=== PATIENT | female | born 1990 | race Caucasian/White ===

== ENCOUNTER → 2018-01-12 10:03 | Outpatient (CLI) | payer MEDICAID, SELFPAY ==
--- NOTE | 2018-01-12 10:13 | XR_ITS ---
XR cervical spine 5V Ordering Physician: Erma Donovan Patient Age: 27 years: Female HISTORY: ITS.REASON: STRAIN OF NECK MUSCLE,MUSCLE PAIN TECHNIQUE: Five-view cervical spine series COMPARISON :10/01/2013 CT C-spine FINDINGS Nonspecific straightening cervical spine. No fracture nor subluxation. This spaces are fairly well-maintained throughout. Facets intact with normal relationships & no remarkable facet hypertrophy/arthropathy . C1 1 C2 relationships appear normal. Prevertebral soft tissues appear normal. The neural foramen are patent bilaterally. Unremarkable. Apices the lungs clear. IMPRESSION: No fracture nor subluxation Cervical spine intact. Nonspecific straightening cervical spine. May merely reflect positioning but can be seen with muscle spasm, neck pain
== END ==
PROVIDERS: PCP Nurse Practitioner; Visit Provider Nurse Practitioner
DX: S16.1XXA Strain of muscle, fascia and tendon at neck level, initial encounter (principal); M79.1 Myalgia
CPT/HCPCS: 72050

== ENCOUNTER → 2018-05-20 08:46 | Outpatient (CLI) | payer MEDICAID, SELFPAY ==
--- NOTE | 2018-05-20 08:58 | US_ITS ---
US gallbladder HISTORY: ITS.REASON: RUQ PAIN ORDERING PHYSICIAN: Yan Hawk MD PATIENT AGE: 27 years Comparison: None FINDINGS: PANCREAS: Unremarkable. No obvious mass or abnormal fluid collection. No ductal dilatation LIVER: No focal liver lesions demonstrated. Homogeneous echogenicity. No intrahepatic biliary ductal dilatation evident RIGHT KIDNEY: There is some mild cortical thinning of the right kidney. No hydronephrosis. GALLBLADDER: No gallstones, gallbladder wall thickening, pericholecystic fluid, or biliary dilatation. IMPRESSION: Negative gallbladder/right upper quadrant ultrasound Mild cortical thinning of the right kidney
--- NOTE | 2018-05-20 12:25 | CT_ITS ---
CT abdomen pelvis w con CLINICAL INDICATION: ITS.REASON: RUQ ABD PAIN NAUSEA ORDERING PHYSICIAN: Zachary Lopez MD PATIENT AGE: 27 years COMPARISON: None TECHNIQUE: Axial images obtained with sagittal and coronal reformats. All CT scans at the facility use one or more dose reduction, viz: automated exposure control, ma/kV adjustment per patient size (including targeted exams where dose is matched to indication, i.e. head), or iterative reconstruction technique. PROCEDURE: Oral Contrast: None IV Contrast: 75 mg of Isovue-370. FINDINGS: The lung bases are clear. The liver, gallbladder, spleen, adrenal glands, pancreas, and kidneys have an unremarkable appearance. No renal or ureteral calculi. No hydronephrosis. No evidence of appendicitis or diverticulitis. There is a small area of fat density in the right adnexa measuring 15 mm suggesting a small dermoid cyst. This is in the region of the right ovary. No pelvic fluid collections. No acute bony anomalies. There is a tiny umbilical hernia which contains fat. No intestinal obstruction or free air. IMPRESSION: 1. No acute findings. 2. Small dermoid in the right adnexal area
== END ==
PROVIDERS: PCP Family Medicine; Visit Provider Family Medicine
DX: R10.11 Right upper quadrant pain (principal); R10.84 Generalized abdominal pain; R11.0 Nausea
CPT/HCPCS: 74177; 76705; Q9967

== ENCOUNTER → 2019-05-12 16:30 | Outpatient (CLI) | payer OTHER, SELFPAY ==
--- NOTE | 2019-05-12 | XR_ITS ---
PROCEDURE: XR ANKLE LT MIN 3V CLINICAL INDICATION: COMPARISON: No exams were available for comparison FINDINGS: There is no acute fracture dislocation or destructive bony lesion. Focal soft tissue swelling is seen over the lateral malleolus. IMPRESSION: No acute fracture or dislocation. Dictated by: Keshav Mathews 05/12/2019 17:16 Electronically signed by Keshav Mathews in [facility] 05/12/2019 17:16
== END ==
PROVIDERS: PCP Family Medicine; Visit Provider Family Medicine
DX: S99.912A Unspecified injury of left ankle, initial encounter (principal)
CPT/HCPCS: 73610

== ENCOUNTER 2021-01-07 12:55 | Emergency (ER) | payer BC, SELFPAY ==
[2021-01-07] VITALS (14 sets, daily range): BP systolic 119–148; BP diastolic 75–98; PULSE 71–110; RESP 21–28; TEMP 36.8; O2SAT 91–98; BMI 42.9
--- NOTE | 2021-01-07 13:13 | XR_ITS ---
PROCEDURE INFORMATION: Exam: XR Chest Exam date and time: 01/07/2021 1:13 PM Age: 30 years old Clinical indication: Shortness of breath; Additional info: Respiratory distress TECHNIQUE: Imaging protocol: XR of the chest. Views: 1 view. COMPARISON: ABDPELW CT abdomen pelvis w con 05/20/2018 12:24 PM FINDINGS: Lungs: Unremarkable. No consolidation. Pleural spaces: Unremarkable. No pleural effusion. No pneumothorax. Heart/Mediastinum: Unremarkable. No cardiomegaly. Bones/joints: Unremarkable. IMPRESSION: No acute findings.
--- NOTE | 2021-01-07 13:26 | HMH.EDGENADL ---
ED Disposition Clinical Impression: Asthma with exacerbation Qualifiers: Asthma severity: severe Asthma persistence: persistent Qualified Code(s): J45.51 - Severe persistent asthma with (acute) exacerbation Disposition: Home, Self-Care Condition on Discharge: Fair Instructions: DI for Shortness of Breath, DI for Asthma -- Adult Prescriptions: Mometasone/Formoterol [Dulera 100 Mcg-5 Mcg Inhaler] 13 gm IH BID 30 Days #1 applic Transmission Status: Pending to [id number] Referrals: Ninfa Ramos APRN [Primary Care Provider] - - Critical Care Critical Care Time: Yes Attestation: On 01/07/21, the high probability of a clinically significant, sudden or life threatening deterioration of the following system(s) required my full and direct attention, intervention and personal management. The time I documented below is in addition to time spent performing reported procedures but includes the following listed in this critical care notation. Vital system(s) involved:: Respiratory Failure My critical care processes included: Assessment & monitoring of V/S, Initial and Re-exams (patient required multiple re-exams and medication redosing due to severe respiratory distress.), Data Review/Interpretation Medical Decision Making - Medical Records Medical records reviewed: Yes: I reviewed the patient's medical records. - Steven Inquiry Pt receiving controlled substance: No Vital Signs: 01/07/21 12:56 01/07/21 13:43 01/07/21 14:00 Pulse Rate 82 74 Pulse Rate [Right Radial] 94 H Respiratory Rate 28 H Blood Pressure 133/88 119/76 Blood Pressure [Right Arm] 138/86 Blood Pressure Mean [Right Arm] 103 Blood Pressure Source [Right Arm] Automatic Cuff Blood Pressure Position [Right Arm] Sitting 02 Sat by Pulse Oximetry 98 97 91 L Oxygen Delivery Method Room Air 01/07/21 14:30 01/07/21 15:01 01/07/21 15:30 Pulse Rate 79 78 71 Pulse Rate [Right Radial] Respiratory Rate Blood Pressure 129/79 122/76 134/98 H Blood Pressure [Right Arm] Blood Pressure Mean [Right Arm] Blood Pressure Source [Right Arm] Blood Pressure Position [Right Arm] 02 Sat by Pulse Oximetry 91 L 94 L 92 L Oxygen Delivery Method 01/07/21 15:50 01/07/21 16:00 01/07/21 16:45 Pulse Rate 85 90 90 Pulse Rate [Right Radial] Respiratory Rate Blood Pressure 132/75 148/88 H Blood Pressure [Right Arm] Blood Pressure Mean [Right Arm] Blood Pressure Source [Right Arm] Blood Pressure Position [Right Arm] 02 Sat by Pulse Oximetry 91 L 92 L Oxygen Delivery Method 01/07/21 17:49 01/07/21 17:50 01/07/21 19:00 Pulse Rate 88 87 110 H Pulse Rate [Right Radial] Respiratory Rate Blood Pressure 132/76 Blood Pressure [Right Arm] Blood Pressure Mean [Right Arm] Blood Pressure Source [Right Arm] Blood Pressure Position [Right Arm] 02 Sat by Pulse Oximetry 91 L Oxygen Delivery Method 01/07/21 19:30 Pulse Rate 105 H Pulse Rate [Right Radial] Respiratory Rate Blood Pressure 133/79 Blood Pressure [Right Arm] Blood Pressure Mean [Right Arm] Blood Pressure Source [Right Arm] Blood Pressure Position [Right Arm] 02 Sat by Pulse Oximetry 95 Oxygen Delivery Method - Lab Data Lab Results 01/07/21 13:50: WBC 9.0, RBC 4.65, Hgb 14.3, Hct 43.0, MCV 92.6, MCH 30.8, MCHC 33.2, RDW 13.2, Plt Count 280, MPV 8.1, Neut % (Auto) 76.4, Lymph % (Auto) 17.9, [place] % (Auto) 4.4, Eos % (Auto) 0.7, Baso % (Auto) 0.6, Neut # (Auto) 6.9, Lymph # (Auto) 1.6, [place] # (Auto) 0.4, Eos # (Auto) 0.1, Baso # (Auto) 0.1 01/07/21 13:50: Sodium 140, Potassium 3.4 L, Chloride 106, Carbon Dioxide 21 L, Anion Gap 16.4 H, BUN 14, Creatinine 0.60, Estimated Creat Clear 116, Estimated GFR 116, Est GFR ( Amer) 140, Glucose 101 H, Calcium 9.4, Magnesium 1.7 Result diagrams: 01/07/21 13:50 01/07/21 13:50 Orders (Tests/Meds): ED MEDICATIONS Generic Name Dose Route Start Last Admin Trade Name
[2021-01-07 13:59] LABS: Basophils # 0.1 K/mm3 (0-0.2); Basophils % 0.6 % (0.1-2.0); Eosinophils # 0.1 K/mm3 (0.0-0.4); Eosinophils % 0.7 % (0.1-12.0); Hemoglobin 14.3 g/dL (12.2-16.2); Lymphocytes # 1.6 K/mm3 (0.7-4.5); Lymphocytes % 17.9 % (10-50); Mean Corpuscular HGB Conc 33.2 g/dL (31.8-35.4); Mean Corpuscular Hemoglobin 30.8 pg (27.0-31.2); Mean Corpuscular Volume 92.6 fl (81-99); Mean Platelet Volume 8.1 fl (7.4-10.4); Monocytes # 0.4 K/mm3 (0.1-1.0); Monocytes % 4.4 % (1.7-9.3); Neutrophils # 6.9 K/mm3 (1.8-7.8); Neutrophils % 76.4 % (37.0-80.0); Platelet Count 280 K/mm3 (142-424); Red Blood Count 4.65 M/mm3 (4.20-5.40); Red Cell Distribution Width 13.2 % (11.5-17.5)
[2021-01-07 14:05] LABS: Chloride 106 mmol/L (98-107); Potassium 3.4 mmoL/L (3.5-5.1); Sodium 140 mmol/L (136-145)
[2021-01-07 14:08] LABS: Anion Gap 16.4 mEq/L (5-15); Blood Urea Nitrogen 14 mg/dl (7-17); Calcium 9.4 mg/dl (8.4-10.2); Carbon Dioxide 21 mmol/L (22.0-30.0); Creatinine Clearance Estimated 116 mL/min (50-200); Estimated Glomerular Filt Rate 116 ml/min (>60); GFR (African American) 140 ML/MIN (>60); Glucose 101 mg/dl (74-100); Magnesium 1.7 mg/dl (1.6-2.3)
--- NOTE | 2021-01-07 16:08 | PC.NURSE ---
RESP CALLED FOR 2ND DUO NEB
--- NOTE | 2021-01-07 16:52 | PC.NURSE ---
pt given warm blanket, pt states feeling better will continue to monitor
[2021-01-07 18:45] LABS: Adenovirus,PCR Not Detected (NotDetected); Bordetella Pertussis Not Detected (NotDetected); Chlamydophila Pneumoniae, PCR Not Detected (NotDetected); Coronavirus 19, PCR Not Detected (NotDetected); Coronavirus 229E Not Detected (NotDetected); Coronavirus NL63 Not Detected (NotDetected); Coronavirus OC43 Not Detected (NotDetected); Coronovirus HKU1,PCR Not Detected (NotDetected); Human Metapneumovirus Not Detected (NotDetected); Influenza A, PCR Not Detected (NotDetected); Influenza AH1, 2009 Not Detected (NotDetected); Influenza AH1, PCR Not Detected (NotDetected); Influenza AH3,PCR Not Detected (NotDetected); Influenza B, PCR Not Detected (NotDetected); Mycoplasma Pneumoniae, PCR Not Detected (NotDetected); Parainfluenza 1, PCR Not Detected (NotDetected); Parainfluenza 2, PCR Not Detected (NotDetected); Parainfluenza 3, PCR Not Detected (NotDetected); Parainfluenza 4, PCR Not Detected (NotDetected); Respiratory Syncytial Virus Not Detected (NotDetected); Rhinovirus/Enterovirus Not Detected (NotDetected)
--- NOTE | 2021-01-07 18:50 | CT_ITS ---
PROCEDURE INFORMATION: Exam: CT Neck With Contrast Exam date and time: 01/07/2021 6:50 PM Age: 30 years old Clinical indication: Dyspnea / difficulty breathing; Patient HX: Asthma difficulty breathing upper airway; Additional info: Upper airway distress; Eval for rpa, epiglottitis, TECHNIQUE: Imaging protocol: Computed tomography images of the neck with contrast. Radiation optimization: All CT scans at this facility use at least one of these dose optimization techniques: automated exposure control; mA and/or kV adjustment per patient size (includes targeted exams where dose is matched to clinical indication); or iterative reconstruction. Contrast material: ISOVUE; Contrast volume: 75 ml; Contrast route: IV; COMPARISON: CR [id number] XR cervical spine 5V 01/12/2018 10:17 AM FINDINGS: Nasopharynx: Unremarkable. Oropharynx: Unremarkable. No significant tonsillar enlargement. Hypopharynx: Unremarkable. Larynx: The epiglottis and aryepiglottic folds are within normal limits. No evidence of epiglottitis. Retropharyngeal space: No evidence of retropharyngeal abscess. Submandibular/Parotid glands: Normal. Glands are normal in size. Thyroid: Normal. No enlarged or calcified nodules. Lymph nodes: No cervical lymphadenopathy. Trachea: Visualized trachea is unremarkable. Lungs: Unremarkable as visualized. Bones/joints: Unremarkable. No acute fracture. Soft tissues: Unremarkable. No significant soft tissue swelling. IMPRESSION: 1. The epiglottis and aryepiglottic folds are within normal limits. 2. No evidence of epiglottitis. 3. No evidence of retropharyngeal abscess. 4. No cervical lymphadenopathy.
== END 2021-01-07 21:05 | disposition home or self-care (01) ==
PROVIDERS: Emergency Provider Emergency Medicine; PCP Nurse Practitioner Family
DX: J45.41 Moderate persistent asthma with (acute) exacerbation (principal)
CPT/HCPCS: 70491; 71045; 80048; 83735; 85025; 87581; 87632; 87798; 96365; 96375; 99282; C9803; Q9967; U0003; U0005

== ENCOUNTER 2021-01-08 11:54 | Emergency (ER) | payer BC, SELFPAY ==
[2021-01-08 11:55] VITALS: BP 137/85; PULSE 67; RESP 20; TEMP 36.9; O2SAT 99; BMI 45.3
--- NOTE | 2021-01-08 11:56 | CT_ITS ---
PROCEDURE: CT ANGIO CHEST PE PROTOCOL CLINCIAL INDICATION: per Dr. Owens - jane Shortness of breath, Covid19 updated COMPARISON: No exams were available for comparison TECHNIQUE: IV Contrast: 70ML Isovue 370 Axial images obtained with sagittal and coronal reformats. All CT scans at the facility use one or more dose reduction, viz: automated exposure control, ma/kV adjustment per patient size (including targeted exams where dose is matched to indication, i.e. head), or iterative reconstruction technique. FINDINGS: HEART AND MEDIASTINAL STRUCTURES: No evidence of pulmonary embolus, aortic aneurysm, or aortic dissection. There is a small amount of intravenous gas in the left brachiocephalic vein, right external jugular, and superior vena cava and may be due to recent IV cannulation LUNGS AND PLEURAL SPACES: Unremarkable. BONY STRUCTURES: No acute bony abnormalities apparent. UPPER ABDOMEN: Unremarkable. ADDITIONAL FINDINGS: No other significant abnormalities. IMPRESSION: No acute finding. No evidence of pulmonary embolus Dictated by: Uriel Meeks MD 01/08/2021 15:00 Uriel Meeks MD in [facility] 01/08/2021 15:00
--- NOTE | 2021-01-08 12:21 | HMH.EDGENADL ---
ED Disposition Clinical Impression: Asthma Qualifiers: Asthma severity: mild Asthma persistence: unspecified Asthma complication type: unspecified Qualified Code(s): J45.909 - Unspecified asthma, uncomplicated Disposition: Home, Self-Care Condition on Discharge: Good Additional Instructions: Follow-up with PCP in 1 to 2 days. Turn to emergency department chest pain, shortness of breath, nausea/vomiting. Referrals: Zion Owens MD [Primary Care Provider] - Time of Disposition: 15:08 - Critical Care Critical Care Time: No Attestation: On 01/08/21, the high probability of a clinically significant, sudden or life threatening deterioration of the following system(s) required my full and direct attention, intervention and personal management. The time I documented below is in addition to time spent performing reported procedures but includes the following listed in this critical care notation. Medical Decision Making - Medical Records Medical records reviewed: Yes: I reviewed the patient's medical records. - Steven Inquiry Pt receiving controlled substance: No Vital Signs: 01/08/21 11:55 01/08/21 12:58 Temperature 98.5 F Temperature Source Oral Pulse Rate 71 Pulse Rate [Left Radial] 67 Respiratory Rate 20 20 Blood Pressure 143/89 H Blood Pressure [Right Arm] 137/85 Blood Pressure Mean [Right Arm] 102 02 Sat by Pulse Oximetry 99 96 Oxygen Delivery Method Room Air - Lab Data Lab results reviewed: Yes: I reviewed the patient's lab results. Lab Results 01/08/21 12:05: WBC 12.7 H D, RBC 4.40, Hgb 13.6, Hct 41.2, MCV 93.6, MCH 30.8, MCHC 33.0, RDW 13.3, Plt Count 261, MPV 8.2, Neut % (Auto) 80.7 H, Lymph % (Auto) 13.5, [place] % (Auto) 4.6, Eos % (Auto) 0.8, Baso % (Auto) 0.4, Neut # (Auto) 10.2 H, Lymph # (Auto) 1.7, [place] # (Auto) 0.6, Eos # (Auto) 0.1, Baso # (Auto) 0.1 01/08/21 12:05: Sodium 139, Potassium 3.7, Chloride 105, Carbon Dioxide 24, Anion Gap 13.7, BUN 13, Creatinine 0.50 L, Estimated Creat Clear 139, Estimated GFR 143, Est GFR ( Amer) 173 D, Glucose 101 H, Calcium 9.0, Total Bilirubin 0.1 L, AST 28, ALT 24, Alkaline Phosphatase 87, Total Protein 7.5, Albumin 4.3, Globulin 3.2, Albumin/Globulin Ratio 1.3 01/08/21 13:18: Serum HCG, Qual Negative Result diagrams: 01/08/21 12:05 01/08/21 12:05 Orders (Tests/Meds): ED MEDICATIONS Generic Name Dose Route Start Last Admin Trade Name Freq PRN Reason Stop Dose Admin Sodium Chloride 10 ml 01/08/21 14:17 01/08/21 14:18 Sodium Chloride 0.9% 10ml Syr (Rad Only) IV 02/07/21 14:16 10 ml NEEDED PRN Administration Maintain IV Site Discontinued Medications Generic Name Dose Route Start Last Admin Trade Name Freq PRN Reason Stop Dose Admin Iopamidol 70 ml 01/08/21 14:17 01/08/21 14:18 Iopamidol-370 (76%);100ml Bottle IV 01/08/21 14:18 70 ml ONCE ONE Administration Medical Decision Narrative: 30yo F sent to the emergency department by her PCP office to rule out pulmonary embolism. Patient is PERC score is 0. Her O2 saturation is anywhere from 96 to 100% on room air. Her heart rate is in the 70s. Clinically, there is no indication of a pulmonary embolism. CT angio of the chest was ordered to help her PCP facilitate further work-up. Patient was also sent for an ABG. I discussed the indications for an ABG and if they are not a painless study with the patient. Patient would prefer to not undergo that study as it is useless in her current clinical setting. Patient's blood work is unremarkable except for a white count of 12.7. This may be secondary to recent steroid use. Patient sent for CT angio of the chest that fails to demonstrate any findings of pulmonary embolism. She is discharged home in stable condition. General Adult HPI - General Chief complaint: Recheck/Abnormal Lab/Rx Stated complaint: possible pulmo embolism Time Seen by Provider: 01/08/21 12:22 Mode of Arrival: Ambulatory [facility]
[2021-01-08 12:23] LABS: Basophils # 0.1 K/mm3 (0-0.2); Basophils % 0.4 % (0.1-2.0); Chloride 105 mmol/L (98-107); Eosinophils # 0.1 K/mm3 (0.0-0.4); Eosinophils % 0.8 % (0.1-12.0); Hematocrit 41.2 % (37.0-47.0); Hemoglobin 13.6 g/dL (12.2-16.2); Lymphocytes # 1.7 K/mm3 (0.7-4.5); Lymphocytes % 13.5 % (10-50); Mean Corpuscular Hemoglobin 30.8 pg (27.0-31.2); Mean Corpuscular Volume 93.6 fl (81-99); Mean Platelet Volume 8.2 fl (7.4-10.4); Monocytes # 0.6 K/mm3 (0.1-1.0); Monocytes % 4.6 % (1.7-9.3); Neutrophils # 10.2 K/mm3 (1.8-7.8); Neutrophils % 80.7 % (37.0-80.0); Platelet Count 261 K/mm3 (142-424); Red Cell Distribution Width 13.3 % (11.5-17.5); White Blood Count 12.7 K/mm3 (4.8-10.8)
[2021-01-08 12:24] LABS: Potassium 3.7 mmoL/L (3.5-5.1); Sodium 139 mmol/L (136-145)
[2021-01-08 12:26] LABS: Alanine Aminotransferase 24 U/L (12-78); Aspartate Amino Transferase 28 U/L (14-36); Blood Urea Nitrogen 13 mg/dl (7-17); Creatinine Clearance Estimated 139 mL/min (50-200); Estimated Glomerular Filt Rate 143 ml/min (>60); GFR (African American) 173 ML/MIN (>60)
[2021-01-08 12:27] LABS: Albumin Level 4.3 g/dl (3.5-5.0); Albumin/Globulin Ratio 1.3 (1.1-1.8); Alkaline Phosphatase 87 U/L (38-126); Anion Gap 13.7 mEq/L (5-15); Carbon Dioxide 24 mmol/L (22.0-30.0); Globulin 3.2 g/dL (1.3-3.2); Glucose 101 mg/dl (74-100); Total Protein,Serum 7.5 g/dl (6.3-8.2)
[2021-01-08 12:29] LABS: Bilirubin,Total 0.1 mg/dl (0.2-1.3)
[2021-01-08 12:58] VITALS: BP 143/89; PULSE 71; RESP 20; O2SAT 96
--- NOTE | 2021-01-08 13:14 | HMH.ITSTN ---
1:14pm dony rivas called and spoke with lina caballero to check on the preg test. Lina states preg test was not back yet.
--- NOTE | 2021-01-08 13:59 | HMH.ITSTN ---
spoke to alysia mills she said 7 minutes left on HCG
[2021-01-08 14:03] LABS: HCG Qualitative, Serum Negative (Negative)
[2021-01-08 15:13] VITALS: BP 139/89; PULSE 89; RESP 18; TEMP 37; O2SAT 100
== END 2021-01-08 15:14 | disposition home or self-care (01) ==
PROVIDERS: Emergency Provider Family Medicine; PCP Emergency Medicine
DX: J45.901 Unspecified asthma with (acute) exacerbation (principal); Z87.891 Personal history of nicotine dependence; Z79.899 Other long term (current) drug therapy
CPT/HCPCS: 36415; 71275; 80053; 84703; 85025; 99282; Q9967

== ENCOUNTER → 2021-05-03 08:42 | Outpatient (CLI) | payer BC, SELFPAY | PROVIDERS: Visit Provider Nurse Practitioner | DX: Z20.822 Contact with and (suspected) exposure to COVID-19 (principal) | CPT/HCPCS: C9803; U0003; U0005 ==

== ENCOUNTER 2022-03-30 09:41 | Emergency (ER) | payer BC, SELFPAY ==
[2022-03-30 09:45] VITALS: BP 137/76; PULSE 101; RESP 18; TEMP 36.8; O2SAT 97; BMI 50.4
--- NOTE | 2022-03-30 10:08 | EXP.UTC ---
Discharge Plan Disposition Patient Disposition: Home, Self-Care Condition: Good Prescriptions Prescriptions: New prednisone [prednisone] 20 mg tablet 20 mg PO BID Qty: 10 0RF No Action albuterol sulfate 90 mcg/actuation HFA aerosol inhaler INHALATION montelukast 10 mg tablet 10 mg PO Label Comments: TAKE 1 TABLET BY MOUTH ONCE DAILY IN THE EVENING FOR 30 DAYS fluticasone propionate 50 mcg/actuation spray,suspension INTRANASAL Label Comments: USE 1 SPRAY(S) IN EACH NOSTRIL TWICE DAILY FOR 30 DAYS diclofenac potassium 50 mg tablet 50 mg PO PRN Label Comments: TAKE 2 TABLETS BY MOUTH WITH ONSET OF PAIN THEN 1 EVERY 8 HOURS NEEDED FOR PAIN. DO NOT EXCEED 3 TABLETS DAILY AFTER FIRST DAY Complete Multivitamin Tablet 1 tab PO DAILY nystatin 100,000 unit/gram cream 1 applic TOPICAL BID Qty: 30 0RF hydroxyzine HCl 10 mg tablet 10 mg PO DAILY PRN (Reason: anxiety) Qty: 30 1RF escitalopram oxalate [Lexapro] 10 mg tablet 10 mg PO DAILY Qty: 30 2RF hydroxyzine pamoate 25 mg capsule 25 mg PO TID Qty: 90 2RF albuterol sulfate 1.25 mg/3 mL solution for nebulization 1.25 mg INHALATION Q4H PRN (Reason: shortness of breath or wheezing) Qty: 90 0RF budesonide-formoterol [Symbicort] 160-4.5 mcg/actuation HFA aerosol inhaler 2 puff INHALATION BID Qty: 10.2 2RF Rx Instructions: Can use up to 8 inhalations a day during acute asthma flare mometasone-formoterol 13 GM HFA aerosol inhaler 13 g inhalation BID 30 Days Qty: 1 0RF Referrals Follow up/Referrals: Mitali Uribe APRN [Primary Care Provider] - See instructions Activity Restrictions/Add. Instructions Additional Instructions/Restrictions: covid swab was sent to lab, call later today for results. self isolate until test results are known to be negative No sign of a bacterial infection. Likely viral. Viruses can take 7-14 days to run their course. Nasal saline and bulb syringe or nose Kelly to remove nasal drainage to help with nasal congestion. Hard to eat, drink, sleep with nasal congestion so important to keep this cleaned out. Monitor temp. Tylenol or Motrin as needed for pain or fever Encourage fluids, water, Gatorade, Powerade, Pedialyte if /toddler/child Warm salt water gargles Warm fluids Sore throat lozenges Sleep elevated Humidifier/vaporizer Follow-up immediately for new or worsening symptoms or no noticeable improvement over the next 48-72 hours. Clinical Impressions Clinical Impression: Upper respiratory infection, Exposure to the flu Instructions Patient Instructions: DI for Viral Upper Respiratory Infection -- Adult Discharge ED Provider: Cheng [place] [facility] [place] General Stated complaint: cough, drainage, BENEDICT, sore throat Time Seen by Provider: 03/30/22 10:08 HEENT Symptoms (Recalled from RN notes): Yes Resp Symptoms (Recalled from RN notes): Yes History of Present Illness Provider Complaint: 31 yr old female presents for sore throat, cough, soa and drainage for a few days. pt states she had a exposure to strep and flu this week. pt states she is having to use her inhaler more this week. Related Data Home Medications Medication Instructions Recorded Confirmed albuterol sulfate 90 mcg/actuation inhalation 05/10/20 03/28/22 aerosol inhaler diclofenac potassium 50 mg tablet 50 mg PO PRN 05/10/20 03/28/22 fluticasone propionate 50 g intranasal 05/10/20 03/28/22 mcg/actuation nasal spray,suspension montelukast 10 mg tablet 10 mg PO 05/10/20 03/28/22 multivitamin,by-bovw-xoigltbo 1 tab PO DAILY 05/10/20 03/28/22 (Complete Multivitamin tablet) Previous Rx's Medication Instructions Recorded mometasone-formoterol HFA 100 13 g inhalation BID 30 days #1 01/07/21 mcg-5 mcg/actuation aerosol inhaler applic albuterol sulfate 1.25 mg/3 mL 1.25 mg (3 mL) inhalation Q4H PRN 01/09/21 solution for nebulization shortness of breath
[2022-03-30 10:21] VITALS: BP 137/76; PULSE 101; RESP 18; TEMP 36.8; O2SAT 97
[2022-03-30 10:23] LABS: UTC Strep Screen (Rapid) Negative (Negative)
[2022-03-30 10:37] LABS: Influenza A, PCR Not Detected (NotDetected); Influenza B, PCR Not Detected (NotDetected)
[2022-03-30 11:01] LABS: Coronavirus 19, PCR Detected (NotDetected)
== END 2022-03-30 10:28 | disposition home or self-care (01) ==
PROVIDERS: Emergency Provider Nurse Practitioner Family; PCP Nurse Practitioner Family
DX: U07.1 COVID-19 (principal)
CPT/HCPCS: 87880; 99212; C9803; G0463; U0003; U0005

== ENCOUNTER 2022-06-09 12:10 | Emergency (ER) | payer BC, SELFPAY ==
[2022-06-09 12:11] VITALS: BP 158/101; PULSE 94; RESP 19; TEMP 37.3; O2SAT 98; BMI 51.5
[2022-06-09 12:15] VITALS: BP 158/101; PULSE 88; O2SAT 98
--- NOTE | 2022-06-09 12:39 | US_ITS ---
PROCEDURE INFORMATION: Exam: US , Transvaginal Exam date and time: 06/09/2022 1:29 PM Age: 31 years old Clinical indication: Lmp or gestational age (in weeks): 5w; Antepartum complications; Bleeding; ; Patient HX: Bhcgs decreasing last week-- bhcg 12 today; Additional info: Abd pain, vag bleed, miscarriage TECHNIQUE: Imaging protocol: Real-time transvaginal obstetrical ultrasound of the maternal pelvis with image documentation. Transvaginal imaging was used for better evaluation of the fetus, adnexa, and/or cervix. COMPARISON: ABDPELW CT abdomen pelvis w con 05/20/2018 12:24 PM FINDINGS: Gestation: No intrauterine gestational sac detected. MATERNAL: Uterus: Uterus measures approximately 8.5 x 4.2 x 5.0 cm diameter. No myometrial mass is seen. Anterior lower uterine myometrial scar noted. The endometrial stripe measured approximately 7 mm thickness, and appears slightly heterogeneous, Image 12. Cervix: Tiny cervical nabothian cysts up to 4 mm. Right ovary/adnexa: The right ovary was not clearly seen, obscured by bowel gas; technologist noted that the study was limited due to large patient body habitus. 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 Left ovary/adnexa: Left ovary measured 2.7 x 1.7 x 1.8 cm diameter, with tiny follicles. No enlarged cyst or mass. Vascular flow noted in the left ovary. Intraperitoneal space: No free fluid is seen in the cul-de-sac. IMPRESSION: 1. No intrauterine gestational sac detected. 2. No ectopic is detected; however, right adnexa is obscured by bowel gas. 3. No free fluid. 4. Considering the clinical history of falling beta HCG levels and bleeding, findings are most likely due to complete AB.
--- NOTE | 2022-06-09 12:40 | PC.NURSE ---
contacted radiology about transvaginal us, calling in tech
--- NOTE | 2022-06-09 12:40 | PC.NURSE ---
lab called for type and screen
--- NOTE | 2022-06-09 12:41 | HMH.EDGENADL ---
Discharge Plan Disposition Patient Disposition: Home, Self-Care Condition: Fair Chief Complaint: Vaginal Bleeding Prescriptions Prescriptions: No Action citalopram 20 mg tablet 20 mg PO DAILY Label Comments: TAKE 1 TABLET BY MOUTH ONCE DAILY montelukast 10 mg tablet 10 mg PO DAILY Label Comments: TAKE 1 TABLET BY MOUTH ONCE DAILY IN THE EVENING FOR 30 DAYS hydroxyzine pamoate 25 mg capsule 25 mg PO TID PRN (Reason: Anxiety) Label Comments: TAKE 1 CAPSULE BY MOUTH THREE TIMES DAILY escitalopram oxalate 10 mg tablet 10 mg PO DAILY Label Comments: TAKE 1 TABLET BY MOUTH ONCE DAILY DIRECTED Referrals Follow up/Referrals: Mitali Uribe APRN [Primary Care Provider] - See instructions Clinical Impressions Clinical Impression: Ovarian cyst, Complete Instructions Patient Instructions: DI for Vaginal Bleeding Print Language Print Language: Moroccan Discharge ED Provider: Sudhir Vazquez General Adult HPI General Chief complaint: Vaginal Bleeding Stated complaint: vaginal bleeding Time Seen by Provider: 06/09/22 16:06 Mode of Arrival: Ambulatory Source of Information: Patient Limitations: No Limitations Description of Symptoms (Recalled from ER Triage Doc. by RN): 31 F, , gestation age of approximately 4-5 weeks. Was seen by her DIMENSIONAL INSPECTOR, Dr. Vance who is with [facility], on Friday and diagnosed with active micarriage. Patient began having untilateral RLQ abdominal pain that radiates into her right inguinal area. Patient reports dark brown bleeding with clots. NAD on arrival, but appears uncomfortable. History of Present Illness HPI narrative: Patient presents to the emergency department abdominal pain and vaginal bleeding. She states that she is just a few weeks along and has a history of being a G6, P2. She denies any fever, chills, cough, congestion, nausea or vomiting. She also describes right lower quadrant abdominal tenderness. She saw her Dr. Vance who is an OB at the [facility] just a few days ago who encouraged her to come to the emergency department with any worsening symptoms. At that time she was found to have a miscarriage. She states that today her vaginal bleeding worsened with maroon-colored clots. Related Data Home Medications Medication Instructions Recorded Confirmed citalopram 20 mg tablet 20 mg PO DAILY Anxiety with 06/09/22 06/09/22 depression escitalopram oxalate 10 mg tablet 10 mg PO DAILY Anxiety with 06/09/22 06/09/22 depression hydroxyzine pamoate 25 mg capsule 25 mg PO TID PRN Anxiety 06/09/22 06/09/22 montelukast 10 mg tablet 10 mg PO DAILY Seasonal Allergies 06/09/22 06/09/22 Allergies Allergy/AdvReac Type Severity Reaction Status Date / Time cefdinir Allergy Severe Hives Verified 06/05/22 14:13 sulfamethoxazole Allergy Severe Hives Verified 06/05/22 14:13 [From Bactrim] trimethoprim [From Bactrim] Allergy Severe Hives Verified 06/05/22 14:13 PFSH [facility] Disclaimer: The information contained in this section may have been updated after the patient was seen, as this information can be updated by other users. Medical History (Updated 06/09/22 @ 16:06 by Sudhir Vazquez MD) Generalized anxiety disorder Grief Miscarriage Family History , SUCCESS COACH) FHx: mental illness Mother Social History , SUCCESS COACH) Smoking Status: Never smoker second hand exposure: No alcohol intake: never counseling given: No substance use type: denies use current occupational status: employed Travel in the last 8 weeks: None adopted: No caregiver/support person: Yes (to her 2 children) foster care: No household members: spouse housing: house lives independently: Yes marital status: number of children: 2 number of grandchildren: 0 education level:
--- NOTE | 2022-06-09 12:55 | PC.NURSE ---
PT IS SLEEPING AT BEDSIDE
[2022-06-09 13:02] LABS: Microscopic, Urine URINE MICROSCOPIC (MICROSCOPIC)
[2022-06-09 13:13] LABS: Basophils # 0.1 K/mm3 (0-0.2); Basophils % 1.3 % (0.1-2.0); Eosinophils # 0.2 K/mm3 (0.0-0.4); Eosinophils % 2.5 % (0.1-12.0); Hematocrit 39.4 % (37.0-47.0); Hemoglobin 13.2 g/dL (12.2-16.2); Lymphocytes # 2.1 K/mm3 (0.7-4.5); Lymphocytes % 27.5 % (10-50); Mean Corpuscular HGB Conc 33.5 g/dL (31.8-35.4); Mean Corpuscular Hemoglobin 28.8 pg (27.0-31.2); Mean Corpuscular Volume 85.9 fl (81-99); Mean Platelet Volume 8.8 fl (7.4-10.4); Monocytes # 0.4 K/mm3 (0.1-1.0); Monocytes % 5.1 % (1.7-9.3); Neutrophils # 4.9 K/mm3 (1.8-7.8); Neutrophils % 63.6 % (37.0-80.0); Platelet Count 323 K/mm3 (142-424); Red Blood Count 4.58 M/mm3 (4.20-5.40); Red Cell Distribution Width 14.5 % (11.5-17.5); White Blood Count 7.8 K/mm3 (4.8-10.8)
[2022-06-09 13:14] LABS: Alanine Aminotransferase 22 U/L (12-78); Albumin Level 4.4 g/dl (3.5-5.0); Albumin/Globulin Ratio 1.3 (1.1-1.8); Alkaline Phosphatase 92 U/L (38-126); Anion Gap 7.8 mEq/L (5-15); Aspartate Amino Transferase 31 U/L (14-36); Bilirubin,Total 0.5 mg/dl (0.2-1.3); Blood Urea Nitrogen 12 mg/dl (7-17); Calcium 8.7 mg/dl (8.4-10.2); Carbon Dioxide 28 mmol/L (22.0-30.0); Chloride 107 mmol/L (98-107); Creatinine Clearance Estimated 115 mL/min (50-200); Estimated Glomerular Filt Rate 115 ml/min (>60); GFR (African American) 139 ML/MIN (>60); Globulin 3.5 g/dL (1.3-3.2); Glucose 85 mg/dl (74-100); Potassium 3.8 mmoL/L (3.5-5.1); Sodium 139 mmol/L (136-145); Total Protein,Serum 7.9 g/dl (6.3-8.2)
--- NOTE | 2022-06-09 13:15 | PC.NURSE ---
ROUNDED ON PT STATES SHE IS HURTING HER SIDE A LITTLE NO OTHER COMPLAINTS AT THIS TIME,NOTIFIED ER NURSE TAKING CARE OF PT
--- NOTE | 2022-06-09 13:20 | PC.NURSE ---
us tech at bedside for transvaginal
[2022-06-09 13:31] LABS: HCG,Quantitative 12 mIU/ml (0-5.42)
[2022-06-09 13:42] LABS: Appearance,Urine CLEAR (Clear); Bilirubin,Urine Negative (Negative); Blood, Urine 2+ (Negative); Color,Urine YELLOW (Yellow); Glucose,Urine (UA) Negative (Negative); Ketones,Urine Negative (Negative); Leukocyte Esterase,Urine Negative (Negative); Nitrate,Urine Negative (Negative); Protein,Urine Negative (Negative); Specific Gravity, Urine 1.015 (1.005-1.030); Urobilinogen,Urine 0.2 EU/dl (0.2)
[2022-06-09 14:03] LABS: Bacteria,Urine Trace /lpf
--- NOTE | 2022-06-09 14:15 | CT_ITS ---
PROCEDURE INFORMATION: Exam: CT Abdomen And Pelvis With Contrast Exam date and time: 06/09/2022 2:43 PM Age: 31 years old Clinical indication: Other: Bleeding; Additional info: Abd pain TECHNIQUE: Imaging protocol: Computed tomography of the abdomen and pelvis with contrast. Radiation optimization: All CT scans at this facility use at least one of these dose optimization techniques: automated exposure control; mA and/or kV adjustment per patient size (includes targeted exams where dose is matched to clinical indication); or iterative reconstruction. Contrast material: ISOVUE; Contrast volume: 75 ml; Contrast route: IV; Other protocol: This patient has received 0 known CTs and 0 known cardiac nuclear medicine studies in the 12 months prior to the current study. COMPARISON: ABDPELW CT abdomen pelvis w con 05/20/2018 12:24 PM FINDINGS: Lungs: No acute findings in the visualized lower lungs. No pulmonary consolidation. Heart: The heart is not enlarged. Liver: Slight hepatomegaly. No discrete mass. Gallbladder and bile ducts: The gallbladder is unremarkable. No calcified stones or biliary dilatation. Pancreas: The pancreas is normal. Spleen: The spleen is normal. Adrenal glands: The adrenal glands are normal. Kidneys and ureters: 6 mm hypoattenuating superomedial left renal cortical nodule coronal image 56, likely tiny cyst, too small to accurately characterize. No suspicious mass. No hydronephrosis, hydroureter, or calcified obstructing ureteral stones. Stomach and bowel: The stomach is normal. A few scattered small intestinal air-fluid levels, no dilated loops or mucosal thickening. No acute findings in the large intestine. Appendix: No findings of appendicitis. Intraperitoneal space: There is no significant free intraperitoneal fluid. There is no free intraperitoneal air. Vasculature: Unremarkable. No abdominal aortic aneurysm. Lymph nodes: No significantly enlarged lymph nodes by short axis criteria. Urinary bladder: The urinary bladder is nearly empty and not well evaluated. No calcified stones. Reproductive: Uterus is unremarkable on the prior CT from 05/20/2018 there is a small dermoid tumor of approximately 1.7 cm diameter containing joshua fat. On today's exam, hypoattenuating right adnexal lesion measures up to 3.6 cm diameter, and on today's exam this has heterogeneous greater density than on the previous CT, with internal density measurements of -30 to +8 HU (previously HU density of-76). This could be enlarging complex dermoid or given the history of recent with no IUP, an ectopic would be another consideration. See coronal series 1001, images 39 -43, sagittal series 1002, images 56 -59, axial series 3, images 81 -85. No adnexal mass or cyst on the left. Bones/joints: There are spinal degenerative changes, with multilevel disc narrrowing and spondylosis.There is no evidence of acute fracture. Mild anterior wedge compression deformities of L1 and L2 vertebrae are chronic compared with 2019. Soft tissues: There is a tiny fatty umbilical hernia; no herniated bowel loops. Mild nonspecific soft tissue edema in the posterior lower back, a common finding. No loculated fluid collection. No mass. IMPRESSION: 1. Right adnexal lesion has enlarged and increased in density compared with 05/20/2018, previously 1.7 cm and now 3.3 cm. This is likely enlarging dermoid/teratoma containing increased fluid since the previous exam, at which time it appeared fatty. Considering the history of , a right adnexal ectopic is not excluded though this would be less likely. No significant free fluid to suggest
[2022-06-09 16:19] VITALS: BP 120/84; PULSE 83; RESP 18; TEMP 36.8; O2SAT 97
--- NOTE | 2022-06-09 16:24 | PC.NURSE ---
PT IS HAVING VAGINAL ULTRASOUND DONE
== END 2022-06-09 16:20 | disposition home or self-care (01) ==
PROVIDERS: Emergency Provider Emergency Medicine; PCP Nurse Practitioner Family
DX: O03.9 Complete or unspecified spontaneous abortion without complication (principal); F41.0 Panic disorder [episodic paroxysmal anxiety]; Z81.3 Family history of other psychoactive substance abuse and dependence
CPT/HCPCS: 74177; 76830; 80053; 81001; 84702; 85025; 86900; 86901; 96361; 96374; 96375; 96376; 99285; J2405; Q9967

== ENCOUNTER → 2022-07-08 10:27 | Outpatient (CLI) | payer BC, SELFPAY ==
[2022-07-08 11:31] LABS: Basophils # 0.1 K/mm3 (0-0.2); Eosinophils # 0.2 K/mm3 (0.0-0.4); Eosinophils % 2.2 % (0.1-12.0); Hematocrit 42.1 % (37.0-47.0); Hemoglobin 13.3 g/dL (12.2-16.2); Lymphocytes # 1.9 K/mm3 (0.7-4.5); Lymphocytes % 25.4 % (10-50); Mean Corpuscular HGB Conc 31.6 g/dL (31.8-35.4); Mean Corpuscular Hemoglobin 28.6 pg (27.0-31.2); Mean Corpuscular Volume 90.6 fl (81-99); Mean Platelet Volume 8.1 fl (7.4-10.4); Monocytes # 0.4 K/mm3 (0.1-1.0); Monocytes % 4.9 % (1.7-9.3); Neutrophils % 66.6 % (37.0-80.0); Platelet Count 344 K/mm3 (142-424); Red Blood Count 4.64 M/mm3 (4.20-5.40); Red Cell Distribution Width 14.7 % (11.5-17.5); White Blood Count 7.5 K/mm3 (4.8-10.8)
[2022-07-08 11:38] LABS: Chloride 101 mmol/L (98-107); Potassium 4.2 mmoL/L (3.5-5.1); Sodium 137 mmol/L (136-145)
[2022-07-08 11:41] LABS: Alanine Aminotransferase 30 U/L (12-78); Albumin Level 4.1 g/dl (3.5-5.0); Albumin/Globulin Ratio 1.5 (1.1-1.8); Alkaline Phosphatase 82 U/L (38-126); Anion Gap 10.2 mEq/L (5-15); Aspartate Amino Transferase 37 U/L (14-36); Bilirubin,Total 0.3 mg/dl (0.2-1.3); Blood Urea Nitrogen 10 mg/dl (7-17); Carbon Dioxide 30 mmol/L (22.0-30.0); Estimated Glomerular Filt Rate 142 ml/min (>60); GFR (African American) 172 ML/MIN (>60); Globulin 2.8 g/dL (1.3-3.2); Total Protein,Serum 6.9 g/dl (6.3-8.2)
[2022-07-08 11:42] LABS: Calcium 8.8 mg/dl (8.4-10.2); Glucose 90 mg/dl (74-100)
[2022-07-08 11:58] LABS: HCG,Quantitative 9 mIU/ml (0-5.42)
== END ==
PROVIDERS: PCP Nurse Practitioner Family; Visit Provider Nurse Practitioner Obstetrics & Gynecology
DX: D27.9 Benign neoplasm of unspecified ovary (principal)
CPT/HCPCS: 36415; 80053; 84702; 85025

== ENCOUNTER 2022-07-10 10:39 | Observation (INO) | payer BC, SELFPAY ==
[2022-07-10] VITALS (13 sets, daily range): BP systolic 117–164; BP diastolic 62–109; PULSE 63–107; RESP 16–20; TEMP 36.4–37; O2SAT 94–100; BMI 50.6
--- NOTE | 2022-07-10 10:55 | CT_ITS ---
FINAL REPORT TECHNIQUE: After the administration of intravenous contrast, axial images were obtained through the abdomen and pelvis by computed tomography. The study was performed with techniques to keep radiation dose as low as reasonably achievable, (ALARA). Individual dose reduction techniques using automated exposure control or adjustment of mA and/or kV according to the patient's size were employed. CLINICAL HISTORY: RLQ pain, hx ovarian cyst COMPARISON: 06/09/2022 FINDINGS: Abdomen: There are mild chronic changes at the lung base ease. The liver parenchyma is homogeneous. The gallbladder is mildly distended. The spleen, pancreas, adrenals and kidneys appear unremarkable. The aorta is normal in caliber. There is no free fluid or adenopathy. Pelvis: The appendix is unremarkable. The urinary bladder is unremarkable. There are small bilateral ovarian cysts. The focus on the right measures 3.4 cm and the focus on the left measures 1.8 cm. Given patient's age these are probably physiologic. IMPRESSION: Bilateral ovarian cysts. Reviewed, Interpreted and Dictated by Holden Miller MD Transcribed by Estee Cruz Authenticated and . [facility]
[2022-07-10 10:59] LABS: Microscopic, Urine URINE MICROSCOPIC (MICROSCOPIC)
[2022-07-10 11:05] LABS: Appearance,Urine CLOUDY (Clear); Bilirubin,Urine Negative (Negative); Blood, Urine 3+ (Negative); Color,Urine STRAW (Yellow); Glucose,Urine (UA) Negative (Negative); Ketones,Urine Negative (Negative); Leukocyte Esterase,Urine Negative (Negative); Nitrate,Urine Negative (Negative); Protein,Urine TRACE (Negative); Urobilinogen,Urine 0.2 EU/dl (0.2)
[2022-07-10 11:24] LABS: Bacteria,Urine Trace /lpf; RBC,Urine 50-100 #/hpf (0-3); Squamous Epithelial Cell,Urine Occasional #/hpf (0-5); WBC,Urine Occasional #/hpf (0-3)
[2022-07-10 11:26] LABS: Chloride 103 mmol/L (98-107)
[2022-07-10 11:27] LABS: Potassium 4.8 mmoL/L (3.5-5.1); Sodium 137 mmol/L (136-145)
[2022-07-10 11:29] LABS: Basophils # 0.1 K/mm3 (0-0.2); Basophils % 1.4 % (0.1-2.0); Eosinophils # 0.2 K/mm3 (0.0-0.4); Eosinophils % 2.6 % (0.1-12.0); Hematocrit 40.8 % (37.0-47.0); Hemoglobin 13.3 g/dL (12.2-16.2); Lactic Acid 0.7 mmol/L (0.7-2.1); Lymphocytes # 1.9 K/mm3 (0.7-4.5); Lymphocytes % 22.7 % (10-50); Mean Corpuscular HGB Conc 32.7 g/dL (31.8-35.4); Mean Corpuscular Hemoglobin 28.7 pg (27.0-31.2); Mean Corpuscular Volume 87.5 fl (81-99); Monocytes # 0.4 K/mm3 (0.1-1.0); Monocytes % 5.2 % (1.7-9.3); Neutrophils # 5.8 K/mm3 (1.8-7.8); Neutrophils % 68.1 % (37.0-80.0); Platelet Count 350 K/mm3 (142-424); Red Blood Count 4.66 M/mm3 (4.20-5.40); Red Cell Distribution Width 14.6 % (11.5-17.5); White Blood Count 8.5 K/mm3 (4.8-10.8)
[2022-07-10 11:30] LABS: Alanine Aminotransferase 53 U/L (12-78); Albumin Level 4.4 g/dl (3.5-5.0); Albumin/Globulin Ratio 1.3 (1.1-1.8); Alkaline Phosphatase 101 U/L (38-126); Anion Gap 12.8 mEq/L (5-15); Aspartate Amino Transferase 75 U/L (14-36); Bilirubin,Total 0.5 mg/dl (0.2-1.3); Blood Urea Nitrogen 22 mg/dl (7-17); Carbon Dioxide 26 mmol/L (22.0-30.0); Creatinine Clearance Estimated 138 mL/min (50-200); Estimated Glomerular Filt Rate 142 ml/min (>60); GFR (African American) 172 ML/MIN (>60); Globulin 3.5 g/dL (1.3-3.2); Glucose 88 mg/dl (74-100); Lipase 193 U/L (23-300); Total Protein,Serum 7.9 g/dl (6.3-8.2)
--- NOTE | 2022-07-10 11:30 | HMH.EDGENADL ---
Discharge Plan Disposition Patient Disposition: Admitted As Inpatient Chief Complaint: Abdominal Pain Prescriptions Prescriptions: No Action escitalopram oxalate [Lexapro] 20 mg tablet 20 mg PO DAILY montelukast [Singulair] 10 mg tablet 10 mg PO DAILY citalopram 20 mg tablet 20 mg PO DAILY Label Comments: TAKE 1 TABLET BY MOUTH ONCE DAILY montelukast 10 mg tablet 10 mg PO DAILY Label Comments: TAKE 1 TABLET BY MOUTH ONCE DAILY IN THE EVENING FOR 30 DAYS hydroxyzine pamoate 25 mg capsule 25 mg PO TID PRN (Reason: Anxiety) Label Comments: TAKE 1 CAPSULE BY MOUTH THREE TIMES DAILY Referrals Follow up/Referrals: Mitali Uribe APRN [Primary Care Provider] - See instructions Clinical Impressions Clinical Impression: Ovarian cyst Instructions Patient Instructions: DI for Acute Abdominal Pain Discharge ED Provider: Enmanuel Waldrop General Adult HPI General Chief complaint: Abdominal Pain Stated complaint: RT lower abd pain, nausea, fever Time Seen by Provider: 07/10/22 11:00 Mode of Arrival: Wheelchair Source of Information: Patient Limitations: No Limitations Description of Symptoms (Recalled from ER Triage Doc. by RN): pt comes in with c/o right sided menstrual pain. pt was seen in ER last month for similar issue. pt has known ovarian cyst and is followed by dr harrison. pt states pain feels stabbing in nature in right ovary into back. History of Present Illness HPI narrative: 31-year-old female with history of ovarian cyst presents with worsening right lower quadrant pain. She was scheduled for surgical removal of the cyst tomorrow had it postponed. She is coming in for persistent constant pain in the right lower quadrant that has been slowly progressive over the last month. No radiation of the pain she denies fevers vomiting diarrhea chest pain. No dysuria no hematuria. She has bleeding as well going through a pad every hour Related Data Home Medications Medication Instructions Recorded Confirmed citalopram 20 mg tablet 20 mg PO DAILY Anxiety with 06/09/22 07/08/22 depression hydroxyzine pamoate 25 mg capsule 25 mg PO TID PRN Anxiety 06/09/22 07/08/22 montelukast 10 mg tablet 10 mg PO DAILY Seasonal Allergies 06/09/22 07/08/22 escitalopram oxalate 20 mg tablet 20 mg PO DAILY 07/08/22 07/08/22 (Lexapro) montelukast 10 mg tablet 10 mg PO DAILY 07/08/22 07/08/22 (Singulair) Allergies Allergy/AdvReac Type Severity Reaction Status Date / Time cefdinir Allergy Severe Hives Verified 07/10/22 10:59 sulfamethoxazole Allergy Severe Hives Verified 07/10/22 10:59 [From Bactrim] trimethoprim [From Bactrim] Allergy Severe Hives Verified 07/10/22 10:59 PFS PFS Disclaimer: The information contained in this section may have been updated after the patient was seen, as this information can be updated by other users. Medical History delivery delivered Generalized anxiety disorder Grief Miscarriage Surgical History H/O laparoscopy [place] teeth removed Family History Mother FHx: mental illness schizoid personality disorder anxiety anger issues Social History Smoking Status: Never smoker second hand exposure: No alcohol intake: never counseling given: No substance use type: denies use current occupational status: employed Travel in the last 8 weeks: None adopted: No caregiver/support person: Yes (to her 2 children) foster care: No household members: spouse housing: house lives independently: Yes marital status: number of children: 2 number of grandchildren: 0 education level: college service: No senior care: No current occupation: works at [employer]
[2022-07-10 11:41] LABS: HCG Qualitative, Serum Positive (Negative)
[2022-07-10 12:19] LABS: HCG,Quantitative 10 mIU/ml (0-5.42)
[2022-07-10 12:52] LABS: Prothrombin Time 9.8 seconds (10.1-12.5)
--- NOTE | 2022-07-10 13:02 | PC.NURSE ---
PATIENT BACK IN ROOM FROM RADIOLOGY
--- NOTE | 2022-07-10 13:26 | PC.NURSE ---
Dr Waldrop speaking with Dr Cook
--- NOTE | 2022-07-10 13:29 | US_ITS ---
FINAL REPORT CLINICAL HISTORY: ovarian torsion-- hx of dermoid -- ct today COMPARISON: 06/09/[address] dated 07/10/2022 FINDINGS: Transvaginal sonographic images of the pelvis were obtained. The uterus measures 8.9 x 4.4 x 3.8 cm. The endometrium measures 6 mm, which is within normal limits. No uterine mass is identified. The right ovary measures 4.3 cm in length and left ovary measures 2.6 cm in length. Normal blood flow seen to the ovaries. There are small cysts or follicles in the left ovary with the largest measuring up to 2.0 x 1.5 cm. There is a large hyperechoic focus measuring 3.4 x 2.9 cm in the right ovary with increase through transmission. This may represent a hemorrhagic cyst or endometrioma. On the CT images, there is no evidence of fat at this location. There is no evidence of free fluid. IMPRESSION: No acute abnormality identified. Reviewed, Interpreted and Dictated by Holden Miller MD Transcribed by Ana María Talbot Authenticated and [facility]
--- NOTE | 2022-07-10 13:50 | PC.NURSE ---
pt to US via wheelchair
--- NOTE | 2022-07-10 14:33 | PC.NURSE ---
pt back to bed from
--- NOTE | 2022-07-10 14:36 | PC.NURSE ---
Dr Waldrop speaking with Dr Cook
--- NOTE | 2022-07-10 14:53 | PC.NURSE ---
CARE MANAGEMENT NOTIFIED OF ADMISSION
--- NOTE | 2022-07-10 15:10 | PC.NURSE ---
report called to OB, awaiting result of covid/flu swab
[2022-07-10 15:13] LABS: Coronavirus 19, PCR Not Detected (NotDetected); Influenza A, PCR Not Detected (NotDetected); Influenza B, PCR Not Detected (NotDetected)
--- NOTE | 2022-07-10 15:34 | HMH.PHAINT1 ---
Pharmacy Intervention Comments: MEDICATION RECONCILIATION COMPLETED ON PATIENT USING EXTERNAL FILL HISTORY FROM PHARMACY. -ANA PAULA SUAREZ, ALAINAD
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
--- NOTE | 2022-07-10 16:58 | PC.NURSE ---
pt arrived to the floor via wheelchair from ED. pt alert and oriented. up as karla. LS clear to auscultate t/o. abdomen soft. bs active t/o. pt reports pain in pelvic area that radiates to her back. pt reports pain is intermittent. pt states she does have vaginal bleeding. Dr. Cook rounded to see patient and stated pt could have regular supper tray. pt informed on pain medication that was ordered.
--- NOTE | 2022-07-10 18:46 | PC.NURSE ---
Hourly rounding, updated on POC. pt states Tylenol did help decrease pain.
--- NOTE | 2022-07-10 20:15 | PC.NURSE ---
PT REPORTS SHE HAS BEEN HAVING SOME VAG.BLEEDING,BUT IT COULD BE HER PERIOD.SHE REPORTS HER PERIODS ARE USUALLY HEAVY,BUT NOT HEAVY THEY WAS LAST NIGHT,AND SHE REPORTS SHE HAS CLOTS WITH HER PERIODS,BLEEDING HAS SLOWED SOME.
--- NOTE | 2022-07-10 23:00 | PC.NURSE ---
PT LAYING IN BED,REPORTS HAVING SOME HOT FLASHES,OFFERED A FAN AND SHE SAID YES .NAREN.TORADOL 30MG GIVEN,PT REPORTS PAIN A 6 WHEN SHE HAS IT,IT IS INTERMITTANT
--- NOTE | 2022-07-10 23:56 | PC.NURSE ---
PT RANG OUT AND SAID HER PAIN WAS WORSE,RATED IT A 7 ON SCALE OF 0-10,MEDICATED WITH NORCO 5/325MG
--- NOTE | 2022-07-11 01:46 | PC.NURSE ---
PT RANG OUT AND WANTED TO KNOW IF THE MEDICINE SHE TOOK COULD BE MAKING HER ITCH,SHE SAID SHE HAS TAKEN TORADOL BEFORE BUT NOT THE NORCO.NOTIFIED AND RECIEVED ORDERS FOR BENADRYL 25MG PO EVERY 4 HOURS PRN FOR ITCHING AND OXYCODONE 5MG PO EVERY 4 HOUR PRN PAIN,THE BENADRYL WAS GIVEN,PT DENIED ANY SHORTNESS OF BREATH OF TROUBLE BREATHING,SHE HAD MADE SCRATCH RADER ON HER ABD.AND LEGS AND ARMS.WILL CONTINUE TO MONITOR
--- NOTE | 2022-07-11 03:03 | PC.NURSE ---
ZOFRAN 4MG IV GIVEN FOR NAUSEA,PT REPORTS THE ITCHING IS BETTER,REPORTS CRAMPING SOME BUT TOLERABLE,NO NEEDS VOICED
[2022-07-11 03:51] VITALS: BP 104/74; PULSE 78; RESP 16; TEMP 36.7; O2SAT 96
--- NOTE | 2022-07-11 05:40 | PC.NURSE ---
PT HAS HAD INTERMITTANT PELVIC PAIN OFF AND ON THOUGHTOUT THE NIGHT MEDICATED PER MAR FOR PAIN,NAUSEA AND ITCHING.THIS MORNING SHE IS RESTING WELL CLEAR LUNGS THROUGHOUT.POSITIVE BOWEL SOUNDS,VAG.BLEEDING SMALL AMT.VOIDING WITHOUT DIFF.
[2022-07-11 06:48] LABS: Basophils # 0.1 K/mm3 (0-0.2); Basophils % 1.5 % (0.1-2.0); Eosinophils # 0.3 K/mm3 (0.0-0.4); Eosinophils % 4.2 % (0.1-12.0); Hematocrit 37.5 % (37.0-47.0); Hemoglobin 12.2 g/dL (12.2-16.2); Lymphocytes % 33.2 % (10-50); Mean Corpuscular HGB Conc 32.4 g/dL (31.8-35.4); Mean Corpuscular Hemoglobin 28.8 pg (27.0-31.2); Mean Corpuscular Volume 88.9 fl (81-99); Mean Platelet Volume 8.2 fl (7.4-10.4); Monocytes # 0.3 K/mm3 (0.1-1.0); Monocytes % 5.7 % (1.7-9.3); Neutrophils # 3.3 K/mm3 (1.8-7.8); Neutrophils % 55.5 % (37.0-80.0); Platelet Count 301 K/mm3 (142-424); Red Blood Count 4.22 M/mm3 (4.20-5.40); Red Cell Distribution Width 14.7 % (11.5-17.5)
[2022-07-11 06:57] LABS: Alanine Aminotransferase 39 U/L (12-78); Albumin Level 3.6 g/dl (3.5-5.0); Albumin/Globulin Ratio 1.3 (1.1-1.8); Alkaline Phosphatase 75 U/L (38-126); Aspartate Amino Transferase 40 U/L (14-36); Bilirubin,Total 0.3 mg/dl (0.2-1.3); Blood Urea Nitrogen 18 mg/dl (7-17); Carbon Dioxide 30 mmol/L (22.0-30.0); Chloride 101 mmol/L (98-107); Chol/HDL Ratio 3.4 (1-3.5); Cholesterol 165 mg/dl (140-200); Creatinine Clearance Estimated 115 mL/min (50-200); Estimated Glomerular Filt Rate 115 ml/min (>60); GFR (African American) 139 ML/MIN (>60); Globulin 2.8 g/dL (1.3-3.2); Glucose 93 mg/dl (74-100); HDL Cholesterol 49 mg/dl (40-60); Magnesium 2.1 mg/dl (1.6-2.3); Phosphorous 3.9 mg/dl (2.5-4.5); Sodium 135 mmol/L (136-145); Total Protein,Serum 6.4 g/dl (6.3-8.2); Triglycerides 68 mg/dl (30-150); VLDL Cholesterol 14 mg/dL (0-40)
[2022-07-11 07:07] LABS: Direct LDL Cholesterol 89.34 mg/dL (100-129)
[2022-07-11 08:00] VITALS: BP 117/78; PULSE 82; RESP 18; TEMP 36.6; O2SAT 92
[2022-07-11 08:30] VITALS: O2SAT 92
--- NOTE | 2022-07-11 08:45 | EXP.DC.SUM ---
General Admission date:: 07/10/22 Discharge date: 07/11/22 HPI HPI HPI: pt comes in with c/o right sided menstrual pain. pt was seen in ER last month for similar issue. pt has known ovarian cyst and is followed by dr harrison. pt states pain feels stabbing in nature in right ovary into back. She was scheduled for surgery tomorrow for a right ovarian cystectomy. She has a dermoid cyst approximately 3-1/2 cm in size on the right ovary. She has also had a positive beta hCG. It was 12 then 9 a couple of days ago and today is 10. She is also bleeding heavily as well. Hospital Course Hospital Course Hospital Course: She was admitted overnight for pain relief and has been taking oral pain medicine as well as Toradol. She did have a reaction to hydrocodone and had severe pruritus. She required Benadryl for this. We have switched her to oxycodone and this seems to work well for her. She has no further episodes of pruritus. She did have a CT scan as well as ultrasound and there was no evidence of appendicitis she continues to have a 3 cm dermoid cyst on the right side. She has surgery scheduled for a laparoscopic ovarian cystectomy next week. We also plan to repeat her beta hCG in a few days. She is discharged home with a prescription for Percocet 5/325 number 20 tablets. She will also take oral Toradol. She will call me if she has any further episodes of excruciating pain. She is doing better this morning. Exam Data for Last 24 hours Vital signs and Labs for Last 24 Hours: Temp Pulse Resp BP Pulse Ox 97.9 F 82 18 117/78 92 L 07/11/22 08:00 07/11/22 08:00 07/11/22 08:00 07/11/22 08:00 07/11/22 08:30 Laboratory Results - last 24 hr 07/10/22 10:45: Urine Color Straw, Urine Appearance Cloudy, Urine pH 7.0, Ur Specific [place] 1.020, Urine Protein Trace, Urine Glucose (UA) Negative, Urine Ketones Negative, Urine Blood 3+, Urine Nitrate Negative, Urine Bilirubin Negative, Urine Urobilinogen 0.2, Ur Leukocyte Esterase Negative, Urine RBC 50-100, Urine WBC Occasional, Ur Squamous Epith Cells Occasional, Urine Bacteria Trace 07/10/22 11:07: WBC 8.5, RBC 4.66, Hgb 13.3, Hct 40.8, MCV 87.5, MCH 28.7, MCHC 32.7, RDW 14.6, Plt Count 350, MPV 8.0, Neut % (Auto) 68.1, Lymph % (Auto) 22.7, [place] % (Auto) 5.2, Eos % (Auto) 2.6, Baso % (Auto) 1.4, Neut # (Auto) 5.8, Lymph # (Auto) 1.9, [place] # (Auto) 0.4, Eos # (Auto) 0.2, Baso # (Auto) 0.1 07/10/22 11:07: Sodium 137, Potassium 4.8, Chloride 103, Carbon Dioxide 26, Anion Gap 12.8, BUN 22 H D, Creatinine 0.50 L, Estimated Creat Clear 138, Estimated GFR 142, Est GFR ( Amer) 172, Glucose 88, Calcium 9.0, Total Bilirubin 0.5, AST 75 H D, ALT 53 D, Alkaline Phosphatase 101, Total Protein 7.9, Albumin 4.4, Globulin 3.5 H, Albumin/Globulin Ratio 1.3, Lipase 193 07/10/22 11:07: Lactate 0.7 07/10/22 11:07: Serum HCG, Qual Positive 07/10/22 11:07: PT 9.8 L, INR 0.90 07/10/22 11:07: HCG, Quant 10 H 07/10/22 15:10: SARS-CoV-2 (PCR) Not detected, Influenza A Untype (PCR) Not detected, Influenza Type B (PCR) Not detected 07/11/22 06:30: WBC 6.0 D, RBC 4.22, Hgb 12.2, Hct 37.5, MCV 88.9, MCH 28.8, MCHC 32.4, RDW 14.7, Plt Count 301, MPV 8.2, Neut % (Auto) 55.5, Lymph % (Auto) 33.2, [place] % (Auto) 5.7, Eos % (Auto) 4.2, Baso % (Auto) 1.5, Neut # (Auto) 3.3, Lymph # (Auto) 2.0, [place] # (Auto) 0.3, Eos # (Auto) 0.3, Baso # (Auto) 0.1 07/11/22 06:30: Sodium 135 L, Potassium 4.0, Chloride 101, Carbon Dioxide 30, Anion Gap 8.0, BUN 18 H, Creatinine 0.60, Estimated Creat Clear 115, Estimated GFR 115, Est GFR ( Amer) 139, Glucose 93, Calcium 8.0 L, Phosphorus 3.9, Magnesium 2.1, Total Bilirubin 0.3, AST 40 H D, ALT 39 D, Alkaline Phosphatase 75, Total Protein 6.4, Albumin 3.6 D, Globulin 2.8, Albumin/Globulin Ratio 1.3, Triglycerides 68, Cholesterol 165, LDL Cholesterol Direct 89.34 L, VLDL Cholesterol 14, HDL Cholesterol 49, Cholesterol/HDL Ratio 3.4 I & O for Last 24 hours: Intake & Output 07/08/22
--- NOTE | 2022-07-11 09:36 | PC.NURSE ---
pharmacy came in and spoke with patient regarding discharge medications. pt informed that Toradol and Percocet were both sent to the pharmacy for pharmacy picking tech. pt given outpatient lab form to have beta hcg obtained on Friday prior to her procedure on . pt aware of procedure and time she needs to arrive at hospital. pt informed of follow up appointment with Dr. Cook on 07/24/22 @ [id number]. discharge teaching provided. Offered wheelchair at discharge, pt declined.
== END 2022-07-11 09:38 | disposition home or self-care (01) ==
LOC: ER 14:44 → OB 15:08
PROVIDERS: Admitting Provider Nurse Practitioner Obstetrics & Gynecology; Emergency Provider Emergency Medicine; PCP Nurse Practitioner Family; Visit Provider Nurse Practitioner Obstetrics & Gynecology
DX: N83.209 Unspecified ovarian cyst, unspecified side (principal); F41.9 Anxiety disorder, unspecified; D27.9 Benign neoplasm of unspecified ovary; N94.6 Dysmenorrhea, unspecified; N92.0 Excessive and frequent menstruation with regular cycle
CPT/HCPCS: 36415; 74177; 76830; 80053; 80061; 81001; 83605; 83690; 83735; 84100; 84702; 84703; 85025; 85610; C9803; G0378; J2405; U0003; U0005

== ENCOUNTER → 2022-07-15 07:52 | Outpatient (CLI) | payer BC, SELFPAY ==
[2022-07-15 09:37] LABS: HCG,Quantitative < 2 mIU/ml (0-5.42)
== END ==
PROVIDERS: PCP Nurse Practitioner Family; Visit Provider Nurse Practitioner Obstetrics & Gynecology
DX: Z32.01 Encounter for pregnancy test, result positive (principal)
CPT/HCPCS: 36415; 84702

== ENCOUNTER 2022-07-15 08:05 | Emergency (ER) | payer BC, SELFPAY ==
[2022-07-15 08:15] VITALS: BP 140/85; PULSE 95; RESP 20; TEMP 37.1; O2SAT 99; BMI 50.6
--- NOTE | 2022-07-15 08:23 | EXP.UTC ---
Discharge Plan Disposition Patient Disposition: Home, Self-Care Condition: Good Prescriptions Prescriptions: New amoxicillin-pot clavulanate 875-125 mg Tablet 1 tab PO Q12H Qty: 20 0RF fluticasone propionate [Flonase Allergy Relief] 50 mcg/actuation spray,suspension 1 spray intranasal DAILY Qty: 16 0RF Rx Instructions: administer into each nostril No Action escitalopram oxalate [Lexapro] 20 mg tablet 20 mg PO DAILY hydroxyzine pamoate 25 mg capsule 25 mg PO TID Label Comments: TAKE 1 CAPSULE BY MOUTH THREE TIMES DAILY ketorolac 10 mg tablet 10 mg PO Q6H oxycodone-acetaminophen [Percocet] 5-325 mg Tablet 1 tab PO Q4-6H PRN (Reason: severe pain.) Qty: 20 0RF Referrals Follow up/Referrals: Mitali Uribe APRN [Primary Care Provider] - See instructions Activity Restrictions/Add. Instructions Additional Instructions/Restrictions: *Monitor Temp, Over the counter Motrin or Tylenol as directed/as needed Tylenol every 4 hours and Motrin every 6 hours (as long as your family doctor has told you that you can take it) for fever or pain. and straight to ER if unable to lower temp less than 101.0 after medication given *Warm salt water gargles may help to soothe the throat *Throat Lozenges? *Warm fluids like tea with honey may help to soothe the throat? *Sleep elevated *Humidifier/Vaporizer Your throat swab was sent for culture. Those results are typically sent to your primary care. Be sure to follow up in 2-3 days with your family doctor/primary care physician if no improvement so they can review those result and treat if necessary. If you don?t have a primary care doctor, I recommend you get one but in the mean time, you will have to return to a walk in clinic Follow up IMMEDIATELY for new or worsening symptoms or no Noticeable improvement over the next 48-72 hours. 911 for difficulty breathing or swallowing You were tested for today for COVID19 your test result should be back in the next 24-48 hours, you may check your results on the [facility] Clinical Impressions Clinical Impression: Sinusitis Instructions Patient Instructions: Sore Throat, Sinusitis, DI for Sinusitis Discharge ED [place] [facility] [place] General Stated complaint: Congestion, sore throat Time Seen by Provider: 07/15/22 08:23 History of Present Illness Provider Complaint: Patient states that she feels like she has a sinus infection States that she is having sinus pain and pressure, pain in left ear, sore throat, pressure behind her eyes and headache States that she is suppose to have a procedure done on and wanted to get it taken care of before then Related Data Home Medications Medication Instructions Recorded Confirmed hydroxyzine pamoate 25 mg capsule 25 mg PO TID Anxiety 06/09/22 07/15/22 escitalopram oxalate 20 mg tablet 20 mg PO DAILY MOOD 07/08/22 07/15/22 (Lexapro) ketorolac 10 mg tablet 10 mg PO Q6H . 07/15/22 07/15/22 Previous Rx's Medication Instructions Recorded oxycodone-acetaminophen 5 mg-325 1 tab PO Q4-6H PRN severe pain. 07/11/22 mg tablet (Percocet) #20 tabs amoxicillin 875 mg-potassium 1 tab PO Q12H #20 tabs 07/15/22 clavulanate 125 mg tablet fluticasone propionate 50 1 spray intranasal DAILY #16 grams 07/15/22 mcg/actuation nasal spray,suspension (Flonase Allergy Relief) Allergies Allergy/AdvReac Type Severity Reaction Status Date / Time cefdinir Allergy Severe Hives Verified 07/15/22 08:26 sulfamethoxazole Allergy Severe Hives Verified 07/15/22 08:26 [From Bactrim] trimethoprim [From Bactrim] Allergy Severe Hives Verified 07/15/22 08:26 [facility] Disclaimer: The information contained in this section may have been updated after the patient was seen, as this information can be updated by other users. Medical History delivery d
[2022-07-15 08:38] LABS: UTC Strep Screen (Rapid) Negative (Negative)
[2022-07-15 08:46] VITALS: BP 140/85; PULSE 95; RESP 20; TEMP 37.1; O2SAT 99
== END 2022-07-15 08:46 | disposition home or self-care (01) ==
PROVIDERS: Emergency Provider Nurse Practitioner; PCP Nurse Practitioner Family
DX: J01.90 Acute sinusitis, unspecified (principal); R07.0 Pain in throat
CPT/HCPCS: 87880; 99212; 99214; G0463

== ENCOUNTER 2022-07-18 06:10 | Day surgery (SDC) | payer BC, SELFPAY ==
[2022-07-17 13:24] VITALS: BMI 50.6
[2022-07-18] VITALS (9 sets, daily range): BP systolic 117–160; BP diastolic 74–107; PULSE 74–94; RESP 12–20; TEMP 36.2–43; O2SAT 89–99
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
--- NOTE | 2022-07-18 09:05 | EXP.ANES.I ---
[facility] Anesthesia Record Part I Anesthesia Record I Intake, IV Amount: 1,600 Estimated blood loss (mL): 50 Urine output (mL): 200 Blood Pressure: 140/85 SaO2: 96 Pulse Rate: 94 Respiratory Rate: 12 Temperature: 97.2 F Patient is:: Awake and Stable Stable to PACU at:: 09:05
--- NOTE | 2022-07-18 09:09 | EXP.OP.NOTE ---
Date of procedure: 07/18/22 Pre-op Diagnosis:: Right lower quadrant pain, right ovarian dermoid cyst Post-op Diagnosis:: Right lower quadrant pain, right ovarian dermoid cyst, possible endometriosis, infarcted sigmoid epiploica, omental adhesion Procedure performed:: Laparoscopic right ovarian cystectomy, removal of small infarcted epiploica, removal of omental adhesion Surgeon:: Royce Cook MD REGULATORY AUDITOR:: Yong Valenzuela Anesthesia: GETA Estimated blood loss (mL): 0 Clinical Note:: She is a 31-year-old lady who has severe right-sided pain. An ultrasound showed that she had a dermoid cyst on the right ovary that had grown from 1.7 to 3.4 cm in size. As result of this she was offered right ovarian cystectomy. Operative findings:: She had an enlarged right ovary and within the right ovary was a dermoid cyst that was filled with thick sebaceous material. In the deep pelvis there was an epiploica that looked infarcted. Along the anterior aspect of the uterus there were multiple small vesicles possibly consistent with endometriosis. There was an adhesion of the omentum from the umbilicus. Operative note:: She was taken the operating room where general anesthesia was found to be adequate. She is prepped draped normal sterile fashion in the semilithotomy position. A weighted speculum placed in vagina and the antilipid the cervix was grasped with a tenaculum. I then dilated the cervix to approximately 4 mm and inserted a Iva uterine manipulator into the uterine cavity. The balloon was insufflated. I then changed gloves. I injected 10 cc of 0.25% ropivacaine around the umbilicus and made a small incision within the umbilicus. I inserted a Veress needle into the abdominal cavity and after assuring its placement insufflated the abdominal cavity with carbon oxide gas to a pressure of 20 mmHg. I then inserted an 11 mm trocar under direct vision. I injected through and through the pubic hairline, injected through and through and then placed a 5 mm trocar here under direct vision. I went lateral to the inferior gastric arteries, injected through and through with a spinal needle and injected ropivacaine here. I then inserted a 5 mm trocar under direct vision. The pelvis was visualized and appeared completely normal. There were some vesicles on the anterior uterus that appeared to be endometriosis. There was a couple of small areas on the ovary that looked like old endometriosis. They were not powder bauman but more brown stained. There was no evidence of endometriosis in the deep pelvis. The upper abdomen appeared normal. The appendix appeared normal. The appendix itself was somewhat hypervascular but otherwise there was no evidence of appendicitis. The findings were as previously dictated. I then grasped the right ovary and using harmonic scalpel opened up the outside part of the ovary. I then peeled out of the dermoid cyst in its entirety and it was intact. There was a small hole at the top of the cyst and a small amount of sebaceous material was seen extruding from this. I then turned my attention to the small epiploica which I reviewed was able to easily remove with harmonic scalpel. I then changed camera to a 5 mm camera and I inserted it through the suprapubic port. Using harmonic scalpel I was able to take down the thick adhesion just below the umbilicus. I then removed the ovarian cyst by placing an Endo Catch bag through the umbilical port and putting the cyst as well as the epiploica in the bag. This was removed through the umbilical port. I then changed back to the 11 mm camera at the umbilical port. There was a small amount of bleeding around the edge of the ovarian tissue and using harmonic scalpel I was able to obtain excellent hemostasis here. The pelvis was then rinsed well. I then injected powdered Surgicel into the ovarian defect. Hemostasis was once again assured. The gas was letter the abdomen and the secondary trocars removed under d
--- NOTE | 2022-07-19 07:00 | EXP.ANES.II ---
[facility] Anesthesia Record Part II Anesthesia Record Part II Discharge Time: 09:35 Destination: Surgical Day Care (OP Surgery) PACU nurse assessment reviewed?: Yes Patient Condition:: Good Anesthesia Complications:: None Swallowing reflex intact?: Yes Cyanosis?: No Blood Pressure: 138/83 Pulse Rate: 83 Temperature: 97.4 F Mental Status: Alert & Oriented Pain level:: 8 Nausea and/or vomitting:: None Intake, IV Amount: 0
[2022-07-19 07:01] VITALS: BP 138/83; PULSE 83; TEMP 36.3
== END 2022-07-18 10:10 | disposition home or self-care (01) ==
PROVIDERS: PCP Nurse Practitioner Family; Visit Provider Nurse Practitioner Obstetrics & Gynecology
PROC: 0TTB4ZZ Resection of Bladder, Percutaneous Endoscopic Approach (ICD-10-PCS; CPT 51999; principal; 2022-07-18 07:30)
DX: D27.0 Benign neoplasm of right ovary (principal); K66.0 Peritoneal adhesions (postprocedural) (postinfection); Z79.899 Other long term (current) drug therapy; R10.31 Right lower quadrant pain
CPT/HCPCS: 58662; 49329; 96374; J2405

== ENCOUNTER → 2022-08-02 08:43 | Outpatient (CLI) | payer BC, SELFPAY ==
--- NOTE | 2022-08-02 08:48 | US_ITS ---
FINAL REPORT CLINICAL HISTORY: UNSPECIFIED ABDOMINAL PAIN FINDINGS: Sonographic images of the abdomen were obtained. The liver has an unremarkable appearance with normal echogenicity. The gallbladder has an unremarkable appearance without evidence of gallstones. There is no evidence of biliary ductal dilatation. The common hepatic duct measures 4 mm, which is within normal limits. Limited images of the pancreas are unremarkable. The spleen size is normal. The right kidney measures 12.5 cm in length. The left kidney measures 12.4 cm in length. There is normal renal echogenicity. There is no evidence of hydronephrosis. The aorta has an unremarkable appearance. Limited images of the inferior vena cava are unremarkable. IMPRESSION: Unremarkable abdominal ultrasound with no acute abnormality identified. Reviewed, Interpreted and Dictated by Thomas Gay III, MD Transcribed by Verna Romero Authenticated and [facility]
--- NOTE | 2022-08-02 08:49 | US_ITS ---
FINAL REPORT CLINICAL HISTORY: UNSPECIFIED ABDOMINAL PAIN FINDINGS: Sonographic images of the pelvis were obtained. The uterus measures 8.5 x 4.4 x 4.9 cm. No mass or nodule is identified. The endometrium measures 12 mm which is within normal limits. The right ovary measures up to 3.2 cm. The left ovary measures up to 3.0 cm. Small follicles are seen in both ovaries. Normal blood flow is identified. There is a small amount of free fluid, may be physiologic or reactive. IMPRESSION: Small amount of pelvic free fluid, may be physiologic or reactive. Reviewed, Interpreted and Dictated by Thomas Gay III, MD Transcribed by Verna Romero Authenticated and [facility]
== END ==
PROVIDERS: PCP Nurse Practitioner Family; Visit Provider Nurse Practitioner Family
DX: R10.9 Unspecified abdominal pain (principal); R10.2 Pelvic and perineal pain
CPT/HCPCS: 76700; 76830

== ENCOUNTER 2022-09-01 09:09 | Emergency (ER) | payer BC, SELFPAY ==
[2022-09-01 09:20] VITALS: BP 116/77; PULSE 69; RESP 20; TEMP 36.5; O2SAT 98; BMI 49.7
[2022-09-01 09:44] LABS: UTC Strep Screen (Rapid) Negative (Negative)
[2022-09-01 09:46] VITALS: BP 116/77; PULSE 69; RESP 20; TEMP 36.5; O2SAT 98
--- NOTE | 2022-09-01 09:55 | EXP.UTC ---
Discharge Plan Disposition Patient Disposition: Home, Self-Care Condition: Good Prescriptions Prescriptions: New prednisone [prednisone] 20 mg tablet 20 mg PO BID 5 Days Qty: 10 0RF benzonatate 100 mg capsule 100 mg PO TID PRN (Reason: cough) Qty: 30 0RF amoxicillin-pot clavulanate 875-125 mg Tablet 1 tab PO Q12H Qty: 20 0RF guaifenesin [Mucinex] 600 mg tablet extended release 12hr 1,200 mg PO BID PRN (Reason: cough) Qty: 20 0RF albuterol sulfate [Proventil HFA] 90 mcg/actuation HFA aerosol inhaler 1 - 2 inh inhalation Q6H PRN (Reason: shortness of breath or wheezing) Qty: 8.5 0RF No Action escitalopram oxalate [Lexapro] 20 mg tablet 20 mg PO DAILY hydroxyzine pamoate 25 mg capsule 25 mg PO BID Label Comments: TAKE 1 CAPSULE BY MOUTH THREE TIMES DAILY ketorolac 10 mg tablet 10 mg PO Q6H diphenhydramine HCl 50 mg Capsule 50 mg PO DAILY fluticasone propionate [Flonase Allergy Relief] 50 mcg/actuation spray,suspension 1 spray intranasal DAILY Rx Instructions: administer into each nostril oxycodone-acetaminophen [Percocet] 5-325 mg Tablet 1 tab PO Q4-6H PRN (Reason: severe pain.) Qty: 20 0RF Referrals Follow up/Referrals: Mitali Uribe APRN [Primary Care Provider] - See instructions Activity Restrictions/Add. Instructions Additional Instructions/Restrictions: Start antibiotic today. Be sure to complete entire prescription even if feeling better Monitor temp. Tylenol every 4 hours as needed and / or ibuprofen every 6 hours as needed ( As long as your primary care physician has told you that it ok to take both. For fever/aches/pains ER if no less than 101 despite Tylenol or Motrin Humidifier/vaporizer or hot steamy shower Inhaler every 4-6 hours as needed like we discussed. If unsure how to use it, ask pharmacist to demonstrate how. Should help open airways and improve cough, wheezing, and shortness of breath Mucinex during the day for your cough and cough suppressant only at night. Be sure to drink lots of water. *Tessalon Perles will not cause drowsiness but use at bedtime to help stop cough so that you may get some rest. *Start steroid today. Helps with inflammation therefore, cough and wheezing. Follow directions on the package. Reviewed side effects. Patient reports taking them before. Follow up IMMEDIATELY for new or worsening of symptoms OR no noticeable improvement over the next 48-72 hours. 911 immediately for any life threatening symptoms such as chest pain or difficulty breathing Discharge ED Provider: Mae Lopez [facility] [place] [place] HPI General Stated complaint: Congestion, drainage, cough, sore throat, headache Mode of Arrival: Ambulatory Source of Information: Patient Limitations: No Limitations Time Seen by Provider: 09/01/22 09:55 Description of Symptoms (Recalled from Triage Doc. by RN): PATIENT C/O SOA, PRODUCTIVE COUGH, NASAL CONGESTION, FATIGUE, LETHARGY, SINUS PRESSURE AND SORE THROAT THAT STARTED FridayENT Symptoms (Recalled from RN notes): Yes Resp Symptoms (Recalled from RN notes): Yes Skin Symptoms (Recalled from RN notes): No MS Symptoms (Recalled from RN notes): No Functional Status (Recalled from RN notes): WNL History of Present Illness Provider Complaint: Patient states that she started feeling bad about a week ago and thought it was just allergies but has continued to get worse States that she has been having sinus pain and pressure, drainage, sore throat and feeling achy and tired States that she has asthma but hasnt had any issues with it but she woke up this morning and felt a little SOA like she couldnt get a deep breath States that at times she will cough up mucous Related Data Home Medications Medication Instructions Recorded Confirmed hydroxyzine pamoate 25 mg capsule 25 mg PO BID Anxiety 06/09/22 08/23/22 escitalopram oxalate 20 mg tablet 20 mg PO DAILY
[2022-09-01 10:16] LABS: UTC Pregnancy Test, Urine Negative (Negative)
== END 2022-09-01 10:22 | disposition home or self-care (01) ==
PROVIDERS: Emergency Provider Nurse Practitioner; PCP Nurse Practitioner Family
DX: J20.9 Acute bronchitis, unspecified (principal); J01.90 Acute sinusitis, unspecified; R06.02 Shortness of breath; F33.9 Major depressive disorder, recurrent, unspecified; F41.9 Anxiety disorder, unspecified; E66.01 Morbid (severe) obesity due to excess calories; Z87.891 Personal history of nicotine dependence
CPT/HCPCS: 81025; 87880; 99212; 99214; G0463

== ENCOUNTER → 2022-09-06 15:41 | Outpatient (CLI) | payer BC, SELFPAY ==
[2022-09-06 17:09] LABS: HCG,Quantitative 74 mIU/ml (0-5.42)
[2022-09-08 08:12] LABS: Progesterone 11.3 ng/mL (.)
== END ==
PROVIDERS: PCP Nurse Practitioner Family; Visit Provider Nurse Practitioner Obstetrics & Gynecology
DX: N92.6 Irregular menstruation, unspecified (principal); Z32.00 Encounter for pregnancy test, result unknown
CPT/HCPCS: 36415; 84144; 84702

== ENCOUNTER → 2022-09-09 11:45 | Outpatient (CLI) | payer BC, SELFPAY ==
[2022-09-09 12:27] LABS: HCG,Quantitative 292 mIU/ml (0-5.42)
== END ==
PROVIDERS: PCP Nurse Practitioner Family; Visit Provider Nurse Practitioner Obstetrics & Gynecology
DX: N92.6 Irregular menstruation, unspecified (principal); Z32.00 Encounter for pregnancy test, result unknown
CPT/HCPCS: 36415; 84702

== ENCOUNTER 2022-10-06 09:05 | Emergency (ER) | payer BC, SELFPAY ==
[2022-10-06 09:06] VITALS: BP 120/78; PULSE 82; RESP 18; TEMP 36.9; O2SAT 98; BMI 51.5
--- NOTE | 2022-10-06 09:12 | EXP.UTC ---
Discharge Plan Disposition Patient Disposition: Home, Self-Care Condition: Good Prescriptions Prescriptions: New amoxicillin [amoxicillin] 500 mg tablet 500 mg PO TID 10 Days Qty: 30 0RF promethazine 25 mg tablet 25 mg PO TID PRN (Reason: nausea and vomiting) Qty: 20 0RF albuterol sulfate [Ventolin HFA] 90 mcg/actuation HFA aerosol inhaler 2 puff inhalation Q6H PRN (Reason: shortness of breath or wheezing) Qty: 6.7 0RF No Action escitalopram oxalate [Lexapro] 20 mg tablet 20 mg PO DAILY Qty: 90 0RF hydroxyzine pamoate 25 mg capsule 25 mg PO BID Qty: 60 1RF ketorolac 10 mg tablet 10 mg PO Q6H prednisone [prednisone] 20 mg tablet 20 mg PO BID 5 Days Qty: 10 0RF benzonatate 100 mg capsule 100 mg PO TID PRN (Reason: cough) Qty: 30 0RF amoxicillin-pot clavulanate 875-125 mg Tablet 1 tab PO Q12H Qty: 20 0RF guaifenesin [Mucinex] 600 mg tablet extended release 12hr 1,200 mg PO BID PRN (Reason: cough) Qty: 20 0RF albuterol sulfate [Proventil HFA] 90 mcg/actuation HFA aerosol inhaler 1 - 2 inh inhalation Q6H PRN (Reason: shortness of breath or wheezing) Qty: 8.5 0RF diphenhydramine HCl 50 mg Capsule 50 mg PO DAILY fluticasone propionate [Flonase Allergy Relief] 50 mcg/actuation spray,suspension 1 spray intranasal DAILY Rx Instructions: administer into each nostril oxycodone-acetaminophen [Percocet] 5-325 mg Tablet 1 tab PO Q4-6H PRN (Reason: severe pain.) Qty: 20 0RF Referrals Follow up/Referrals: Mitali Uribe APRN [Primary Care Provider] - See instructions Activity Restrictions/Add. Instructions Additional Instructions/Restrictions: Drink plenty of fluids. Take tylenol or ibuprofen for pain or fever. Take the medications as directed. Follow up with your regular doctor. Follow up with your home energy inspector doctor. GO TO THE ER FOR ANY WORSENING SYMPTOMS Clinical Impressions Clinical Impression: Sinusitis, Bronchitis, , History of asthma Instructions Patient Instructions: Sinusitis, DI for Sinusitis Discharge ED Provider: Fredy Buckner [facility] General Stated complaint: SOA,nausea, 9 weeks Time Seen by Provider: 10/06/22 09:12 History of Present Illness Provider Complaint: She states that for the past 1 week she has had sinus congestion and chest congestion. She is 9 weeks . She is having frequent episodes of nausea related to her . She states that when she coughs she gets nauseated and vomits. Related Data Home Medications Medication Instructions Recorded Confirmed ketorolac 10 mg tablet 10 mg PO Q6H . 07/15/22 08/23/22 diphenhydramine HCl 50 mg capsule 50 mg PO DAILY allergies 07/18/22 08/23/22 fluticasone propionate 50 1 spray intranasal DAILY allergies\ 07/18/22 08/23/22 mcg/actuation nasal spray,suspension (Flonase Allergy Relief) Previous Rx's Medication Instructions Recorded oxycodone-acetaminophen 5 mg-325 1 tab PO Q4-6H PRN severe pain. 07/18/22 mg tablet (Percocet) #20 tabs albuterol sulfate 90 mcg/actuation 1 - 2 inh inhalation Q6H PRN 09/01/22 aerosol inhaler (Proventil HFA) shortness of breath or wheezing #8.5 grams amoxicillin 875 mg-potassium 1 tab PO Q12H #20 tabs 09/01/22 clavulanate 125 mg tablet benzonatate 100 mg capsule 100 mg PO TID PRN cough #30 caps 09/01/22 guaifenesin 600 mg tablet, 1,200 mg PO BID PRN cough #20 tabs 09/01/22 extended release 12 hr (Mucinex) prednisone 20 mg tablet 20 mg PO BID 5 days #10 tabs 09/01/22 escitalopram oxalate 20 mg tablet 20 mg PO DAILY MOOD #90 tabs 10/02/22 (Lexapro) hydroxyzine pamoate 25 mg capsule 25 mg PO BID Anxiety #60 caps 10/02/22 albuterol sulfate 90 mcg/actuation 2 puff inhalation Q6H PRN 10/06/22 aerosol inhaler (Ventolin HFA) shortness of breath or wheezing #6.7 grams amoxicillin 500 mg tablet 500 mg PO TID 10 days #30 tabs 10/06/22 promethazine 25 mg tablet 25 mg PO TID PRN nause
[2022-10-06 09:59] VITALS: BP 120/78; PULSE 82; RESP 18; TEMP 36.9; O2SAT 98
== END 2022-10-06 10:01 | disposition home or self-care (01) ==
PROVIDERS: Emergency Provider Nurse Practitioner Family; PCP Nurse Practitioner Family
DX: O99.511 Diseases of the respiratory system complicating pregnancy, first trimester (principal); J20.9 Acute bronchitis, unspecified; J01.90 Acute sinusitis, unspecified; Z3A.09 9 weeks gestation of pregnancy; J45.909 Unspecified asthma, uncomplicated; F41.1 Generalized anxiety disorder; Z87.891 Personal history of nicotine dependence
CPT/HCPCS: 99212; 99214; G0463

== ENCOUNTER → 2022-10-15 11:27 | Outpatient (CLI) | payer BC, SELFPAY ==
[2022-10-15 12:10] LABS: Basophils # 0.1 K/mm3 (0-0.2); Basophils % 0.4 % (0.1-2.0); Eosinophils # 0.2 K/mm3 (0.0-0.4); Eosinophils % 1.9 % (0.1-12.0); Hematocrit 37.9 % (37.0-47.0); Hemoglobin 11.9 g/dL (12.2-16.2); Lymphocytes # 1.8 K/mm3 (0.7-4.5); Lymphocytes % 16.7 % (10-50); Mean Corpuscular HGB Conc 31.5 g/dL (31.8-35.4); Mean Corpuscular Hemoglobin 27.9 pg (27.0-31.2); Mean Corpuscular Volume 88.6 fl (81-99); Mean Platelet Volume 7.8 fl (7.4-10.4); Monocytes # 0.6 K/mm3 (0.1-1.0); Monocytes % 5.1 % (1.7-9.3); Neutrophils # 8.2 K/mm3 (1.8-7.8); Neutrophils % 75.9 % (37.0-80.0); Platelet Count 306 K/mm3 (142-424); Red Blood Count 4.27 M/mm3 (4.20-5.40); Red Cell Distribution Width 14.6 % (11.5-17.5); White Blood Count 10.8 K/mm3 (4.8-10.8)
[2022-10-16 08:23] LABS: HSV 1 IgG, Type Spec <0.91 index (0.00-0.90); HSV 2 IgG, Type Spec <0.91 index (0.00-0.90)
[2022-10-16 09:19] LABS: HIV Screen 4th Generation wRfx Non Reactive (Non Reactive)
[2022-10-16 11:13] LABS: Rapid Plasma Reagin Ab Titer Non Reactive (NonRea<1:1)
[2022-11-07 00:10] LABS: Hepatitis B Surface Antigen Negative; Hepatitis C Antibody Non Reactive
== END ==
PROVIDERS: PCP Nurse Practitioner Family; Visit Provider Nurse Practitioner Obstetrics & Gynecology
DX: Z34.91 Encounter for supervision of normal pregnancy, unspecified, first trimester (principal); Z3A.10 10 weeks gestation of pregnancy
CPT/HCPCS: 85025; 86593; 86695; 86703; 86762; 86790; 86850; 87086; 87340; 87380; G0432

== ENCOUNTER → 2022-10-25 13:43 | Outpatient (CLI) | payer BC, SELFPAY ==
--- NOTE | 2022-10-25 13:43 | US_ITS ---
PROCEDURE: US OB <= 14 WEEKS FETUS CLINICAL INDICATION: for dates COMPARISON: No exams were available for comparison FINDINGS: From her last menstrual period she is 11weeks 6days. An intrauterine gestational sac is present with a pole with a crown-rump length of 4.76cm correlating to gestational age of 11weeks 4days. heart tones are present with an FHR of 161bpm. . The right ovary is seen and appears normal. Difficult to visualize. The left ovary is seen and appears normal. There are 2 small follicles in the left ovary There is no fluid in the cul-de-sac. IMPRESSION: 1. Single, viable fetus within the uterine cavity. 2. There is heart rate activity and the fetus measures 11 weeks and 4 days. 3. Size and dates are congruent. 4. Ovaries are seen and appear normal. Dictated by: Royce Cook MD 10/27/2022 17:48 Royce Cook MD in OV 10/27/2022 17:48
== END ==
LOC: RAD 13:43
PROVIDERS: PCP Nurse Practitioner Family; Visit Provider Nurse Practitioner Obstetrics & Gynecology
DX: Z34.91 Encounter for supervision of normal pregnancy, unspecified, first trimester (principal); Z3A.10 10 weeks gestation of pregnancy
CPT/HCPCS: 76801

== ENCOUNTER 2022-12-04 10:50 | Emergency (ER) | payer SELFPAY ==
[2022-12-04 11:00] VITALS: BP 131/95; PULSE 111; RESP 18; TEMP 36.7; O2SAT 95; BMI 53.1
--- NOTE | 2022-12-04 11:18 | US_ITS ---
PROCEDURE: US OB >= 14 WEEKS FETUS CLINICAL INDICATION: 17 wks preg, pain and sensation of fluid leaking COMPARISON: US US OB <= 14 WEEKS FETUS from 10/25/2022 FINDINGS: Transabdominal and transvaginal sonographic images of the uterus and pelvis were obtained. The following parameters are obtained: From her established due date she is 17weeks 4days Viable fetus in the breech presentation with a posterior placenta grade 1. The placenta is previa and covers the os. heart rate: 147bpm bpm. Cervix measures 3.4 cm. BPD: 17weeks 3 days OFD: 17weeks 5 days HC: 17weeks 1 day AC: 17weeks 0 days FL: 17weeks 3 days HC/AC: 1.22 Cephalic index: 0.76 FL/BPD: 0.65 FL/AC: 0.22 Amniotic fluid appears normal. Maximum vertical pocket is 5.8 cm. Both ovaries are seen and appear normal. There is a small follicle on the left ovary. No obvious anomalies evident. nose and lips seen, cord insertion, lateral ventricles, arms and legs, bladder, appear normal. IMPRESSION: 1. Viable fetus in the breech presentation. 2. There is a posterior placenta that is complete previa that is confirmed transvaginally. 3. The fluid is normal with a maximum vertical pocket of 5.8 cm. 4. Limited anatomy appears normal. 5. There has been good interval growth. Dictated by: Royce Cook MD 12/04/2022 13:34 Royce Cook MD in OV 12/04/2022 13:34
--- NOTE | 2022-12-04 11:31 | HMH.EDGENADL ---
Discharge Plan Disposition Patient Disposition: Home, Self-Care Condition: Good Prescriptions Prescriptions: New nitrofurantoin monohyd/m-cryst [Macrobid] 100 mg capsule 100 mg PO BID 5 Days Qty: 10 0RF Rx Instructions: must administer with a meal/food ondansetron 4 mg tablet,disintegrating 4 mg PO Q8H PRN (Reason: nausea and vomiting) 4 Days Qty: 12 0RF No Action escitalopram oxalate [Lexapro] 20 mg tablet 20 mg PO DAILY Qty: 90 0RF hydroxyzine pamoate 25 mg capsule 25 mg PO BID Qty: 60 1RF albuterol sulfate [Proventil HFA] 90 mcg/actuation HFA aerosol inhaler 1 - 2 inh inhalation Q6H PRN (Reason: shortness of breath or wheezing) Qty: 8.5 0RF fluticasone propionate [Flonase Allergy Relief] 50 mcg/actuation spray,suspension 1 spray intranasal DAILY Rx Instructions: administer into each nostril promethazine 25 mg tablet 25 mg PO TID PRN (Reason: nausea and vomiting) Qty: 20 0RF Referrals Follow up/Referrals: Mitali Uribe APRN [Primary Care Provider] - See instructions Activity Restrictions/Add. Instructions Additional Instructions/Restrictions: You were evaluated in the emergency department today. Please picker tender your prescriptions at the pharmacy and take them as prescribed. Make sure that you orally hydrate at home. Follow-up with your OB over the next 3 days for reassessment. Return to the emergency department for any new or worsening symptoms. Clinical Impressions Clinical Impression: Placenta previa, Abdominal pain affecting , Bacteria in urine Stand Alone Forms Stand Alone Forms: Work/School Release Instructions Patient Instructions: DI for Placenta Previa, DI for Abdominal Pain -- Early Discharge ED Provider: Jessica Tate General Adult HPI General Chief complaint: Dizziness Stated complaint: cramping, nausea, lightheaded Time Seen by Provider: 12/04/22 11:07 History of Present Illness HPI narrative: This patient is a 32-year-old G7, P2 female at estimated 17 weeks gestation with a history of obesity and multiple miscarriages presented to the emergency department for evaluation with concern for nausea, lightheadedness, and lower abdominal cramping that started approximately an hour and a half prior to arrival. She states that she felt like she was leaking fluid and felt like something was running, however when she went to the bathroom to check there was nothing there. She continues to have lower abdominal cramping at this time. She was fine prior to this. She states that she is already had confirmatory ultrasound and the thus far has been unremarkable. She is unsure what her blood type is. She denies any recent fevers, chills, chest pain, shortness of breath, vomiting, changes in bowel movements, abnormal vaginal bleeding, abnormal vaginal discharge, dysuria, polyuria, or other concerns. She follows with Dr. Cruz, and she states that their office instructed her to come in to the ER for evaluation today. Related Data Home Medications Medication Instructions Recorded Confirmed fluticasone propionate 50 1 spray intranasal DAILY allergies\ 07/18/22 10/15/22 mcg/actuation nasal spray,suspension (Flonase Allergy Relief) Previous Rx's Medication Instructions Recorded albuterol sulfate 90 mcg/actuation 1 - 2 inh inhalation Q6H PRN 09/01/22 aerosol inhaler (Proventil HFA) shortness of breath or wheezing #8.5 grams escitalopram oxalate 20 mg tablet 20 mg PO DAILY MOOD #90 tabs 10/02/22 (Lexapro) hydroxyzine pamoate 25 mg capsule 25 mg PO BID Anxiety #60 caps 10/02/22 promethazine 25 mg tablet 25 mg PO TID PRN nausea and 10/06/22 vomiting #20 tabs nitrofurantoin 100 mg PO BID 5 days #10 caps 12/04/22 monohydrate/macrocrystals 100 mg capsule (Macrobid) ondansetron 4 mg disintegrating 4 mg PO Q8H PRN nausea and 12/04/22 tablet vomiting 4 days #12 tabs Allergies Allergy/AdvReac Type Sever
--- NOTE | 2022-12-04 11:34 | PC.NURSE ---
OB staff at at this time doing amnisure test
--- NOTE | 2022-12-04 11:36 | PC.NURSE ---
rad staff aware of u/s order
--- NOTE | 2022-12-04 11:39 | PC.NURSE ---
alcira cedillo from OB send amnisure swab to lab at this time
[2022-12-04 11:45] LABS: Microscopic, Urine URINE MICROSCOPIC (MICROSCOPIC)
[2022-12-04 11:49] LABS: Basophils % 0.3 % (0.1-2.0); Eosinophils # 0.2 K/mm3 (0.0-0.4); Eosinophils % 1.4 % (0.1-12.0); Hematocrit 37.3 % (37.0-47.0); Hemoglobin 12.2 g/dL (12.2-16.2); Lymphocytes # 1.6 K/mm3 (0.7-4.5); Lymphocytes % 14.8 % (10-50); Mean Corpuscular HGB Conc 32.7 g/dL (31.8-35.4); Mean Corpuscular Hemoglobin 28.9 pg (27.0-31.2); Mean Corpuscular Volume 88.2 fl (81-99); Mean Platelet Volume 8.3 fl (7.4-10.4); Monocytes # 0.5 K/mm3 (0.1-1.0); Monocytes % 4.6 % (1.7-9.3); Neutrophils # 8.3 K/mm3 (1.8-7.8); Platelet Count 279 K/mm3 (142-424); Red Blood Count 4.22 M/mm3 (4.20-5.40); Red Cell Distribution Width 14.8 % (11.5-17.5); White Blood Count 10.5 K/mm3 (4.8-10.8)
[2022-12-04 11:50] LABS: Appearance,Urine CLEAR (Clear); Bilirubin,Urine Negative (Negative); Blood, Urine Negative (Negative); Color,Urine YELLOW (Yellow); Glucose,Urine (UA) Negative (Negative); Ketones,Urine TRACE (Negative); Leukocyte Esterase,Urine Negative (Negative); Nitrate,Urine Negative (Negative); Protein,Urine Negative (Negative); Specific Gravity, Urine >= 1.030 (1.005-1.030); Urobilinogen,Urine 0.2 EU/dl (0.2)
[2022-12-04 11:53] LABS: Fetal Membrane Rupture (Rapid) Negative (Negative)
[2022-12-04 11:54] LABS: Alanine Aminotransferase 21 U/L (12-78); Albumin Level 3.7 g/dl (3.5-5.0); Albumin/Globulin Ratio 1.1 (1.1-1.8); Alkaline Phosphatase 107 U/L (38-126); Anion Gap 9.7 mEq/L (5-15); Aspartate Amino Transferase 29 U/L (14-36); Bilirubin,Total 0.2 mg/dl (0.2-1.3); Blood Urea Nitrogen 10 mg/dl (7-17); Calcium 8.8 mg/dl (8.4-10.2); Carbon Dioxide 25 mmol/L (22.0-30.0); Chloride 104 mmol/L (98-107); Creatinine Clearance Estimated 137 mL/min (50-200); Estimated Glomerular Filt Rate 141 ml/min (>60); GFR (African American) 171 ML/MIN (>60); Globulin 3.4 g/dL (1.3-3.2); Glucose 83 mg/dl (74-100); Potassium 3.7 mmoL/L (3.5-5.1); Sodium 135 mmol/L (136-145); Total Protein,Serum 7.1 g/dl (6.3-8.2)
[2022-12-04 12:05] LABS: Bacteria,Urine Trace /lpf; Calcium Oxalate Crystals,Urine 2+ /lpf; Squamous Epithelial Cell,Urine Occasional #/hpf (0-5)
--- NOTE | 2022-12-04 12:53 | PC.NURSE ---
pt return from u/s rad staff gave ER MD Tate verbal reports. rad staff states Dr. Cook notified her that he will read u/s and give ER a call
[2022-12-04 13:05] LABS: HCG,Quantitative 19549 mIU/ml (0-5.42)
[2022-12-04 13:15] VITALS: BP 124/76; PULSE 104; O2SAT 99
[2022-12-04 13:31] VITALS: BP 130/67; PULSE 103; O2SAT 97
--- NOTE | 2022-12-04 13:33 | PC.NURSE ---
Dr. Tate s/w Dr. Cook regarding pt's u/s
[2022-12-04 13:52] VITALS: BP 130/67; PULSE 85; RESP 18; TEMP 36.7; O2SAT 98
== END 2022-12-04 13:59 | disposition home or self-care (01) ==
PROVIDERS: Emergency Provider Emergency Medicine; PCP Nurse Practitioner Family
DX: O44.12 Complete placenta previa with hemorrhage, second trimester (principal); O23.42 Unspecified infection of urinary tract in pregnancy, second trimester; O99.351 Diseases of the nervous system complicating pregnancy, first trimester; R42 Dizziness and giddiness; Z3A.17 17 weeks gestation of pregnancy; F41.1 Generalized anxiety disorder; O99.342 Other mental disorders complicating pregnancy, second trimester
CPT/HCPCS: 36415; 76805; 80053; 81001; 84112; 84702; 85025; 86850; 96361; 96374; 99285; J2405

== ENCOUNTER → 2022-12-30 15:58 | Outpatient (CLI) | payer OTHER, SELFPAY ==
--- NOTE | 2022-12-30 16:00 | US_ITS ---
PROCEDURE: US OB /MATERNAL DETAIL CLINICAL INDICATION: US OB Complete 20wk+Anatomy Scan COMPARISON: US US OB <= 14 WEEKS FETUS from 10/25/2022 FINDINGS: Transabdominal and transvaginal sonographic images of the uterus were obtained. From her established due date she is 21 weeks 2 days. Single viable intrauterine gestation. Cephalic position. Placenta: Posteriorplacenta grade 1. Placenta previa is still present. There is average amount fluid. The cervix appears satisfactory. Closed and measuring 5.3 cm in length. survey performed and was unremarkable on the submitted images as in PACS. No discrete anomalies identified on survey imaging by technologist. Active fetus. Three-vessel cord with satisfactory umbilical cord insertion. 4- chamber heart noted. Survey of brain & ventricles Unremarkable. Cerebellum, cisterna magna, thalamus and choroid plexus appear normal. Face and neck survey unremarkable. Profile, nasion, lips and nose appear normal. Diaphragm and chest views unremarkable. Abdomen: Stomach and bladder noted and satisfactory. Spine: Survey of the spine satisfactory with no anomalies identified nor imaged. Upper, thoracic and lower spine appear normal. Both arms and legs noted. Amniotic Fluid: Adequate. Measurements: Average ultrasound age 20weeks 6days. Estimated due date by ultrasound age 0105/13/2023. Estimated weight 390g BPD = 20weeks 1day OFD = 21weeks 6days HC = 20weeks 4days AC = 20weeks 3days FL = 22weeks 0 days Growth Percentile= 29 Heart Rate = 133bpm Cerebellum = 21weeks 6days HC/AC is 1.19 CI is 0.71 FL/BPD is 0.8 FL/AC is 0.25 IMPRESSION: 1. Difficult exam due to the patient's body habitus. The scan was incomplete. 2. Anatomical scan of those images in PACS appears normal. 3. Continues to have placenta previa but the lower placenta seems to be migrating away from the cervix. Exam was performed transvaginally. 4. Would suggest a repeat scan in 4 weeks to address those areas that were incompletely seen. Dictated by: Royce Cook MD 01/01/2023 08:31 Royce Cook MD in [place] 01/01/2023 08:31
== END ==
LOC: RAD 15:58
PROVIDERS: PCP Nurse Practitioner Family; Visit Provider Nurse Practitioner Obstetrics & Gynecology
DX: Z34.92 Encounter for supervision of normal pregnancy, unspecified, second trimester (principal); Z36.3 Encounter for antenatal screening for malformations; Z3A.20 20 weeks gestation of pregnancy
CPT/HCPCS: 76811

== ENCOUNTER 2023-01-03 14:22 | Emergency (ER) | payer OTHER, SELFPAY ==
[2023-01-03 14:23] VITALS: BP 134/76; PULSE 123; RESP 22; TEMP 36.9; O2SAT 96; BMI 56.9
--- NOTE | 2023-01-03 14:47 | EXP.UTC ---
Discharge Plan Disposition Patient Disposition: Home, Self-Care Condition: Good Prescriptions Prescriptions: New amoxicillin-pot clavulanate 875-125 mg Tablet 1 tab PO Q12H 7 Days Qty: 14 0RF fluticasone propionate [Flonase Allergy Relief] 50 mcg/actuation spray,suspension 1 - 2 spray intranasal DAILY Qty: 16 0RF Rx Instructions: administer into each nostril daily albuterol sulfate [Proventil HFA] 90 mcg/actuation HFA aerosol inhaler 1 - 2 inh inhalation Q6H PRN (Reason: shortness of breath or wheezing) Qty: 8.5 0RF No Action escitalopram oxalate [Lexapro] 20 mg tablet 20 mg PO DAILY Qty: 90 0RF hydroxyzine pamoate 25 mg capsule 25 mg PO BID Qty: 60 1RF albuterol sulfate [Proventil HFA] 90 mcg/actuation HFA aerosol inhaler 1 - 2 inh inhalation Q6H PRN (Reason: shortness of breath or wheezing) Qty: 8.5 0RF ondansetron 4 mg tablet,disintegrating 4 mg PO Q8H PRN (Reason: nausea and vomiting) 4 Days Qty: 12 0RF fluticasone propionate [Flonase Allergy Relief] 50 mcg/actuation spray,suspension 1 spray intranasal DAILY Rx Instructions: administer into each nostril Referrals Follow up/Referrals: Mitali Uribe APRN [Primary Care Provider] - See instructions Activity Restrictions/Add. Instructions Additional Instructions/Restrictions: *Monitor Temp, Over the counter Motrin or Tylenol as directed/as needed Tylenol every 4 hours and Motrin every 6 hours (as long as your family doctor has told you that you can take it) for fever or pain. and straight to ER if unable to lower temp less than 101.0 after medication given *Warm salt water gargles may help to soothe the throat *Throat Lozenges? *Warm fluids like tea with honey may help to soothe the throat? *Sleep elevated *Humidifier/Vaporizer Your throat swab was sent for culture. Those results are typically sent to your primary care. Be sure to follow up in 2-3 days with your family doctor/primary care physician if no improvement so they can review those result and treat if necessary. If you don?t have a primary care doctor, I recommend you get one but in the mean time, you will have to return to a walk in clinic Follow up IMMEDIATELY for new or worsening symptoms or no Noticeable improvement over the next 48-72 hours. 911 for difficulty breathing or swallowing Clinical Impressions Clinical Impression: Sinusitis Qualifiers: Sinusitis location: unspecified location Chronicity: unspecified Qualified Code(s): J32.9 - Chronic sinusitis, unspecified Instructions Patient Instructions: Sore Throat, DI for Sinusitis Discharge ED Provider: Mae Lopez [facility] General Stated complaint: sore throat, ear pain, congestion Mode of Arrival: Ambulatory Source of Information: Patient Limitations: No Limitations Time Seen by Provider: 01/03/23 14:48 Description of Symptoms (Recalled from Triage Doc. by RN): Patient states she thinks that she has a sinus infection. Complaint of congestion, SOB and cough since yesterday. HEENT Symptoms (Recalled from RN notes): Yes Resp Symptoms (Recalled from RN notes): No Skin Symptoms (Recalled from RN notes): No MS Symptoms (Recalled from RN notes): No Functional Status (Recalled from RN notes): wnl History of Present Illness Provider Complaint: Patient states that she feels like she has a bad sinus infection States that she has been having sinus congestion and pressure, sore scratchy throat and cough States that she is 21wks OB and not sure what she could take so she came in to get checked Related Data Home Medications Medication Instructions Recorded Confirmed fluticasone propionate 50 1 spray intranasal DAILY allergies\ 07/18/22 12/25/22 mcg/actuation nasal spray,suspension (Flonase Allergy Relief) Previous Rx's Medication Instructions Recorded albuterol sulfate 90 mcg/actuation 1 - 2 inh inhalation Q6H PRN 09/01/22 aerosol inhal
[2023-01-03 15:15] LABS: UTC Strep Screen (Rapid) Negative (Negative)
[2023-01-03 15:16] LABS: UTC Influenza A Antigen Negative (Negative); UTC Influenza B Antigen Negative (Negative)
[2023-01-03 15:17] VITALS: BP 134/76; PULSE 123; RESP 22; TEMP 36.9; O2SAT 96
== END 2023-01-03 15:18 | disposition home or self-care (01) ==
PROVIDERS: Emergency Provider Nurse Practitioner; PCP Nurse Practitioner Family
DX: O26.892 Other specified pregnancy related conditions, second trimester (principal); O99.512 Diseases of the respiratory system complicating pregnancy, second trimester; J01.90 Acute sinusitis, unspecified; Z3A.21 21 weeks gestation of pregnancy; F41.9 Anxiety disorder, unspecified; J45.909 Unspecified asthma, uncomplicated
CPT/HCPCS: 87804; 87880; 99212; 99214; G0463

== ENCOUNTER 2023-01-06 15:20 | Emergency (ER) | payer OTHER, SELFPAY ==
[2023-01-06 15:22] VITALS: BP 143/92; PULSE 114; RESP 20; TEMP 36.8; O2SAT 97; BMI 56.9
--- NOTE | 2023-01-06 15:36 | EXP.UTC ---
Discharge Plan Disposition Patient Disposition: Home, Self-Care Condition: Good Prescriptions Prescriptions: New azithromycin [Zithromax] 250 mg tablet 250 mg PO UD DOSE PK Qty: 6 0RF Rx Instructions: Take two (2) tablets today, then one (1) tablet days #2 thru #5 Discontinued amoxicillin-pot clavulanate 875-125 mg tablet 1 tab PO Q12H No Action escitalopram oxalate [Lexapro] 20 mg tablet 20 mg PO DAILY Qty: 90 0RF hydroxyzine pamoate 25 mg capsule 25 mg PO BID Qty: 60 1RF fluticasone propionate [Flonase Allergy Relief] 50 mcg/actuation spray,suspension 1 spray intranasal DAILY Rx Instructions: administer into each nostril albuterol sulfate [Proventil HFA] 90 mcg/actuation HFA aerosol inhaler 1 - 2 inh inhalation Q6H PRN (Reason: shortness of breath or wheezing) Qty: 8.5 0RF Referrals Follow up/Referrals: Mitali Uribe APRN [Primary Care Provider] - See instructions Activity Restrictions/Add. Instructions Additional Instructions/Restrictions: Drink plenty of fluids. Take tylenol or ibuprofen for pain or fever. Take the medications as directed. STOP THE AUGMENTIN THAT YOU ARE ON, START THE AZYTHROMYCIN. Follow up with your regular doctor. GO TO THE ER FOR ANY WORSENING SYMPTOMS Clinical Impressions Clinical Impression: Acute viral syndrome, Sinusitis Instructions Patient Instructions: DI for Sinusitis Discharge ED Provider: Fredy Buckner [facility] [place] General Stated complaint: cough,congestion Time Seen by Provider: 01/06/23 15:36 History of Present Illness Provider Complaint: She states that for the past 2 days she has had cough, sinus congestion, sore throat, chills, body aches and low grade fever. Related Data Home Medications Medication Instructions Recorded Confirmed fluticasone propionate 50 1 spray intranasal DAILY allergies 07/18/22 01/06/23 mcg/actuation nasal spray,suspension (Flonase Allergy Relief) Previous Rx's Medication Instructions Recorded escitalopram oxalate 20 mg tablet 20 mg PO DAILY MOOD #90 tabs 10/02/22 (Lexapro) hydroxyzine pamoate 25 mg capsule 25 mg PO BID Anxiety #60 caps 12/12/22 albuterol sulfate 90 mcg/actuation 1 - 2 inh inhalation Q6H PRN 01/03/23 aerosol inhaler (Proventil HFA) shortness of breath or wheezing #8.5 grams azithromycin 250 mg tablet 250 mg PO UD DOSE PK #6 tabs 01/06/23 (Zithromax) Allergies Allergy/AdvReac Type Severity Reaction Status Date / Time cefdinir Allergy Severe Hives Verified 01/06/23 15:37 sulfamethoxazole Allergy Severe Hives Verified 01/06/23 15:37 [From Bactrim] trimethoprim [From Bactrim] Allergy Severe Hives Verified 01/06/23 15:37 acetaminophen [From [place]] Allergy Hives Verified 01/06/23 15:37 hydrocodone [From [place]] Allergy Hives Verified 01/06/23 15:37 Sulfa (Sulfonamide Allergy Verified 01/06/23 15:37 Antibiotics) [facility] Disclaimer: The information contained in this section may have been updated after the patient was seen, as this information can be updated by other users. Medical History Asthma with exacerbation Generalized anxiety disorder History of obstructive sleep apnea Surgical History H/O laparoscopy H/O ovarian cystectomy Right History of 2 sections [place] teeth removed Family History Mother FHx: mental illness schizoid personality disorder anxiety anger issues Other Family history of CABG Family history of coronary artery disease Social History Smoking Status: Never smoker second hand exposure: No alcohol intake: never counseling given: No substance use type: denies use current occupational status: employed Travel in the last 8 weeks: Non
[2023-01-06 16:29] VITALS: BP 143/92; PULSE 114; RESP 18; TEMP 36.8; O2SAT 97
== END 2023-01-06 16:29 | disposition home or self-care (01) ==
PROVIDERS: Emergency Provider Nurse Practitioner Family; PCP Nurse Practitioner Family
DX: J01.90 Acute sinusitis, unspecified (principal); B34.9 Viral infection, unspecified; F41.1 Generalized anxiety disorder; J45.909 Unspecified asthma, uncomplicated
CPT/HCPCS: 87635; 99212; 99214; G0463

== ENCOUNTER → 2023-01-10 14:38 | Outpatient (CLI) | payer OTHER, SELFPAY ==
--- NOTE | 2023-01-10 14:41 | US_ITS ---
PROCEDURE: US OB FOLLOW UP CLINICAL INDICATION: re-evaluate placenta previa location/anatomy scan COMPARISON: US US OB <= 14 WEEKS FETUS from 10/25/2022 US US OB /MATERNAL DETAIL from 12/30/2022 FINDINGS: Transabdominal sonographic images of the pelvis were obtained. Single viable intrauterine gestation. Cephalic position. Placenta: Posteriorplacenta grade 1. There is average amount fluid. The cervix appears satisfactory. Closed and measuring 0 cm in length. Complete survey performed and was unremarkable on the submitted images as in PACS. No discrete anomalies identified on survey imaging by technologist. Active fetus. Three-vessel cord with satisfactory umbilical cord insertion. 4- chamber heart noted. Aortic arch, LVOT, RVOT, three-vessel view appears normal. Survey of brain & ventricles Unremarkable. Cerebellum, cisterna magna, choroid plexus, thalamus appear normal. Face and neck survey unremarkable. Profile, nasion, lips and nose appeared normal. Diaphragm and chest views unremarkable. Abdomen: Both kidneys noted. Mild renal pyelectasis noted on the right kidney measuring 3.6 mm. Stomach and bladder noted and satisfactory. Spine: Survey of the spine satisfactory with no anomalies identified nor imaged. Upper, Thoracic, lower spine appear normal. Both arms and legs noted. Amniotic Fluid: Adequate. Measurements: Average ultrasound age 22weeks 0 days. Estimated due date by ultrasound age 0105/16/2023. Estimated weight 452g BPD = 22weeks 1day HC = 21weeks 4days AC = 21weeks 1day FL = 22weeks 5days Growth Percentile= 8 percent Heart Rate = 142bpm Cerebellum = 22weeks 3days Humerus = 22weeks 2days HC/AC is 1.2 FL/BPD is 0.75 FL/AC is 0.25 IMPRESSION: 1. Anatomical scan appears normal. 2. Previously described placenta previa seems to have resolved. 3. Suggest repeat transvaginal ultrasound to see the resolution of the placenta previa at 28 weeks. 4. There is mild renal pyelectasis seen on the right kidney measuring 3.6 mm. Repeat kidney scan at 28 weeks. Dictated by: Royce Cook MD 01/12/2023 20:20 Royce Cook MD in [place] 01/12/2023 20:20
== END ==
LOC: RAD 14:39
PROVIDERS: PCP Nurse Practitioner Family; Visit Provider Obstetrics & Gynecology
DX: O44.00 Complete placenta previa NOS or without hemorrhage, unspecified trimester (principal); Z36.89 Encounter for other specified antenatal screening; Z3A.22 22 weeks gestation of pregnancy
CPT/HCPCS: 76816

== ENCOUNTER 2023-01-16 09:40 | Outpatient (CLI) | payer OTHER, SELFPAY ==
[2023-01-16 09:47] VITALS: BP 128/76; PULSE 109; RESP 22; TEMP 37; O2SAT 97; BMI 57.6
--- NOTE | 2023-01-16 10:09 | US_ITS ---
PROCEDURE: US OB LIMITED POSITION CLINICAL INDICATION: difficulty obtaining heart tones COMPARISON: No exams were available for comparison FINDINGS: Transabdominal sonographic images of the uterus were obtained. The following parameters are obtained: From her established due date she is 23weeks 3days Viable fetus in the breech presentation. heart rate: 140bpm bpm. IMPRESSION: 1. heart tones are present. 2. Fetus is in the breech presentation. Dictated by: Royce Cook MD 01/17/2023 07:52 Royce Cook MD in OV 01/17/2023 07:52
[2023-01-16 11:02] LABS: Microscopic, Urine URINE MICROSCOPIC (MICROSCOPIC)
[2023-01-16 11:09] LABS: Appearance,Urine CLEAR (Clear); Bilirubin,Urine Negative (Negative); Blood, Urine Negative (Negative); Color,Urine YELLOW (Yellow); Glucose,Urine (UA) Negative (Negative); Ketones,Urine 1+ (Negative); Leukocyte Esterase,Urine Negative (Negative); Nitrate,Urine Negative (Negative); PH,Urine 6.5 (5.0-8.5); Protein,Urine Negative (Negative); Specific Gravity, Urine 1.025 (1.005-1.030); Urobilinogen,Urine 0.2 EU/dl (0.2)
[2023-01-16 11:14] LABS: Bacteria,Urine Trace /lpf; Mucus,Urine Trace /lpf
[2023-01-16 11:22] LABS: Barbiturates Screen,Urine Negative ng/ml (<200); Benzodiazepines Screen,Urine Negative ng/ml (<200)
[2023-01-16 11:23] LABS: Amphetamine/Metha Screen,Urine Negative ng/ml (<1000)
[2023-01-16 11:24] LABS: Methadone Screen,Urine Negative ng/ml (<300)
[2023-01-16 11:25] LABS: Cannabinoid Screen,Urine Negative ng/ml (<50); Cocaine Screen,Urine Negative ng/ml (<300)
[2023-01-16 11:26] LABS: Opiate Screen,Urine Negative ng/ml (<300); Phencyclidine Screen,Urine Negative ng/ml (<25)
--- NOTE | 2023-01-16 13:14 | US_ITS ---
FINAL REPORT TECHNIQUE: Sonographic images of the right upper quadrant were obtained. CLINICAL HISTORY: -- ruq pain nausda-- 23 wks preg FINDINGS: PANCREAS: Unremarkable. LIVER: Homogeneous. No focal hepatic lesion. No intrahepatic biliary ductal dilatation. GALLBLADDER: No gallstones. No gallbladder wall thickening or pericholecystic fluid. COMMON DUCT: 3 mm. Normal for age. RIGHT KIDNEY: The right kidney measures 13.2 cm. There is no hydronephrosis, mass, or stone. FREE FLUID: None. IMPRESSION: Unremarkable ultrasound of the right upper quadrant. Reviewed, Interpreted and Dictated by Tiffanie Garcia MD Transcribed by Verna Romero Authenticated and [facility]
[2023-01-16 13:34] LABS: Basophils % 0.3 % (0.1-2.0); Eosinophils # 0.2 K/mm3 (0.0-0.4); Eosinophils % 1.6 % (0.1-12.0); Hematocrit 33.5 % (37.0-47.0); Hemoglobin 10.6 g/dL (12.2-16.2); Lymphocytes # 1.5 K/mm3 (0.7-4.5); Mean Corpuscular HGB Conc 31.8 g/dL (31.8-35.4); Mean Corpuscular Hemoglobin 28.2 pg (27.0-31.2); Mean Corpuscular Volume 88.8 fl (81-99); Mean Platelet Volume 8.7 fl (7.4-10.4); Monocytes # 0.6 K/mm3 (0.1-1.0); Monocytes % 5.3 % (1.7-9.3); Neutrophils # 9.2 K/mm3 (1.8-7.8); Neutrophils % 79.8 % (37.0-80.0); Platelet Count 295 K/mm3 (142-424); Red Blood Count 3.77 M/mm3 (4.20-5.40); Red Cell Distribution Width 15.4 % (11.5-17.5); White Blood Count 11.5 K/mm3 (4.8-10.8)
[2023-01-16 13:51] LABS: Alanine Aminotransferase 17 U/L (12-78); Albumin Level 3.1 g/dl (3.5-5.0); Albumin/Globulin Ratio 0.9 (1.1-1.8); Alkaline Phosphatase 86 U/L (38-126); Anion Gap 9.4 mEq/L (5-15); Aspartate Amino Transferase 22 U/L (14-36); Blood Urea Nitrogen 7 mg/dl (7-17); Carbon Dioxide 28 mmol/L (22.0-30.0); Chloride 103 mmol/L (98-107); Creatinine Clearance Estimated 171 mL/min (50-200); Estimated Glomerular Filt Rate 183 ml/min (>60); GFR (African American) 221 ML/MIN (>60); Globulin 3.4 g/dL (1.3-3.2); Glucose 94 mg/dl (74-100); Potassium 4.4 mmoL/L (3.5-5.1); Sodium 136 mmol/L (136-145); Total Protein,Serum 6.5 g/dl (6.3-8.2)
[2023-01-16 13:53] LABS: Bilirubin,Total < 0.1 mg/dl (0.2-1.3)
== END 2023-01-16 15:56 | disposition home or self-care (01) ==
LOC: OBOUT 09:45 → OB 09:45
PROVIDERS: Nurse Practitioner Obstetrics & Gynecology; Visit Provider Obstetrics & Gynecology
DX: O47.02 False labor before 37 completed weeks of gestation, second trimester (principal); Z3A.23 23 weeks gestation of pregnancy
CPT/HCPCS: 36415; 76705; 76815; 80053; 80305; 81001; 85025; 96365; 96366; G0463

== ENCOUNTER 2023-01-21 13:02 | Outpatient (CLI) | payer OTHER, SELFPAY ==
[2023-01-21 13:14] VITALS: BMI 56.9
[2023-01-21 13:34] VITALS: BP 125/70; PULSE 108; RESP 18; TEMP 36.4; O2SAT 96; BMI 56.9
[2023-01-21 13:36] LABS: Microscopic, Urine URINE MICROSCOPIC (MICROSCOPIC)
[2023-01-21 13:38] LABS: Appearance,Urine CLEAR (Clear); Bilirubin,Urine Negative (Negative); Blood, Urine Negative (Negative); Color,Urine YELLOW (Yellow); Glucose,Urine (UA) Negative (Negative); Ketones,Urine 2+ (Negative); Leukocyte Esterase,Urine Negative (Negative); Nitrate,Urine Negative (Negative); Protein,Urine Negative (Negative); Specific Gravity, Urine >= 1.030 (1.005-1.030); Urobilinogen,Urine 0.2 EU/dl (0.2)
[2023-01-21 13:55] LABS: RBC,Urine Occasional #/hpf (0-3); Squamous Epithelial Cell,Urine Occasional #/hpf (0-5)
== END 2023-01-21 16:05 | disposition home or self-care (01) ==
LOC: OBOUT 13:03 → OB 13:04
PROVIDERS: PCP Nurse Practitioner Family; Visit Provider Obstetrics & Gynecology
DX: Z34.92 Encounter for supervision of normal pregnancy, unspecified, second trimester (principal); Z3A.24 24 weeks gestation of pregnancy
CPT/HCPCS: 81001; 96365; 96366; G0463

== ENCOUNTER 2023-01-29 08:06 | Outpatient (CLI) | payer OTHER, SELFPAY ==
[2023-01-29 09:04] VITALS: BMI 57.3
[2023-01-29 09:28] LABS: Fetal Membrane Rupture (Rapid) Negative (Negative)
[2023-01-29 09:58] LABS: Fetal Fibronectin (Rapid) Negative (Negative)
[2023-01-29 10:28] VITALS: BP 143/84; PULSE 105; RESP 18; TEMP 36.8; O2SAT 96; BMI 57.3
[2023-01-29 10:30] LABS: Microscopic, Urine URINE MICROSCOPIC (MICROSCOPIC)
[2023-01-29 10:31] LABS: Appearance,Urine CLEAR (Clear); Bilirubin,Urine Negative (Negative); Blood, Urine Negative (Negative); Color,Urine YELLOW (Yellow); Glucose,Urine (UA) Negative (Negative); Ketones,Urine Negative (Negative); Leukocyte Esterase,Urine Negative (Negative); Nitrate,Urine Negative (Negative); Protein,Urine Negative (Negative); Specific Gravity, Urine 1.015 (1.005-1.030); Urobilinogen,Urine 0.2 EU/dl (0.2)
[2023-01-29 10:43] LABS: Amphetamine/Metha Screen,Urine Negative ng/ml (<1000); Bacteria,Urine Trace /lpf; Barbiturates Screen,Urine Negative ng/ml (<200); Squamous Epithelial Cell,Urine Occasional #/hpf (0-5)
[2023-01-29 10:44] LABS: Benzodiazepines Screen,Urine Negative ng/ml (<200); Cannabinoid Screen,Urine Negative ng/ml (<50)
[2023-01-29 10:45] LABS: Cocaine Screen,Urine Negative ng/ml (<300)
[2023-01-29 10:46] LABS: Methadone Screen,Urine Negative ng/ml (<300); Opiate Screen,Urine Negative ng/ml (<300)
[2023-01-29 10:47] LABS: Phencyclidine Screen,Urine Negative ng/ml (<25)
== END 2023-01-29 11:38 | disposition home or self-care (01) ==
LOC: OBOUT 08:07 → OB 08:08
PROVIDERS: PCP Nurse Practitioner Family; Visit Provider Obstetrics & Gynecology
DX: O47.02 False labor before 37 completed weeks of gestation, second trimester (principal); Z3A.25 25 weeks gestation of pregnancy
CPT/HCPCS: 80305; 81001; 82731; 84112; G0463

== ENCOUNTER 2023-02-02 13:27 | Outpatient (CLI) | payer OTHER, SELFPAY ==
[2023-02-02 14:06] VITALS: BMI 57.3
[2023-02-02 14:11] VITALS: BP 133/76; PULSE 108; RESP 20; TEMP 36.8; O2SAT 100
[2023-02-02 15:07] VITALS: BMI 57.3
[2023-02-02 15:14] LABS: Microscopic, Urine URINE MICROSCOPIC (MICROSCOPIC)
[2023-02-02 15:20] LABS: Appearance,Urine CLEAR (Clear); Bilirubin,Urine Negative (Negative); Blood, Urine Negative (Negative); Color,Urine YELLOW (Yellow); Glucose,Urine (UA) Negative (Negative); Ketones,Urine 1+ (Negative); Leukocyte Esterase,Urine Negative (Negative); Nitrate,Urine Negative (Negative); Protein,Urine Negative (Negative); Urobilinogen,Urine 0.2 EU/dl (0.2)
[2023-02-02 15:32] LABS: Barbiturates Screen,Urine Negative ng/ml (<200)
[2023-02-02 15:33] LABS: Amphetamine/Metha Screen,Urine Negative ng/ml (<1000); Cannabinoid Screen,Urine Negative ng/ml (<50)
[2023-02-02 15:34] LABS: Benzodiazepines Screen,Urine Negative ng/ml (<200)
[2023-02-02 15:35] LABS: Cocaine Screen,Urine Negative ng/ml (<300); Methadone Screen,Urine Negative ng/ml (<300)
[2023-02-02 15:36] LABS: Phencyclidine Screen,Urine Negative ng/ml (<25)
[2023-02-02 15:37] LABS: Opiate Screen,Urine Negative ng/ml (<300); Squamous Epithelial Cell,Urine Occasional #/hpf (0-5)
== END 2023-02-02 17:50 | disposition home or self-care (01) ==
LOC: OBOUT 13:29 → OB 13:29
PROVIDERS: PCP Nurse Practitioner Family; Visit Provider Nurse Practitioner Obstetrics & Gynecology
DX: O47.02 False labor before 37 completed weeks of gestation, second trimester (principal); Z3A.26 26 weeks gestation of pregnancy; Z3A.36 36 weeks gestation of pregnancy
CPT/HCPCS: 80305; 81001; 96365; G0463

== ENCOUNTER → 2023-02-15 09:45 | Outpatient (CLI) | payer BC, SELFPAY ==
[2023-02-15 10:05] LABS: Basophils % 0.2 % (0.1-2.0); Eosinophils # 0.1 K/mm3 (0.0-0.4); Eosinophils % 1.2 % (0.1-12.0); Hematocrit 32.3 % (37.0-47.0); Lymphocytes # 1.3 K/mm3 (0.7-4.5); Lymphocytes % 12.2 % (10-50); Mean Corpuscular HGB Conc 34.1 g/dL (31.8-35.4); Mean Corpuscular Hemoglobin 29.5 pg (27.0-31.2); Mean Corpuscular Volume 86.3 fl (81-99); Mean Platelet Volume 7.5 fl (7.4-10.4); Monocytes # 0.6 K/mm3 (0.1-1.0); Monocytes % 5.3 % (1.7-9.3); Neutrophils # 8.4 K/mm3 (1.8-7.8); Platelet Count 264 K/mm3 (142-424); Red Blood Count 3.74 M/mm3 (4.20-5.40); Red Cell Distribution Width 15.6 % (11.5-17.5); White Blood Count 10.4 K/mm3 (4.8-10.8)
[2023-02-15 10:13] LABS: Glucose,Fasting 93 mg/dl (74-100)
[2023-02-15 12:39] LABS: Glucose 1 Hour 109 mg/dL (74-100)
== END ==
PROVIDERS: PCP Nurse Practitioner Family; Visit Provider Nurse Practitioner Obstetrics & Gynecology
DX: Z34.92 Encounter for supervision of normal pregnancy, unspecified, second trimester (principal); Z3A.27 27 weeks gestation of pregnancy
CPT/HCPCS: 36415; 82951; 85025

== ENCOUNTER 2023-02-17 06:28 | Outpatient (CLI) | payer BC, SELFPAY ==
[2023-02-17 06:36] VITALS: BMI 56.6
[2023-02-17 06:44] LABS: Microscopic, Urine URINE MICROSCOPIC (MICROSCOPIC)
[2023-02-17 06:50] VITALS: BP 105/57; PULSE 106; RESP 19; TEMP 36.6; O2SAT 98
[2023-02-17 06:51] VITALS: BP 105/57; PULSE 106; RESP 19; TEMP 36.6; O2SAT 98; BMI 56.6
[2023-02-17 06:55] LABS: Appearance,Urine CLEAR (Clear); Bilirubin,Urine Negative (Negative); Blood, Urine Negative (Negative); Color,Urine YELLOW (Yellow); Glucose,Urine (UA) Negative (Negative); Ketones,Urine Negative (Negative); Leukocyte Esterase,Urine Negative (Negative); Nitrate,Urine Negative (Negative); Protein,Urine Negative (Negative); Specific Gravity, Urine 1.015 (1.005-1.030); Urobilinogen,Urine 0.2 EU/dl (0.2)
[2023-02-17 07:01] LABS: Barbiturates Screen,Urine Negative ng/ml (<200); Benzodiazepines Screen,Urine Negative ng/ml (<200)
[2023-02-17 07:02] LABS: Amphetamine/Metha Screen,Urine Negative ng/ml (<1000)
[2023-02-17 07:04] LABS: Methadone Screen,Urine Negative ng/ml (<300)
[2023-02-17 07:05] LABS: Cannabinoid Screen,Urine Negative ng/ml (<50)
[2023-02-17 07:06] LABS: Cocaine Screen,Urine Negative ng/ml (<300); Opiate Screen,Urine Negative ng/ml (<300)
[2023-02-17 07:07] LABS: Phencyclidine Screen,Urine Negative ng/ml (<25)
== END 2023-02-17 08:26 | disposition home or self-care (01) ==
LOC: OBOUT 06:29 → OB 06:32
PROVIDERS: Obstetrics & Gynecology; PCP Nurse Practitioner Obstetrics & Gynecology; Visit Provider Obstetrics & Gynecology
DX: O47.03 False labor before 37 completed weeks of gestation, third trimester (principal); Z3A.28 28 weeks gestation of pregnancy
CPT/HCPCS: 59025; 80305; 81001; G0463

== ENCOUNTER 2023-02-28 13:13 | Outpatient (CLI) | payer BC, SELFPAY ==
[2023-02-28 13:20] VITALS: BMI 56.6
[2023-02-28 13:30] VITALS: BP 111/75; PULSE 92; RESP 18; TEMP 37.2; O2SAT 100; BMI 56.6
[2023-02-28 13:56] LABS: Microscopic, Urine URINE MICROSCOPIC (MICROSCOPIC)
[2023-02-28 13:58] LABS: Appearance,Urine CLEAR (Clear); Blood, Urine Negative (Negative); Color,Urine YELLOW (Yellow); Glucose,Urine (UA) Negative (Negative); Ketones,Urine Negative (Negative); Leukocyte Esterase,Urine Negative (Negative); Nitrate,Urine Negative (Negative); Protein,Urine TRACE (Negative); Urobilinogen,Urine 0.2 EU/dl (0.2)
[2023-02-28 14:06] LABS: Fetal Membrane Rupture (Rapid) Negative (Negative)
[2023-02-28 14:33] LABS: Fetal Fibronectin (Rapid) Negative (Negative)
[2023-02-28 14:44] LABS: Bilirubin,Urine Negative (Negative)
[2023-02-28 14:58] LABS: Bacteria,Urine Trace /lpf
== END 2023-02-28 15:50 | disposition home or self-care (01) ==
LOC: OBOUT 13:14 → OB 13:15
PROVIDERS: PCP Nurse Practitioner Family; Visit Provider Obstetrics & Gynecology
DX: O26.893 Other specified pregnancy related conditions, third trimester (principal); Z3A.29 29 weeks gestation of pregnancy; R10.2 Pelvic and perineal pain
CPT/HCPCS: 59025; 81001; 82731; 84112; G0463

== ENCOUNTER 2023-03-11 10:56 | Outpatient (CLI) | payer BC, SELFPAY ==
[2023-03-11 11:35] VITALS: BMI 56.9
[2023-03-11 11:38] LABS: Microscopic, Urine URINE MICROSCOPIC (MICROSCOPIC)
[2023-03-11 11:41] LABS: Appearance,Urine CLEAR (Clear); Bilirubin,Urine Negative (Negative); Blood, Urine Negative (Negative); Color,Urine YELLOW (Yellow); Glucose,Urine (UA) Negative (Negative); Ketones,Urine 1+ (Negative); Leukocyte Esterase,Urine Negative (Negative); Nitrate,Urine Negative (Negative); PH,Urine 7.5 (5.0-8.5); Protein,Urine Negative (Negative); Urobilinogen,Urine 0.2 EU/dl (0.2)
[2023-03-11 12:04] LABS: Barbiturates Screen,Urine Negative ng/ml (<200)
[2023-03-11 12:05] LABS: Benzodiazepines Screen,Urine Negative ng/ml (<200); Cannabinoid Screen,Urine Negative ng/ml (<50)
[2023-03-11 12:06] LABS: Cocaine Screen,Urine Negative ng/ml (<300); Methadone Screen,Urine Negative ng/ml (<300)
[2023-03-11 12:07] LABS: Opiate Screen,Urine Negative ng/ml (<300)
[2023-03-11 12:08] LABS: Phencyclidine Screen,Urine Negative ng/ml (<25)
[2023-03-11 12:10] LABS: Amphetamine/Metha Screen,Urine Negative ng/ml (<1000); Bacteria,Urine Trace /lpf; Squamous Epithelial Cell,Urine Occasional #/hpf (0-5)
[2023-03-11 13:05] VITALS: BP 134/84; PULSE 106; RESP 18; TEMP 36.7; O2SAT 96; BMI 56.9
== END 2023-03-11 12:55 | disposition home or self-care (01) ==
LOC: OBOUT 11:01 → OB 11:01
PROVIDERS: PCP Nurse Practitioner Family; Visit Provider Nurse Practitioner Obstetrics & Gynecology
DX: O47.03 False labor before 37 completed weeks of gestation, third trimester (principal); Z3A.31 31 weeks gestation of pregnancy; R10.2 Pelvic and perineal pain
CPT/HCPCS: 59025; 80305; 81001; G0463

== ENCOUNTER 2023-03-13 09:15 | Outpatient (CLI) | payer BC, SELFPAY ==
[2023-03-13 09:27] VITALS: BMI 56.9
[2023-03-13 09:53] LABS: Microscopic, Urine URINE MICROSCOPIC (MICROSCOPIC)
[2023-03-13 09:56] VITALS: BMI 56.9
[2023-03-13 10:00] LABS: Appearance,Urine CLEAR (Clear); Bilirubin,Urine Negative (Negative); Blood, Urine Negative (Negative); Color,Urine YELLOW (Yellow); Glucose,Urine (UA) Negative (Negative); Ketones,Urine 1+ (Negative); Leukocyte Esterase,Urine Negative (Negative); Nitrate,Urine Negative (Negative); Protein,Urine Negative (Negative); Specific Gravity, Urine 1.015 (1.005-1.030); Urobilinogen,Urine 0.2 EU/dl (0.2)
[2023-03-13 10:06] LABS: Fetal Membrane Rupture (Rapid) Negative (Negative)
[2023-03-13 10:23] LABS: Bacteria,Urine Trace /lpf; Squamous Epithelial Cell,Urine Occasional #/hpf (0-5); WBC,Urine Occasional #/hpf (0-3)
[2023-03-13 11:01] LABS: Barbiturates Screen,Urine Negative ng/ml (<200)
[2023-03-13 11:02] LABS: Amphetamine/Metha Screen,Urine Negative ng/ml (<1000); Benzodiazepines Screen,Urine Negative ng/ml (<200)
[2023-03-13 11:03] LABS: Methadone Screen,Urine Negative ng/ml (<300)
[2023-03-13 11:04] LABS: Cannabinoid Screen,Urine Negative ng/ml (<50); Cocaine Screen,Urine Negative ng/ml (<300)
[2023-03-13 11:05] LABS: Opiate Screen,Urine Negative ng/ml (<300)
[2023-03-13 11:06] LABS: Phencyclidine Screen,Urine Negative ng/ml (<25)
== END 2023-03-13 11:30 | disposition home or self-care (01) ==
LOC: OBOUT 09:17 → OB 09:18
PROVIDERS: PCP Nurse Practitioner Family; Visit Provider Obstetrics & Gynecology
DX: O26.893 Other specified pregnancy related conditions, third trimester (principal); Z3A.31 31 weeks gestation of pregnancy
CPT/HCPCS: 59025; 80305; 81001; 84112

== ENCOUNTER 2023-03-17 14:59 | Outpatient (CLI) | payer BC, SELFPAY ==
--- NOTE | 2023-03-17 | US_ITS ---
PROCEDURE: US OB BIOPHYSICAL PROFILE CLINICAL INDICATION: COMPARISON: FINDINGS: Transabdominal sonographic images of the uterus were obtained. From her established due date she is 32weeks 0 days. The following parameters are obtained: Viable fetus in the cephalic presentation with a posterior placenta grade 2/3 Average ultrasound age is 32weeks 5days. Estimated due date by ultrasound is 05/07/2023. Estimated weight is 4lb 6oz. heart rate: 143bpm bpm. BPD: 31weeks 6days OFD: 31weeks 6days HC: 32 weeks 2 days AC: 32 weeks 6 days FL: 32 weeks 2 days HC/AC: 1.02 Cephalic index: 0.8 FL/BPD: 0.76 FL/AC: 0.22 58 percentile Amniotic fluid index: 10.76cm, MVP 4.48 cm. Qualitative AFV: 2 breathing movements: 0 Gross body movements: 2 Biophysical profile score: 6 No obvious anomalies evident.Kidneys, diaphragm appear normal. IMPRESSION: 1. Viable fetus in the cephalic presentation with a posterior placenta grade 2-3. 2. The fluid is within normal limits with an amniotic fluid index of 10.76 cm, MVP 4.48 cm. 3. Biophysical profile is 6/8 with no breathing movement seen. Baby is active. 4. There has been good interval growth and the fetus weighs 4 pound 6 ounces and is currently 58th percentile. Dictated by: Royce Cook MD 03/17/2023 17:48 Royce Cook MD in OV 03/17/2023 17:48
[2023-03-17 16:20] VITALS: BMI 57.3
[2023-03-17 16:26] VITALS: RESP 22; TEMP 37.2; O2SAT 95; BMI 57.3
[2023-03-17 16:31] LABS: Microscopic, Urine URINE MICROSCOPIC (MICROSCOPIC)
[2023-03-17 16:35] LABS: Appearance,Urine CLEAR (Clear); Bilirubin,Urine Negative (Negative); Blood, Urine Negative (Negative); Color,Urine YELLOW (Yellow); Glucose,Urine (UA) Negative (Negative); Ketones,Urine Negative (Negative); Leukocyte Esterase,Urine Negative (Negative); Nitrate,Urine Negative (Negative); Protein,Urine Negative (Negative); Urobilinogen,Urine 0.2 EU/dl (0.2)
[2023-03-17 16:47] LABS: Benzodiazepines Screen,Urine Negative ng/ml (<200)
[2023-03-17 16:48] LABS: Amphetamine/Metha Screen,Urine Negative ng/ml (<1000); Barbiturates Screen,Urine Negative ng/ml (<200)
[2023-03-17 16:49] LABS: Cannabinoid Screen,Urine Negative ng/ml (<50); Cocaine Screen,Urine Negative ng/ml (<300)
[2023-03-17 16:50] LABS: Methadone Screen,Urine Negative ng/ml (<300)
[2023-03-17 16:51] LABS: Opiate Screen,Urine Negative ng/ml (<300); Phencyclidine Screen,Urine Negative ng/ml (<25)
[2023-03-17 16:58] LABS: Bacteria,Urine Trace /lpf; Squamous Epithelial Cell,Urine Occasional #/hpf (0-5); WBC,Urine Occasional #/hpf (0-3)
== END 2023-03-17 19:10 | disposition home or self-care (01) ==
LOC: OBOUT 15:00 → OB 15:01
PROVIDERS: PCP Nurse Practitioner Family; Visit Provider Nurse Practitioner Obstetrics & Gynecology
DX: O26.893 Other specified pregnancy related conditions, third trimester (principal); Z3A.32 32 weeks gestation of pregnancy
CPT/HCPCS: 59025; 76816; 76819; 80305; 81001; 96360; 96372

== ENCOUNTER 2023-03-18 16:44 | Outpatient (CLI) | payer BC, SELFPAY ==
[2023-03-18 17:09] VITALS: BP 137/96; PULSE 110; RESP 18; O2SAT 96
== END 2023-03-18 17:10 | disposition home or self-care (01) ==
LOC: OBOUT 16:45 → OB 16:46
PROVIDERS: PCP Nurse Practitioner Family; Visit Provider Obstetrics & Gynecology
DX: O47.03 False labor before 37 completed weeks of gestation, third trimester (principal); Z3A.32 32 weeks gestation of pregnancy
CPT/HCPCS: 96372

== ENCOUNTER 2023-04-09 11:27 | Outpatient (CLI) | payer MEDICAID, SELFPAY ==
[2023-04-09 11:45] VITALS: BMI 59.2
[2023-04-09 11:51] LABS: Microscopic, Urine URINE MICROSCOPIC (MICROSCOPIC)
[2023-04-09 11:53] LABS: Appearance,Urine CLEAR (Clear); Bilirubin,Urine Negative (Negative); Blood, Urine Negative (Negative); Color,Urine YELLOW (Yellow); Glucose,Urine (UA) Negative (Negative); Ketones,Urine Negative (Negative); Leukocyte Esterase,Urine Negative (Negative); Nitrate,Urine Negative (Negative); Protein,Urine Negative (Negative); Urobilinogen,Urine 0.2 EU/dl (0.2)
[2023-04-09 12:04] VITALS: BP 124/69; PULSE 109; RESP 18; TEMP 37; O2SAT 97; BMI 59.2
[2023-04-09 12:13] LABS: Bacteria,Urine Trace /lpf; RBC,Urine Occasional #/hpf (0-3); WBC,Urine Occasional #/hpf (0-3)
[2023-04-09 12:27] LABS: Barbiturates Screen,Urine Negative ng/ml (<200)
[2023-04-09 12:28] LABS: Benzodiazepines Screen,Urine Negative ng/ml (<200)
[2023-04-09 12:29] LABS: Amphetamine/Metha Screen,Urine Negative ng/ml (<1000); Methadone Screen,Urine Negative ng/ml (<300)
[2023-04-09 12:30] LABS: Cannabinoid Screen,Urine Negative ng/ml (<50); Cocaine Screen,Urine Negative ng/ml (<300)
[2023-04-09 12:31] LABS: Opiate Screen,Urine Negative ng/ml (<300)
[2023-04-09 12:32] LABS: Phencyclidine Screen,Urine Negative ng/ml (<25)
== END 2023-04-09 13:00 | disposition home or self-care (01) ==
LOC: OBOUT 11:28 → OB 11:29
PROVIDERS: Obstetrics & Gynecology; Visit Provider Nurse Practitioner Obstetrics & Gynecology
DX: O47.03 False labor before 37 completed weeks of gestation, third trimester (principal); O36.8190 Decreased fetal movements, unspecified trimester, not applicable or unspecified; Z3A.35 35 weeks gestation of pregnancy
CPT/HCPCS: 59025; 80307; 81001; G0463

== ENCOUNTER → 2023-04-11 11:43 | Outpatient (CLI) | payer MEDICAID, SELFPAY | LOC: LAB.DROPOF 11:43 | PROVIDERS: PCP Obstetrics & Gynecology; Visit Provider Obstetrics & Gynecology | DX: Z34.93 Encounter for supervision of normal pregnancy, unspecified, third trimester (principal); Z3A.35 35 weeks gestation of pregnancy | CPT/HCPCS: 86403 ==

== ENCOUNTER 2023-04-16 22:39 | Observation (INO) | payer MEDICAID, SELFPAY ==
[2023-04-16 21:49] VITALS: BMI 59.5
[2023-04-16 22:03] LABS: Microscopic, Urine URINE MICROSCOPIC (MICROSCOPIC)
[2023-04-16 22:09] VITALS: BP 143/65; PULSE 112; RESP 21; TEMP 37.2; O2SAT 96; BMI 59.5
[2023-04-16 22:19] LABS: Appearance,Urine CLEAR (Clear); Bilirubin,Urine Negative (Negative); Blood, Urine Negative (Negative); Color,Urine YELLOW (Yellow); Glucose,Urine (UA) Negative (Negative); Ketones,Urine Negative (Negative); Leukocyte Esterase,Urine Negative (Negative); Nitrate,Urine Negative (Negative); Protein,Urine Negative (Negative); Urobilinogen,Urine 0.2 EU/dl (0.2)
[2023-04-16 22:44] LABS: WBC,Urine Occasional #/hpf (0-3)
[2023-04-16 22:45] LABS: Bacteria,Urine 1+ /lpf; Squamous Epithelial Cell,Urine Occasional #/hpf (0-5)
[2023-04-16 23:15] LABS: Amphetamine/Metha Screen,Urine Negative ng/ml (<1000)
[2023-04-16 23:16] LABS: Barbiturates Screen,Urine Negative ng/ml (<200)
[2023-04-16 23:17] LABS: Benzodiazepines Screen,Urine Negative ng/ml (<200); Cannabinoid Screen,Urine Negative ng/ml (<50)
[2023-04-16] MEDS: OXYCODONE 5MG W/APAP 325MG TABLET 1 EACH PO (23:17)
[2023-04-16 23:18] LABS: Cocaine Screen,Urine Negative ng/ml (<300); Methadone Screen,Urine Negative ng/ml (<300)
[2023-04-16] MEDS: LACTATED RINGERS 1000ML 1,000 ML 25 ML IV (23:18)
[2023-04-16 23:19] LABS: Opiate Screen,Urine Negative ng/ml (<300)
[2023-04-16 23:20] LABS: Phencyclidine Screen,Urine Negative ng/ml (<25)
[2023-04-16 23:28] LABS: Basophils % 0.2 % (0.1-2.0); Eosinophils # 0.1 K/mm3 (0.0-0.4); Eosinophils % 0.9 % (0.1-12.0); Hematocrit 33.2 % (37.0-47.0); Hemoglobin 11.2 g/dL (12.2-16.2); Lymphocytes % 15.4 % (10-50); Mean Corpuscular HGB Conc 33.7 g/dL (31.8-35.4); Mean Corpuscular Hemoglobin 27.6 pg (27.0-31.2); Mean Corpuscular Volume 82.1 fl (81-99); Mean Platelet Volume 8.3 fl (7.4-10.4); Monocytes # 0.7 K/mm3 (0.1-1.0); Monocytes % 5.1 % (1.7-9.3); Neutrophils # 10.3 K/mm3 (1.8-7.8); Neutrophils % 78.3 % (37.0-80.0); Platelet Count 305 K/mm3 (142-424); Red Blood Count 4.04 M/mm3 (4.20-5.40); White Blood Count 13.1 K/mm3 (4.8-10.8)
[2023-04-16 23:37] LABS: Alanine Aminotransferase 24 U/L (12-78); Albumin Level 3.5 g/dl (3.5-5.0); Albumin/Globulin Ratio 1.1 (1.1-1.8); Alkaline Phosphatase 111 U/L (38-126); Anion Gap 8.8 mEq/L (5-15); Aspartate Amino Transferase 29 U/L (14-36); Bilirubin,Total 0.2 mg/dl (0.2-1.3); Blood Urea Nitrogen 7 mg/dl (7-17); Calcium 9.3 mg/dl (8.4-10.2); Carbon Dioxide 25 mmol/L (22.0-30.0); Chloride 102 mmol/L (98-107); Creatinine Clearance Estimated 114 mL/min (50-200); Estimated Glomerular Filt Rate 114 ml/min (>60); GFR (African American) 138 ML/MIN (>60); Globulin 3.3 g/dL (1.3-3.2); Glucose 98 mg/dl (74-100); Potassium 3.8 mmoL/L (3.5-5.1); Sodium 132 mmol/L (136-145); Total Protein,Serum 6.8 g/dl (6.3-8.2); Uric Acid 3.8 mg/dl (2.5-6.2)
[2023-04-16 23:40] LABS: Creatinine,Urine Random 52 mg/dL (Not Estab.)
[2023-04-17] MEDS: ONDANSETRON 4MG/2ML VIAL 4 MG IV (01:12)
--- NOTE | 2023-04-17 07:54 | HMH.PHAINT1 ---
Pharmacy Intervention Comments: MEDICATION RECONCILIATION COMPLETED ON PATIENT USING EXTERNAL FILL HISTORY FROM PHARMACY. -ANA PAULA SUAREZ, ALAINAD
[2023-04-17] MEDS: UBROGEPANT 50MG TABLET 100 MG PO (09:00)
[2023-04-17] MEDS: NIFEdipine 10MG CAPSULE 10 MG PO ×2 (09:00→13:11)
[2023-04-17] MEDS: hydrOXYzine pamoate 25MG CAPSULE 25 MG PO (09:00)
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
[2023-04-17 11:40] LABS: Basophils % 0.3 % (0.1-2.0); Eosinophils # 0.1 K/mm3 (0.0-0.4); Eosinophils % 1.4 % (0.1-12.0); Hematocrit 32.2 % (37.0-47.0); Hemoglobin 10.8 g/dL (12.2-16.2); Lymphocytes # 1.5 K/mm3 (0.7-4.5); Mean Corpuscular HGB Conc 33.7 g/dL (31.8-35.4); Mean Corpuscular Hemoglobin 27.5 pg (27.0-31.2); Mean Corpuscular Volume 81.7 fl (81-99); Mean Platelet Volume 8.5 fl (7.4-10.4); Monocytes # 0.6 K/mm3 (0.1-1.0); Monocytes % 5.7 % (1.7-9.3); Neutrophils # 7.6 K/mm3 (1.8-7.8); Neutrophils % 77.6 % (37.0-80.0); Platelet Count 275 K/mm3 (142-424); Red Blood Count 3.94 M/mm3 (4.20-5.40); Red Cell Distribution Width 17.1 % (11.5-17.5); White Blood Count 9.8 K/mm3 (4.8-10.8)
[2023-04-17 11:47] LABS: Alanine Aminotransferase 20 U/L (12-78); Anion Gap 6.8 mEq/L (5-15); Aspartate Amino Transferase 28 U/L (14-36); Blood Urea Nitrogen 6 mg/dl (7-17); Calcium 8.7 mg/dl (8.4-10.2); Carbon Dioxide 26 mmol/L (22.0-30.0); Chloride 102 mmol/L (98-107); Creatinine Clearance Estimated 137 mL/min (50-200); Estimated Glomerular Filt Rate 141 ml/min (>60); GFR (African American) 171 ML/MIN (>60); Glucose 86 mg/dl (74-100); Potassium 3.8 mmoL/L (3.5-5.1); Sodium 131 mmol/L (136-145); Uric Acid 4.2 mg/dl (2.5-6.2)
[2023-04-17 12:04] LABS: Activated Partial Thrombo Time 27.7 seconds (22.8-30.6); Fibrinogen 423 mg/dL (229.9-363.5); Prothrombin Time 10.8 seconds (10.1-12.5)
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
[2023-04-17] MEDS: PROMETHAZINE 25MG TABLET 25 MG PO (15:07)
== END 2023-04-17 15:40 | disposition home or self-care (01) ==
LOC: OBOUT 22:39 → OB 22:39
PROVIDERS: Admitting Provider Nurse Practitioner Obstetrics & Gynecology; PCP Family Medicine; Visit Provider Nurse Practitioner Obstetrics & Gynecology
DX: O99.213 Obesity complicating pregnancy, third trimester (principal); Z98.891 History of uterine scar from previous surgery; O26.893 Other specified pregnancy related conditions, third trimester; G43.909 Migraine, unspecified, not intractable, without status migrainosus
CPT/HCPCS: 36415; 59025; 80048; 80053; 80307; 81001; 82570; 84155; 84450; 84460; 84550; 85025; 85384; 85610; 85730; G0378; J2405

== ENCOUNTER → 2023-04-18 14:34 | Outpatient (CLI) | payer MEDICAID, SELFPAY ==
--- NOTE | 2023-04-18 10:56 | EXP.DC.SUM ---
General Admission date:: April 16, 2023 Discharge date: 04/17/23 HPI HPI HPI: She is a 32-year-old 7 para 2 aborta 4 who has had 2 previous sections. She is currently 36 weeks gestational age and came in with a migraine headache and right upper quadrant pain. She has been treated with chronic hypertension over the last 8 weeks of her and has been taking nifedipine 30 mg XL. She is morbidly obese. Hospital Course Hospital Course Hospital Course: She was observed overnight and seen in consultation by Dr. Lombardi. He prescribed Ubrelvy for her migraine and this helped with her headache tremendously. PI blood work was done and this was completely normal. She also had complained of some itching when I saw her in the office and we are still awaiting the bile salts. She is collecting a 24-hour urine and will continue this at home. She will be discharged home to follow-up with me in approximately 5 days time. She will finish her 24-hour urine. She will continue on bedrest at home. She was given a prescription for Ubrelvy to take 1 as needed for migraine. She is not to take more than 2 in a day. Her condition on discharge is stable and improved. Exam Constitutional Constitutional: no acute distress and morbidly obese *Routine Respiratory Exam Respiratory: Present normal respiratory effort; Absent accessory muscle use DS: Diagnosis Discharge Diagnosis (1) Migraine: Status: Acute Code(s): G43.909 - Migraine, unspecified, not intractable, without status migrainosus Qualifiers: Migraine type: unspecified Status migrainosus presence: with status migrainosus Intractability: intractable Qualified Code(s): G43.911 - Migraine, unspecified, intractable, with status migrainosus (2) Elevated blood pressure affecting in third trimester, antepartum: Status: Acute Code(s): O16.3 - Unspecified maternal hypertension, third trimester (3) Maternal obesity affecting , antepartum: Status: Acute Code(s): O99.210 - Obesity complicating , unspecified trimester Qualifiers: Obesity type affecting : severe obesity due to excess calories Qualified Code(s): O99.210 - Obesity complicating , unspecified trimester; E66.01 - Morbid (severe) obesity due to excess calories (4) History of 2 sections: Status: Acute Code(s): Z98.891 - History of uterine scar from previous surgery (5) : Status: Acute Code(s): Z34.90 - Encounter for supervision of normal , unspecified, unspecified trimester Qualifiers: Weeks of gestation: 36 weeks Qualified Code(s): Z3A.36 - 36 weeks gestation of (6) Generalized anxiety disorder: Status: Acute Code(s): F41.1 - Generalized anxiety disorder Meds Home Medications and Allergies Home Medications Medication Instructions Recorded Confirmed Type fluticasone propionate 50 1 spray intranasal DAILY allergies 07/18/22 04/17/23 History mcg/actuation nasal spray,suspension (Flonase Allergy Relief) levocetirizine 5 mg tablet (Xyzal) 5 mg PO DAILY Allergy Symptoms 01/22/23 04/17/23 History vits no.126-ferrous fum 1 tab PO DAILY Supplement 01/22/23 04/17/23 History 28 mg iron-folic acid 800 mcg tablet (Classic ) hydroxyzine pamoate 25 mg capsule 25 mg PO BID Anxiety #60 caps 02/10/23 04/17/23 Rx albuterol sulfate 90 mcg/actuation 2 inh inhalation Q6HP PRN 04/17/23 04/17/23 History aerosol inhaler (Proventil HFA) shortness of breath or wheezing escitalopram oxalate 20 mg tablet 20 mg PO DAILY Mood 04/17/23 04/17/23 History (Lexapro) nifedipine 30 mg tablet,extended 30 mg PO DAILY High Blood Pressure 04/17/23 04/17/23 History release ondansetron 4 mg disintegrating 4 mg PO Q4H PRN Nausea And 04/17/23 Rx tablet Vomiting #30 tabs ubrogepant 100 mg tablet (Ubrelvy) 100 mg PO ONCE #14 tabs 04/17/23 Rx New Prescriptions to Start Prescriptions: Allergies Allergy/AdvReac Type Severity Reaction Status Date / Time cefdinir Allergy Severe Hives Verified 04/16/23 13:25 sulfamethoxazole Allergy Severe Hives Verified 04/16/23 13:25 [From Bactrim] trimethoprim [From Bactrim] Allergy Severe Hives Verified 04/16/23 13:25 acetaminophen [From [place]] Allergy Hives Verified 04/16/23 13:25 hydrocodone [From [place]] Allergy Hives Verified 04/16/23 13:25 Sulfa (Sulfonamide Allergy Verified 04/16/23 13:25 Antibiotics) Discharge Plan Disposition Patient Disposition: Home, Self-Care Providers Attending Provider: Royce Cook
[2023-04-18 15:14] LABS: Basophils % 0.2 % (0.1-2.0); Eosinophils # 0.1 K/mm3 (0.0-0.4); Eosinophils % 1.1 % (0.1-12.0); Hematocrit 32.3 % (37.0-47.0); Lymphocytes # 1.8 K/mm3 (0.7-4.5); Lymphocytes % 14.1 % (10-50); Mean Corpuscular Hemoglobin 27.6 pg (27.0-31.2); Mean Corpuscular Volume 81.1 fl (81-99); Mean Platelet Volume 8.2 fl (7.4-10.4); Monocytes # 0.8 K/mm3 (0.1-1.0); Neutrophils # 10.2 K/mm3 (1.8-7.8); Neutrophils % 78.7 % (37.0-80.0); Platelet Count 284 K/mm3 (142-424); Red Blood Count 3.99 M/mm3 (4.20-5.40); Red Cell Distribution Width 16.8 % (11.5-17.5)
[2023-04-18 15:25] LABS: Activated Partial Thrombo Time 27.3 seconds (22.8-30.6); Fibrinogen 404 mg/dL (229.9-363.5); INR 0.96 (0.9-1.1); Prothrombin Time 10.4 seconds (10.1-12.5)
[2023-04-18 15:51] LABS: Collection Time,Urine 24 hours; Patient Weight,Urine 347 lbs; Total Volume,Urine 2000 mL (600-1600)
[2023-04-18 15:52] LABS: Patient Height,Urine 64 inches
[2023-04-18 16:14] LABS: Alanine Aminotransferase 17 U/L (12-78); Anion Gap 10.2 mEq/L (5-15); Aspartate Amino Transferase 29 U/L (14-36); Blood Urea Nitrogen 6 mg/dl (7-17); Calcium 8.4 mg/dl (8.4-10.2); Carbon Dioxide 23 mmol/L (22.0-30.0); Chloride 102 mmol/L (98-107); Estimated Glomerular Filt Rate 183 ml/min (>60); GFR (African American) 221 ML/MIN (>60); Glucose 66 mg/dl (74-100); Potassium 4.2 mmoL/L (3.5-5.1); Sodium 131 mmol/L (136-145); Uric Acid 3.8 mg/dl (2.5-6.2)
[2023-04-18 16:47] LABS: Total Protein 24 Hour,Urine 220 mg/24 hr (40-90)
[2023-04-18 16:48] LABS: Creatinine 24 Hour,Urine 1400 mg/24hr (630-2500)
[2023-04-18 16:51] LABS: Creatinine Clearance Urine 170.7 mL/min (25-115); Creatinine,Urine Random 70 mg/dL (Not Estab.)
[2023-04-23 22:44] LABS: Bile Acids <1.0
== END | disposition home or self-care (01) ==
LOC: LAB.DROPOF 14:35
PROVIDERS: PCP Family Medicine; Visit Provider Nurse Practitioner Obstetrics & Gynecology
DX: G43.911 Migraine, unspecified, intractable, with status migrainosus (principal); O99.210 Obesity complicating pregnancy, unspecified trimester; O16.3 Unspecified maternal hypertension, third trimester; E66.01 Morbid (severe) obesity due to excess calories; Z98.891 History of uterine scar from previous surgery; Z3A.36 36 weeks gestation of pregnancy; F41.1 Generalized anxiety disorder
CPT/HCPCS: 36415; 80048; 82239; 82575; 84155; 84450; 84460; 84550; 85025; 85384; 85610; 85730

== ENCOUNTER 2023-04-27 11:14 | Emergency (ER) | payer MEDICAID, SELFPAY ==
[2023-04-27 12:25] VITALS: BP 153/99; PULSE 110; RESP 21; TEMP 36.9; O2SAT 97; BMI 57.2
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
[2023-04-27 12:54] LABS: Coronavirus 19, PCR Not Detected (NotDetected); Influenza A, PCR Not Detected (NotDetected); Influenza B, PCR Not Detected (NotDetected)
[2023-04-27 13:08] LABS: Apearance,Urine Clear (Clear); Color,Urine Dark Yellow (Yellow); Protein,Urine Negative (Negative)
[2023-04-27 13:09] LABS: Bilirubin,Urine Negative (Negative); Blood, Urine Negative (Negative); Glucose,Urine (UA) Negative (Negative); Ketones,Urine Negative (Negative); UTC Leukocyte Esterase,Urine Negative (Negative); UTC Nitrate,Urine Negative (Negative); Urobilinogen,Urine 0.2 EU/dl (0.2)
[2023-04-27 13:32] LABS: UTC Strep Screen (Rapid) Negative (Negative)
[2023-04-27 14:00] VITALS: BP 153/99; PULSE 110; RESP 21; TEMP 36.9; O2SAT 97
== END 2023-04-27 14:08 | disposition home or self-care (01) ==
PROVIDERS: Emergency Provider Nurse Practitioner; PCP Nurse Practitioner Family
DX: O26.893 Other specified pregnancy related conditions, third trimester (principal); J01.90 Acute sinusitis, unspecified; Z3A.37 37 weeks gestation of pregnancy; R06.02 Shortness of breath; R09.81 Nasal congestion; H92.03 Otalgia, bilateral; R10.2 Pelvic and perineal pain; M54.50 Low back pain, unspecified
CPT/HCPCS: 81003; 87636; 87880; 99212; 99214; G0463

== ENCOUNTER 2023-04-28 10:46 | Outpatient (CLI) | payer MEDICAID, SELFPAY ==
--- NOTE | 2023-04-28 11:04 | US_ITS ---
PROCEDURE: US OB BIOPHYSICAL PROFILE CLINICAL INDICATION: lga COMPARISON: FINDINGS: Transabdominal sonographic images of the uterus were obtained. From her established due date she is 38weeks 0 days. The following parameters are obtained: Viable fetus in the cephalic presentation with a fundal placenta grade 3 Average ultrasound age is 40weeks 2days. Estimated due date by ultrasound is 04/26/2023. Estimated weight is 9lb 4oz, 4219 grams. heart rate: 127bpm BPD: 40 weeks 3 days 0FD: 40 weeks 0 days HC: 38 weeks 4 days AC: 41 weeks 5 days FL: 40 weeks 3 days HC/AC: 0.89 Cephalic index: 0.85 FL/BPD: 0.8 FL/AC: 0.21 Greater than 98 percentile Amniotic fluid index: 10.67cm, MVP 3.86 cm. Qualitative AFV: 2 breathing movements: 2 Gross body movements: 2 Tone: 2 Biophysical profile score: 8 No obvious anomalies evident.Kidneys, bladder, stomach, three-vessel cord appear normal. IMPRESSION: 1. Viable fetus in the cephalic presentation with a fundal placenta grade 3. 2. The fluid is within normal limits with an amniotic fluid index of 10.67 cm, MVP 3.86 cm. 3. Biophysical profile 8/8 with good breathing movement and good movement seen. 4. Fetus is large for gestational age currently greater than the 98th percentile. The abdominal circumference is 3 weeks ahead. Dictated by: Royce Cook MD 04/28/2023 14:56 Royce Cook MD in OV 04/28/2023 14:56
== END 2023-04-28 23:59 ==
LOC: RAD 10:47
PROVIDERS: PCP Family Medicine; Visit Provider Nurse Practitioner Obstetrics & Gynecology
DX: O36.63X0 Maternal care for excessive fetal growth, third trimester, not applicable or unspecified (principal); Z3A.38 38 weeks gestation of pregnancy
CPT/HCPCS: 76816; 76819

== ENCOUNTER 2023-05-05 05:08 | Inpatient (IN) | payer MEDICAID, SELFPAY ==
[2023-05-05 05:16] VITALS: BMI 62.3
[2023-05-05 05:20] VITALS: BP 139/70; PULSE 105; RESP 20; TEMP 36.8; O2SAT 96; BMI 62.3
[2023-05-05 05:53] LABS: Microscopic, Urine URINE MICROSCOPIC (MICROSCOPIC)
[2023-05-05] MEDS: LACTATED RINGERS 1000ML 1,000 ML 999 ML IV (05:54)
[2023-05-05 06:00] LABS: Basophils % 0.3 % (0.1-2.0); Eosinophils # 0.2 K/mm3 (0.0-0.4); Eosinophils % 1.5 % (0.1-12.0); Hemoglobin 10.7 g/dL (12.2-16.2); Lymphocytes # 1.8 K/mm3 (0.7-4.5); Lymphocytes % 17.1 % (10-50); Mean Corpuscular HGB Conc 33.4 g/dL (31.8-35.4); Mean Corpuscular Hemoglobin 28.2 pg (27.0-31.2); Mean Corpuscular Volume 84.2 fl (81-99); Monocytes # 0.6 K/mm3 (0.1-1.0); Monocytes % 5.6 % (1.7-9.3); Neutrophils # 8.1 K/mm3 (1.8-7.8); Neutrophils % 75.6 % (37.0-80.0); Platelet Count 289 K/mm3 (142-424); Red Cell Distribution Width 17.7 % (11.5-17.5); White Blood Count 10.8 K/mm3 (4.8-10.8)
[2023-05-05 06:03] LABS: Appearance,Urine CLEAR (Clear); Bilirubin,Urine Negative (Negative); Blood, Urine Negative (Negative); Color,Urine YELLOW (Yellow); Glucose,Urine (UA) Negative (Negative); Ketones,Urine Negative (Negative); Leukocyte Esterase,Urine Negative (Negative); Nitrate,Urine Negative (Negative); Protein,Urine Negative (Negative); Urobilinogen,Urine 0.2 EU/dl (0.2)
[2023-05-05 06:11] LABS: Alanine Aminotransferase 22 U/L (12-78); Albumin Level 3.1 g/dl (3.5-5.0); Alkaline Phosphatase 127 U/L (38-126); Anion Gap 9.8 mEq/L (5-15); Aspartate Amino Transferase 29 U/L (14-36); Bilirubin,Total 0.2 mg/dl (0.2-1.3); Blood Urea Nitrogen 5 mg/dl (7-17); Calcium 9.1 mg/dl (8.4-10.2); Carbon Dioxide 24 mmol/L (22.0-30.0); Chloride 104 mmol/L (98-107); Creatinine Clearance Estimated 171 mL/min (50-200); Estimated Glomerular Filt Rate 183 ml/min (>60); GFR (African American) 221 ML/MIN (>60); Globulin 3.1 g/dL (1.3-3.2); Glucose 95 mg/dl (74-100); Potassium 3.8 mmoL/L (3.5-5.1); Sodium 134 mmol/L (136-145); Total Protein,Serum 6.2 g/dl (6.3-8.2)
[2023-05-05 06:13] LABS: Amorphous Sediment,Urine 1+ /lpf; Bacteria,Urine Trace /lpf; Barbiturates Screen,Urine Negative ng/ml (<200); Benzodiazepines Screen,Urine Negative ng/ml (<200)
[2023-05-05 06:14] LABS: Amphetamine/Metha Screen,Urine Negative ng/ml (<1000)
[2023-05-05 06:15] LABS: Cocaine Screen,Urine Negative ng/ml (<300); Methadone Screen,Urine Negative ng/ml (<300)
[2023-05-05 06:16] LABS: Cannabinoid Screen,Urine Negative ng/ml (<50)
[2023-05-05 06:17] LABS: Opiate Screen,Urine Negative ng/ml (<300); Phencyclidine Screen,Urine Negative ng/ml (<25)
[2023-05-05] MEDS: GENTAMICIN SULFATE 500 MG in 0.9 % SODIUM CHLORIDE 100 ML 100 MG IV (07:25)
[2023-05-05] MEDS: CLINDAMYCIN PHOSPHATE 900 MG in 0.9 % SODIUM CHLORIDE 50 ML 100 MG IV (07:25)
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
--- NOTE | 2023-05-05 07:28 | HMH.PHAINT1 ---
Pharmacy Intervention Comments: MEDICATION RECONCILIATION COMPLETED ON PATIENT USING EXTERNAL FILL HISTORY FROM PHARMACY. -ANA PAULA SUAREZ, ALAINAD
[2023-05-05 08:12] LABS: Cord Blood PH 7.42 (7.35-7.45)
[2023-05-05 08:50] VITALS: BP 119/65; PULSE 96; RESP 17; TEMP 36.6; O2SAT 99
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
--- NOTE | 2023-05-05 08:59 | EXP.ANES.I ---
[facility] Anesthesia Record Part I Anesthesia Record I Intake, IV Amount: 1,100 Hydration: Adequate Estimated blood loss (mL): 1,000 Urine output (mL): 800 Blood Products used (#): none Blood Pressure: 119/65 SaO2: 95 Pulse Rate: 95 Airway Patency: Patent Respiratory Rate: 16 Temperature: 97.8 F Patient is:: Awake and Stable Stable to PACU at:: 08:50
[2023-05-05 09:00] VITALS: BP 119/65; BP 137/80; PULSE 93; PULSE 95; RESP 16; RESP 18; TEMP 36.6; O2SAT 95; O2SAT 97
[2023-05-05 09:10] VITALS: BP 128/72; PULSE 89; RESP 19; O2SAT 97
--- NOTE | 2023-05-05 09:17 | EXP.OP.NOTE ---
Date of procedure: 05/05/23 Pre-op Diagnosis:: Term , previous sections Post-op Diagnosis:: Term , previous sections, uterine atony Procedure performed:: Repeat lower segment transverse section and B-swanson suture. Surgeon:: Royce Cook MD Apparel Designer(s):: Dr. Vanessa PLUG SAW OPERATOR:: Mekhi Mckeon Anesthesia: spinal Estimated blood loss (mL): 960 Clinical Note:: She is a 32-year-old 7 para 2 who is 39 weeks gestational age. She had 2 previous sections and as a result of that was offered repeat lower segment transverse section at term. The risk and benefits of surgery were discussed with the patient to surgery. Operative findings:: She had a normal-appearing uterus with normal-appearing tubes and ovaries. She delivered a liveborn female child at 7:55 AM. The baby had of 1 at 1 minute, 2 at 5 minutes and 6 at 10 minutes. pH was 7.42. Uterus was somewhat boggy after the surgery and I elected to place a B swanson suture. Operative note:: She was taken to the operating room where spinal anesthesia was found be adequate. She was prepped and draped in normal sterile fashion in the supine position. A Siu catheter was in the bladder. A Pfannenstiel skin incision was made with knife then carried through to the underlying layer of fascia with cautery. The fascia was opened in the midline with cautery and extended laterally using Hernandez scissors. [place] clamps were applied to the superior aspect of the fascial incision which was tented up and the underlying rectus muscles dissected off using cautery. The Donald clamps were then applied to the inferior aspect of the fascial incision which in a similar fashion was tented up and the underlying rectus muscles dissected off using cautery. The rectus muscles were then in the midline, the peritoneum identified, and entered bluntly. An Neo retractor was then inserted into the abdominal cavity. The bladder flap was tented up and entered sharply. This incision was then extended laterally using Metzenbaum scissors. A transverse incision was made through the uterine muscle above the bladder flap to the amnion. This incision was then extended superiorly and inferiorly using the fingers as traction. The amnion was entered sharply with knife. There was clear amniotic fluid. The infant's head was then delivered atraumatically. A loose nuchal cord was then reduced. This was followed by the anterior shoulder and the rest of the 's body atraumatically. The oropharynx and nasopharynx were bulb suctioned. The cord was then doubly clamped and cut. The infant was then handed off to Dr. Weeks who assigned Apgars of 1 at 1 minute and 2 at 5 minutes and 6 at 10 minutes.. We then obtained cord blood as well as cord pH. The pH was 7.42.. Using gentle traction on the cord and fundal massage I was able to easily deliver the placenta intact. It had a normal three-vessel cord. The uterus was then cleared of clots and debris . The uterine incision was then closed using running 0 Vicryl suture in a locked fashion. A second layer of the same suture was used to imbricate the first layer. There were a couple of areas of oozing along the uterine incision and interrupted [id number] 2-0 Vicryl sutures were used here to obtain excellent hemostasis. The uterus was boggy and she did have a large baby so we elected to place a B-swanson suture. Using a #1 Vicryl suture with a protective point tip I took a large bite anteriorly and then went over the top of the uterus and took 2 bites posteriorly. I then came back anteriorly and took another bite anteriorly. Suture was then cinched down and tied. The gutters and cul-de-sac were then cleared of clots and debris . Once again hemostasis was assured. I elected to place a piece of [place] on the posterior uterus as well as along the bladder flap. The peritoneum was then grasped with Monica clamps and closed using running 2-0 Vicryl suture. The rectus muscles were then reapproximated with 0 Vicryl suture. The fascia was closed using running #1 Vicryl suture into halves.. The subcutaneous tissues were then irrigated with warm water followed by closure Geeta's fascia using running 2-0 Monocryl suture. I used 2 layers of Monocryl suture. The skin was closed with absorbable sutures. I then cleaned the skin with Hibiclens. Steri-Strips and Mastisol were then applied to the incision. Sterile dressings were applied. Anesthesia then performed a tap block under ultrasound guidance. She tolerated the procedure well and was taken to the recovery room in excellent condition. All sponges, instrument and needle counts were correct. Estimated blood loss was approximately 960 mL.. Condition: stable Disposition: PACU Specimens:: Products of conception Complications:: None
[2023-05-05 09:20] VITALS: BP 129/74; PULSE 86; RESP 17; O2SAT 96
[2023-05-05] MEDS: OXYTOCIN/RINGERS LACTATE 30 UNITS/500 ML BAG 999 UNITS IV (09:25)
[2023-05-05] MEDS: diphenhydrAMINE 25MG CAPSULE 25 MG PO (09:35)
[2023-05-05] MEDS: OXYTOCIN/RINGERS LACTATE 30 UNITS/500 ML BAG 40 UNITS IV (09:50)
[2023-05-05] MEDS: IBUPROFEN 400 MG TABLET 800 MG PO ×2 (10:35→17:44)
[2023-05-05] MEDS: ACETAMINOPHEN 500MG TAB 1000 MG PO ×3 (10:35→23:47)
--- NOTE | 2023-05-05 11:05 | SUR.OPER ---
0755- TOB viable female infant cord blood ph 7.42
[2023-05-05 12:10] LABS: Microscopic,Cath URINE MICROSCOPIC (MICROSCOPIC)
[2023-05-05 12:13] LABS: Appearance,Urine/Cath CLEAR (Clear); Bilirubin,Cath Negative (Negative); Blood, Urine/Cath Negative (Negative); Color,Urine/Cath YELLOW (Yellow); Glucose,Urine/Cath (UA) Negative (Negative); Ketones,Urine/Cath Negative (Negative); Leukocyte Esterase,Cath Negative (Negative); Nitrate,Cath Negative (Negative); Protein,Urine/Cath Negative (Negative); Urobilinogen,Cath 0.2 EU/dl (0.2)
[2023-05-05 12:32] LABS: Bacteria,Urine/Cath TRACE /lpf; Squamous Epithelial Ur./Cath Occasional #/hpf (0-5); WBC,Urine/Cath Occasional #/hpf (0-3)
[2023-05-05] MEDS: OXYCODONE 5MG IMMEDIATE RELEASE TABLET 10 MG PO ×2 (13:35→21:56)
[2023-05-05] MEDS: CLINDAMYCIN PHOSPHATE 900 MG in 0.9 % SODIUM CHLORIDE 50 ML 112 MG IV ×2 (13:36→21:56)
[2023-05-05] MEDS: PRENATAL MULTIVITAMIN W/IRON 1 EACH PO (17:44)
[2023-05-05 20:25] VITALS: BP 137/82; PULSE 108; RESP 18; TEMP 36.8; O2SAT 97
[2023-05-05] MEDS: SENNA 8.6MG TABLET 8.6 MG PO (21:56)
[2023-05-05] MEDS: SIMETHICONE 80MG CHEWABLE TABLET 160 MG PO (23:49)
[2023-05-06] MEDS: HYDROMORPHONE 2MG/ML SYRINGE 2 MG IV (00:35)
[2023-05-06] MEDS: IBUPROFEN 400 MG TABLET 800 MG PO ×3 (02:49→17:22)
[2023-05-06] MEDS: OXYCODONE 5MG IMMEDIATE RELEASE TABLET 10 MG PO (05:35)
[2023-05-06 05:40] VITALS: BP 132/73; PULSE 107; RESP 20; TEMP 36.7; O2SAT 98
[2023-05-06] MEDS: ACETAMINOPHEN 500MG TAB 1000 MG PO ×3 (06:21→17:23)
[2023-05-06 06:30] LABS: Eosinophils # 0.2 K/mm3 (0.0-0.4); Lymphocytes # 1.5 K/mm3 (0.7-4.5); Mean Platelet Volume 8.3 fl (7.4-10.4)
[2023-05-06 06:52] LABS: Basophils % 0.4 % (0.1-2.0); Eosinophils % 1.7 % (0.1-12.0); Hematocrit 29.4 % (37.0-47.0); Lymphocytes % 13.3 % (10-50); Mean Corpuscular HGB Conc 32.4 g/dL (31.8-35.4); Mean Corpuscular Volume 83.5 fl (81-99); Monocytes # 0.6 K/mm3 (0.1-1.0); Monocytes % 5.5 % (1.7-9.3); Neutrophils # 9.1 K/mm3 (1.8-7.8); Neutrophils % 79.2 % (37.0-80.0); Platelet Count 241 K/mm3 (142-424); Red Blood Count 3.52 M/mm3 (4.20-5.40); Red Cell Distribution Width 17.5 % (11.5-17.5); White Blood Count 11.5 K/mm3 (4.8-10.8)
[2023-05-06 07:02] LABS: Hemoglobin 9.5 g/dL (12.2-16.2)
--- NOTE | 2023-05-06 08:04 | EXP.ANES.II ---
[facility] Anesthesia Record Part II Anesthesia Record Part II Discharge Time: 09:20 Destination: Obstetric PACU nurse assessment reviewed?: Yes Patient Condition:: Good Anesthesia Complications:: None Swallowing reflex intact?: Yes Airway Patency: Patent Cyanosis?: No Blood Pressure: 129/74 SaO2: 96 Respiratory Rate: 17 Pulse Rate: 86 Temperature: 97.8 F Mental Status: Alert & Oriented Pain level:: 0 Nausea and/or vomitting:: None Intake, IV Amount: 0 Hydration: Adequate
[2023-05-06 08:05] VITALS: BP 129/74; PULSE 86; RESP 17; TEMP 36.6; O2SAT 96
--- NOTE | 2023-05-06 08:45 | EXP.ACUTE.PN ---
Subjective *Date: 05/06/23 *Time: 08:45 Interval history: She is doing well this morning. Her pain is reasonably well-controlled. She is breast-feeding. Her lochia is normal. Her hemoglobin is 9.5. Medical Exam Vital signs and Labs for Last 24 Hours: Vital Signs Temp Pulse Pulse Resp BP BP Pulse Ox 05/06/23 05:40 98.0 F 107 H 20 132/73 98 05/05/23 20:25 98.3 F 108 H 18 137/82 97 05/05/23 09:00 93 H 18 137/80 97 05/05/23 09:20 86 17 129/74 96 05/05/23 09:10 89 19 128/72 97 05/05/23 08:50 97.8 F 96 H 17 119/65 99 05/06/23 08:05 17 05/05/23 09:00 97.8 F 95 H 16 119/65 O2 Del Method 05/06/23 05:40 Room Air 05/05/23 20:25 Room Air 05/05/23 09:00 Room Air 05/05/23 09:20 Room Air 05/05/23 09:10 Room Air 05/05/23 08:50 Room Air 05/06/23 08:05 05/05/23 09:00 Intake and Output 05/05/23 05/06/23 05/06/23 19:59 03:59 11:59 Intake Total 0 / 0 Output Total 1000 / 1000 Balance -1000 / -1000 0 / -1000 Intake: Intake, Total IV Amount 0 / 0 Output: Output, Urine Amount 1000 / 1000 Laboratory Results - last 24 hr 05/05/23 05:21: Urine Color Yellow, Urine Appearance Clear, Urine pH 7.0, Ur Specific [place] 1.020, Urine Protein Negative, Urine Glucose (UA) Negative, Urine Ketones Negative, Urine Blood Negative, Urine Nitrate Negative, Urine Bilirubin Negative, Urine Urobilinogen 0.2, Ur Leukocyte Esterase Negative, Urine RBC None, Urine WBC Occasional, Ur Squamous Epith Cells Occasional, Urine Bacteria Trace 05/05/23 07:59: Cord ABG pH 7.42 05/06/23 05:19: WBC 11.5 H, RBC 3.52 L, Hgb 9.5 L D, Hct 29.4 L, MCV 83.5, MCH 27.0, MCHC 32.4, RDW 17.5, Plt Count 241, MPV 8.3, Neut % (Auto) 79.2, Lymph % (Auto) 13.3, [place] % (Auto) 5.5, Eos % (Auto) 1.7, Baso % (Auto) 0.4, Neut # (Auto) 9.1 H, Lymph # (Auto) 1.5, [place] # (Auto) 0.6, Eos # (Auto) 0.2, Baso # (Auto) 0.0 I & O for Labs for Last 24 Hours: Intake & Output 05/03/23 05/04/23 05/05/23 05/06/23 11:59 11:59 11:59 11:59 Intake Total 1100 / 1100 0 / 0 Output Total 1000 / 1000 Balance 1100 / 1100 -1000 / -1000 Weight 363 lb Head: Present atraumatic ENT: Present normal exam Neck: Present normal inspection Respiratory: Present normal respiratory effort; Absent accessory muscle use Assessment and Plan *Assessment and plan (1) Delivery by section of full-term : Status: Acute Category: Medical Code(s): O82 - Encounter for delivery without indication (2) Elevated blood pressure affecting in third trimester, antepartum: Status: Acute Category: Medical Code(s): O16.3 - Unspecified maternal hypertension, third trimester (3) Maternal obesity affecting , antepartum: Status: Acute Qualifiers: Obesity type affecting : severe obesity due to excess calories Qualified Code(s): O99.210 - Obesity complicating , unspecified trimester; E66.01 - Morbid (severe) obesity due to excess calories Category: Medical Code(s): O99.210 - Obesity complicating , unspecified trimester (4) History of 2 sections: Status: Acute Category: Surgical Code(s): Z98.891 - History of uterine scar from previous surgery Plan She continues to do well this morning. Her pain is reasonably well-controlled. Her lochia is normal. Her hemoglobin is 9.5. She is asymptomatic with respect to her anemia. Baby is having some issues with keeping his blood sugar elevated. We will consider sending her home tomorrow if the baby is doing well. Otherwise we will send her home in 48 hours.
[2023-05-06] MEDS: SENNA 8.6MG TABLET 8.6 MG PO (12:57)
[2023-05-06] MEDS: SIMETHICONE 80MG CHEWABLE TABLET 160 MG PO (12:57)
[2023-05-06] MEDS: HYDROMORPHONE HCL 2 MG TABLET PO ×2 (13:20→23:06)
[2023-05-06] MEDS: PRENATAL MULTIVITAMIN W/IRON 1 EACH PO (17:23)
[2023-05-06 19:44] VITALS: BP 143/69; PULSE 113; RESP 20; TEMP 36.8; O2SAT 97
[2023-05-07] MEDS: ACETAMINOPHEN 500MG TAB 1000 MG PO ×2 (02:05→10:44)
[2023-05-07] MEDS: IBUPROFEN 400 MG TABLET 800 MG PO ×2 (02:05→10:44)
[2023-05-07 04:21] VITALS: BP 135/77; PULSE 111; RESP 20; TEMP 36.5; O2SAT 97
[2023-05-07 08:47] VITALS: BP 132/90; PULSE 99; RESP 18; TEMP 36.8; O2SAT 98
--- NOTE | 2023-05-07 09:37 | EXP.DC.SUM ---
General Admission date:: 05/05/23 Discharge date: 05/07/23 HPI HPI HPI: She is a 32-year-old 7 para 2 aborta 4 who is currently 39 weeks gestational age. She has had 2 previous sections and as result of that was offered repeat lower segment transverse section at term. O+ blood, Rubella immune GBS negative Onyx [employer]ra[employer] Worker: Dr. Jovel Hospital Course Hospital Course Hospital Course: On May 05, 2023 she was admitted for a repeat lower segment transverse section. She delivered a liveborn female child at 7:55 AM on the morning of May 05, 2023. The baby weighed 8 pounds 12 ounces. She was 17-1/2 inches long. She had of 1 at 1 minute, 2 at 5 minutes and 6 at 10 minutes. pH was 7.42. She has done well and has remained afebrile throughout her hospitalization. She is eating and drinking and ambulating. She is breast-feeding. Her lochia is normal. hemoglobin is stable. She is discharged home to follow-up with me in approximately 2 weeks time. She will continue with her vitamins and iron. She will continue with ibuprofen [id number]. She was given a prescription for oxycodone 5 mg to take 1 tablet every 4-6 hours as needed, number 20 tablets. She was given the usual instructions with respect to limiting her activity, driving and sexual activity. She was given instructions with respect to wound care. Her condition on discharge is stable and improved. Exam Data for Last 24 hours Vital signs and Labs for Last 24 Hours: Temp Pulse Resp BP Pulse Ox O2 Del Method 97.7 F 111 H 20 135/77 97 Room Air 05/07/23 04:21 05/07/23 04:21 05/07/23 04:21 05/07/23 04:21 05/07/23 04:21 05/07/23 04:21 I & O for Last 24 hours: Intake & Output 05/04/23 05/05/23 05/06/23 05/07/23 11:59 11:59 11:59 11:59 Intake Total 1100 / 1100 0 / 0 Output Total 1000 / 1000 Balance 1100 / 1100 -1000 / -1000 Weight 363 lb Constitutional Constitutional: no acute distress *Routine HEENT Exam Head: Present normocephalic *Routine Respiratory Exam Respiratory: Present normal respiratory effort; Absent accessory muscle use DS: Diagnosis Discharge Diagnosis (1) Delivery by section of full-term : Status: Acute Code(s): O82 - Encounter for delivery without indication (2) Elevated blood pressure affecting in third trimester, antepartum: Status: Acute Code(s): O16.3 - Unspecified maternal hypertension, third trimester (3) Maternal obesity affecting , antepartum: Status: Acute Code(s): O99.210 - Obesity complicating , unspecified trimester Qualifiers: Obesity type affecting : severe obesity due to excess calories Qualified Code(s): O99.210 - Obesity complicating , unspecified trimester; E66.01 - Morbid (severe) obesity due to excess calories (4) History of 2 sections: Status: Acute Code(s): Z98.891 - History of uterine scar from previous surgery Meds Home Medications and Allergies Home Medications Medication Instructions Recorded Confirmed Type fluticasone propionate 50 1 spray intranasal DAILY allergies 07/18/22 05/05/23 History mcg/actuation nasal spray,suspension (Flonase Allergy Relief) vits no.126-ferrous fum 1 tab PO DAILY Supplement 01/22/23 05/05/23 History 28 mg iron-folic acid 800 mcg tablet (Classic ) albuterol sulfate 90 mcg/actuation 2 inh inhalation Q6HP PRN 04/17/23 05/05/23 History aerosol inhaler (Proventil HFA) shortness of breath or wheezing escitalopram oxalate 20 mg tablet 20 mg PO DAILY Mood 04/17/23 05/05/23 History (Lexapro) nifedipine 30 mg tablet,extended 30 mg PO DAILY High Blood Pressure 04/17/23 05/05/23 History release oxycodone 5 mg tablet 5 mg PO Q6H PRN pain #20 tabs 05/07/23 Rx New Prescriptions to Start Prescriptions: gingercodonRoyce Catalan Allergies Allergy/AdvReac Type Severity Reaction Status Date / Time cefdinir Allergy Severe Hives Verified 04/29/23 14:40 sulfamethoxazole Allergy Severe Hives Verified 04/29/23 14:40 [From Bactrim] trimethoprim [From Bactrim] Allergy Severe Hives Verified 04/29/23 14:40 acetaminophen [From [place]] Allergy Hives Verified 04/29/23 14:40 hydrocodone [From [place]] Allergy Hives Verified 04/29/23 14:40 Sulfa (Sulfonamide Allergy Verified 04/29/23 14:40 Antibiotics) Discharge Plan Disposition Patient Disposition: Home, Self-Care Discharge Order Discharge Orders: Discharge Order (Routine); Ordered 05/07/23 Ordered By: Royce Cook Follow up Plan Prescriptions/Medication Reconciliation: New oxycodone 5 mg tablet 5 mg PO Q6H PRN (Reason: pain) Qty: 20 0RF Continued Classic 28 mg iron- 800 mcg tablet 1 tab PO DAILY fluticasone propionate [Flonase Allergy Relief] 50 mcg/actuation spray,suspension 1 spray intranasal DAILY Rx Instructions: administer into each nostril nifedipine 30 mg tablet extended release 30 mg PO DAILY Patient Comments: TAKE 1 TABLET BY MOUTH ONCE DAILY albuterol sulfate [Proventil HFA] 90 mcg/actuation HFA aerosol inhaler 2 inh inhalation Q6HP PRN (Reason: shortness of breath or wheezing) escitalopram oxalate [Lexapro] 20 mg tablet 20 mg PO DAILY Problem Reconciliation Problems Reviewed?: Yes Patient Discharge Instructions ACTIVITY: No heavy lifting DIET: continue same diet Providers Primary Care Provider: Mitali Uribe Admit Provider: Royce Cook Attending Provider: Royce Cook
== END 2023-05-07 12:15 | disposition home or self-care (01) | DRG 788 ==
PROVIDERS: Obstetrics & Gynecology; Admitting Provider Nurse Practitioner Obstetrics & Gynecology; PCP Nurse Practitioner Family; Visit Provider Nurse Practitioner Obstetrics & Gynecology
DX: O34.211 Maternal care for low transverse scar from previous cesarean delivery (principal); O62.2 Other uterine inertia; N85.8 Other specified noninflammatory disorders of uterus; Z37.0 Single live birth; O99.214 Obesity complicating childbirth; Z3A.39 39 weeks gestation of pregnancy
CPT/HCPCS: 59514; 36415; 59025; 80053; 80305; 81001; 82800; 85025; 86850; 94761; C9290; G0283; J0736; J2405

== ENCOUNTER 2023-05-19 09:14 | Emergency (ER) | payer MEDICAID, SELFPAY ==
[2023-05-19 09:14] VITALS: BP 140/95; PULSE 95; RESP 18; TEMP 36.9; O2SAT 96; BMI 54.9
--- NOTE | 2023-05-19 09:19 | CT_ITS ---
FINAL REPORT TECHNIQUE: After the administration of intravenous contrast, axial images were obtained through the abdomen and pelvis by computed tomography. This study was performed with technique to keep radiation doses as low as reasonably achievable, (ALARA). Individualized dose reduction techniques using automated exposure control or adjustment of the MA and/or KV according to the patient's size were employed. CLINICAL HISTORY: c/section 2w ago, fall with increased pain/bleedin COMPARISON: 07/10/2022 FINDINGS: Abdomen: The lung bases are clear. The liver is normal in size and attenuation. The spleen and gallbladder are unremarkable. The adrenals are normal. The pancreas is unremarkable. There is a left renal cyst. Kidneys otherwise unremarkable. The aorta is normal in caliber. There is no free fluid or adenopathy. There is no evidence of bowel obstruction. Pelvis: The appendix is normal. There is mild uterine enlargement consistent with post uterus. Fluid is seen within the central uterus which is nonspecific and may represent blood. No air bubbles are seen within the uterine cavity. Ovaries are not visualized. Diastases recti slightly worse than on prior exam. There are fluid collections within subcutaneous lower abdominal wall tissues bilaterally measuring 56 x 63 x 33 mm on the right and 44 x 37 x 26 mm on the left. The urinary bladder is unremarkable. There is no free fluid or adenopathy. IMPRESSION: Postoperative changes of the lower abdominal wall with fluid collections likely representing hematomas. Slight worsening diastases recti. Enlarged uterus. Reviewed, Interpreted and Dictated by Rylie Henry MD Transcribed by Sofie Clark Authenticated and . [facility]
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
[2023-05-19] MEDS: ACETAMINOPHEN 500MG TAB 1000 MG PO (09:31)
[2023-05-19 09:55] LABS: Basophils # 0.1 K/mm3 (0-0.2); Basophils % 0.8 % (0.1-2.0); Eosinophils # 0.4 K/mm3 (0.0-0.4); Eosinophils % 3.4 % (0.1-12.0); Hemoglobin 11.1 g/dL (12.2-16.2); Lymphocytes # 1.6 K/mm3 (0.7-4.5); Lymphocytes % 15.4 % (10-50); Mean Corpuscular HGB Conc 34.6 g/dL (31.8-35.4); Mean Corpuscular Hemoglobin 28.1 pg (27.0-31.2); Mean Corpuscular Volume 81.3 fl (81-99); Mean Platelet Volume 8.4 fl (7.4-10.4); Monocytes # 0.4 K/mm3 (0.1-1.0); Monocytes % 4.2 % (1.7-9.3); Neutrophils # 7.9 K/mm3 (1.8-7.8); Neutrophils % 76.2 % (37.0-80.0); Platelet Count 359 K/mm3 (142-424); Red Blood Count 3.93 M/mm3 (4.20-5.40); Red Cell Distribution Width 16.8 % (11.5-17.5); White Blood Count 10.3 K/mm3 (4.8-10.8)
[2023-05-19 09:58] LABS: Alanine Aminotransferase 37 U/L (12-78); Albumin Level 3.7 g/dl (3.5-5.0); Albumin/Globulin Ratio 1.2 (1.1-1.8); Alkaline Phosphatase 108 U/L (38-126); Anion Gap 12.5 mEq/L (5-15); Aspartate Amino Transferase 43 U/L (14-36); Bilirubin,Total 0.3 mg/dl (0.2-1.3); Blood Urea Nitrogen 13 mg/dl (7-17); Calcium 9.2 mg/dl (8.4-10.2); Carbon Dioxide 28 mmol/L (22.0-30.0); Chloride 103 mmol/L (98-107); Creatinine Clearance Estimated 114 mL/min (50-200); Estimated Glomerular Filt Rate 114 ml/min (>60); GFR (African American) 138 ML/MIN (>60); Globulin 3.2 g/dL (1.3-3.2); Glucose 121 mg/dl (74-100); Potassium 3.5 mmoL/L (3.5-5.1); Sodium 140 mmol/L (136-145); Total Protein,Serum 6.9 g/dl (6.3-8.2)
[2023-05-19] MEDS: SODIUM CHLORIDE 0.9% 10ML SYR (RAD ONLY) 10 ML IV (10:00)
[2023-05-19] MEDS: IOPAMIDOL-370 (76%);100ML BOTTLE 75 ML IV (10:00)
[2023-05-19 11:44] VITALS: BP 140/95; PULSE 95; RESP 16; TEMP 36.9
== END 2023-05-19 11:45 | disposition home or self-care (01) ==
PROVIDERS: Emergency Provider Emergency Medicine; PCP Nurse Practitioner Family
DX: O9A.23 Injury, poisoning and certain other consequences of external causes complicating the puerperium (principal); O90.89 Other complications of the puerperium, not elsewhere classified; R10.84 Generalized abdominal pain; N93.9 Abnormal uterine and vaginal bleeding, unspecified; G89.18 Other acute postprocedural pain; O99.53 Diseases of the respiratory system complicating the puerperium; J45.909 Unspecified asthma, uncomplicated; F41.1 Generalized anxiety disorder; W22.09XA Striking against other stationary object, initial encounter; O99.345 Other mental disorders complicating the puerperium; Z87.891 Personal history of nicotine dependence
CPT/HCPCS: 74177; 80053; 85025; 99284; Q9967

== ENCOUNTER 2023-09-22 06:39 | Emergency (ER) | payer OTHER, MEDICAID, SELFPAY ==
[2023-09-22 06:44] VITALS: BP 141/84; PULSE 76; O2SAT 97
[2023-09-22 06:48] VITALS: BP 141/84; PULSE 75; RESP 20; TEMP 36.7; O2SAT 95; BMI 52.3
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
--- NOTE | 2023-09-22 07:17 | PC.NURSE ---
pt requested heated blanket no other needs voiced at this time. family at BS
[2023-09-22] MEDS: diphenhydrAMINE 50MG/ML VIAL 25 MG IV (07:24)
[2023-09-22] MEDS: PROCHLORPERAZINE 10MG/2ML VIAL 10 MG IV (07:24)
[2023-09-22] MEDS: LACTATED RINGERS 1000ML 1,000 ML 999 ML IV (07:25)
[2023-09-22] MEDS: ACETAMINOPHEN 1,000MG/100ML VIAL 1000 MG IV (07:25)
--- NOTE | 2023-09-22 08:10 | PC.NURSE ---
pt to the bathroom independently. pt back in room with family at BS
[2023-09-22 08:37] VITALS: BP 141/84; PULSE 75; RESP 20; TEMP 36.7; O2SAT 95
== END 2023-09-22 08:39 | disposition home or self-care (01) ==
PROVIDERS: Emergency Provider Emergency Medicine; PCP Nurse Practitioner
DX: G43.909 Migraine, unspecified, not intractable, without status migrainosus (principal)
CPT/HCPCS: 96361; 96374; 96375; 99284; J0131; J7120

== ENCOUNTER 2023-12-17 19:03 | Emergency (ER) | payer OTHER, MEDICAID, SELFPAY ==
[2023-12-17 19:05] VITALS: BP 131/94; PULSE 80; RESP 18; TEMP 36.6; O2SAT 97; BMI 51.5
--- NOTE | 2023-12-17 19:08 | [facility].EDGENADL ---
Discharge Plan Disposition Patient Disposition: Home, Self-Care Condition: Good Prescriptions Prescriptions: New methocarbamol 750 mg tablet 750 mg PO Q6H PRN (Reason: muscle spasm) Qty: 20 0RF No Action escitalopram oxalate [Lexapro] 20 mg tablet 20 mg PO DAILY Qty: 30 1RF Vraylar 1.5 mg capsule 1.5 mg PO DAILY Qty: 30 1RF nifedipine 30 mg tablet extended release See Rx Instructions .ROUTE .COMPLEX Qty: 30 11RF Dose Instruction: Take 1 tablet by mouth once daily Rx Instructions: Take 1 tablet by mouth once daily hydroxyzine pamoate [Vistaril] 25 mg capsule 25 mg PO TID PRN (Reason: for increased anxiety) Qty: 90 0RF fluticasone propionate [Flonase Allergy Relief] 50 mcg/actuation spray,suspension 1 spray intranasal DAILY Rx Instructions: administer into each nostril albuterol sulfate [Proventil HFA] 90 mcg/actuation HFA aerosol inhaler 2 inh inhalation Q6HP PRN (Reason: shortness of breath or wheezing) Referrals Follow up/Referrals: Holli Donovan APRN [Primary Care Provider] - See instructions Activity Restrictions/Add. Instructions Additional Instructions/Restrictions: Follow-up with your PCP for any worsening signs or symptoms. Return to the ER as needed for any worsening signs or symptoms. Clinical Impressions Clinical Impression: Headache Qualifiers: Headache type: unspecified Headache chronicity pattern: acute headache Intractability: not intractable Qualified Code(s): R51.9 - Headache, unspecified Instructions Patient Instructions: DI for Headache Print Language Print Language: Bengali Discharge ED Provider: Adam Pizarro General Adult HPI <DWIGHT Gonzalez - Last Filed: 12/17/23 21:42> General Chief complaint: Headache Stated complaint: poss migraine nausea/vomiting Time Seen by Provider: 12/17/23 19:08 History of Present Illness HPI narrative: 33-year-old female presents for evaluation of migraine headache. Patient reports a headache of acute onset around 2:00 this afternoon. She has a history of migraines but has no migraine position. She stated that they worsened during her last year but was felt to be because of eclampsia but ultimately was admitted for her headaches started on a headache medication and did very well. However she states her insurance no longer covers that medication and till now she has only been able to take Excedrin although that does work most of the time in addition to Gatorade. She reports nothing out of the ordinary in the presentation of this one of the and the severity of her symptoms and the fact that it did not rylie with her normal regimen. She has no neck stiffness visual changes numbness weakness tingling arms leg changes and coordination. Related Data Home Medications ?Medication ?Instructions ?Recorded ?Confirmed fluticasone propionate 50 1 spray intranasal DAILY allergies 07/18/22 11/03/23 mcg/actuation nasal spray,suspension (Flonase Allergy Relief) albuterol sulfate 90 mcg/actuation 2 inh inhalation Q6HP PRN 04/17/23 11/03/23 aerosol inhaler (Proventil HFA) shortness of breath or wheezing Previous Rx's ?Medication ?Instructions ?Recorded nifedipine 30 mg tablet,extended See Rx Instructions .Route 06/02/23 release .COMPLEX #30 tabs escitalopram oxalate 20 mg tablet 20 mg PO DAILY #30 tabs 10/16/23 (Lexapro) cariprazine 1.5 mg capsule 1.5 mg PO DAILY #30 caps 10/28/23 (Vraylar) hydroxyzine pamoate 25 mg capsule 25 mg PO TID PRN for increased 12/15/23 (Vistaril) anxiety #90 caps methocarbamol 750 mg tablet 750 mg PO Q6H PRN muscle spasm #20 12/17/23 tabs Allergies Allergy/AdvReac Type Severity Reaction Status Date / Time cefdinir Allergy Severe Hives Verified 10/20/23 11:51 sulfamethoxazole Allergy Severe Hives Verified 10/20/23 11:51 [From Bactrim] trimethoprim [From Bactrim] Allergy Severe Hives Verified 10/20/23 11:51 acetaminophen [From [place]]
[2023-12-17 19:39] LABS: Basophils # 0.1 K/mm3 (0-0.2); Basophils % 0.9 % (0.1-2.0); Eosinophils # 0.1 K/mm3 (0.0-0.4); Hematocrit 42.6 % (37.0-47.0); Hemoglobin 13.4 g/dL (12.2-16.2); Lymphocytes # 1.4 K/mm3 (0.7-4.5); Mean Corpuscular HGB Conc 31.5 g/dL (31.8-35.4); Mean Corpuscular Hemoglobin 27.9 pg (27.0-31.2); Mean Corpuscular Volume 88.5 fl (81-99); Mean Platelet Volume 8.2 fl (7.4-10.4); Monocytes # 0.3 K/mm3 (0.1-1.0); Monocytes % 2.5 % (1.7-9.3); Neutrophils # 9.9 K/mm3 (1.8-7.8); Neutrophils % 83.8 % (37.0-80.0); Platelet Count 306 K/mm3 (142-424); Red Blood Count 4.81 M/mm3 (4.20-5.40); Red Cell Distribution Width 15.7 % (11.5-17.5); White Blood Count 11.8 K/mm3 (4.8-10.8)
[2023-12-17 19:51] LABS: Alanine Aminotransferase 34 U/L (12-78); Albumin Level 4.2 g/dl (3.5-5.0); Albumin/Globulin Ratio 1.1 (1.1-1.8); Alkaline Phosphatase 101 U/L (38-126); Anion Gap 10.7 mEq/L (5-15); Aspartate Amino Transferase 34 U/L (14-36); Bilirubin,Total 0.5 mg/dl (0.2-1.3); Blood Urea Nitrogen 10 mg/dl (7-17); Calcium 9.3 mg/dl (8.4-10.2); Carbon Dioxide 26 mmol/L (22.0-30.0); Chloride 106 mmol/L (98-107); Creatinine Clearance Estimated 136 mL/min (50-200); Estimated Glomerular Filt Rate 140 ml/min (>60); GFR (African American) 170 ML/MIN (>60); Globulin 3.9 g/dL (1.3-3.2); Glucose 106 mg/dl (74-100); Magnesium 1.9 mg/dl (1.6-2.3); Potassium 3.7 mmoL/L (3.5-5.1); Sodium 139 mmol/L (136-145); Total Protein,Serum 8.1 g/dl (6.3-8.2)
[2023-12-17 20:48] LABS: Microscopic, Urine URINE MICROSCOPIC (MICROSCOPIC)
[2023-12-17 20:49] VITALS: BP 125/75; PULSE 85; RESP 18; TEMP 37.1; O2SAT 97
[2023-12-17 20:52] LABS: Bilirubin,Urine Negative (Negative); Blood, Urine 2+ (Negative); Color,Urine YELLOW (Yellow); Glucose,Urine (UA) Negative (Negative); Ketones,Urine TRACE (Negative); Leukocyte Esterase,Urine Negative (Negative); Nitrate,Urine Negative (Negative); PH,Urine 8.5 (5.0-8.5); Protein,Urine Negative (Negative); Urobilinogen,Urine 0.2 EU/dl (0.2)
[2023-12-17 20:58] LABS: Appearance,Urine Slightly Cloudy (Clear)
[2023-12-17 21:06] LABS: Bacteria,Urine 1+ /lpf; Mucus,Urine 1+ /lpf; RBC,Urine 20-50 #/hpf (0-3); Squamous Epithelial Cell,Urine Occasional #/hpf (0-5); Urine Pregnancy, HCG Qual. Negative (Negative)
== END 2023-12-17 20:52 | disposition home or self-care (01) ==
PROVIDERS: Physician Assistant; Emergency Provider Emergency Medicine; PCP Nurse Practitioner
DX: G44.89 Other headache syndrome (principal); R11.2 Nausea with vomiting, unspecified
CPT/HCPCS: 80053; 81001; 81025; 83735; 85025; 96361; 96374; 96375; 99284; J0780; J1100; J1885; J7120

== ENCOUNTER 2024-03-17 15:00 | Emergency (ER) | payer OTHER, MEDICAID, SELFPAY ==
[2024-03-17 15:45] VITALS: BP 149/96; PULSE 88; RESP 19; TEMP 36.6; O2SAT 100; BMI 53.1
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
[2024-03-17 16:24] VITALS: BP 149/96; PULSE 88; RESP 19; TEMP 36.6; O2SAT 100
== END 2024-03-17 16:26 | disposition home or self-care (01) ==
PROVIDERS: Emergency Provider Nurse Practitioner
DX: J01.90 Acute sinusitis, unspecified (principal)
CPT/HCPCS: 99213; G0381

== ENCOUNTER 2024-05-21 14:18 | Outpatient (CLI) | payer OTHER, MEDICAID, SELFPAY ==
--- NOTE | 2024-05-21 14:26 | US_ITS ---
PROCEDURE: US TRANSVAGINAL CLINICAL INDICATION: Menorrhagia COMPARISON: CT CT ABDOMEN PELVIS W CON from 05/19/2023 FINDINGS: Transvaginal sonographic images of the pelvis were obtained. UTERUS: 7.1cm x 5.5 cmx 3.7 cm anteverted with a combined endometrial thickness of 4.9mm. A scar is seen. The myometrium appears heterogenous. LEFT OVARY: 2.1cmx1.7 cmx2.0cm with a volume of 3.6ml. There is a small follicle measuring 0.6 cm. There are several other small follicles. RIGHT OVARY: 2.7 cmx 1.9 cmx1.6 cm with a volume of 4.3ml. The right ovary is difficult to visualize but appears normal. Both ovaries are seen and appear normal. Doppler flow to both ovaries are seen. There is no fluid in the cul-de-sac. IMPRESSION: 1. Anteverted uterus normal in shape and size. The endometrium is thin measuring 4.9 mm. 2. Both ovaries are seen and appear normal. The left ovary has a number of small follicles. The right ovary is more difficult to see. 3. No fluid in the cul-de-sac. Dictated by: Royce Cook MD 05/21/2024 17:31 Royce Cook MD in OV 05/21/2024 17:31
== END 2024-05-21 23:59 | disposition home or self-care (01) ==
LOC: RAD 14:20
PROVIDERS: Visit Provider Nurse Practitioner Obstetrics & Gynecology
DX: N92.4 Excessive bleeding in the premenopausal period (principal); N92.6 Irregular menstruation, unspecified
CPT/HCPCS: 76830

== ENCOUNTER 2024-12-16 15:26 | Outpatient (CLI) | payer BC, SELFPAY ==
--- OUTSIDE RECORDS SUMMARY | 2024-11-30 00:02 | XMS_ITS | Encounter Summary ---
Author Organization [facility] Address [address] [place] [address] Care Team Providers Care Back Strip Machine Operator Name Role Phone System, Provider Not In Primary Care Provider Un available Reason for Visit * Reason Comments Chest Pain Encounter Details Date Type Department Care Team (Late st Contact Info) Description 11/30/2024 12:02 AM EDT - 11/30/2024 5:17 AM EDT Emergency [facility] EMERGENCY DEPARTMENT [address] [id number] Veda Felix MD [address] [place] [id number] Atypical chest pain (Primary Dx); Post-COVID [...] 12:12 AM EDT Aimee Degroot RN * [place] Suicide Severity Rating Scale (Screener/Recent Self-Report) Question [...] MOUTH EVERY EVENING WITH MEAL 11/12/2024 rizatriptan NUT AND BOLT ASSEMBLER (MAXALT-NUT AND BOLT ASSEMBLER) 5 MG disintegrating tablet DISSOLVE ONE TABLET [...] Vitamins-Minerals (MULTIVITAMIN ADULT PO) Take by mouth. 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 and had [...] These medications were sent to [id number] [place] - [address] [address] [address] [facility]-6 -[phone] PH - [phone] FX [address] [facility] [address] [facility], [place] [id number] ketorolac 10 MG tablet documented in this [...] MD 11/30/2024 1:57 AM EDT Workstation ID: [id number] Narrative 11/30/2024 1:[address] ANGIOGRAM [...] MD 11/30/2024 1:57 AM EDT Workstation ID: [id number] Veda Felix MD IMG CT ORDERABLES Final Resul t * High Sensitivity Troponin T 1Hr (11/30/2024 1:21 AM EDT) Pathologist [facility] HS Troponin T <6 <14 ng/L 11/30/2024 1:42 AM EDT [facility] Troponin T [place] 11/30/2024 1:42 AM EDT [facility] Comment:Unable to calculate. Blood Venipuncture / Unknown 11/30/2024 1:21 AM EDT 11/30/2024 1:23 AM EDT Narrative [facility] - 11/30/2024 1:42 AM EDT High [...] MD LAB BLOOD ORDERABLES Final Re sult [facility]
[address] [address], * POC Urine (11/30/2024 1:13 AM EDT) Pathologist [facility] HCG, Urine, QL Negative [facility] Internal Positive Control [facility] Internal Negative Control [facility] Urine 11/30/2024 1:1 3 AM EDT us Veda Felix MD POINT OF CARE TEST ORDERABLES Final Result [facility]
[address] [place] [id number], * ECG 12 Lead Chest Pain (11/30/2024 [...] MD 11/30/2024 12:47 AM EDT Workstation ID: [id number] Narrative 11/30/2024 12:47 AM EDT XR CHEST [...] MD 11/30/2024 12:47 AM EDT Workstation ID: [id number] Veda Felix MD IM DIAGNOSTIC IMAGING ORDERA BLES Final Result * Telemetry Scan (11/30/2024 12:19 AM EDT) [facility] ECG ORDERABLES Final Result * (ABNORMAL) CBC Auto Differential (11/30/2024 12:18 AM EDT) WBC 14.64(H) 3.40 - 10.80 10*3/mm3 11/30/2024 12:29 AM EDT [facility] RBC 5.13 3.77 - 5.28 10*6/mm3 11/30/2024 12:29 AM EDT [facility] Hemoglobin 14.3 12.0 - 15.9 g/dL 11/30/2024 12:29 AM [facility] Hematocrit 42.9 34.0 - 46.6 % 11/30/2024 12:29 AM [facility] MCV 83.6 79.0 - 97.0 fL 11/30/2024 12:29 AM [facility] MCH 27.9 26.6 - 33.0 pg 11/30/2024 12:29 AM [facility] MCHC 33.3 31.5 - 35.7 g/dL 11/30/2024 12:29 AM [facility] RDW 14.4 12.3 - 15.4 % 11/30/2024 12:29 AM [facility] RDW-SD 44.6 37.0 - 54.0 fl 11/30/2024 12:29 AM [facility] MPV 10.0 6.0 - 12.0 fL 11/30/2024 12:29 AM [facility] Platelets 334 140 - 450 10*3/mm3 11/30/2024 12:29 AM [facility] Neutrophil % 74.8 42.7 - 76.0 % 11/30/2024 12:29 AM [facility] Lymphocyte % 20.1 19.6 - 45.3 % 11/30/2024 12:29 AM [facility] Monocyte % 4.2(L) 5.0 - 12.0 % 11/30/2024 12:29 AM [facility] Eosinophil % 0.1(L) 0.3 - 6.2 % 11/30/2024 12:29 AM [facility] Basophil % 0.3 0.0 - 1.5 % 11/30/2024 12:29 AM [facility] Immature Grans % 0.5 0.0 - 0.5 % 11/30/2024 12:29 AM [facility] Neutrophils, Absolute 10.94(H) 1.70 - 7.00 10*3/mm3 11/30/2024 12:29 AM [facility] Lymphocytes, Absolute 2.94 0.70 - 3.10 10*3/mm3 11/30/2024 12:29 AM EDT [facility] Monocytes, Absolute 0.62 0.10 - 0.90 10*3/mm3 11/30/2024 12:29 AM EDT [facility] Eosinophils, Absolute 0.02 0.00 - 0.40 10*3/mm3 11/30/2024 12:29 AM EDT [facility] Basophils, Absolute 0.04 0.00 - 0.20 10*3/mm3 11/30/2024 12:29 AM EDT [facility] Immature Grans, Absolute 0.08(H) 0.00 - 0.05 10*3/mm3 11/30/2024 12:29 AM EDT [facility] Blood Line / Unknown 11/30/2024 12 :18 AM EDT 11/30/2024 12:25 AM EDT Veda Felix MD LAB BLOOD ORDERABLES Final Re sult [facility]
[address] [facility] [address] [place] [address], [place] * Light Blue Top (11/30/2024 12:18 AM EDT) Extra Tube Hold for add-ons. 11/30/2024 12:30 AM EDT [facility] Comment:Auto resulted Blood Line / Unknown 11/30/2024 12 :18 AM EDT 11/30/2024 12:25 AM EDT Veda Felix MD LAB BLOOD ORDER ONLY Final Re sult [facility]
[address] [facility] [address] [place] [address], [place] * Petersen Top (11/30/2024 12:18 AM EDT) Extra Tube Hold for add-ons. 11/30/2024 12:30 AM EDT [facility] Comment:Auto resulted. Blood Line / Unknown 11/30/2024 12 :18 AM EDT 11/30/2024 12:25 AM EDT Veda Felix MD LAB BLOOD ORDER ONLY Final Re sult [facility]
[address] [facility] [address] [place] [address], [place] * Gold Top - SST (11/30/2024 12:18 AM EDT) Extra Tube Hold for add-ons. 11/30/2024 12:30 AM EDT [facility] Comment:Auto resulted. Blood Line / Unknown 11/30/2024 12 :18 AM EDT 11/30/2024 12:25 AM EDT Veda Felix MD LAB BLOOD ORDER ONLY Final Re sult Performing Organization Address City/[facility]/ZIP Co de Phone Number [facility]
[address] [facility] [address] [place] [address], [place] * Lavender Top (11/30/2024 12:18 AM EDT) Extra Tube hold for add-on 11/30/2024 12:30 AM EDT [facility] Comment:Auto resulted Blood Line / Unknown 11/30/2024 12 :18 AM EDT 11/30/2024 12:25 AM EDT Veda Felix MD LAB BLOOD ORDER ONLY Final Re sult [facility]
[address] [facility] [address] [place] [address], [place] * Green Top (Gel) (11/30/2024 12:18 AM EDT) Extra Tube Hold for add-ons. 11/30/2024 12:30 AM EDT [facility] Comment:Auto resulted. Blood Line / Unknown 11/30/2024 12 :18 AM EDT 11/30/2024 12:25 AM EDT Veda Felix MD LAB BLOOD ORDER ONLY Final Re sult [facility]
[address] [facility] [address] [place] [address], [place] * BNP (11/30/2024 12:18 AM EDT) proBNP 91.1 0.0 - 450.0 pg/mL 11/30/2024 12:45 AM EDT [facility] Blood Line / Unknown 11/30/2024 12 :18 AM EDT 11/30/2024 12:25 AM EDT Narrative [facility] - 11/30/2024 12:45 AM EDT This [...] MD LAB BLOOD ORDERABLES Final Re sult [facility]
[address] [facility] [address] [place] [address], [place] * Lipase (11/30/2024 12:18 AM EDT) Lipase 19 13 - 60 U/L 11/30/2024 12:47 AM EDT [facility] Blood Line / Unknown 11/30/2024 12 :18 AM EDT 11/30/2024 12:25 AM EDT us Veda Felix MD LAB BLOOD ORDERABLES Final Re sult [facility]
[address] [facility] [address] [place] [address], [place] * (ABNORMAL) Comprehensive Metabolic Panel (11/30/2024 12:18 AM EDT) Glucose 98 65 - 99 mg/dL 11/30/2024 1:02 AM EDT [facility] BUN 10.0 6.0 - 20.0 mg/dL [facility]2024 [facility] Creatinine 0.67 0.57 - 1.00 mg/dL 11/30/2024 1:02 AM [facility] Sodium 139 136 - 145 mmol/L 11/30/2024 1:02 AM [facility] Potassium 4.1 3.5 - 5.2 mmol/L 11/30/2024 1:02 AM T [facility] Comment:Specimen hemolyzed. Result may be falsely elevated. Chloride 100 98 - 107 mmol/L 11/30/2024 1:02 AM [facility] CO2 21.9(L) 22.0 - 29.0 mmol/L 11/30/2024 1:02 AM [facility] Calcium 9.9 8.6 - 10.5 mg/dL 11/30/2024 1:02 AM [facility] Total Protein 7.7 6.0 - 8.5 g/dL 11/30/2024 1:02 [facility] Albumin 4.0 3.5 - 5.2 g/dL 11/30/2024 1:02 AM [facility] ALT (SGPT) 22 1 - 33 U/L 11/30/2024 1:02 AM T [facility] AST (SGOT) 26 1 - 32 U/L 11/30/2024 1:02 AM [facility] Comment:Specimen hemolyzed. Result may be falsely elevated. Alkaline Phosphatase 85 39 - 117 U/L 11/30/2024 1:02 AM EDT [facility] Total Bilirubin 0.4 0.0 - 1.2 mg/dL 11/30/2024 1:02 AM EDT [facility] Globulin 3.7 gm/dL 11/30/2024 1:02 AM EDT [facility] A/G Ratio 1.1 g/dL 11/30/2024 1:02 AM EDT [facility] BUN/Creatinine Ratio 14.9 7.0 - 25.0 11/30/2024 1:02 AM EDT [facility] Anion Gap 17.1(H) 5.0 - 15.0 mmol/L 11/30/2024 1:02 AM EDT [facility] eGFR 116.3 >60.0 mL/min/1.7 3 11/30/2024 1:02 AM [facility] Blood Line / Unknown 11/30/2024 12 :18 AM EDT 11/30/2024 12:25 AM EDT [facility] - 11/30/2024 1:02 AM EDT GFR [...] MD LAB BLOOD ORDERABLES Final Re sult [facility]
[address] [address], * High Sensitivity Troponin T (11/30/2024 12:18 AM EDT) HS Troponin T <6 <14 ng/L 11/30/2024 12:44 AM EDT [facility] Blood Line / Unknown 11/30/2024 12 :18 AM EDT 11/30/2024 12:25 AM EDT Veda Felix MD LAB BLOOD ORDERABLES Final Re sult [facility]
[address] [facility] [address] [place] [address], [place] * Telemetry Scan (11/30/2024 12:09 AM EDT) [facility] Onbase ECG ORDERABLES Final Result * [...] [id number] documented in this encounter Care Teams Back Strip Machine Operator Relationship Specialty Start Date End Date System, [place] [address] PCP - General 01/18/22 documented as of this encounter
--- OUTSIDE RECORDS SUMMARY | 2024-12-16 15:29 | XMS_ITS | Encounter Summary ---
Author Organization [facility] Address [address] [place] [address] Care Team Providers Care Ux Designer Name Role Phone System, Provider Not In Primary Care Provider Un available Encounter Details Date Type Department Care Team (Late st Contact Info) Description 05/21/2013 Conversion Encounter [facility] HISTORICAL CONV [address] [place] [address] Interface, See Report Social History Tobacco Use Types Packs/Day Years Used Date Smoking Tobacco: Never Assessed Comments Unknown Sex and Gender Information Value Date Recorded Sex Assigned at Not on file Legal Sex Female 1:16 PM EDT Gender Identity Not on file Sexual Orientation Not on file documented as of this encounter Discharge Summaries * Interface, See Report - 05/21/2013 9:00 AM EST [place] [address] DISCHARGE SUMMARY PATIENT NAME: SIDRA WHITT ROOM NUMBER: [id number] VISIT NUMBER: [id number] DATE OF : 1990 DATE OF ADMISSION: 05/21/2013 DATE OF DISCHARGE: 05/24/2013 DISCHARGE DIAGNOSES: 1. Intrauterine at term. 2. Previous section, desires repeat. PROCEDURE PERFORMED: Repeat low transverse section performed on 05/21/2013. HISTORY: Please see report on the chart. HOSPITAL COURSE: The patient was admitted on 05/21/2013 for scheduled repeat section. Her procedure was performed without complication. She remained in the hospital for 3 days during which time she was afebrile and hemodynamically stable. She was discharged home on postoperative day postop day #3 with the following prescriptions; DISCHARGE MEDICATIONS: 1. Percocet 5/325 mg, 1-2 tabs p.o. q. 4-6 h. p.r.n. 2. Ibuprofen 600 mg, 1 p.o. q. 6 h. p.r.n. 3. Colace 100 mg, 1 p.o. b.i.d. Postoperative precautions were reviewed. The patient is scheduled for a follow-up appointment in 6 weeks. Discharge plans and medications managed under the direction of Lashanda Anguiano MD. Kyleigh Trevino PA-C Dictated for: MD EMERY Farris/MIGUEL/shmuel Voice Rec. ID #[id number] Voice Original ID #[id number] Doc ID #[id number] Rev. #1 [No PCP on file] cc: Lashanda Anguiano MD* DO NOT TEXT EDIT THIS LINE :CDS:353: Authenticated by ROCKY BRAY On 07/09/2013 08:20:31 PM Authenticated by LASHANDA ANGUIANO M.D. On 2013 07:31:09 AM documented in this encounter OR Notes * Op Note - Interface, See Report - 05/21/2013 9:00 AM EST [place] [address] OPERATIVE REPORT PATIENT NAME: SIDRA WHITT 1 HOSPITAL NO: [id number] DATE OF : 1990 DATE OF OPERATION: 05/21/2013 ADMITTING PHYSICIAN/SURGEON: Lashanda Anguiano MD LUMBER STACKER DRIVER: Stefany Llamas MD/Resident PREOPERATIVE DIAGNOSES: 1. Term gestation . 2. Previous section. POSTOPERATIVE DIAGNOSES: 1. Term gestation . 2. Previous section. PROCEDURE PERFORMED: Repeat low transverse section. ESTIMATED BLOOD LOSS: 1000 mL. ANTIBIOTICS: Ancef 2 grams. FINDINGS: Vigorous male infant with scores of 9 at one minute and 9 at five minutes, weighing 8 pounds, 8 ounces. DISPOSITION: To the recovery room in good condition. OPERATIVE DESCRIPTION: Consent for blood and the procedure was obtained and placed on the chart. The patient underwent dosing of her epidural. Once it was determined to be adequate, she was prepped and draped in the usual sterile fashion including placement of a Siu catheter for bladder drainage. We began by making a Pfannenstiel incision. It was carried down sharply to the fascia. The fascia was nicked in the midline and extended laterally using Hernandez scissors. We sharply and bluntly the rectus muscles away from the fascia. The peritoneum was identified, elevated and entered. This window was extended inferiorly with care being taken to avoid trauma to the bladder. A bladder blade was placed exposing the lower uterine segment. We created a bladder flap by incising the serosa and replacing the bladder blade. A low transverse uterine incision was made. It was extended by finger fractionation. The was noted to be in cephalic position with clear amniotic fluid. Fundal pressure was applied. The head was elevated and the was delivered without difficulty. The nose and oropharynx were suctioned. The cord was clamped and cut and the was passed to the pediatric staff in attendance. Cord gases and cord blood were sent. The placenta was extracted and grossly noted to be normal. The uterus was delivered onto the abdominal surface, wrapped in a wet laparotomy sponge and curetted with a dry sponge for removal of all products. The incision was inspected and noted to be without extensions. It was closed with a running locking #1 chromic suture. Good hemostasis was achieved. The bladder flap was reapproximated with a 2-0 chromic. We replaced the uterus into the abdominal cavity. The gutters were evacuated and irrigated of clots. The incision was inspected and again noted to be hemostatic. The rectus muscles and peritoneum were reapproximated in the midline with an interrupted suture of 2-0 chromic. The rectus muscles were noted to be hemostatic. We closed the fascia with a 0-Vicryl in a running fashion. Subcutaneous tissue was irrigated. Hemostasis was achieved with Bovie cautery and the skin was closed with a 4-0 Vicryl subcuticular stitch. Steri-Strips and a sterile dressing were applied. The vagina was evacuated of clots prior to taking her to the Recovery Room. Lashanda Anguiano MD* EWC/rxsmj Voice Rec. ID #[id number] Original Voice Rec. ID #[id number] Doc ID #[id number] Revision Count: 0 cc: Lashanda Anguiano MD* <start header> [place] [address] OPERATIVE REPORT PATIENT NAME: SIDRA WHITT 1 HOSPITAL NO: [id number] DATE OF : 1990 <end header> DO NOT TEXT EDIT THIS LINE :WELL TENDER:[id number]: Authenticated by LASHANDA ANGUIANO M.D. On 05/28/2013 02:27:26 PM documented in this encounter Plan of Treatment Not on file documented as of this encounter Procedures Procedure Name Priority Date/Time Associated Diagnosis Comments PRE-ECLAMPSIA PANEL Routine 05/23/2013 1 0:31 AM EST CBC (NO DIFF) Routine 05/22/2013 8:20 AM EST URINE DRUG SCREEN Routine 05/20/2013 12: 01 PM EST CBC (NO DIFF) Routine 05/20/2013 11:20 AM EST TYPE AND SCREEN Routine 05/20/2013 11:20 AM EST documented in this encounter Results * (ABNORMAL) Pre-Eclampsia Panel (05/23/2013 10:31 AM EST) Creatinine 0.6 0.6 - 1.3 mg/dL [facility] Uric Acid 4.3 2.6 - 7.2 mg/dL [facility] Alkaline Phosphatase 91 25 - 100 Units/L [facility] AST (SGOT) 29 8 - 33 Units/L [facility] LDH 204(H) 100 - 190 Units/L [facility] ALT (SGPT) 21 7 - 40 Units/L [facility] Total Bilirubin 0.3 0.3 - 1.2 mg/dL [facility] Blood specimen (specimen) 05/23/2013 10:31 AM EST [facility] - 05/23/2013 11:02 AM EST Specimen Type: Blood Kyleigh Trevino PA-C LAB BLOOD ORDERABLES F inal Result Performing Organization Address City/[facility]/ZIP [place] [address], * (ABNORMAL) CBC (No diff) (05/22/2013 8:20 AM EST) WBC 9.24 3.50 - 10.80 K/[facility] RBC 3.37(L) 3.89 - 5.14 M/[facility] Hemoglobin 9.8(L) 11.5 - 15.5 g/dL [facility] Hematocrit 29.6(L) 34.5 - 44.0 % [facility] MCV 87.8 80.0 - 99.0 fL [facility] MCH 29.1 27.0 - 31.0 pg [facility] MCHC 33.1 32.0 - 36.0 g/dL [facility] RDW-CV 15.1(H) 11.3 - 14.5 % [facility] Platelets 155 150 - 450 [facility] Blood specimen (specimen) 05/22/2013 8:20 AM EST [facility] - 05/22/2013 9:10 AM EST Specimen Type: Blood Lashanda Anguiano MD LAB BLOOD ORDERABLES Final Result Performing Organization Address [facility]/[place]IP [place] [address], * Rapid drug screen, urine (05/20/2013 12:01 PM EST) THC Screen Interpretation Negative NEGATIVE ng/mL [facility] Phencyclidine (PCP), Urine Negative NEGATIVE ng/mL [facility] Cocaine Screen, Urine Negative NEGATIVE ng/mL [facility] Methamphetamine, Urine Negative NEGATIVE ng/mL [facility] Opiate Screen, Urine Negative NEGATIVE ng/mL [facility] Amphetamine, Urine Qual Negative NEGATIVE ng/mL [facility] Comment: DF by [id number] @ 05/20/2013 12:18 Test Cutoff THC 50 ng/mL PCP 25 ng/mL Cocaine 150 ng/mL Methamphetamine 500 ng/mL Opiate 100 ng/mL Amphetamine 500 ng/mL Benzodiazepine 150 ng/mL TCA 300 ng/mL Methadone 200 ng/mL Barbiturate 200 ng/mL Oxycodone 100 ng/mL Propoxyphene 300 ng/mL Buprenorphine 10 ng/mL The results are to be used for medical treatment purposes only. The results have not been confirmed by a confirmation method. Benzodiazepine Screen, Urine Negative NEGATIVE ng/mL [facility] TCA Screen Negative NEGATIVE ng/mL [facility] Methadone Screen, Urine Negative NEGATIVE ng/mL [facility] Barbiturates Screen, Urine Negative NEGATIVE ng/mL [facility] Oxycodone Screen, Urine Negative NEGATIVE ng/mL [facility] Propoxyphene Screen Negative NEGATIVE ng/mL [facility] Buprenorphine, Screen, Urine Negative NEGATIVE ng/mL [facility] Urine specimen (specimen) 05/20/2013 12:01 PM EST Narrative [facility] - 05/20/2013 12:18 PM EST Specimen Type: Urine us Lashanda Anguiano MD URINE ORDERABLES Final Res ult [facility] [address] [place] [address], * Type and screen (05/20/2013 11:20 AM EST) ABORh O Rh Positive [facility] Antibody Screen Negative [facility] Blood specimen (specimen) 05/20/2013 11:20 AM EST [facility] - 05/20/2013 12:29 PM EST Specimen Type: Blood Lashanda Anguiano MD BLOOD BANK TEST ORDERABLES Final Result Performing Organization Address [facility] [place] [address], * (ABNORMAL) CBC (No diff) (05/20/2013 11:20 AM EST) WBC 11.88(H) 3.50 - 10.80 K/[facility] RBC 4.26 3.89 - 5.14 /[facility] Hemoglobin 12.5 11.5 - 15.5 g/dL [facility] Hematocrit 37.3 34.5 - 44.0 % [facility] MCV 87.6 80.0 - 99.0 fL [facility] MCH 29.3 27.0 - 31.0 pg [facility] MCHC 33.5 32.0 - 36.0 g/dL [facility] RDW-CV 14.9(H) 11.3 - 14.5 % [facility] Platelets 205 150 - 450 K/[facility] Blood specimen (specimen) 05/20/2013 11:20 AM EST [facility] - 05/20/2013 11:46 AM EST Specimen Type: Blood Lashanda Anguiano MD LAB BLOOD ORDERABLES Final Result Performing Organization Address [facility] [place] [address], documented in this encounter Visit Diagnoses Not on filedocumented in this encounter Care Teams Ux Designer Relationship Specialty Start Date End Date System, [place] [address] PCP - General 01/18/22 documented as of this encounter
--- OUTSIDE RECORDS SUMMARY | 2024-12-16 15:29 | XMS_ITS | Clinical Summary ---
Author Organization [facility] Address [address] [place] [address] Care Team Providers Care Corporate Law Assistant Name Role Phone Unavailable Primary Care Provider Unavailabl e Allergies Active Allergy Reactions Criticality Noted Date Comments Sulfamethoxazole-Trimethop rim Rash Low 02/25/2020 Bactrim (sulfamethoxazole-trimetho prim) - Unknown Cefdinir Rash Low 01/05/2021 Medications * This document contains information received from the source organization and may not represent a complete record from that organization. omega-3 (Fish Oil) 1000 MG capsule Take 1,200 mg by mouth 2 (two) times a day. 1 Active MULTIPLE VITAMINS-MINERA LS ER PO Take by mouth. Activ e fluticasone (Flonase) 50 MCG/ACT nasal spray USE 1 SPRAY IN EACH NOSTRIL TWICE DAILY. 1 Active loratadine (Claritin) 10 MG tablet TAKE 1 TABLET DAILY. 1 Active albuterol 108 (90 Base) MCG/ACT inhaler Inhale 2 puffs every 6 (six) hours if needed for wheezing. Active ibuprofen 800 MG tablet Take by mouth if needed. 1 Active hydrOXYzine HCl (Atarax) 25 MG tabletIndicatio ns:Anxiety Take 1 tablet by mouth twice daily as needed for anxiety 60 tablet 2 2 Active Dulera 100-5 MCG/ACT inhaler Inhale 1 puff 2 (two) times a day. 13 g 2 Active montelukast (Singulair) 10 MG tablet Take 1 tablet (10 mg total) by mouth every night. 90 tablet 1 2 Active escitalopram (Lexapro) 10 MG tablet TAKE 1 TABLET BY MOUTH ONCE DAILY DIRECTED 90 tablet 1 2 Active tobramycin-dexa methasone (Tobradex) ophthalmic suspension Administer 1 drop into the right eye 4 (four) times a day. 5 mL 1 2 Active citalopram (CeleXA) 20 MG tablet Take 20 mg by mouth 1 (one) time each day. 2 Active Active Problems Problem Noted Date Diagnosed Date Morbid obesity with body mass index (BMI) of 40. 0 or higher 05/16/2021 Mild asthma without complication 01/05/2021 Immunizations Immunization Administration Dates Next Due Hep B, adult 12/03/2016, 1,04/02/2000,1999 Influenza, Unspecified 02/25/2020 Influenza, injectable, quadr ivalent, preservative free 02/14/2022,02/09/2021 MMR 10/03/1999,10/27/1989 Tdap 12/24/2016 Family History Medical History Relation Name Comments Coronary artery disease Father Hyperlipidemia Father Hypertension Father Lung cancer Maternal Grandmother Endometriosis Mother MEMO disease Mother Irritable bowel syndrome Mother Breast cancer Mother's Sister Skin cancer Other Relation Name Status Comments Father Maternal Grandmother Mother Mother's Sister Other Social History Tobacco Use Types Packs/Day Years Used Date Smoking Tobacco: Former Cigarettes Q uit: 2016 Smokeless Tobacco: Never Tobacco Cessation:Counseling Given: Yes Alcohol Use Standard Drinks/Week Comments Never 0 (1 standard drink = 0.6 oz pur e alcohol) PHQ-2 Answer Date Recorded Patient Health Questionnaire-2 Score 0 04/02/2021 Comments No Sex and Gender Information Value Date Recorded Sex Assigned at Not on file Legal Sex Female 6:47 PM EDT Gender Identity Not on file Sexual Orientation Not on file Last Filed Vital Signs Vital Sign Reading Time Taken Comments Blood Pressure 130/81 02/14/2022 8:52 AM EDT Pulse 80 11/12/2021 1:00 PM EDT Temperature 36.8 C (98.2 F) 05/23/2021 1:27 PM EST Respiratory Rate 18 01/10/2021 4:51 PM EDT Oxygen Saturation 99% 05/23/2021 1:27 PM EST Inhaled Oxygen Concentration - - Weight 133 kg (293 lb 15 oz) 02/14/2022 8:52 AM EDT Height 162.6 cm (5' 4 ) 02/14/2022 8:52 AM EDT Body Mass Index 50.45 02/14/2022 8:52 AM EDT Plan of Treatment Health Maintenance Due Date Last Done Comments Dental Oral Exam 1988 Dental Prophylaxis 1988 Dental X-Ray: Bitewings 1988 Dental X-Ray: Full Mouth 1988 [facility]-HIV Screening 1988 [facility]-Hepatitis C Screening 1988 [facility]-Infant/Child/Adol SDOH Screenings 1988 [facility]-Obesity Intervention 1994 [facility]-Varicella Vaccines (1 of 2 - 13+ 2-dose series) 2001 [facility]- SDOH Screenings 2006 [facility]-Adult SDOH Screenings 2006 [facility]-Pneumococcal Vaccine: Pediatrics (0 to 5 Years) and At-Risk Patients (6 to 49 Years) (1 of 2 - PCV) 07/20/2007 [facility]-Pap Smear 2009 [facility]-Cervical Cancer Screening 2018 [facility]-HPV/Cotest 2018 [facility]-Depression Screening 04/02/2022 04/02/2021 [facility]-ADVXM-19 Vaccine ( season) 2023 06/23/2020, 06/02/2020 [facility]-Influenza Vaccine (#1) 12/20/202402/14, 02/09/2021, 02/25/2020, Additional history exists [facility]-DTaP,Tdap,and Td Vaccines (7 - Td or Tdap) 12/24/2026 12/24/2016, 06/22/2004, 07/30/1993, Additional history exists [facility]-Zoster Vaccines (1 of 2) 2038 [facility]-HIB Vaccines Completed 09/24/1990, 05/01/1990 [facility]-IPV Vaccines Completed 07/30/1993, 04/1990, 1988, Additional history exists HPV Vaccines Completed 09/02/2000, 03/21, 02/27/2000 [facility]-Hepatitis B Vaccines Completed 017, 09/03/2000, 04/02/2000, Additional history exists [facility]-Hepatitis A Vaccines Aged Out No longer eligible based on patient's age to complete this topic [facility]-Rotavirus Vaccines Aged Out No lo nger eligible based on patient's age to complete this topic Insurance [facility]
--- OUTSIDE RECORDS SUMMARY | 2024-12-16 15:29 | XMS_ITS | Encounter Summary ---
Author Organization [facility] Address [address] [place] [address] Care Team Providers Care Scale Model Maker Name Role Phone Ninfa Ramos APRN Primary Care Provider [phone] Reason for Visit * Reason Comments Med Refill Encounter Details Date Type Department Care Team (Late st Contact Info) Description 07/10/2021 Refill [facility] [address] [place] [address] Ninfa Ramos APRN [address] [place] [address] Anxiety Social History Tobacco Use Types Packs/Day Years Used Date Smoking Tobacco: Former Cigarettes Q uit: 2016 Smokeless Tobacco: Never Alcohol Use Standard Drinks/Week Comments Never 0 (1 standard drink = 0.6 oz pur e alcohol) PHQ-2 Answer Date Recorded Patient Health Questionnaire-2 Score 0 04/02/2021 Comments No Sex and Gender Information Value Date Recorded Sex Assigned at Not on file Legal Sex Female 6:47 PM EDT Gender Identity Not on file Sexual Orientation Not on file COVID-19 Exposure Response Date Recorded In the last month, have you been in contact with someone who was confirmed or suspected to have Coronavirus / COVID-19? No / Unsure 07/10/2021 2:29 PM EDT documented as of this encounter Miscellaneous Notes * Telephone Encounter - Ninfa Ramos APRN - 07/13/2021 4:50 PM EDT Ok to send the hydroxyzine for 2 month supply. Will need appointment for the Dulera since I have not prescribed. * Telephone Encounter - Sai Schmidt - 07/13/2021 9:56 AM EDT Sending to clinic for review. 1) The last visit with Ninfa Ramos was on 09/05/2020 and those notes indicate hydroxyzine capsules. This refill request indicates Tablets. Please evaluate which dose form is preferred by the Doctor. 2) Dulera was previously written by the hospital. Do you wish to take over the authorizations on this inhaler? documented in this encounter Plan of Treatment Not on file documented as of this encounter Visit Diagnoses Diagnosis Anxiety Anxiety state, unspecified documented in this encounter Additional Health Concerns Infection Onset Date Last Indicated Resolved Time COVID-19 Rule-Out 09/26/2021 09/26/2021 09/26/2021 8:24 PM EDT Assessment Noted Time A fall risk assessment has been complete d for the patient 04/02/2021 9:33 AM EST documented as of this encounter Care Teams Scale Model Maker Relationship Specialty Start Date End Date Ninfa Ramos APRN [address] [place] [address] PCP - General 09/01/20 10/17/24 documented as of this encounter
--- OUTSIDE RECORDS SUMMARY | 2024-12-16 15:29 | XMS_ITS | Patient Health Record ---
Author Organization [facility] Address [address] [address] [place] [address] Care Team Providers Care Forgeman Helper Name Role Phone Rose Carlos Unavailable [phone] Allergies Allergen (clinical drug ingredient) Drug/Non Drug Allergy documented on EMR Reaction Allergy Type Onset Date Status sulfamethoxazole / trimethoprim Bactrim hives Drug Allergy Active cefdinir Cefdinir hives Drug Allergy Active Reason For Referral No Information Medications Medication SIG (Take, Route, Fr equency, Duration) Notes Start Date End Date Status Fluticasone Propionate Active hydrOXYzine HCl Acti ve Escitalopram Oxalate Active Fish Oil Active Claritin Active Dulera Active Albuterol Sulfate Ac tive Multivitamin Active Active Montelukast Sodium A ctive Problems Problem Type SNOMED Code ICD Code Onset Dates Problem Status W/U Status Risk Notes Problem Hypertrophy of breast (930808011) Atypical ductal hyperplasia of both breasts (N62) 021 Active confirmed HYPERTROPHY OF BREAST Problem Secondary dysmenorrhea (11485083) Secondary dysmenorrhea (N94.5) 019 Active confirmed Secondary dysmenorrhea Problem Secondary dysmenorrhea (33049494) Secondary dysmenorrhea (N94.5) 020 Active confirmed Secondary dysmenorrhea Problem Pelvic and perineal pain (368607387) Abdominal pain, suprapubic (R10.2) 019 Active confirmed C/O pelvic pain Problem Gynecological examination normal (55219657971801 4) Cervical smear, as part of routine gynecological examination (Z01.419) 019 Active confirmed Annual without abnormal findings Problem Stress (60723415) Other psychological or physical stress, not elsewhere classified (Z73.3) 018 Active confirmed Feeling stressed Problem Breast lump on right side at 1 o'clock position (N63.12) 021 Active confirmed Unspecified lump in the right breast, upper inner quadrant Problem Breast lump on right side at 10 o'clock position (N63.11) 021 Active confirmed Unspecified lump in the right breast, upper outer quadrant Plan Of Treatment No Information Insurance Providers Payer Name Payer Address Payer Phone Subscriber Number Group Number Insured Name Patient Relationship to Insured Coverage Start Date Coverage End Date Jose HUNGO [address] [place] [address] [id number] Sidra Whitt Self - patient is the insured Medical (General) History Medical History History ICD Code Endometriosis Yeast Infection Acid Reflux Anxiety abnormal pap Obesity UTI Surgical History Surgery Date(Month/Year) C/S 2010, 2013 lap 2009 wisdom teeth 2005 Hospitalization History Reason Date(Month/Year) C/S
--- OUTSIDE RECORDS SUMMARY | 2024-12-16 15:29 | XMS_ITS | Clinical Summary ---
Author Organization [facility] Address [address] [place] [address] Phone Care Team Providers Care Cd Storage And Materials Make Up Helper Name Role Phone Unavailable Primary Care Provider Unavailabl e Allergies No known active allergies Medications VIT/FE FUMARATE/FA ( 19 ORAL) Take by mouth. Active loratadine (CLARITIN) 10 mg tablet Take 10 mg by mouth daily. Active Active Problems Estimated Date of Delivery Comme nts Yes 03/20/2011 No known active problems Immunizations Immunization Administration Dates Next Due DTaP 07/30/1993, 1,01/21/1989,1988,1988 HPV Quadrivalent 09/02/2000,04/02/2000, 0 Hepatitis B, Unspecified Formulation 09/02/2000, 04/02/2000,02/27/2000 HiB, Unspecified Formulation 09/24/1990,05/01/18 91 IPV 07/30/1993, 1,1988,1988 MMR 07/30/1993,10/27/1989 Td, Unspecified Formulation 06/22/2004 Surgical History Surgery Date Site/Laterality Comments WISDOM TOOTH EXTRACTION 2009 LAPAROSCOPY 2009 Medical History Medical History Date Comments Anxiety 2009 Endometriosis Family History Medical History Relation Name Comments High Blood Pressure Father High Cholesterol Father Relation Name Status Comments Father Alive Mother Alive Social History Tobacco Use Types Packs/Day Years Used Date Smoking Tobacco: Former Cigarettes 0 07/20/2004 - 07/20/2010 Smokeless Tobacco: Never Comments:2-3 cigarettes/d Alcohol Use Standard Drinks/Week Comments No 0 (1 standard drink = 0.6 oz pur e alcohol) occassional Sexually Active Control Partners Comments Yes Male Estimated Date of Delivery Comme nts Yes 03/20/2011 Sex and Gender Information Value Date Recorded Sex Assigned at Not on file Legal Sex Female 1:34 PM EDT Gender Identity Not on file Sexual Orientation Not on file Obstetrics History Para Term AB IAB SAB Ectopic Multiple Livin g Live Births 1 Date Outcome GA Total Labor Labor/2nd/3rd Weight Sex Type Anes PTL Isa A1 A5 Name Clin Current Last Filed Vital Signs Vital Sign Reading Time Taken Comments Blood Pressure 130/80 01/25/2011 10:57 AM EDT Pulse 88 01/25/2011 10:57 AM EDT Temperature 36.9 C (98.4 F) 01/25/2011 10:57 AM EDT Respiratory Rate 18 08/03/2010 9:06 AM EDT Oxygen Saturation 99% 01/25/2011 10:57 AM EDT Inhaled Oxygen Concentration - - Weight 112.5 kg (248 lb) 01/25/2011 10:57 AM EDT Height 162.6 cm (5' 4 ) 01/25/2011 10:57 AM EDT Body Mass Index 42.57 01/25/2011 10:57 AM EDT Plan of Treatment Health Maintenance Due Date Last Done Comments Annual Wellness Exam 07/20/1991 DTaP/TDaP/Td (6 - Tdap) 06/23/2004 06/23/19 05, 07/30/1993, 05/01/1990, Additional history exists Cervical Cancer Screening 2009 Pap Smear 2009 HPV/Pap Cotest 2018 COVID-19 Vaccine ( - 2023-25 season) 2023 Influenza Vaccine (#1) 2024 RSV or 60+ (1 - 1-dose 75+ series) 07/20/2063 Hepatitis B Vaccine Completed 09/02/2000, 04/02/2000, 02/27/2000 Meningococcal B Vaccine Aged Out No l onger eligible based on patient's age to complete this topic Pneumococcal Vaccine 0-49 Aged Out No longer eligible based on patient's age to complete this topic [place]
--- NOTE | 2024-12-16 15:30 | MR_ITS ---
PROCEDURE INFORMATION: Exam: MR Head Without and With Contrast Exam date and time: 12/16/2024 4:08 PM Age: 34 years old Clinical indication: Weakness, extremity; Possible stroke x 2 weeks ago , left sided weakness and numbness on left side. Headaches on left side; Additional info: Paresthesia of left arm/lower extremity TECHNIQUE: Imaging protocol: Magnetic resonance imaging of the head without and with contrast. Contrast material: PROHANCE; Contrast volume: 30 ml; Contrast route: IV; COMPARISON: CT SOFT TISSUE NECK W CON 01/07/2021 7:58 PM FINDINGS: Major vascular flow voids at the skull base are preserved. No extra-axial fluid collection. No obstructive hydrocephalus. No midline shift or significant intracranial mass effect. No pathologic white-matter signal or cerebral edema. No diffusion restriction. No pathologic intracranial enhancement. Qhyt-uukfani-hjrh-right maxillary sinus disease. No mastoid effusion. IMPRESSION: No acute intracranial abnormality.
--- OUTSIDE RECORDS SUMMARY | 2024-12-16 15:30 | XMS_ITS | Clinical Summary ---
[facility] Address [address] [place] [address] Care Team Providers Care Child Life Specialist Name Role Phone System, Provider Not In Primary Care Provider Un available Allergies Active Allergy Reactions Criticality Noted Date Comments Cefdinir Rash Low 01/05/2021 Hydrocodone Hives 11/30/2024 Sulfamethoxazole-Trimethopri m Rash Low 02/25/2020 Bactrim (sulfamethoxazole-trimet hoprim) - Unknown Medications PROMETHAZINE-DM PO Take by mouth. Active fluconazole (DIFLUCAN) 150 MG tabletIndications: Candidiasis of skin Take 1 tablet by mouth Daily. Take one now and one when done with antibiotics. 2 tablet 12/22/19 17 Active fluticasone (FLONASE) 50 MCG/ACT nasal spray 2 sprays into the nostril(s) as directed by provider Daily. Active Levonorgest-Eth Estrad 91-Day (SEASONIQUE PO) Take by mouth. Active [place]-3 Fatty Acids (FISH OIL) 1000 MG capsule capsule Take by mouth Daily With Breakfast. Active Multiple Vitamins-Minerals (MULTIVITAMIN ADULT PO) Take by mouth. Active montelukast (SINGULAIR) 10 MG tablet 01/05/20 19 Active predniSONE (DELTASONE) 5 MG tablet 6/5/4/3/2/1 as directed daily for 6 days 21 tablet 04/10/20 19 Active albuterol sulfate HFA 108 (90 Base) MCG/ACT inhaler Inhale 2 puffs Every 6 (Six) Hours As Needed. Active escitalopram (LEXAPRO) 20 MG tablet Take 1 tablet by mouth Daily. 11/02/19 25 Active hydrOXYzine pamoate (VISTARIL) 25 MG capsule 1 capsule 3 (Three) Times a Day As Needed. 11/04/19 25 Active ipratropium-albute rol (DUO-NEB) 0.5-2.5 mg/3 ml nebulizer INHALE THE CONTENTS OF 1 VIAL VIA NEBULIZER EVERY 6 HOURS 11/26/19 25 Active loratadine (CLARITIN) 10 MG tablet Take 1 tablet by mouth Daily. Active metFORMIN ER (GLUCOPHAGE-XR) 500 MG 24 hr tablet TAKE ONE TABLET BY MOUTH EVERY EVENING WITH MEAL 11/13/19 25 Active rizatriptan FUNERAL PLANNER (MAXALT-FUNERAL PLANNER) 5 MG disintegrating tablet DISSOLVE ONE TABLET BY MOUTH EVERY DAY NEEDED FOR HEADACHE 10/19/19 25 Active cetirizine (zyrTEC) 10 MG tablet Take 1 tablet by mouth Daily. 025 Discontinu ed(Discont inued by another clinician) ketorolac (TORADOL) 10 MG tablet Take 1 tablet by mouth Every 6 (Six) Hours As Needed for Moderate Pain for up to 5 days. 20 tablet 12/01/19 25 025 Encounters Date Type Department Care Team Description 11/30/2024 12:02 AM EDT - 11/30/2024 5:17 AM EDT Emergency [facility] [address] [phone] Veda Felix MD Atypical chest pain (Primary Dx); Post-COVID chronic dyspnea Discharge Disposition: Home or Self Care 11/30/2024 Travel from Last 3 Months Immunizations Immunization Administration Dates Next Due DTaP 07/30/1993,1988,1988 DTaP, Unspecified 05/01/1990,01/21/1989 Flu Vaccine Quad PF >36MO 01/27/2018 Fluzone (or Fluarix & Flulav al for VFC) >6mos 01/31/2019 HPV Quadrivalent 09/02/2000,04/02/2000, 0 Hep B, Unspecified 09/03/2000,04/02/2000, 000 Hepatitis B Adult/Adolescent IM 12/03/2016 HiB 09/24/1990,05/01/1990 IPV 07/30/1993, 1,1988,1988 MMR 10/03/1999,07/30/1993,10/27/1989 Td (TDVAX) 06/22/2004 Tdap 12/24/2016 Family History Medical History Relation Name Comments Breast cancer Neg Hx Ovarian cancer Neg Hx Social History Tobacco Use Types Packs/Day Years [...] Mass Index 60.23 11/30/2024 12:03 AM EDT Plan of Treatment Health Maintenance Due Date Last Done Comments Annual Gynecologic Pelvic and Breast Exam 1988 ANNUAL PHYSICAL 12/21/2016 HEPATITIS C SCREENING 12/21/2016 COVID-19 Vaccine ( season) 2023 06/23/2020, 06/02/2020 INFLUENZA VACCINE 01/19/2025 02/14/2022, , 02/25/2020, Additional history exists TDAP/TD VACCINES (3 - Td or Tdap) 12/24/2026 12/24/2016, 06/22/2004 Pneumococcal Vaccine 0-49 Aged Out No longer eligible based on patient's age to complete this topic Procedures Procedure Name Priority Date/Time Associated Diagnosis Comments CT ANGIOGRAM CHEST PULMONARY EMBOLISM STAT 11/30/2024 1:34 AM EDT HIGH SENSITIVITIY TROPONIN T 1HR STAT 11/30/2024 1:21 AM EDT POCT PEFORM URINE STAT 11/30/2024 1:13 AM EDT ECG 12-LEAD STAT 11/30/2024 1:12 AM EDT XR CHEST 1 VW STAT 11/30/2024 12:28 AM EDT SCANNED - TELEMETRY 11/30/2024 1 2:19 AM EDT LIGHT BLUE TOP STAT 11/30/2024 12:18 AM EDT PETERSEN TOP STAT 11/30/2024 12:18 AM EDT GOLD TOP - SST STAT 11/30/2024 12:18 AM EDT LAVENDER TOP STAT 11/30/2024 12:18 AM EDT DK GREEN TOP STAT 11/30/2024 12:18 AM EDT CBC AND DIFFERENTIAL STAT 11/30/2024 12:18 AM EDT CBC WITH AUTO DIFFERENTIAL STAT 11/30/2024 12:18 AM EDT B-TYPE NATRIURETIC PEPTIDE STAT 11/30/2024 12:18 AM EDT LIPASE STAT 11/30/2024 12:18 AM EDT COMPREHENSIVE METABOLIC PANEL STAT 11/30/2024 12:18 AM EDT TROPONIN STAT 11/30/2024 12:18 AM EDT RAINBOW DRAW STAT 11/30/2024 12:18 AM EDT SCANNED - TELEMETRY 11/30/2024 1 2:09 AM EDT ECG 12-LEAD STAT 11/30/2024 12:08 AM EDT from Last 3 Months Results * CT Angiogram Chest Pulmonary Embolism (11/30/2024 1:34 AM EDT) Anatomical Region Laterality Modality Chest N/A Computed Tomogra phy 11/30/2024 1:54 AM EDT Impressions 11/30/2024 1:57 AM EDT Impression: No acute cardiopulmonary abnormality. No evidence of pulmonary embolism. Electronically Signed: Christophe Grant MD 11/30/2024 1:57 AM EDT Workstation ID: [id number] Narrative 11/30/2024 1:[address] ANGIOGRAM [...] MD 11/30/2024 1:57 AM EDT Workstation ID: [id number] Veda Felix MD IMG CT ORDERABLES Final Resul t * High Sensitivity Troponin T 1Hr (11/30/2024 1:21 AM EDT) [facility] HS Troponin T <6 <14 ng/L 11/30/2024 1:42 AM EDT [facility] Troponin T Numeric Delta 11/30/2024 1:42 AM EDT [facility] Comment:Unable to calculate. Blood Venipuncture / Unknown 11/30/2024 1:21 AM EDT 11/30/2024 1:23 AM EDT Narrative [facility] - 11/30/2024 1:42 AM [...] injury due to an underlying chronic condition. Veda Felix MD LAB BLOOD ORDERABLES Final Re sult [facility]
[address] [facility] [address] [place] [address], [place] * POC Urine (11/30/2024 1:13 AM EDT) [facility] HCG, Urine, QL Negative [facility] Internal Positive Control [facility] Internal Negative Control [facility] Urine 11/30/2024 1:13 AM EDT Veda Felix MD POINT OF CARE TEST ORDERABLES Final Result [facility]
[address] [place] [address], * ECG 12 Lead Chest Pain (11/30/2024 1:12 AM EDT) Only the most recent of2 resultswithin the time period is included. QT Interval 390 ms ECG QTC Interval [...] MD 11/30/2024 12:47 AM EDT Workstation ID: [id number] Narrative 11/30/2024 12:47 AM EDT XR CHEST [...] MD 11/30/2024 12:47 AM EDT Workstation ID: [id number] Result [facility] Veda Felix MD IMG DIAGNOSTIC IMAGING ORDERA BLES Final Result * Telemetry Scan (11/30/2024 12:19 AM EDT) Only the most recent of2 resultswithin the time period is included. [facility] ECG ORDERABLES Final Result * Petersen Top (11/30/2024 12:18 AM EDT) Extra Tube Hold for add-ons. 11/30/2024 12:30 AM EDT [facility] Comment:Auto resulted. Blood Line / Unknown 11/30/2024 12 :18 AM EDT 11/30/2024 12:25 AM EDT Veda Felix MD LAB BLOOD ORDER ONLY Final Re sult Performing Organization Address [facility] [address]/ZIP Co de Phone Number [facility]
[address] [facility] [address] [place] [address], [place] * Gold Top - SST (11/30/2024 12:18 AM EDT) Extra Tube Hold for add-ons. 11/30/2024 12:30 AM EDT [facility] Comment:Auto resulted. Blood Line / Unknown 11/30/2024 12 :18 AM EDT 11/30/2024 12:25 AM EDT Veda Felix MD LAB BLOOD ORDER ONLY Final Re sult Performing Organization Address [facility] [address]/[facility] Co de Phone Number [facility]
[address] [place] [address], [place] * Green Top (Gel) (11/30/2024 12:18 AM EDT) Extra Tube Hold for add-ons. 11/30/2024 12:30 AM EDT [facility] Comment:Auto resulted. Blood Line / Unknown 11/30/2024 12 :18 AM EDT 11/30/2024 12:25 AM EDT Veda Felix MD LAB BLOOD ORDER ONLY Final Re sult Performing Organization Address City/[facility] [address]/ZIP Co de Phone Number [facility]
[address] [place] [address], [place] * (ABNORMAL) CBC Auto Differential (11/30/2024 12:18 AM EDT) WBC 14.64(H) 3.40 - 10.80 10*3/mm3 11/30/2024 12:29 AM EDT [facility] RBC 5.13 3.77 - 5.28 10*6/mm3 11/30/2024 12:29 AM EDT [facility] Hemoglobin 14.3 12.0 - 15.9 g/dL 11/30/2024 12:29 AM [facility] Hematocrit 42.9 34.0 - 46.6 % 11/30/2024 12:29 AM [facility] MCV 83.6 79.0 - 97.0 fL 11/30/2024 12:29 AM [facility] MCH 27.9 26.6 - 33.0 pg 11/30/2024 12:29 AM [facility] MCHC 33.3 31.5 - 35.7 g/dL 11/30/2024 12:29 AM [facility] RDW 14.4 12.3 - 15.4 % 11/30/2024 12:29 AM [facility] RDW-SD 44.6 37.0 - 54.0 fl 11/30/2024 12:29 AM [facility] MPV 10.0 6.0 - 12.0 fL 11/30/2024 12:29 AM [facility] Platelets 334 140 - 450 10*3/mm3 11/30/2024 12:29 AM [facility] Neutrophil % 74.8 42.7 - 76.0 % 11/30/2024 12:29 AM [facility] Lymphocyte % 20.1 19.6 - 45.3 % 11/30/2024 12:29 AM [facility] Monocyte % 4.2(L) 5.0 - 12.0 % 11/30/2024 12:29 AM [facility] Eosinophil % 0.1(L) 0.3 - 6.2 % 11/30/2024 12:29 AM [facility] Basophil % 0.3 0.0 - 1.5 % 11/30/2024 12:29 AM [facility] Immature Grans % 0.5 0.0 - 0.5 % 11/30/2024 12:29 AM [facility] Neutrophils, Absolute 10.94(H) 1.70 - 7.00 10*3/mm3 11/30/2024 12:29 AM [facility] Lymphocytes, Absolute 2.94 0.70 - 3.10 10*3/mm3 11/30/2024 12:29 AM EDT [facility] Monocytes, Absolute 0.62 0.10 - 0.90 10*3/mm3 11/30/2024 12:29 AM EDT [facility] Eosinophils, Absolute 0.02 0.00 - 0.40 10*3/mm3 11/30/2024 12:29 AM EDT [facility] Basophils, Absolute 0.04 0.00 - 0.20 10*3/mm3 11/30/2024 12:29 AM EDT [facility] Immature Grans, Absolute 0.08(H) 0.00 - 0.05 10*3/mm3 11/30/2024 12:29 AM EDT [facility] Blood Line / Unknown 11/30/2024 12 :18 AM EDT 11/30/2024 12:25 AM EDT Veda Felix MD LAB BLOOD ORDERABLES Final Re sult [facility]
[address] [place] [address], [place] * Lavender Top (11/30/2024 12:18 AM EDT) Extra Tube hold for add-on 11/30/2024 12:30 AM EDT [facility] Comment:Auto resulted Blood Line / Unknown 11/30/2024 12 :18 AM EDT 11/30/2024 12:25 AM EDT Veda Felix MD LAB BLOOD ORDER ONLY Final Re sult [facility]
[address] [facility] [address] [place] [address], [place] * Light Blue Top (11/30/2024 12:18 AM EDT) Extra Tube Hold for add-ons. 11/30/2024 12:30 AM EDT [facility] Comment:Auto resulted Blood Line / Unknown 11/30/2024 12 :18 AM EDT 11/30/2024 12:25 AM EDT Veda Felix MD LAB BLOOD ORDER ONLY Final Re sult [facility]
[address] [facility] [address] [place] [address], [place] * High Sensitivity Troponin T (11/30/2024 12:18 AM EDT) Pathologist [facility] HS Troponin T <6 <14 ng/L 11/30/2024 12:44 AM EDT [facility] Blood Line / Unknown 11/30/2024 12 :18 AM EDT 11/30/2024 12:25 AM EDT Veda Felix MD LAB BLOOD ORDERABLES Final Re sult [facility]
[address] [place] [address], [place] * BNP (11/30/2024 12:18 AM EDT) [facility] proBNP 91.1 0.0 - 450.0 pg/mL 11/30/2024 12:45 AM EDT [facility] Blood Line / Unknown 11/30/2024 12 :18 AM EDT 11/30/2024 12:25 AM EDT Narrative [facility] - 11/30/2024 12:45 AM [...] MD LAB BLOOD ORDERABLES Final Re sult [facility]
[address] [place] [address], * Lipase (11/30/2024 12:18 AM EDT) Lipase 19 13 - 60 U/L 11/30/2024 12:47 AM EDT [facility] Blood Line / Unknown 11/30/2024 12 :18 AM EDT 11/30/2024 12:25 AM EDT Veda Felix MD LAB BLOOD ORDERABLES Final Re sult Performing Organization Address City/[facility] [address]/ZIP Co de Phone Number [facility]
[address] [place] [address], * (ABNORMAL) Comprehensive Metabolic Panel (11/30/2024 12:18 AM EDT) Glucose 98 65 - 99 mg/dL 11/30/2024 1:02 AM EDT [facility] BUN 10.0 6.0 - 20.0 mg/dL 11/30/2024 1:02 AM EDT [facility] Creatinine 0.67 0.57 - 1.00 mg/dL 11/30/2024 1:02 AM EDT [facility] Sodium 139 136 - 145 mmol/L 11/30/2024 1:02 AM EDT [facility] Potassium 4.1 3.5 - 5.2 mmol/L 11/30/2024 1:02 AM EDT [facility] Comment:Specimen hemolyzed. Result may be falsely elevated. Chloride 100 98 - 107 mmol/L 11/30/2024 1:02 AM EDT [facility] CO2 21.9(L) 22.0 - 29.0 mmol/L 11/30/2024 1:02 AM EDT [facility] Calcium 9.9 8.6 - 10.5 mg/dL 11/30/2024 1:02 AM [facility] Total Protein 7.7 6.0 - 8.5 g/dL 11/30/2024 1:02 AM [facility] Albumin 4.0 3.5 - 5.2 g/dL 11/30/2024 1:02 AM [facility] ALT (SGPT) 22 1 - 33 U/L 11/30/2024 1:02 AM [facility] AST (SGOT) 26 1 - 32 U/L 11/30/2024 1:02 AM [facility] Comment:Specimen hemolyzed. Result may be falsely elevated. Alkaline Phosphatase 85 39 - 117 U/L 11/30/2024 1:02 AM [facility] Total Bilirubin 0.4 0.0 - 1.2 mg/dL 11/30/2024 1:02 AM [facility] Globulin 3.7 gm/dL 11/30/2024 1:02 AM [facility] A/G Ratio 1.1 g/dL 11/30/2024 1:02 AM [facility] BUN/Creatinine Ratio 14.9 7.0 - 25.0 11/30/2024 1:02 AM [facility] Anion Gap 17.1(H) 5.0 - 15.0 mmol/L 11/30/2024 1:02 AM [facility] eGFR 116.3 >60.0 mL/min/1.7 3 11/30/2024 1:02 AM [facility] Blood Line / Unknown 11/30/2024 12 :18 AM EDT 11/30/2024 12:25 AM [facility] - 11/30/2024 1:02 AM EDT GFR [...] MD LAB BLOOD ORDERABLES Final Re sult [facility] Organization Address City/State/ZIP Co de Phone Number [facility]
[address] [place] [address], from Last 3 Months Insurance PPO Care Teams Child Life Specialist Relationship Specialty Start Date End Date System, [place] [address] PCP - General 01/18/22
--- OUTSIDE RECORDS SUMMARY | 2024-12-16 15:30 | XMS_ITS | Encounter Summary ---
Author Organization [facility] Address [address] [place] [address] Care Team Providers Care Pooling Operator Name Role Phone Ninfa Ramos APRN Primary Care Provider [phone] Reason for Visit * Reason Comments Med Refill Encounter Details Date Type Department Care Team (Late st Contact Info) Description 10/01/2022 Refill Family and Community Medicine [address] [place] [address] Ninfa Ramos APRN [address] [place] [address] Social History Tobacco Use Types Packs/Day Years [...] on file documented as of this encounter Plan of Treatment Not on file documented as of this encounter Visit Diagnoses Not on filedocumented in this encounter Additional Health Concerns Assessment Noted Time A fall risk assessment has been complete d for the patient 01/17/2022 10:05 AM EDT documented as of this encounter Care Teams Pooling Operator Relationship Specialty Start Date End Date Ninfa Ramos APRN [address] [place] [id number] PCP - General 09/01/20 10/17/24 documented as of this encounter
--- OUTSIDE RECORDS SUMMARY | 2024-12-16 15:30 | XMS_ITS | Encounter Summary ---
[facility] Address [address] [place] [address] Care Team Providers Care Ballistics Teacher Name Role Phone System, Provider Not In Primary Care Provider Un available Encounter Details Date Type Department Care Team (Latest Contact Info) Description 11/30/2024 Travel Social History Tobacco Use Types Packs/Day Years Used Date Smoking Tobacco: Former Cigarettes 0.5 11 Smokeless Tobacco: Never Alcohol Use Standard Drinks/Week Comments No 0 [...] on file documented as of this encounter Functional Status * Calculated C-SSRS Risk Score (Lifetime/Recent) Answer Date of Assessment Author No Risk Indicated 11/30/2024 12:12 AM EDT Aimee Degroot, RN * [place] Suicide Severity Rating Scale (Screener/Recent Self-Report) Question Answer Date of Assessment Author 1. Wish to be (Past 1 Month) No 025 12:12 AM EDT Aimee Degroot RN 2. Non-Specific Active Suici wade Thoughts (Past 1 Month) No 11/30/2024 12:12 AM EDT Arianne Degroot RN 6. Suicidal Behavior (Lifetime) No 12:12 AM EDT Aimee Degroot, RN documented as of this encounter Plan of Treatment Not on file documented as of this encounter Visit Diagnoses Not on filedocumented in this encounter Care Teams Ballistics Teacher Relationship Specialty Start Date End Date System, [place] [address] PCP - General 01/18/22 documented as of this encounter
[2024-12-16] MEDS: GADOTERIDOL INJ 20ML SYRINGE 20 ML IV (17:03)
[2024-12-16] MEDS: SODIUM CHLORIDE 0.9% 10ML SYR (RAD ONLY) 10 ML IV (17:03)
[2024-12-16] MEDS: GADOTERIDOL INJ 10ML SYRINGE 10 ML IV (17:03)
== END 2024-12-16 23:59 | disposition home or self-care (01) ==
PROVIDERS: PCP Nurse Practitioner; Visit Provider Nurse Practitioner
DX: R20.2 Paresthesia of skin (principal); R53.1 Weakness; R20.0 Anesthesia of skin; R51.9 Headache, unspecified
CPT/HCPCS: 70553; A9576

== ENCOUNTER 2024-12-18 11:04 | Emergency (ER) | payer BC, SELFPAY ==
--- OUTSIDE RECORDS SUMMARY | 2024-11-30 00:02 | XMS_ITS | Encounter Summary ---
Author Organization [facility] Address [address] [place] [address] Care Team Providers Care Reimbursement Auditor Name Role Phone System, Provider Not In Primary Care Provider Un available Reason for Visit * Reason Comments Chest Pain Encounter Details Date Type Department Care Team (Late st Contact Info) Description 11/30/2024 12:02 AM EDT - 11/30/2024 5:17 AM EDT Emergency [facility] EMERGENCY DEPARTMENT [address] [id number] Veda Felix MD [address] [place] [id number] Atypical chest pain (Primary Dx); Post-COVID chronic dyspnea Discharge Disposition: Home or Self Care Social History Tobacco Use Types Packs/Day Years Used Date Smoking Tobacco: Former Cigarettes 0.5 11 Smokeless Tobacco: Never Tobacco Cessation:Counseling Given: Not Answered Alcohol Use Standard Drinks/Week Comments No 0 (1 standard drink = 0.6 oz pur e alcohol) Abuse Screen Answer Date Recorded Feels Unsafe at Home or Work/School no 11/30/2024 Feels Threatened by Someone no 11/19 Does Anyone Try to Keep You From Having Contact with Others or Doing Things Outside Your Home? no 11/30/2024 Physical Signs of Abuse Present no 11/30/2024 Housing Stability Answer Date Recorded Current Living Arrangements Not on file 12/2022 Potentially Unsafe Housing Conditions Not on leticia e 01/27/2023 Family and Community Support Answer Ezra e Recorded Help with Day-to-Day Activities Not on file 01/27/2023 Lonely or Isolated Not on file 01/27/2023 Employment Answer Date Recorded Do you want help finding or keeping work or a mark b? Not on file 01/27/2023 Disabilities Answer Date Recorded Concentrating, Remembering, or Making Decisions Difficulty Not on file 01/27/2023 Doing Errands Independently Difficulty Not on fi le 01/27/2023 Education Answer Date Recorded Help with school or training? Not on file Preferred Language Not on file 01/27/2023 Comments No Sex and Gender Information Value Date Recorded Sex Assigned at Not on file Legal Sex Female 1:16 PM EDT Gender Identity Not on file Sexual Orientation Not on file documented as of this encounter Last Filed Vital Signs Vital Sign Reading Time Taken Comments Blood Pressure 140/93 11/30/2024 5:12 AM EDT Pulse 78 11/30/2024 5:12 AM EDT Temperature 37.1 C (98.7 F) 11/30/2024 12:03 AM EDT Respiratory Rate 18 11/30/2024 12:03 AM EDT Oxygen Saturation 99% 11/30/2024 5:12 AM EDT Inhaled Oxygen Concentration - - Weight 159 kg (350 lb 14.4 oz) 11/30/2024 12:03 AM EDT Height 162.6 cm (5' 4 ) 11/30/2024 12:03 AM EDT Body Mass Index 60.23 11/30/2024 12:03 AM EDT documented in this encounter Functional Status * Calculated C-SSRS Risk Score (Lifetime/Recent) Answer Date of Assessment Author No Risk Indicated 11/30/2024 12:12 AM EDT Aimee Degroot RN * [place] Suicide Severity Rating Scale (Screener/Recent Self-Report) Question Answer Date of Assessment Author 1. Wish to be (Past 1 Month) No 12:12 AM EDT Aimee Degroot RN 2. Non-Specific Active Suici wade Thoughts (Past 1 Month) No 11/30/2024 12:12 AM EDT Arianne Degroot RN 6. Suicidal Behavior (Lifetime) No 12:12 AM EDT Aimee Degroot RN documented as of this encounter Discharge Instructions * Discharge Instructions* Veda Felix MD - 11/30/2024 4:59 AM EDT You were evaluated today for sharp chest pain to the left chest following COVID infection. Your heart and lung workup were benign I suspect inflammatory etiology of this pain. Alternate Tylenol with the Toradol provided for pain relief. Work on your pulmonary conditioning with the incentive spirometer continue the steroids until completion as prescribed by your family doctor as well as the inhalers and breathing treatments. Return to the ER for any new or worsening symptoms documented in this encounter Medications at Time of Discharge escitalopram (LEXAPRO) 20 MG tablet Take 1 tablet by mouth Daily. 11/01/2024 hydrOXYzine pamoate (VISTARIL) 25 MG capsule 1 capsule 3 (Three) Times a Day As Needed. 11/03/2024 ipratropium-albutero l (DUO-NEB) 0.5-2.5 mg/3 ml nebulizer INHALE THE CONTENTS OF 1 VIAL VIA NEBULIZER EVERY 6 HOURS 11/25/2024 metFORMIN ER (GLUCOPHAGE-XR) 500 MG 24 hr tablet TAKE ONE TABLET BY MOUTH EVERY EVENING WITH MEAL 11/12/2024 rizatriptan BILINGUAL MEDICAL RECEPTIONIST (MAXALT-BILINGUAL MEDICAL RECEPTIONIST) 5 MG disintegrating tablet DISSOLVE ONE TABLET BY MOUTH EVERY DAY NEEDED FOR HEADACHE 10/18/2024 albuterol sulfate HFA 108 (90 Base) MCG/ACT inhaler Inhale 2 puffs Every 6 (Six) Hours As Needed. fluconazole (DIFLUCAN) 150 MG tabletIndications:Ca ndidiasis of skin Take 1 tablet by mouth Daily. Take one now and one when done with antibiotics. 2 tablet 12/21/2016 fluticasone (FLONASE) 50 MCG/ACT nasal spray 2 sprays into the nostril(s) as directed by provider Daily. Levonorgest-Eth Estrad 91-Day (SEASONIQUE PO) Take by mouth. loratadine (CLARITIN) 10 MG tablet Take 1 tablet by mouth Daily. montelukast (SINGULAIR) 10 MG tablet 01/04/2019 Multiple Vitamins-Minerals (MULTIVITAMIN ADULT PO) Take by mouth. Bethesda-3 Fatty Acids (FISH OIL) 1000 MG capsule capsule Take by mouth Daily With Breakfast. predniSONE (DELTASONE) 5 MG tablet 09/23/4/3/2 as directed daily for 6 days 21 tablet 04/10/2019 PROMETHAZINE-DM PO Take by mouth. ketorolac (TORADOL) 10 MG tablet Take 1 tablet by mouth Every 6 (Six) Hours As Needed for Moderate Pain for up to 5 days. 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 No nausea and no diaphoresis. She does intermittently still feel short of breath she is currently on prednisone as well as DuoNebs and albuterol rescue inhaler. No abdominal pain fevers chills or bodyaches. History provided by: Patient Review of Systems All other systems reviewed and are negative. Past Medical History: Diagnosis Date Allergic seasonal allergies Anxiety has not had recent problems Breast injury hit left breast on weight lifting bar at gym Hypertension due to control use and diet and exercise Mononucleosis Yeast infection of the vagina recurrent with and without antibiotic use Allergies Allergen Reactions Hydrocodone Hives Cefdinir Rash Sulfamethoxazole-Trimethoprim Rash Bactrim (sulfamethoxazole-trimethoprim) - Unknown Past Surgical History: Procedure Laterality Date SECTION x2 PELVIC LAPAROSCOPY endometriosis Family History Problem Relation Age of Onset Breast cancer Neg Hx Ovarian cancer Neg Hx Social History Socioeconomic History Marital status: Unknown Tobacco Use Smoking status: Former Current packs/day: 0.50 Average packs/day: 0.5 packs/day for 11.0 years (5.5 ttl pk-yrs) Types: Cigarettes Smokeless tobacco: Never Vaping Use Vaping status: Never Used Substance and Sexual Activity Alcohol use: No Drug use: No Sexual activity: Yes control/protection: Condom Objective Physical Exam Vitals and nursing note reviewed. Constitutional: General: She is not in acute distress. Appearance: She is obese. She is not toxic-appearing. Comments: Anxious HENT: Head: Normocephalic. Cardiovascular: Rate and Rhythm: Normal rate. Pulses: Radial pulses are 2+ on the right side and 2+ on the left side. Dorsalis pedis pulses are 2+ on the right side and 2+ on the left side. Heart sounds: Normal heart sounds. Pulmonary: Effort: Tachypnea present. No respiratory distress. Breath sounds: Normal breath sounds. No decreased breath sounds, wheezing, rhonchi or rales. Chest: Chest wall: No tenderness. Abdominal: Palpations: Abdomen is soft. Tenderness: There is no abdominal tenderness. There is no guarding or rebound. Musculoskeletal: Right lower leg: No edema. Left lower leg: No edema. Skin: General: Skin is warm and dry. Capillary Refill: Capillary refill takes less than 2 seconds. Neurological: General: No focal deficit present. Mental Status: She is oriented to person, place, and time. Procedures ED Course ED Course as of 11/30/24 045FriNov 30, 2024 0451 Lipase: 19 [JN] 0451 proBNP: 91.1 [JN] 0451 HS Troponin T: <6 [JN] 0451 Sodium: 139 [JN] 0451 Potassium: 4.1 [JN] 0451 Chloride: 100 [JN] 0451 CO2(!): 21.9 [JN] 0451 Calcium: 9.9 [JN] 0451 Total Protein: 7.7 [JN] 0451 ALT (SGPT): 22 [JN] 0451 AST (SGOT): 26 [JN] 0451 Total Bilirubin: 0.4 [JN] ED Course User Index [JN] Veda Felix MD HEART Score: 1 Medical Decision Making 34-year-old female presents with left-sided sternal sharp chest pain associated with tingling she is very anxious and slightly hyperventilating describes an episode of hyperventilation following onset of pain suspect she has had a mild panic syndrome following acute sharp chest wall pain likely pleurisy or costochondritis given the immediate post COVID further differential includes ACS, PE, pneumothorax, pneumonia. CT of the chest is unremarkable laboratory data is nonactionable symptoms improved with GI cocktailand Valium she was further given Toradol and IV fluid bolus will be discharged to follow-up with primary care provider for continued respiratory therapies and pulm toilet. Amount and/or Complexity of Data Reviewed Labs: ordered. Decision-making details documented in ED Course. Radiology: ordered. ECG/medicine tests: ordered. Risk OTC drugs. Prescription drug management. Final diagnoses: Atypical chest pain Post-COVID chronic dyspnea ED Disposition ED Disposition ED Disposition Discharge Condition Stable Comment -- No follow-up provider specified. Medication List New Prescriptions ketorolac 10 MG tablet Commonly known as: TORADOL Take 1 tablet by mouth Every 6 (Six) Hours As Needed for Moderate Pain for up to 5 days. Where to Get Your Medications These medications were sent to [facility] [place] - [address] [address] [address] [facility] -[phone] PH - [phone] FX [address] [facility] [address] [facility], [place] [address] ketorolac 10 MG tablet documented in this encounter Plan of Treatment Not on file documented as of this encounter Procedures Procedure Name Priority Date/Time Associated Diagnosis Comments CT ANGIOGRAM CHEST PULMONARY EMBOLISM STAT 11/30/2024 1:34 AM EDT HIGH SENSITIVITIY TROPONIN T 1HR STAT 11/30/2024 1:21 AM EDT POCT PEFORM URINE STAT 11/30/2024 1:13 AM EDT ECG 12-LEAD STAT 11/30/2024 1:12 AM EDT XR CHEST 1 VW STAT 11/30/2024 12:28 AM EDT SCANNED - TELEMETRY 11/30/2024 1 2:19 AM EDT PETERSEN TOP STAT 11/30/2024 12:18 AM EDT GOLD TOP - SST STAT 11/30/2024 12:18 AM EDT DK GREEN TOP STAT 11/30/2024 12:18 AM EDT CBC WITH AUTO DIFFERENTIAL STAT 11/30/2024 12:18 AM EDT LAVENDER TOP STAT 11/30/2024 12:18 AM EDT LIGHT BLUE TOP STAT 11/30/2024 12:18 AM EDT RAINBOW DRAW STAT 11/30/2024 12:18 AM EDT TROPONIN STAT 11/30/2024 12:18 AM EDT CBC AND DIFFERENTIAL STAT 11/30/2024 12:18 AM EDT B-TYPE NATRIURETIC PEPTIDE STAT 11/30/2024 12:18 AM EDT LIPASE STAT 11/30/2024 12:18 AM EDT COMPREHENSIVE METABOLIC PANEL STAT 11/30/2024 12:18 AM EDT SCANNED - TELEMETRY 11/30/2024 1 2:09 AM EDT ECG 12-LEAD STAT 11/30/2024 12:08 AM EDT documented in this encounter Results * CT Angiogram Chest Pulmonary Embolism (11/30/2024 1:34 AM EDT) Anatomical Region Laterality Modality Chest N/A Computed Tomogra phy 11/30/2024 1:54 AM EDT Impressions 11/30/2024 1:57 AM EDT Impression: No acute cardiopulmonary abnormality. No evidence of pulmonary embolism. Electronically Signed: Christophe Grant MD 11/30/2024 1:57 AM EDT Workstation ID: [id number] Narrative 11/30/2024 1:[address] ANGIOGRAM CHEST PULMONARY EMBOLISM Date of Exam: 11/30/2024 1:16 AM EDT Indication: Shortness of Breath s/p covid/ chest pain. Comparison: None available. Technique: Axial CT images were obtained of the chest after the uneventful intravenous administration of 85 mL of Isovue-370 utilizing pulmonary embolism protocol. In addition, a 3-D volume rendered image was created for interpretation. Reconstructed coronal and sagittal images were also obtained. Automated exposure control and iterative construction methods were used. Findings: There is no pneumothorax, pleural effusion or focal airspace consolidation. No significant pleural disease. No suspicious lung nodules. Central and segmental airways appear patent. No evidence of pulmonary embolism. The thyroid is within normal limits. The trachea and esophagus appear unremarkable. Heart size is normal. No significant pericardial effusion. No evidence of mediastinal or hilar lymphadenopathy. The aortic branch vessels, aorta and pulmonary artery appear within normal limits.No significant coronary artery calcification. Subcutaneous fat and underlying musculature appear within normal limits. There are no acute osseous abnormalities or destructive bone lesions. Limited images of the upper abdomen demonstrate no acute findings. Procedure Note Christophe Grant MD - 11/30/2024 CT ANGIOGRAM CHEST PULMONARY EMBOLISM Date of Exam: 11/30/2024 1:16 AM EDT Indication: Shortness of Breath s/p covid/ chest pain. Comparison: None available. Technique: Axial CT images were obtained of the chest after the uneventfulintravenous administration of 85 mL of Isovue-370 utilizing pulmonaryembolism protocol. In addition, a 3-D volume rendered image was createdfor interpretation. Reconstructed coronal and sagittal images were also obtained. Automated exposure controland iterative construction methods were used. Findings: There is no pneumothorax, pleural effusion or focal airspaceconsolidation. No significant pleural disease. No suspicious lung nodules.Central and segmental airways appear patent. No evidence of pulmonaryembolism. The thyroid is within normal limits. The trachea and esophagus appearunremarkable. Heart size is normal. No significant pericardial effusion.No evidence of mediastinal or hilar lymphadenopathy. The aortic branchvessels, aorta and pulmonary artery appear within normal limits.No significant coronary arterycalcification. Subcutaneous fat and underlying musculature appear within normal limits.There are no acute osseous abnormalities or destructive bone lesions.Limited images of the upper abdomen demonstrate no acute findings. IMPRESSION: Impression: No acute cardiopulmonary abnormality. No evidence of pulmonary embolism. Electronically Signed: Christophe Grant MD 11/30/2024 1:57 AM EDT Workstation ID: [id number] Veda Felix MD IMG CT ORDERABLES Final Resul t * High Sensitivity Troponin T 1Hr (11/30/2024 1:21 AM EDT) Pathologist [facility] HS Troponin T <6 <14 ng/L 11/30/2024 1:42 AM EDT [facility] Troponin T Numeric Delta 11/30/2024 1:42 AM EDT [facility] Comment:Unable to calculate. Blood Venipuncture / Unknown 11/30/2024 1:21 AM EDT 11/30/2024 1:23 AM EDT Narrative [facility] - 11/30/2024 1:42 AM EDT High Sensitive Troponin T Reference Range: <14.0 ng/L- Negative Female for AMI <22.0 ng/L- Negative Male for AMI >=14 - Abnormal Female indicating possible myocardial injury. >=22 - Abnormal Male indicating possible myocardial injury. Clinicians would have to utilize clinical acumen, EKG, Troponin, and serial changes to determine if it is an Acute Myocardial Infarction or myocardial injury due to an underlying chronic condition. us Veda Felix MD LAB BLOOD ORDERABLES Final Re sult [facility]
[address] [address], * POC Urine (11/30/2024 1:13 AM EDT) Pathologist [facility] HCG, Urine, QL Negative [facility] Internal Positive Control [facility] Internal Negative Control [facility] Urine 11/30/2024 1:1 3 AM EDT us Veda Felix MD POINT OF CARE TEST ORDERABLES Final Result [facility]
[address] [place] [id number], * ECG 12 Lead Chest Pain (11/30/2024 1:12 AM EDT) QT Interval 390 ms ECG QTC Interval 460 ms ECG 11/30/2024 1:12 AM EDT 12/10/2024 7:42 PM EDT Narrative ECG - 12/10/2024 7:42 PM EDT Test Reason : Chest Pain Blood Pressure : */* mmHG Vent. Rate : 84 BPM Atrial Rate : 84 BPM P-R Int : 146 ms QRS Dur : 88 ms QT Int : 390 ms P-R-T Axes : 14 16 13 degrees QTcB Int : 460 ms Normal sinus rhythm Cannot rule out Anterior infarct , age undetermined Abnormal ECG When compared with ECG of 30-Nov-2024 00:08, (Unconfirmed) No significant change was found Confirmed by VEDA FELIX ([id number]) on 12/10/2024 7:42:21 PM Referred By: Confirmed By: VEDA FELIX Procedure Note Veda Felix MD - 12/10/2024 Test Reason : Chest Pain Blood Pressure : */* mmHG Vent. Rate : 84 BPM Atrial Rate : 84 BPM P-R Int : 146 ms QRS Dur : 88 ms QT Int : 390 ms P-R-T Axes : 14 16 13 degrees QTcB Int : 460 ms Normal sinus rhythm Cannot rule out Anterior infarct , age undetermined Abnormal ECG When compared with ECG of 30-Nov-2024 00:08, (Unconfirmed) No significant change was found Confirmed by VEDA FELIX ([id number]) on 12/10/2024 7:42:21 PM Referred By: Confirmed By: VEDA FELIX us Veda Felix MD ECG ORDERABLES Final Result ECG * XR Chest 1 View (11/30/2024 12:28 AM EDT) Anatomical Region Laterality Modality Body N/A Radiographic Patti ging 11/30/2024 12:4 7 AM EDT Impressions 11/30/2024 12:47 AM EDT Impression: No acute cardiopulmonary abnormality. Electronically Signed: Christophe Grant MD 11/30/2024 12:47 AM EDT Workstation ID: [id number] Narrative 11/30/2024 12:47 AM EDT XR CHEST 1 VW Date of Exam: 11/30/2024 12:27 AM EDT Indication: Chest Pain Triage Protocol Comparison: 01/14/[address] 02/08/2019. Findings: There is no pneumothorax, pleural effusion or focal airspace consolidation. Heart size and pulmonary vasculature appear within normal limits. Regional bones appear intact. Procedure Note Christophe Grant MD - 11/30/2024 XR CHEST 1 VW Date of Exam: 11/30/2024 12:27 AM EDT Indication: Chest Pain Triage Protocol Comparison: 01/14/[address] 02/08/2019. Findings: There is no pneumothorax, pleural effusion or focal airspaceconsolidation. Heart size and pulmonary vasculature appear within normallimits. Regional bones appear intact. IMPRESSION: Impression: No acute cardiopulmonary abnormality. Electronically Signed: Christophe Grant MD 11/30/2024 12:47 AM EDT Workstation ID: [id number] Veda Felix MD IM DIAGNOSTIC IMAGING ORDERA BLES Final Result * Telemetry Scan (11/30/2024 12:19 AM EDT) [facility] ORDER[facility] Final Result * (ABNORMAL) CBC Auto Differential (11/30/2024 12:18 AM EDT) WBC 14.64(H) 3.40 - 10.80 10*3/mm3 11/30/2024 12:29 AM EDT [facility] RBC 5.13 3.77 - 5.28 10*6/mm3 11/30/2024 12:29 AM EDT [facility] Hemoglobin 14.3 12.0 - 15.9 g/dL 11/30/2024 12:29 AM [facility] Hematocrit 42.9 34.0 - 46.6 % 11/30/2024 12:29 AM [facility] MCV 83.6 79.0 - 97.0 fL 11/30/2024 12:29 AM [facility] MCH 27.9 26.6 - 33.0 pg 11/30/2024 12:29 AM [facility] MCHC 33.3 31.5 - 35.7 g/dL 11/30/2024 12:29 AM [facility] RDW 14.4 12.3 - 15.4 % 11/30/2024 12:29 AM [facility] RDW-SD 44.6 37.0 - 54.0 fl 11/30/2024 12:29 AM [facility] MPV 10.0 6.0 - 12.0 fL 11/30/2024 12:29 AM [facility] Platelets 334 140 - 450 10*3/mm3 11/30/2024 12:29 AM [facility] Neutrophil % 74.8 42.7 - 76.0 % 11/30/2024 12:29 AM [facility] Lymphocyte % 20.1 19.6 - 45.3 % 11/30/2024 12:29 AM [facility] Monocyte % 4.2(L) 5.0 - 12.0 % 11/30/2024 12:29 AM [facility] Eosinophil % 0.1(L) 0.3 - 6.2 % 11/30/2024 12:29 AM [facility] Basophil % 0.3 0.0 - 1.5 % 11/30/2024 12:29 AM [facility] Immature Grans % 0.5 0.0 - 0.5 % 11/30/2024 12:29 AM [facility] Neutrophils, Absolute 10.94(H) 1.70 - 7.00 10*3/mm3 11/30/2024 12:29 AM [facility] Lymphocytes, Absolute 2.94 0.70 - 3.10 10*3/mm3 11/30/2024 12:29 AM EDT [facility] Monocytes, Absolute 0.62 0.10 - 0.90 10*3/mm3 11/30/2024 12:29 AM EDT [facility] Eosinophils, Absolute 0.02 0.00 - 0.40 10*3/mm3 11/30/2024 12:29 AM EDT [facility] Basophils, Absolute 0.04 0.00 - 0.20 10*3/mm3 11/30/2024 12:29 AM EDT [facility] Immature Grans, Absolute 0.08(H) 0.00 - 0.05 10*3/mm3 11/30/2024 12:29 AM EDT [facility] Blood Line / Unknown 11/30/2024 12 :18 AM EDT 11/30/2024 12:25 AM EDT Veda Felix MD LAB BLOOD ORDERABLES Final Re sult [facility]
[address] [facility] [address] [place] [address], [place] * Light Blue Top (11/30/2024 12:18 AM EDT) Extra Tube Hold for add-ons. 11/30/2024 12:30 AM EDT [facility] Comment:Auto resulted Blood Line / Unknown 11/30/2024 12 :18 AM EDT 11/30/2024 12:25 AM EDT Veda Felix MD LAB BLOOD ORDER ONLY Final Re sult [facility]
[address] [facility] [address] [place] [address], [place] * Petersen Top (11/30/2024 12:18 AM EDT) Extra Tube Hold for add-ons. 11/30/2024 12:30 AM EDT [facility] Comment:Auto resulted. Blood Line / Unknown 11/30/2024 12 :18 AM EDT 11/30/2024 12:25 AM EDT Veda Felix MD LAB BLOOD ORDER ONLY Final Re sult [facility]
[address] [facility] [address] [place] [address], [place] * Gold Top - SST (11/30/2024 12:18 AM EDT) Extra Tube Hold for add-ons. 11/30/2024 12:30 AM EDT [facility] Comment:Auto resulted. Blood Line / Unknown 11/30/2024 12 :18 AM EDT 11/30/2024 12:25 AM EDT Veda Felix MD LAB BLOOD ORDER ONLY Final Re sult Performing Organization Address City/[facility]/ZIP Co de Phone Number [facility]
[address] [facility] [address] [place] [address], [place] * Lavender Top (11/30/2024 12:18 AM EDT) Extra Tube hold for add-on 11/30/2024 12:30 AM EDT [facility] Comment:Auto resulted Blood Line / Unknown 11/30/2024 12 :18 AM EDT 11/30/2024 12:25 AM EDT Veda Felix MD LAB BLOOD ORDER ONLY Final Re sult [facility]
[address] [facility] [address] [place] [address], [place] * Green Top (Gel) (11/30/2024 12:18 AM EDT) Extra Tube Hold for add-ons. 11/30/2024 12:30 AM EDT [facility] Comment:Auto resulted. Blood Line / Unknown 11/30/2024 12 :18 AM EDT 11/30/2024 12:25 AM EDT Veda Felix MD LAB BLOOD ORDER ONLY Final Re sult [facility]
[address] [facility] [address] [place] [address], [place] * BNP (11/30/2024 12:18 AM EDT) proBNP 91.1 0.0 - 450.0 pg/mL 11/30/2024 12:45 AM EDT [facility] Blood Line / Unknown 11/30/2024 12 :18 AM EDT 11/30/2024 12:25 AM EDT Narrative [facility] - 11/30/2024 12:45 AM EDT This assay is used as an aid in the diagnosis of individuals suspected of having heart failure. It can be used as an aid in the diagnosis of acute decompensated heart failure (ADHF) in patients presenting with signs and symptoms of ADHF to the emergency department (ED). In addition, NT-proBNP of <300 pg/mL indicates ADHF is not likely. Age Range Result Interpretation NT-proBNP Concentration (pg/mL: <50 Positive >450 Petersen 300-450 Negative <300 50-75 Positive >900 Petersen 300-900 Negative <300 >75 Positive >1800 Petersen 300-1800 Negative <300 Veda Felix MD LAB BLOOD ORDERABLES Final Re sult [facility]
[address] [facility] [address] [place] [address], [place] * Lipase (11/30/2024 12:18 AM EDT) Lipase 19 13 - 60 U/L 11/30/2024 12:47 AM EDT [facility] Blood Line / Unknown 11/30/2024 12 :18 AM EDT 11/30/2024 12:25 AM EDT us Veda Felix MD LAB BLOOD ORDERABLES Final Re sult [facility]
[address] [facility] [address] [place] [address], [place] * (ABNORMAL) Comprehensive Metabolic Panel (11/30/2024 12:18 AM EDT) Glucose 98 65 - 99 mg/dL 11/30/2024 1:02 AM EDT [facility] BUN 10.0 6.0 - 20.0 mg/dL 11/30/2024 1:02 [facility] Creatinine 0.67 0.57 - 1.00 mg/dL 11/30/2024 1:02 AM [facility] Sodium 139 136 - 145 mmol/L 11/30/2024 1:02 AM [facility] Potassium 4.1 3.5 - 5.2 mmol/L 11/30/2024 1:02 AM T [facility] Comment:Specimen hemolyzed. Result may be falsely elevated. Chloride 100 98 - 107 mmol/L 11/30/2024 1:02 AM [facility] CO2 21.9(L) 22.0 - 29.0 mmol/L 11/30/2024 1:02 AM [facility] Calcium 9.9 8.6 - 10.5 mg/dL 11/30/2024 1:02 AM [facility] Total Protein 7.7 6.0 - 8.5 g/dL 11/30/2024 1:02 AM [facility] Albumin 4.0 3.5 - 5.2 g/dL 11/30/2024 1:02 AM [facility] ALT (SGPT) 22 1 - 33 U/L 11/30/2024 1:02 AM T [facility] AST (SGOT) 26 1 - 32 U/L 11/30/2024 1:02 AM [facility] Comment:Specimen hemolyzed. Result may be falsely elevated. Alkaline Phosphatase 85 39 - 117 U/L 11/30/2024 1:02 AM EDT [facility] Total Bilirubin 0.4 0.0 - 1.2 mg/dL 11/30/2024 1:02 AM EDT [facility] Globulin 3.7 gm/dL 11/30/2024 1:02 AM EDT [facility] A/G Ratio 1.1 g/dL 11/30/2024 1:02 AM EDT [facility] BUN/Creatinine Ratio 14.9 7.0 - 25.0 11/30/2024 1:02 AM EDT [facility] Anion Gap 17.1(H) 5.0 - 15.0 mmol/L 11/30/2024 1:02 AM EDT [facility] eGFR 116.3 >60.0 mL/min/1.7 3 11/30/2024 1:02 AM [facility] Blood Line / Unknown 11/30/2024 12 :18 AM EDT 11/30/2024 12:25 AM EDT [facility] - 11/30/2024 1:02 AM EDT GFR Categories in Chronic Kidney Disease (CKD) GFR Category GFR (mL/min/1.73) Interpretation G1 90 or greater Normal or high (1) G2 60-89 Mild decrease (1) G3a 45-59 Mild to moderate decrease G3b 30-44 Moderate to severe decrease G4 15-29 Severe decrease G5 14 or less Kidney failure (1)In the absence of evidence of kidney disease, neither GFR category G1 or G2 fulfill the criteria for CKD. eGFR calculation 2020 CKD-EPI creatinine equation, which does not include race as a factor us Veda Felix MD LAB BLOOD ORDERABLES Final Re sult [facility]
[address] [address], * High Sensitivity Troponin T (11/30/2024 12:18 AM EDT) HS Troponin T <6 <14 ng/L 11/30/2024 12:44 AM EDT [facility] Blood Line / Unknown 11/30/2024 12 :18 AM EDT 11/30/2024 12:25 AM EDT Veda Felix MD LAB BLOOD ORDERABLES Final Re sult [facility]
[address] [facility] [address] [place] [address], [place] * Telemetry Scan (11/30/2024 12:09 AM EDT) [facility] Onbase ECG ORDERABLES Final Result * ECG 12 Lead Chest Pain (11/30/2024 12:08 AM EDT) QT Interval 372 ms ECG QTC Interval 445 ms ECG 11/30/2024 12:0 8 AM EDT 12/10/2024 7:42 PM EDT Narrative ECG - 12/10/2024 7:42 PM EDT Test Reason : Chest Pain Blood Pressure : */* mmHG Vent. Rate : 86 BPM Atrial Rate : 86 BPM P-R Int : 136 ms QRS Dur : 80 ms QT Int : 372 ms P-R-T Axes : 56 28 20 degrees QTcB Int : 445 ms Normal sinus rhythm Normal ECG When compared with ECG of 08-Feb-2019 10:36, No significant change was found Confirmed by VEDA FELIX ([id number]) on 12/10/2024 7:42:18 PM Referred By: Confirmed By: VEDA FELIX Procedure Note Veda Felix MD - 12/10/2024 Test Reason : Chest Pain Blood Pressure : */* mmHG Vent. Rate : 86 BPM Atrial Rate : 86 BPM P-R Int : 136 ms QRS Dur : 80 ms QT Int : 372 ms P-R-T Axes : 56 28 20 degrees QTcB Int : 445 ms Normal sinus rhythm Normal ECG When compared with ECG of 08-Feb-2019 10:36, No significant change was found Confirmed by VEDA FELIX ([id number]) on 12/10/2024 7:42:18 PM Referred By: Confirmed By: VEDA FELIX Veda Felix MD ECG ORDERABLES Final Result ECG documented in this encounter Visit Diagnoses Diagnosis Atypical chest pain- Primary Other chest pain Post-COVID chronic dyspnea documented in this encounter Administered Medications Inactive Administered Medications - up to 3 most recent administrations Medication Order MAR Action Action Date Dose Rate Site aluminum-magnesium hydroxide-simethicone (MAALOX MAX) 400-400-40 MG/5ML suspension 30 mL 30 mL, Oral, Once, On Fri11/30/24 at 0115, For 1 dose, Maximum 60 mL in 24 hours. Given 11/30/2024 1:05 AM EDT 30 mL diazePAM (VALIUM) injection 5 mg 5 mg, Intravenous, Once, On Fri11/30/24 at 0115, For 1 dose, (SHANKAR) May give each 5 mg IV push over 1 minute. May be injected through infusion tubing using port closest to vein insertion. Do not mix or dilute with other solutions. Given 11/30/2024 1:07 AM EDT 5 mg iopamidol (ISOVUE-370) 76 % injection 100 mL 100 mL, Intravenous, Once in Imaging, On Fri11/30/24 at 0145, For 1 dose Given 11/30/2024 1:34 AM EDT 85 mL ketorolac (TORADOL) injection 15 mg 15 mg, Intravenous, Once, On Fri11/30/24 at 0245, For 1 dose, Based on patient request - if ordered for moderate or severe pain, provider allows for administration of a medication prescribed for a lower pain scale. (BKC) If given for pain, use the following pain scale: Mild Pain = Pain Score of 1-3, CPOT 1-2 Moderate Pain = Pain Score of 4-6, CPOT 3-4 Severe Pain = Pain Score of 7-10, CPOT 5-8 Given 11/30/2024 2:55 AM EDT 15 mg sodium chloride 0.9 % bolus 1,000 mL 1,000 mL, Intravenous, at 2,000 mL/hr, Administer over 0.5 Hours, Once, On Fri11/30/24 at 0245, For 1 dose New Bag 11/30/2024 2:53 AM EDT 1,000 mL 2000 mL/hr sodium chloride 0.9 % flush 10 mL 10 mL, Intravenous, As Needed, Line Care, Starting on Fri11/30/24 at 0002 documented in this encounter Active and Recently Administered Medications Times are shown in EDT. Scheduled Medication Order 11/28/2024 11/29/2024 11/30/2024 aluminum-magnesium hydroxide-simethicone (MAALOX MAX) 400-400-40 MG/5ML suspension 30 mL (COMPLETED) 30 mL, Oral, Once, On Fri11/30/24 at 0115, For 1 dose, Maximum 60 mL in 24 hours. 0105 (Given - Provid er: Aimee Degroot RN) diazePAM (VALIUM) injection 5 mg (COMPLETED) 5 mg, Intravenous, Once, On Fri11/30/24 at 0115, For 1 dose, (SHANKAR) May give each 5 mg IV push over 1 minute. May be injected through infusion tubing using port closest to vein insertion. Do not mix or dilute with other solutions. 0107 (Given - Provid er: Aimee Degroot RN) iopamidol (ISOVUE-370) 76 % injection 100 mL (COMPLETED) 100 mL, Intravenous, Once in Imaging, On Fri11/30/24 at 0145, For 1 dose 0134 (Given - Provid er: Howard Nguyen) ketorolac (TORADOL) injection 15 mg (COMPLETED) 15 mg, Intravenous, Once, On Fri11/30/24 at 0245, For 1 dose, Based on patient request - if ordered for moderate or severe pain, provider allows for administration of a medication prescribed for a lower pain scale. (BKC) If given for pain, use the following pain scale: Mild Pain = Pain Score of 1-3, CPOT 1-2 Moderate Pain = Pain Score of 4-6, CPOT 3-4 Severe Pain = Pain Score of 7-10, CPOT 5-8 0255 (Given - Provid er: Milady Najera RN) sodium chloride 0.9 % bolus 1,000 mL (COMPLETED) 1,000 mL, Intravenous, at 2,000 mL/hr, Administer over 0.5 Hours, Once, On Fri11/30/24 at 0245, For 1 dose 0253 (New Bag - Prov ider: Milady Najera RN)[id number] (Stopped - Provider: Ольга Austin RN) PRN Medication Order 11/28/2024 11/29/2024 11/30/2024 sodium chloride 0.9 % flush 10 mL 10 mL, Intravenous, As Needed, Line Care, Starting on Fri11/30/24 at 0002 documented in this encounter Care Teams Reimbursement Auditor Relationship Specialty Start Date End Date System, [place] [address] PCP - General 01/18/22 documented as of this encounter
--- NOTE | 2024-12-18 11:09 | CT_ITS ---
PROCEDURE INFORMATION: Exam: CTA Neck With Contrast Exam date and time: 12/18/2024 11:15 AM Age: 34 years old Clinical indication: Stroke-like symptoms; Other: Possible stroke TECHNIQUE: Imaging protocol: Computed tomographic angiography of the neck with contrast. Exam focused on the cervical segments of the vasculature. 3D rendering (Not supervised by radiologist): MIP and/or 3D reconstructed images were created by the technologist. Radiation optimization: All CT scans at this facility use at least one of these dose optimization techniques: automated exposure control; mA and/or kV adjustment per patient size (includes targeted exams where dose is matched to clinical indication); or iterative reconstruction. Contrast material: ISO 370; Contrast volume: 90 ml; Contrast route: INTRAVENOUS (IV); COMPARISON: 1. CT ANGIO NECK 12/18/2024 11:[address] SOFT TISSUE NECK W CON 01/07/2021 7:58 PM FINDINGS: Right common carotid artery: No stenosis. No dissection or occlusion. Right internal carotid artery: No stenosis of the extracranial segment. No dissection or occlusion. Right external carotid artery: No occlusion or stenosis of the origin. Left common carotid artery: No stenosis. No dissection or occlusion. Left internal carotid artery: No stenosis of the extracranial segment. No dissection or occlusion. Left external carotid artery: No occlusion or stenosis of the origin. Right vertebral artery: No stenosis. No dissection or occlusion. Left vertebral artery: No stenosis. No dissection or occlusion. Lymph nodes: There are numerous lymph nodes in the neck with the largest in the left carotid chain measuring 11 x 13 mm which is enlarged per size criteria. Soft tissues: There is a large amount of streak artifact involving the upper chest/lower neck due to the patient's large body habitus. Bones/joints: No acute fracture. Other findings: Thin section images are in the CT angiogram head folder. IMPRESSION: 1. Unremarkable vascular study. 2. Numerous lymph nodes throughout the neck at least 1 is enlarged per size criteria. However, these do appear stable since the soft tissue neck examination of almost 4 years ago. 3. THIS REPORT CONTAINS FINDINGS THAT MAY BE CRITICAL TO PATIENT CARE. The findings were verbally communicated by me to LETTY FRENCH at 11:32 AM EST on 12/18/2024. The findings were acknowledged and understood. REFERENCES: NASCET CRITERIA. The degree of stenosis in the cervical segment of the internal carotid artery is based on NASCET criteria. Normal is no stenosis. Mild is less than 50% stenosis. Moderate is 50-69% stenosis. Severe is 70% to 99% stenosis. Total occlusion is no detectable patent lumen.
--- NOTE | 2024-12-18 11:09 | ECG_ITS ---
APPROVED REPORT Exam: Resting ECG HR:90 bpm ECG Measurements Heart Rate 90 AXES NE 137 P 48 QRSd 110 QRS 50 QT 381 T 41 QTc 429 Conclusion Normal sinus rhythm Normal axis Normal intervals No STEMI Electronically signed by : Francis Shepherd, 12/18/2024 17:32:22
--- NOTE | 2024-12-18 11:09 | CT_ITS ---
PROCEDURE INFORMATION: Exam: CTA Head With Contrast, Arteriography Exam date and time: 12/18/2024 11:15 AM Age: 34 years old Clinical indication: Stroke-like symptoms; Other: Possible stroke TECHNIQUE: Imaging protocol: Computed tomographic angiography of the head with contrast. Exam focused on the arteries. 3D rendering (Not supervised by radiologist): MIP and/or 3D reconstructed images were created by the technologist. Radiation optimization: All CT scans at this facility use at least one of these dose optimization techniques: automated exposure control; mA and/or kV adjustment per patient size (includes targeted exams where dose is matched to clinical indication); or iterative reconstruction. Contrast material: ISO 370; Contrast volume: 90 ml; Contrast route: INTRAVENOUS (IV); COMPARISON: CT HEAD/BRAIN WO CON 12/18/2024 11:13 AM FINDINGS: ANTERIOR CIRCULATION: Right internal carotid artery: Intracranial segment is patent with no significant stenosis. No aneurysm. Right middle cerebral artery: No occlusion or significant stenosis. No aneurysm. Right anterior cerebral artery: No occlusion or significant stenosis. No aneurysm. Left internal carotid artery: Intracranial segment is patent with no significant stenosis. No aneurysm. Left middle cerebral artery: No occlusion or significant stenosis. No aneurysm. Left anterior cerebral artery: No occlusion or significant stenosis. No aneurysm. POSTERIOR CIRCULATION: Right vertebral artery: No occlusion or significant stenosis. No aneurysm. Left vertebral artery: No occlusion or significant stenosis. No aneurysm. Basilar artery: No occlusion or significant stenosis. No aneurysm. Right posterior cerebral artery: No occlusion or significant stenosis. No aneurysm. Left posterior cerebral artery: No occlusion or significant stenosis. No aneurysm. Brain: No definite mass, mass effect, or midline shift. Cerebral ventricles: No ventriculomegaly. Paranasal sinuses: Mucous membrane thickening in the maxillary sinuses is mild. Bones/joints: Unremarkable. No acute fracture. Soft tissues: Unremarkable. IMPRESSION: 1. No large vessel stenosis or occlusion. 2. THIS REPORT CONTAINS FINDINGS THAT MAY BE CRITICAL TO PATIENT CARE. The findings were verbally communicated by me to LETTY FRENCH at 11:32 AM EST on 12/18/2024. The findings were acknowledged and understood.
--- NOTE | 2024-12-18 11:09 | CT_ITS ---
PROCEDURE INFORMATION: Exam: CT Head Without Contrast Exam date and time: 12/18/2024 11:13 AM Age: 34 years old Clinical indication: Stroke-like symptoms; Other: Possible stroke TECHNIQUE: Imaging protocol: Computed tomography of the head without contrast. Radiation optimization: All CT scans at this facility use at least one of these dose optimization techniques: automated exposure control; mA and/or kV adjustment per patient size (includes targeted exams where dose is matched to clinical indication); or iterative reconstruction. Other technique: STROKE PROTOCOL was implemented. COMPARISON: FINDINGS: Brain: Due to angulation of the gantry the posterior fossa is poorly seen due to artifact from the patient's fillings. Within the limits of artifact the rest of the examination demonstrates no acute abnormality. Normal evans-white matter differentiation without intracranial hemorrhage. No abnormal mass. Cerebral ventricles: No ventriculomegaly. Paranasal sinuses: Sinus mucous membrane thickening in the maxillary sinuses bilaterally. Mastoid air cells: Visualized mastoid air cells are well aerated. Bones: Unremarkable. No acute fracture. Soft tissues: Unremarkable. IMPRESSION: No acute abnormality however, the posterior fossa is poorly seen due to streak artifact on numerous images from dental fillings due to the angulation of the gantry. ASSESSMENT: ASPECTS ([place] Stroke Program Early CT Score) is 10.
--- NOTE | 2024-12-18 11:09 | PC.NURSE ---
STROKE ALERT was called at 1104
[2024-12-18 11:10] VITALS: BP 163/98; PULSE 97; RESP 24; TEMP 36.9; O2SAT 98; BMI 56.5
[2024-12-18] MEDS: 0.9 % SODIUM CHLORIDE 50 ML VIAL IV (11:14)
[2024-12-18] MEDS: IOPAMIDOL-370 (76%);100ML BOTTLE 80 ML IV (11:14)
[2024-12-18] MEDS: SODIUM CHLORIDE 0.9% 10ML SYR (RAD ONLY) 10 ML IV (11:14)
[2024-12-18 11:16] LABS: Hematocrit 41.2 % (37.0-47.0); Hemoglobin 13.7 g/dL (12.2-16.2); Immature Granulocytes % 0.3 %; Mean Corpuscular HGB Conc 33.3 g/dL (31.8-35.4); Mean Corpuscular Hemoglobin 28.6 pg (27.0-31.2); Mean Corpuscular Volume 86.0 fl (81-99); Nucleated Red Blood Cells % 0 %; Platelet Count 322 K/mm3 (142-424); Red Blood Count 4.79 M/mm3 (4.20-5.40); Red Cell Distribution Width-SD 43.2 fL; White Blood Count 7.3 K/mm3 (4.8-10.8)
--- NOTE | 2024-12-18 11:18 | PC.NURSE ---
pt noted to have left sided weakness. having trouble forming words, and speech is slurred. spouse states LKN was approx 1015 this am.
[2024-12-18 11:28] LABS: Alanine Aminotransferase 31 U/L (12-78); Albumin Level 4.2 g/dl (3.5-5.0); Albumin/Globulin Ratio 1.2 (1.1-1.8); Alkaline Phosphatase 86 U/L (38-126); Anion Gap 12.3 mEq/L (5-15); Aspartate Amino Transferase 40 U/L (14-36); Bilirubin,Total 0.5 mg/dl (0.2-1.3); Blood Urea Nitrogen 15 mg/dl (7-17); Calcium 9.3 mg/dl (8.4-10.2); Carbon Dioxide 27 mmol/L (22.0-30.0); Chloride 103 mmol/L (98-107); Cholesterol 214 mg/dl (140-200); Creatinine Clearance Estimated 100 mL/min (50-200); Creatinine,Serum 0.70 mg/dl (0.52-1.04); Estimated Glomerular Filt Rate 95 ml/min (>60); GFR (African American) 115 ML/MIN (>60); Globulin 3.5 g/dL (1.3-3.2); Glucose 97 mg/dl (74-100); HDL Cholesterol 44 mg/dl (40-60); Potassium 4.3 mmoL/L (3.5-5.1); Sodium 138 mmol/L (136-145); Total Protein,Serum 7.7 g/dl (6.3-8.2); Triglycerides 119 mg/dl (30-150)
[2024-12-18 11:31] VITALS: BP 151/99; PULSE 95; O2SAT 95
--- OUTSIDE RECORDS SUMMARY | 2024-12-18 11:34 | XMS_ITS | Encounter Summary ---
Author Organization [facility] Address [address] [place] [address] Care Team Providers Care Functional Consultant Name Role Phone System, Provider Not In Primary Care Provider Un available Encounter Details Date Type Department Care Team (Late st Contact Info) Description 05/21/2013 Conversion Encounter [facility] HISTORICAL CONV [address] [place] [address] Interface, See Report Social History [...] See Report - 05/21/2013 9:00 AM EST [place] [id number] DISCHARGE SUMMARY PATIENT NAME: SIDRA WHITT ROOM NUMBER: [id number] VISIT NUMBER: [id number] DATE OF : 1990 DATE OF ADMISSION: [...] for: MD EMERY Farris/MIGUEL/shmuel Voice Rec. ID #[id number] Voice Original ID #[id number] Doc ID #[id number] Rev. #1 [No PCP on file] cc: Lashanda Anguiano MD* DO NOT TEXT EDIT THIS LINE :CDS:353: Authenticated by ROCKY BRAY On 07/09/2013 08:20:31 PM Authenticated by LASHANDA ANGUIANO M.D. On 2013 07:31:09 AM documented in this encounter OR Notes * Op Note - Interface, See Report - 05/21/2013 9:00 AM EST [place] [address] OPERATIVE REPORT PATIENT NAME: SIDRA WHITT 1 HOSPITAL NO: [id number] DATE OF : 1990 DATE OF OPERATION: 05/21/2013 ADMITTING PHYSICIAN/SURGEON: Lashanda Anguiano MD PLASTIC CUTTER: Stefany Llamas MD/Resident PREOPERATIVE DIAGNOSES: 1. Term [...] Lashanda Anguiano MD* EWC/rxsmj Voice Rec. ID #[id number] Original Voice Rec. ID #[id number] Doc ID #[id number] Revision Count: 0 cc: Lashanda Anguiano MD* <start header> [place] [address] OPERATIVE REPORT PATIENT NAME: SIDRA WHITT 1 HOSPITAL NO: [id number] DATE OF : 1990 <end header> DO NOT TEXT EDIT THIS LINE :SCREEN CUTTER AND TRIMMER:[id number]: Authenticated by LASHANDA ANGUIANO M.D. On 05/28/2013 [...] EST) Creatinine 0.6 0.6 - 1.3 mg/dL [facility] Uric Acid 4.3 2.6 - 7.2 mg/dL [facility] Alkaline Phosphatase 91 25 - 100 Units/L [facility] AST (SGOT) 29 8 - 33 Units/L [facility] LDH 204(H) 100 - 190 Units/L [facility] ALT (SGPT) 21 7 - 40 Units/L [facility] Total Bilirubin 0.3 0.3 - 1.2 mg/dL [facility] Blood specimen (specimen) 05/23/2013 10:31 AM EST [facility] - 05/23/2013 11:02 AM EST Specimen Type: Blood Kyleigh Trevino PA-C LAB BLOOD ORDERABLES F inal Result Performing Organization Address City/[facility]/[place] [address], * (ABNORMAL) CBC (No diff) (05/22/2013 8:20 AM EST) WBC 9.24 3.50 - 10.80 K/[facility] RBC 3.37(L) 3.89 - 5.14 M/[facility] Hemoglobin 9.8(L) 11.5 - 15.5 g/dL [facility] Hematocrit 29.6(L) 34.5 - 44.0 % [facility] MCV 87.8 80.0 - 99.0 fL [facility] MCH 29.1 27.0 - 31.0 pg [facility] MCHC 33.1 32.0 - 36.0 g/dL [facility] RDW-CV 15.1(H) 11.3 - 14.5 % [facility] Platelets 155 150 - 450 [facility] Blood specimen (specimen) 05/22/2013 8:20 AM EST [facility] - 05/22/2013 9:10 AM EST Specimen Type: Blood Lashanda Anguiano MD LAB BLOOD ORDERABLES Final Result Performing Organization Address [facility]/[place] [address], * Rapid drug screen, urine (05/20/2013 12:01 PM EST) THC Screen Interpretation Negative NEGATIVE ng/mL [facility] Phencyclidine (PCP), Urine Negative NEGATIVE ng/mL [facility] Cocaine Screen, Urine Negative NEGATIVE ng/mL [facility] Methamphetamine, Urine Negative NEGATIVE ng/mL [facility] Opiate Screen, Urine Negative NEGATIVE ng/mL [facility] Amphetamine, Urine Qual Negative NEGATIVE ng/mL [facility] Comment: DF by [id number] @ 05/20/2013 12:18 Test Cutoff THC 50 [...] method. Benzodiazepine Screen, Urine Negative NEGATIVE ng/mL [facility] TCA Screen Negative NEGATIVE ng/mL [facility] Methadone Screen, Urine Negative NEGATIVE ng/mL [facility] Barbiturates Screen, Urine Negative NEGATIVE ng/mL [facility] Oxycodone Screen, Urine Negative NEGATIVE ng/mL [facility] Propoxyphene Screen Negative NEGATIVE ng/mL [facility] Buprenorphine, Screen, Urine Negative NEGATIVE ng/mL [facility] Urine specimen (specimen) 05/20/2013 12:01 PM EST Narrative [facility] - 05/20/2013 12:18 PM EST Specimen Type: Urine us Lashanda Anguiano MD URINE ORDERABLES Final Res ult [facility] [address] [place] [address], * Type and screen (05/20/2013 11:20 AM EST) ABORh O Rh Positive [facility] Antibody Screen Negative [facility] Blood specimen (specimen) 05/20/2013 11:20 AM EST [facility] - 05/20/2013 12:29 PM EST Specimen Type: Blood Lashanda Anguiano MD BLOOD BANK TEST ORDERABLES Final Result Performing Organization Address [facility] [place] [address], * (ABNORMAL) CBC (No diff) (05/20/2013 11:20 AM EST) WBC 11.88(H) 3.50 - 10.80 [facility] RBC 4.26 3.89 - 5.14 /[facility] Hemoglobin 12.5 11.5 - 15.5 g/dL [facility] Hematocrit 37.3 34.5 - 44.0 % [facility] MCV 87.6 80.0 - 99.0 fL [facility] MCH 29.3 27.0 - 31.0 pg [facility] MCHC 33.5 32.0 - 36.0 g/dL [facility] RDW-CV 14.9(H) 11.3 - 14.5 % [facility] Platelets 205 150 - 450 [facility] Blood specimen (specimen) 05/20/2013 11:20 AM EST [facility] - 05/20/2013 11:46 AM EST Specimen Type: Blood Lashanda Anguiano MD LAB BLOOD ORDERABLES Final Result Performing Organization Address [facility] [place] [address], documented in this encounter Visit Diagnoses Not on filedocumented in this encounter Care Teams Functional Consultant Relationship Specialty Start Date End Date System, [place] [address] PCP - General 01/18/22 documented as of this encounter
--- OUTSIDE RECORDS SUMMARY | 2024-12-18 11:35 | XMS_ITS | Clinical Summary ---
Author Organization [facility] Address [address] [place] [address] Phone Care Team Providers Care Geophysical Manager Name Role Phone Unavailable Primary Care Provider [...] age to complete this topic [place]
--- OUTSIDE RECORDS SUMMARY | 2024-12-18 11:35 | XMS_ITS | Encounter Summary ---
Author Organization [facility] Address [address] [place] [address] Care Team Providers Care Customs And Border Protection Officer Name Role Phone Ninfa Ramos APRN Primary Care Provider [phone] Reason for Visit * Reason Comments Med Refill Encounter Details Date Type Department Care Team (Late st Contact Info) Description 07/10/2021 Refill [facility] Community [facility] [address] [place] [address] Ninfa Ramos APRN [address] [place] [address] Anxiety Social History Tobacco Use [...] documented as of this encounter Care Teams Customs And Border Protection Officer Relationship Specialty Start Date End Date Ninfa Ramos APRN [address] [place] [address] PCP - General 09/01/20 10/17/24 documented as of this encounter
--- OUTSIDE RECORDS SUMMARY | 2024-12-18 11:35 | XMS_ITS | Encounter Summary ---
Author Organization [facility] Address [address] [place] [address] Care Team Providers Care Supervisor [employer] Name Role Phone System, Provider Not In [...] 12:12 AM EDT Aimee Degroot, RN * [place] Suicide Severity Rating Scale (Screener/Recent Self-Report) Question [...] on filedocumented in this encounter Care Teams Supervisor [employer] Relationship Specialty Start Date End Date System, [place] [address] PCP - General 01/18/22 documented as of this encounter
--- OUTSIDE RECORDS SUMMARY | 2024-12-18 11:35 | XMS_ITS | Clinical Summary ---
[facility] Address [address] [place] [address] Care Team Providers Care Production Line Worker Name Role Phone System, Provider Not In [...] 91-Day (SEASONIQUE PO) Take by mouth. Active Sedgwick-3 Fatty Acids (FISH OIL) 1000 MG capsule [...] EVENING WITH MEAL 11/13/19 25 Active rizatriptan BIOLOGIST (MAXALT-BIOLOGIST) 5 MG disintegrating tablet DISSOLVE ONE TABLET [...] EDT - 11/30/2024 5:17 AM EDT Emergency [facility] EMERGENCY DEPARTMENT [address] [phone] Veda Felix MD Atypical chest pain (Primary [...] e 01/27/2023 Family and Community Support Answer Zera e Recorded Help with Day-to-Day Activities Not [...] MD 11/30/2024 1:57 AM EDT Workstation ID: [id number] Narrative 11/30/2024 1:[address] ANGIOGRAM [...] MD 11/30/2024 1:57 AM EDT Workstation ID: [id number] Veda Felix MD IMG CT ORDERABLES Final Resul t * High Sensitivity Troponin T 1Hr (11/30/2024 1:21 AM EDT) [facility] HS Troponin T <6 <14 ng/L 11/30/2024 1:42 AM EDT [facility] Troponin T Numeric Delta 11/30/2024 1:42 AM EDT [facility] Comment:Unable to calculate. Blood Venipuncture / Unknown 11/30/2024 1:21 AM EDT 11/30/2024 1:23 AM EDT Narrative [facility] - 11/30/2024 1:42 AM EDT [...] MD LAB BLOOD ORDERABLES Final Re sult [facility]
[address] [facility] [address] [place] [address], [place] * POC Urine (11/30/2024 1:13 AM EDT) [facility] HCG, Urine, QL Negative [facility] Internal Positive Control [facility] Internal Negative Control [facility] Urine 11/30/2024 1:13 AM EDT Veda Felix MD POINT OF CARE TEST ORDERABLES Final Result [facility]
[address] [place] [address], * ECG 12 Lead Chest Pain (11/30/2024 [...] significant change was found Confirmed by VEDA EFLIX ([id number]) on 12/10/2024 7:42:21 PM Referred By: [...] MD 11/30/2024 12:47 AM EDT Workstation ID: [id number] Narrative 11/30/2024 12:47 AM EDT XR CHEST [...] MD 11/30/2024 12:47 AM EDT Workstation ID: [id number] Result [facility] Veda Felix MD IMG DIAGNOSTIC IMAGING ORDERA BLES Final Result * Telemetry Scan (11/30/2024 12:19 AM EDT) Only the most recent of2 resultswithin the time period is included. [facility] ORDERABLES Final Result * Petersen Top (11/30/2024 12:18 AM EDT) Extra Tube Hold for add-ons. 11/30/2024 12:30 AM EDT [facility] Comment:Auto resulted. Blood Line / Unknown 11/30/2024 12 :18 AM EDT 11/30/2024 12:25 AM EDT Veda Felix MD LAB BLOOD ORDER ONLY Final Re sult Performing Organization Address [facility]/ZIP Co de Phone Number [facility]
[address] [facility] [address] [place] [address], [place] * Gold Top - SST (11/30/2024 12:18 AM EDT) Extra Tube Hold for add-ons. 11/30/2024 12:30 AM EDT [facility] Comment:Auto resulted. Blood Line / Unknown 11/30/2024 12 :18 AM EDT 11/30/2024 12:25 AM EDT Veda Felix MD LAB BLOOD ORDER ONLY Final Re sult Performing Organization Address [facility] Co de Phone Number [facility]
[address] [place] [address], [place] * Green Top (Gel) (11/30/2024 12:18 AM EDT) Extra Tube Hold for add-ons. 11/30/2024 12:30 AM EDT [facility] Comment:Auto resulted. Blood Line / Unknown 11/30/2024 12 :18 AM EDT 11/30/2024 12:25 AM EDT Veda Felix MD LAB BLOOD ORDER ONLY Final Re sult Performing Organization Address City/[facility]/ZIP Co de Phone Number [facility]
[address] [place] [address], [place] * (ABNORMAL) CBC Auto Differential (11/30/2024 12:18 AM EDT) WBC 14.64(H) 3.40 - 10.80 10*3/mm3 11/30/2024 12:29 AM EDT [facility] RBC 5.13 3.77 - 5.28 10*6/mm3 11/30/2024 12:29 AM EDT [facility] Hemoglobin 14.3 12.0 - 15.9 g/dL 11/30/2024 12:29 AM [facility] Hematocrit 42.9 34.0 - 46.6 % 11/30/2024 12:29 AM [facility] MCV 83.6 79.0 - 97.0 fL 11/30/2024 12:29 AM [facility] MCH 27.9 26.6 - 33.0 pg 11/30/2024 12:29 AM [facility] MCHC 33.3 31.5 - 35.7 g/dL 11/30/2024 12:29 AM [facility] RDW 14.4 12.3 - 15.4 % 11/30/2024 12:29 AM [facility] RDW-SD 44.6 37.0 - 54.0 fl 11/30/2024 12:29 AM [facility] MPV 10.0 6.0 - 12.0 fL 11/30/2024 12:29 AM [facility] Platelets 334 140 - 450 10*3/mm3 11/30/2024 12:29 AM [facility] Neutrophil % 74.8 42.7 - 76.0 % 11/30/2024 12:29 AM [facility] Lymphocyte % 20.1 19.6 - 45.3 % 11/30/2024 12:29 AM [facility] Monocyte % 4.2(L) 5.0 - 12.0 % 11/30/2024 12:29 AM [facility] Eosinophil % 0.1(L) 0.3 - 6.2 % 11/30/2024 12:29 AM [facility] Basophil % 0.3 0.0 - 1.5 % 11/30/2024 12:29 AM [facility] Immature Grans % 0.5 0.0 - 0.5 % 11/30/2024 12:29 AM [facility] Neutrophils, Absolute 10.94(H) 1.70 - 7.00 10*3/mm3 11/30/2024 12:29 AM [facility] Lymphocytes, Absolute 2.94 0.70 - 3.10 10*3/mm3 11/30/2024 12:29 AM EDT [facility] Monocytes, Absolute 0.62 0.10 - 0.90 10*3/mm3 11/30/2024 12:29 AM EDT [facility] Eosinophils, Absolute 0.02 0.00 - 0.40 10*3/mm3 11/30/2024 12:29 AM EDT [facility] Basophils, Absolute 0.04 0.00 - 0.20 10*3/mm3 11/30/2024 12:29 AM EDT [facility] Immature Grans, Absolute 0.08(H) 0.00 - 0.05 10*3/mm3 11/30/2024 12:29 AM EDT [facility] Blood Line / Unknown 11/30/2024 12 :18 AM EDT 11/30/2024 12:25 AM EDT Veda Felix MD LAB BLOOD ORDERABLES Final Re sult [facility]
[address] [place] [address], [place] * Lavender Top (11/30/2024 12:18 AM EDT) Extra Tube hold for add-on 11/30/2024 12:30 AM EDT [facility] Comment:Auto resulted Blood Line / Unknown 11/30/2024 12 :18 AM EDT 11/30/2024 12:25 AM EDT Veda Felix MD LAB BLOOD ORDER ONLY Final Re sult [facility]
[address] [facility] [address] [place] [address], [place] * Light Blue Top (11/30/2024 12:18 AM EDT) Extra Tube Hold for add-ons. 11/30/2024 12:30 AM EDT [facility] Comment:Auto resulted Blood Line / Unknown 11/30/2024 12 :18 AM EDT 11/30/2024 12:25 AM EDT Veda Felix MD LAB BLOOD ORDER ONLY Final Re sult [facility]
[address] [facility] [address] [place] [address], [place] * High Sensitivity Troponin T (11/30/2024 12:18 AM EDT) Pathologist [facility] HS Troponin T <6 <14 ng/L 11/30/2024 12:44 AM EDT [facility] Blood Line / Unknown 11/30/2024 12 :18 AM EDT 11/30/2024 12:25 AM EDT Veda Felix MD LAB BLOOD ORDERABLES Final Re sult [facility]
[address] [place] [address], [place] * BNP (11/30/2024 12:18 AM EDT) [facility] proBNP 91.1 0.0 - 450.0 pg/mL 11/30/2024 12:45 AM EDT [facility] Blood Line / Unknown 11/30/2024 12 :18 AM EDT 11/30/2024 12:25 AM EDT Narrative [facility] - 11/30/2024 12:45 AM EDT [...] MD LAB BLOOD ORDERABLES Final Re sult [facility]
[address] [facility] [address] [place] [address], * Lipase (11/30/2024 12:18 AM EDT) Lipase 19 13 - 60 U/L 11/30/2024 12:47 AM EDT [facility] Blood Line / Unknown 11/30/2024 12 :18 AM EDT 11/30/2024 12:25 AM EDT Veda Felix MD LAB BLOOD ORDERABLES Final Re sult Performing Organization Address City/[facility]/ZIP Co de Phone Number [facility]
[address] [place] [address], * (ABNORMAL) Comprehensive Metabolic Panel (11/30/2024 12:18 AM EDT) Glucose 98 65 - 99 mg/dL 11/30/2024 1:02 AM EDT [facility] BUN 10.0 6.0 - 20.0 mg/dL 11/30/2024 1:02 AM EDT [facility] Creatinine 0.67 0.57 - 1.00 mg/dL 11/30/2024 1:02 AM EDT [facility] Sodium 139 136 - 145 mmol/L 11/30/2024 1:02 AM EDT [facility] Potassium 4.1 3.5 - 5.2 mmol/L 11/30/2024 1:02 AM EDT [facility] Comment:Specimen hemolyzed. Result may be falsely elevated. Chloride 100 98 - 107 mmol/L 11/30/2024 1:02 AM EDT [facility] CO2 21.9(L) 22.0 - 29.0 mmol/L 11/30/2024 1:02 AM EDT [facility] Calcium 9.9 8.6 - 10.5 mg/dL 11/30/2024 1:02 AM [facility] Total Protein 7.7 6.0 - 8.5 g/dL 11/30/2024 1:02 AM [facility] Albumin 4.0 3.5 - 5.2 g/dL 11/30/2024 1:02 AM [facility] ALT (SGPT) 22 1 - 33 U/L 11/30/2024 1:02 AM [facility] AST (SGOT) 26 1 - 32 U/L 11/30/2024 1:02 AM [facility] Comment:Specimen hemolyzed. Result may be falsely elevated. Alkaline Phosphatase 85 39 - 117 U/L 11/30/2024 1:02 AM [facility] Total Bilirubin 0.4 0.0 - 1.2 mg/dL 11/30/2024 1:02 AM [facility] Globulin 3.7 gm/dL 11/30/2024 1:02 AM [facility] A/G Ratio 1.1 g/dL 11/30/2024 1:02 AM [facility] BUN/Creatinine Ratio 14.9 7.0 - 25.0 11/30/2024 1:02 AM [facility] Anion Gap 17.1(H) 5.0 - 15.0 mmol/L 11/30/2024 1:02 AM [facility] eGFR 116.3 >60.0 mL/min/1.7 3 11/30/2024 1:02 AM [facility] Blood Line / Unknown 11/30/2024 12 :18 AM EDT 11/30/2024 12:25 AM [facility] - 11/30/2024 1:02 AM [...] MD LAB BLOOD ORDERABLES Final Re sult [facility] Organization Address City/State/ZIP Co de Phone Number [facility]
[address] [facility] [address] [place] [address], from Last 3 Months Insurance PPO Care Teams Production Line Worker Relationship Specialty Start Date End Date System, [place] [address] PCP - General 01/18/22
--- OUTSIDE RECORDS SUMMARY | 2024-12-18 11:35 | XMS_ITS | Encounter Summary ---
Author Organization [facility] Address [address] [place] [address] Care Team Providers Care Boat Washer Name Role Phone Ninfa Ramos APRN Primary Care Provider [phone] Reason for Visit * Reason Comments Med Refill Encounter Details Date Type Department Care Team (Late st Contact Info) Description 10/01/2022 Refill Family and Community Medicine [address] [place] [address] Ninfa Ramos APRN [address] [place] [address] Social History Tobacco Use Types [...] documented as of this encounter Care Teams Boat Washer Relationship Specialty Start Date End Date Ninfa Ramos APRN [address] [place] [id number] PCP - General 09/01/20 10/17/24 documented as of this encounter
--- OUTSIDE RECORDS SUMMARY | 2024-12-18 11:35 | XMS_ITS | Clinical Summary ---
Author Organization [facility] Address [address] [place] [address] Care Team Providers Care Warehouse Selector Name Role Phone Unavailable Primary Care Provider [...] 2018 [facility]-HPV/Cotest 2018 [facility]-Depression Screening 04/02/2022 04/02/2021 [id number] Vaccine ( season) 2023 06/23/2020, 06/02/2020 [facility]-Influenza [...] patient's age to complete this topic Insurance [facility]
[2024-12-18 11:36] LABS: Activated Partial Thrombo Time 28.5 seconds (22.8-30.6); INR 0.95 (0.9-1.1); Prothrombin Time 10.6 seconds (10.1-12.5)
--- NOTE | 2024-12-18 11:37 | PC.NURSE ---
Dr. Shepherd is on the phone with the stroke navigator
[2024-12-18 12:01] VITALS: BP 164/108; PULSE 94; RESP 18; O2SAT 94
[2024-12-18] MEDS: ASPIRIN 325MG TABLET 325 MG PO (12:03)
[2024-12-18 12:06] LABS: Troponin I < 0.01 ng/ml (0.00-0.034)
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
[2024-12-18 12:31] VITALS: BP 154/98; PULSE 94; RESP 16; O2SAT 95
--- NOTE | 2024-12-18 12:36 | PC.NURSE ---
report called to Elodia @ [facility]
--- NOTE | 2024-12-18 12:59 | PC.NURSE ---
spoke with EMS regarding transfer
[2024-12-18 13:01] VITALS: BP 154/104; PULSE 84; RESP 20; O2SAT 91
[2024-12-18 13:29] LABS: Hepatitis C Ab Qual. W/ RFX NEGATIVE (Negative)
[2024-12-18 13:30] VITALS: BP 168/87; PULSE 81; RESP 18; TEMP 36.7; O2SAT 98
== END 2024-12-18 13:30 | disposition short-term general hospital (02) ==
PROVIDERS: Emergency Provider Student in an Organized Health Care Education/Training Program
DX: R29.898 Other symptoms and signs involving the musculoskeletal system (principal); R47.1 Dysarthria and anarthria; J45.909 Unspecified asthma, uncomplicated; F33.9 Major depressive disorder, recurrent, unspecified; F41.1 Generalized anxiety disorder
CPT/HCPCS: 70450; 70496; 70498; 80053; 80061; 80320; 84484; 85025; 85610; 85730; 86803; 87389; 93005; 99285; Q9967

== ENCOUNTER 2025-02-02 07:38 | Outpatient (CLI) | payer BC, SELFPAY ==
--- OUTSIDE RECORDS SUMMARY | 2024-12-18 14:35 | XMS_ITS | Encounter Summary ---
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 Name Role Phone System, Provider Not In Primary Care Provider Un available Reason for Referral * Physical Therapy (Routine) - Closed Specialty Diagnoses / Procedures Referred By Contac t Referred To Contact Physical Therapy Diagnoses Fluency disorder Left-sided weakness Procedures RI OFFICE/OUTPATIENT NEW MODERATE MDM 45 MINUTES Ezekiel Jones MD [address] [place] [address] Phone: tel: fax: [facility] [address] [facility] [address] [place] [address] Phone: tel: fax: Referral ID Status Reason Start Date Expiration Date V isits Requested Visits Authorized [id number] Closed Specialty Services Required 12/20/2024 03/21/2026 1 1 * MRI/CAT/PET Scan (Routine) - Pending Review Specialty Diagnoses / Procedures Referred By Contac t Referred To Contact Procedures CT Outside Head Films, Radiant Outside Referral ID Status Reason Start Date Expiration Date V isits Requested Visits Authorized [id number] Pending Review 12/18/2024 03/19/2026 1 1 * MRI/CAT/PET Scan (Routine) - Pending Review Specialty Diagnoses / Procedures Referred By Contac t Referred To Contact Procedures CT Outside Head Films, Radiant Outside Referral ID Status Reason Start Date Expiration Date V isits Requested Visits Authorized [id number] Pending Review 12/18/2024 03/19/2026 1 1 Reason for Visit * Auth/Cert Specialty Diagnoses / Procedures Referred By Contac t Referred To Contact Diagnoses Other (S/S OF CVA) Referral ID Status Reason Start Date Expiration Date Visits Re quested Visits Authorized [id number] 1 1 Encounter Details Date Type Department Care Team (Late st Contact Info) Description 12/18/2024 2:35 PM EDT - 12/20/2024 1:36 PM EDT Hospital Encounter [address] [place] [id number] Rayshawn Felix MD [address] [facility] [address] [place] [address] Christophe Green DO [address] [facility] [address] [place] [id number] Ezekiel Jones MD [address] [facility] 4th [place] [address] Fluency disorder (Primary Dx); Left-sided weakness Discharge Disposition: Home or Self Care Social History Tobacco Use Types Packs/Day Years Used Date Smoking Tobacco: Former Cigarettes 0.5 11 Q uit: 2024 Smokeless Tobacco: Never Tobacco Cessation:Counseling Given: Not Answered Alcohol Use Standard Drinks/Week Comments No 0 (1 standard drink = 0.6 oz pur e alcohol) AUDIT-C Answer Date Recorded Q1: How often do you have a drink containing alcohol? Never 12/18/2024 Q2: How many drinks containi ng alcohol do you have on a typical day when you are drinking? Patient does not drink Q3: How often do you have si x or more drinks on one occasion? Never 12/18/2024 Abuse Screen Answer Date Recorded Feels Unsafe at Home or Work/School no 12/18/2024 Feels Threatened by Someone no 11/21 Does Anyone Try to Keep You From Having Contact with Others or Doing Things Outside Your Home? no 12/18/2024 Physical Signs of Abuse Present no 12/18/2024 Housing Stability Answer Date Recorded Current Living Arrangements home 11/21 Potentially Unsafe Housing Conditions Not on leticia e 12/19/2024 Family and Community Support Answer Ezra e Recorded Help with Day-to-Day Activities Not on file 01/27/2023 Lonely or Isolated Not on file 01/27/2023 Employment Answer Date Recorded Do you want help finding or keeping work or a mark b? Not on file 01/27/2023 Disabilities Answer Date Recorded Difficulty Concentrating, Remembering or Making Decisions no 12/18/2024 Difficulty Managing Errands Independently no 12/18/2024 Education Answer Date Recorded Help with school [...] Sign Reading Time Taken Comments Blood Pressure 128/75 12/20/2024 11:10 AM EDT Pulse 86 12/20/2024 11:10 AM EDT Temperature 36.7 C (98.1 F) 12/20/2024 11:10 AM EDT Respiratory Rate 16 12/20/2024 11:10 AM EDT Oxygen Saturation 95% 12/20/2024 4:03 AM EDT Inhaled Oxygen Concentration - - Weight 154 kg (338 lb 10 oz) 12/18/2024 5:29 PM EDT Height 162.6 cm (5' 4 ) 12/18/2024 4:32 PM EDT Body Mass Index 58.13 12/18/2024 4:32 PM EDT documented in this encounter Functional Status * Question Answer Date of Assessment Author 1. Wish to be (Past 1 Month) No 025 4:31 PM EDT Simona Tobias, LAURIE 2. Non-Specific Active Suici wade Thoughts (Past 1 Month) No 12/18/2024 4:31 PM EDT Lacey Tobias cca, RN * Calculated C-SSRS Risk Score (Lifetime/Recent) Answer Date of Assessment Author No Risk Indicated 12/18/2024 4:31 PM EDT Simona Tobias RN * [place] Suicide Severity Rating Scale (Screener/Recent Self-Report) Question Answer Date of Assessment Author 6. Suicidal Behavior (Lifetime) No 4:31 PM EDT Simona Tobias RN documented as of this encounter Discharge Summaries * Ezekiel Jones MD - 12/20/2024 8:45 AM EDT Images from the original note were not included. [facility] DISCHARGE SUMMARY Patient Name: Sidra Whitt : 1990 Date of Admission: 12/18/2024 2:35 PM Date of Discharge: 12/20/2024 Primary Care Physician: System, Provider Not In Consults Date and Time Order Name Status Description 12/19/2024 7:09 AM Inpatient Neurology Consult General Completed Hospital Course Presenting Problem: transfer for neurology evaluation Active Hospital Problems Diagnosis POA ??? Left-sided weakness [R53.1] Yes ??? Morbid obesity [E66.01] Yes ??? LEONID (obstructive sleep apnea) [G47.33] Yes Resolved Hospital Problems No resolved problems to display. 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, morbid obesity, recently Dx'ed w/ Covid late October and returned to work 11/29/24, during her first shift she developed left sided chest pain and LT UE weakness, seen at [facility] ED and Dx w/ atypical chest pain and DC'ed home, has had ongoing LT sided weakness requiring use of a cane, Rx'ed tramadol- APAP for LTshoulder pain, and had outpatient MRI 12/16/24 reported as normal from OSH (official report not available); on 12/18/24 she had LT facial twitching, worse weakness, and family noted slurred speech; [facility] and CTA H&H were unremarkable, she was tra nsferred for further eval. Neurology was consulted, her symptoms are thought to be related to complicated migraine, given negative detailed workup for stroke were negative. She is discharged home stable, PT recommends rolling walker, other instructions as below. Discharge Follow Up Recommendations for outpatient labs/diagnostics: - follow-up with pcp within a week - follow-up with neurology outpatient, could be worked up for probable pseudotumor cerebri given headache in the setting of vision changes and other risk factors. - follow-up with primary care for prediabetes - continue statin for hyperlipidemia in the setting of risk factors. Day of Discharge HPI: Seen at beside, present. Has no complaints, no acute events overnight. Review of Systems All other systems reviewed and are negative. Vital Signs: Temp: [97.8 ??F (36.6 ??C)-98.9 ??F (37.2 ??C)] 98.2 ??F (36.8 ??C) Heart Rate: [63-96] 63 Resp: [16-17] 16 BP: (100-186)/(63-121) 124/73 Physical Exam: Constitutional: No acute distress, awake, alert HENT: NCAT, mucous membranes moist Respiratory: Clear to auscultation bilaterally, respiratory effort normal Cardiovascular: RRR, no murmurs, rubs, or gallops Gastrointestinal: Positive bowel sounds, soft, nontender, nondistended Musculoskeletal: No bilateral ankle edema Psychiatric: Appropriate affect, cooperative Neurologic: Oriented x 3, strength symmetric in all extremities, Cranial Nerves grossly intact to confrontation, speech clear Skin: erythematous polygonal plaques on the extensor surfaces of bilateral elbow, knees and anterior LE Pertinent and/or Most Recent Results LAB RESULTS: Lab 12/19/24 1304 WBC 7.08 HEMOGLOBIN 13.1 HEMATOCRIT 39.2 PLATELETS 290 NEUTROS ABS 4.36 IMMATURE GRANS (ABS) 0.02 LYMPHS ABS 1.82 MONOS ABS 0.62 EOS ABS 0.22 MCV 86.3 SED RATE 41* CRP 1.37* Lab 12/19/24 1304 SODIUM 140 POTASSIUM 3.9 CHLORIDE 106 CO2 22.8 ANION GAP 11.2 BUN 10.0 CREATININE 0.66 EGFR 116.8 GLUCOSE 93 CALCIUM 8.9 HEMOGLOBIN A1C 5.83* Lab 12/19/24 1304 TOTAL PROTEIN 6.9 ALBUMIN 3.8 GLOBULIN 3.1 ALT (SGPT) 21 AST (SGOT) 26 BILIRUBIN 0.3 ALK PHOS 82 Lab 12/19/24 1304 CHOLESTEROL 180 LDL CHOL 110* HDL CHOL 49 TRIGLYCERIDES 117 Lab 12/18/24 1848 FIO2 21 CARBOXYHEMOGLOBIN (VENOUS) 1.3 Brief Urine Lab Results (Last result in the past 365 days) Color Clarity Blood Leuk Est Nitrite Protein CREAT Urine HCG 11/30/24 0113 Negative Microbiology Results (last 10 days) No results found for the last 240 hours. MRI Brain Without Contrast Result Date: 12/19/2024 MRI BRAIN WO CONTRAST Date of Exam: 12/18/2024 12:47 AM EDT Indication: Stroke, follow up. left sided weaknesss, dysarthria. Comparison: None available. Technique: Routine multiplanar/multisequence sequence images of the brain were obtained without contrast administration. Findings: There is no diffusion restriction to suggest acute infarct. There is no evidence of acute or chronic intracranial hemorrhage. There are no significant signal abnormalities within the brain parenchyma. No mass effect or midline shift. No abnormal extra-axial collections. The major vascular flow voids appear intact. The basal ganglia, brainstem and cerebellum appear within normal limits. Calvarial and superficial soft tissue signal is within normal limits. Orbits appear unremarkable. The paranasal sinuses and themastoid air cells appear well aerated. Midline structures are intact. Impression: No acute intracranial abnormality. Electronically Signed: Christophe Grant MD 12/19/2024 2:55 AM EDT Workstation ID: [id number] CT Outside Head Result Date: 12/18/2024 This procedure was auto-finalized with no dictation required. CT Outside Head Result Date: 12/18/2024 This procedure was auto-finalized with no dictation required. I have personally reviewed the therapy plans: PT/OT/ ST Therapy Plans Plan for Follow-up of Pending Labs/Results: Discharge Details Discharge Medications New Medications Instructions Start Date atorvastatin 20 MG tablet Commonly known as: LIPITOR 20 mg, Oral, Nightly Changes to Medications Instructions Start Date montelukast 10 MG tablet Commonly known as: SINGULAIR What changed: how much to take how to take this when to take this 10 mg, Oral, Daily Start Date: December 21, 2024 Continue These Medications Instructions Start Date albuterol sulfate HFA 108 (90 Base) MCG/ACT inhaler Commonly known as: PROVENTIL HFA;VENTOLIN HFA;PROAIR HFA 2 puffs, Inhalation, Every 6 Hours PRN escitalopram 20 MG tablet Commonly known as: LEXAPRO 1 tablet, Daily fish oil 1000 MG capsule capsule Daily With Breakfast fluticasone 50 MCG/ACT nasal spray Commonly known as: FLONASE 2 sprays, Nasal, Daily hydrOXYzine pamoate 25 MG capsule Commonly known as: VISTARIL 75 mg, 3 Times Daily PRN ipratropium-albuterol 0.5-2.5 mg/3 ml nebulizer Commonly known as: DUO-NEB INHALE THE CONTENTS OF 1 VIAL VIA NEBULIZER EVERY 6 HOURS loratadine 10 MG tablet Commonly known as: CLARITIN 10 mg, Oral, Daily metFORMIN ER 500 MG 24 hr tablet Commonly known as: GLUCOPHAGE-XR TAKE ONE TABLET BY MOUTH EVERY EVENING WITH MEAL multivitamin with minerals tablet tablet Take by mouth. PROMETHAZINE-DM PO Oral rizatriptan TOP STEEP TENDER 5 MG disintegrating tablet Commonly known as: MAXALT-TOP STEEP TENDER DISSOLVE ONE TABLET BY MOUTH EVERY DAY NEEDED FOR HEADACHE Allergies Allergen Reactions ??? Hydrocodone Hives ??? Cefdinir Rash ??? Sulfamethoxazole-Trimethoprim Rash Bactrim (sulfamethoxazole-trimethoprim) - Unknown Discharge Disposition: Home or Self Care Diet: Hospital: Diet Order Procedures ??? Diet: Regular/House; Texture: Regular (IDDSI 7); Fluid Consistency: Thin (IDDSI 0) Dietary modifiers entered as reported to HEAD RESIDENT by RN. Small bites/sips Standing Status: Standing Number of Occurrences: 1 Diets:: Regular/House Texture:: Regular (IDDSI 7) Fluid Consistency:: Thin (IDDSI 0) Diet Instructions Diet: Diabetic Diets; Consistent Carbohydrate; Thin (IDDSI 0) Discharge Diet: Diabetic Diets Diabetic Diet: Consistent Carbohydrate Fluid Consistency: Thin (IDDSI 0) Activity: Activity Instructions Activity as Tolerated Restrictions or Other Recommendations: CODE STATUS: Code Status and Medical Interventions: CPR (Attempt to Resuscitate); Full Support Ordered at: 12/18/24 1054 Code Status (Patient has no pulse and is not breathing): CPR (Attempt to Resuscitate) Medical Interventions (Patient has pulse or is breathing): Full Support No future appointments. Additional Instructions for the Follow-ups that You Need to Schedule Ambulatory Referral to Physical Therapy for Evaluation & Treatment As directed Specialty needed: Evaluate and treat Neuro Exercises: Stretching ROM Strengthening Follow-up needed: Yes Discharge Follow-up with PCP As directed Currently Documented PCP: System, Provider Not In PCP Phone Number: None Follow Up Details: with pcp within a week Discharge Follow-up with Specialty: neurology: Dr. David; 1 Month As directed Specialty: neurology: Dr. David Follow Up: 1 Month Ezekiel Jones MD 12/20/24 Time Spent on Discharge: I spent 45 minutes on this discharge activity which included: [id number] with the patient, reviewing the data in the system, coordination of the care with the nursing staff as well as consultants, documentation, and entering orders. documented in this encounter Discharge Instructions * Attachments The following attachments cannot be sent through Care Everywhere. * Atorvastatin Tablets (Senegalese) documented in this encounter Medications at Time of Discharge atorvastatin (LIPITOR) 20 MG tablet Take 1 tablet by mouth Every Night. 90 tablet 3 12/20/2024 escitalopram (LEXAPRO) 20 MG tablet Take 1 tablet by mouth Daily. 11/01/2024 hydrOXYzine pamoate (VISTARIL) 25 MG capsule Take 3 capsules by mouth 3 (Three) Times a Day As Needed for Anxiety. 11/03/2024 metFORMIN ER (GLUCOPHAGE-XR) 500 MG 24 hr tablet TAKE ONE TABLET BY MOUTH EVERY EVENING WITH MEAL 11/12/2024 montelukast (SINGULAIR) 10 MG tablet Take 1 tablet by mouth Daily. 90 tablet 1 12/21/2024 Multiple Vitamins-Minerals (MULTIVITAMIN ADULT PO) Take by mouth. [place]-3 Fatty Acids (FISH OIL) 1000 MG capsule capsule Take by mouth Daily With Breakfast. albuterol sulfate HFA 108 (90 Base) MCG/ACT inhaler Inhale 2 puffs Every 6 (Six) Hours As Needed. fluticasone (FLONASE) 50 MCG/ACT nasal spray Administer 2 sprays into the nostril(s) as directed by provider Daily. ipratropium-albuter ol (DUO-NEB) 0.5-2.5 mg/3 ml nebulizer INHALE THE CONTENTS OF 1 VIAL VIA NEBULIZER EVERY 6 HOURS 11/25/2024 loratadine (CLARITIN) 10 MG tablet Take 1 tablet by mouth Daily. PROMETHAZINE-DM PO Take by mouth. rizatriptan TOP STEEP TENDER (MAXALT-TOP STEEP TENDER) 5 MG disintegrating tablet DISSOLVE ONE TABLET BY MOUTH EVERY DAY NEEDED FOR HEADACHE 10/18/2024 documented as of this encounter Progress Notes * Ezekiel Jones MD - 12/19/2024 9:05 AM EDT Images from the original note were not included. [facility] Medicine Services PROGRESS NOTE Patient Name: Sidra Whitt : 1990 Date of Admission: 12/18/2024 Primary Care Physician: System, Provider Not In Subjective Subjective CC: Transfer for neuro eval HPI: Seen at bedside. No new changes Neurologist was present during the encounter , her symptoms are in keeping with complex migraine. Objective Objective Vital Signs: Temp: [97.9 ??F (36.6 ??C)-98.5 ??F (36.9 ??C)] 98.4 ??F (36.9 ??C) Heart Rate: [69-104] 90 Resp: [16-17] 16 BP: (119-153)/(66-94) 153/94 Physical Exam: Constitutional: No acute distress, awake, alert HENT: NCAT, mucous membranes moist Respiratory: Clear to auscultation bilaterally, respiratory effort normal Cardiovascular: RRR, no murmurs, rubs, or gallops Gastrointestinal: Positive bowel sounds, soft, nontender, nondistended Musculoskeletal: No bilateral ankle edema Psychiatric: Appropriate affect, cooperative Neurologic: Oriented x 3, strength symmetric in all extremities, Cranial Nerves grossly intact to confrontation, speech clear Skin: erythematous polygonal plaques on the extensor surfaces of bilateral elbow, knees and anterior LE Results Reviewed: LAB RESULTS: Lab 12/19/24 1304 WBC 7.08 HEMOGLOBIN 13.1 HEMATOCRIT 39.2 PLATELETS 290 NEUTROS ABS 4.36 IMMATURE GRANS (ABS) 0.02 LYMPHS ABS 1.82 MONOS ABS 0.62 EOS ABS 0.22 MCV 86.3 SED RATE 41* Lab 12/19/24 1304 HEMOGLOBIN A1C 5.83* Lab 12/18/24 1848 FIO2 21 CARBOXYHEMOGLOBIN (VENOUS) 1.3 Brief Urine Lab Results (Last result in the past 365 days) Color Clarity Blood Leuk Est Nitrite Protein CREAT Urine HCG 11/30/24 0113 Negative Microbiology Results Abnormal None MRI Brain Without Contrast Result Date: 12/19/2024 MRI BRAIN WO CONTRAST Date of Exam: 12/18/2024 12:47 AM EDT Indication: Stroke, follow up. left sided weaknesss, dysarthria. Comparison: None available. Technique: Routine multiplanar/multisequence sequence images of the brain were obtained without contrast administration. Findings: There is no diffusion restriction to suggest acute infarct. There is no evidence of acute or chronic intracranial hemorrhage. There are no significant signal abnormalities within the brain parenchyma. No mass effect or midline shift. No abnormal extra-axial collections. The major vascular flow voids appear intact. The basal ganglia, brainstem and cerebellum appear within normal limits. Calvarial and superficial soft tissue signal is within normal limits. Orbits appear unremarkable. The paranasal sinuses and themastoid air cells appear well aerated. Midline structures are intact. Impression: Impression: No acute intracranial abnormality. Electronically Signed: Christophe Grant MD12/19/2024 2:55 AM EDT Workstation ID: [id number] CT Outside Head Result Date: 12/18/2024 This procedure was auto-finalized with no dictation required. CT Outside Head Result Date: 12/18/2024 This procedure was auto-finalized with no dictation required. I have personally reviewed the therapy plans: [] PT/OT/ ST Therapy Plans Current medications: Scheduled Meds:escitalopram, 20 mg, Oral, Daily montelukast, 10 mg, Oral, Daily sodium chloride, 10 mL, Intravenous, Q12H Continuous Infusions: PRN Meds:. acetaminophen OR acetaminophen OR acetaminophen Albuterol Sulfate NEB Orderable senna-docusate sodium AND polyethylene glycol AND bisacodyl AND bisacodyl Calcium Replacement - Follow Nurse / BPA Driven Protocol hydrOXYzine Magnesium Standard Dose Replacement - Follow Nurse / BPA Driven Protocol Phosphorus Replacement - Follow Nurse / BPA Driven Protocol Potassium Replacement - Follow Nurse / BPA Driven Protocol sodium chloride SUMAtriptan Assessment & Plan Assessment & Plan Active Hospital Problems Diagnosis POA Left-sided weakness [R53.1] Yes Morbid obesity [E66.01] Yes LEONID (obstructive sleep apnea) [G47.33] Yes Resolved Hospital Problems No resolved problems to display. 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, morbid obesity, recently Dx'ed w/ Covid late October and returned to work 11/29/24, during her first shift she developed left sided chest pain and LT UE weakness, seen at [facility] ED and Dx w/ atypical chest pain and DC'ed home, has had ongoing LT sided weakness requiring use of a cane, Rx'ed tramadol-APAP for LT shoulder pain, and had outpatient MRI 12/16/24 reported as normal from OSH (official report not available); on 12/18/24 she had LT facial twitching, worse weakness, and family notedslurred speech; she presented to [facility] where CT head and CTA H&H were unrem arkable, she was transferred for further eval Assessment/Plan Expressive aphasia LT sided weakness - symptoms thought to be complicated migraine per neurology; recommend to establish care with outpatient neurology to start preventative migraine treatment -CT head and CTA H&N from OSH negative - MRI brain negative - ECHO pending - Continue migraine cocktail. - aic 5.83/ lipid panel pending Anxiety - home lexapro and prn hydroxyzine Asthma - singulair, prn accuneb Morbid obesity - BMI > 60 kg/m2 LEONID - may use home CPAP Psoriasis -has upcoming appointment with dermatology/need rheumatology referral for accompanying joint pain. Expected Discharge Location and Transportation: Expected Discharge Expected discharge date/ time has not been documented. VTE Prophylaxis: Mechanical VTE prophylaxis orders are present. AM-PAC 6 Clicks Score (PT): 20 (12/19/24 0800) CODE STATUS: Code Status and Medical Interventions: CPR (Attempt to Resuscitate); Full Support Ordered at: 12/18/24 1729 Code Status (Patient has no pulse and is not breathing): CPR (Attempt to Resuscitate) Medical Interventions (Patient has pulse or is breathing): Full Support Ezekiel Jones MD 12/19/24 documented in this encounter H&P Notes * GreenChristophe lama Kyle, DO - 12/18/2024 5:29 PM EDT Images from the original note were not included. 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 She was Dx w/ Covid in late October and cleared to return to work 11/29/24, on shift she developed chest pain and LT sided weakness prompting eval at [facility] ED. She was Tx'ed for atypical chest pain and discharged home. At home she has had trouble walking 2/2 LT weakness, bought a cane to help get around, and was seen by PCP who was worried about stroke. They ordered an MRI that was not obtained until 12/16/24 due to the machine being down. They have not heard any official results as her PCP was not working yesterday. This AM she noticed L T facial twitching, and when she was speaking to her on the phone he noticed she was slurring her words. They brought her to [facility] ED where CT head and CTA H&N were w/o notable findings, she was accepted by the stroke service and transferred for further care. Her only recent medication change is a new Rx for Tramadol-APAP (12/14/24) for left shoulder pain that she has been having during t his period. Personal History Past Medical History: Diagnosis Date ??? Allergic seasonal allergies ??? Anxiety has not had recent problems ??? Breast injury hit left breast on weight lifting bar at gym ??? Hypertension due to control use and diet and exercise ??? Mononucleosis ??? Yeast infection of the vagina recurrent with and without antibiotic use Past Surgical History: Procedure Laterality Date ??? SECTION x2 ??? PELVIC LAPAROSCOPY endometriosis Family History: family history is not on file. Social History: reports that she quit smoking about 7 months ago. Her smoking use included cigarettes. She has a 5.5 pack-year smoking history. She has never used smokeless tobacco. She reports that she does not drink alcohol and does not use drugs. Social History Social History Narrative ??? Not on file Medications: Available home medication information reviewed. Levonorgest-Eth Estrad 91-Day, Promethazine-DM, albuterol sulfate HFA, escitalopram, fish oil, fluconazole, fluticasone, hydrOXYzine pamoate, ipratropium-albuterol, loratadine, metFORMIN ER, montelukast, multivitamin with minerals, predniSONE, and rizatriptan TOP STEEP TENDER Allergies Allergen Reactions ??? Hydrocodone Hives ??? Cefdinir Rash ??? Sulfamethoxazole-Trimethoprim Rash Bactrim (sulfamethoxazole-trimethoprim) - Unknown Objective Objective Vital Signs: Temp: [97.9 ??F (36.6 ??C)] 97.9 ??F (36.6 ??C) Heart Rate: [86] 86 Resp: [17] 17 BP: (135)/(81) 135/81 Total (NIH Stroke Scale): 5 Physical Exam Constitutional: Awake, drowsy, laying in bed in NAD Respiratory: Clear to auscultation bilaterally, respiratory effort normal Cardiovascular: RRR, palpable radial pulse Gastrointestinal: Positive bowel sounds, soft, nontender, nondistended, obese abdomen Musculoskeletal: No bilateral ankle edema Psychiatric: Appropriate affect, cooperative Neurologic: Very drowsy but answering questions appropriately, does have hesitant speech, moving all extremities spontaneously, globally weak perhaps subtly weaker on the LT side Dermatologic: Plaque-like patches on extensor surfaces of the arms/legs Result Review: I have personally reviewed the results from the time of this admission to 12/18/2024 17:29 EDT and agree with these findings: [] Laboratory list / accordion [] Microbiology [] Radiology [] EKG/Telemetry [] Cardiology/Vascular [] Pathology [x] Old records [] Other: Most notable findings include: Reviewed records sent with patient from OSH LAB RESULTS: Microbiology Results (last 10 days) No results found for the last [address] Outside Head Result Date: 12/18/2024 This procedure was auto-finalized with no dictation required. CT Outside Head Result Date: 12/18/2024 This procedure was auto-finalized with no dictation required. 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, morbid obesity, recently Dx'ed w/ Covid late October and returned to work 11/29/24, duringher first shift she developed left sided chest pain and LT UE weakness, seen at [facility] ED and Dx w/ atypical chest pain and DC'ed home, has had ongoing LT sided weakness requiring use of a cane, Rx'ed tramadol-APAP for LT shoulder pain, and had outpatient MRI 12/16/24 reported as normal from OSH (official report not available); on 12/18/24 she had LT facial twitching, worse weakness, and family noted slurred speech; she presented to [facility] where CT head and CTA H&H were unrema rkable, she was transferred for further eval Assessment/Plan Expressive aphasia LT sided weakness Somnolence -CT head and CTA H&N from OSH negative -seen by stroke neuro, MRI, TTE, EEG pending -ordered CMP, CBC, CRP, ESR, UDS, VBG -notably 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 CODE STATUS: Code Status and Medical Interventions: CPR (Attempt to Resuscitate); Full Support Ordered at: 12/18/24 1729 Code Status (Patient has no pulse and is not breathing): CPR (Attempt to Resuscitate) Medical Interventions (Patient has pulse or is breathing): Full Support Christophe Green DO 12/18/24 documented in this encounter Consult Notes * Umair Kelley MD - 12/19/2024 11:10 AM EDTAssociated Order(s): IP CONSULT TO NEUROLOGY Neurology Referring Provider: Francis Shepherd, * Reason for Consultation: Left-sided weakness, migraine Chief complaint: Left-sided weakness. HPI: Patient is a 34-year-old female with past medical history of obesity, anxiety, psoriasis presented to [facility] yesterday with a complaint of difficulty with speech, dysarthria and worsening left-sided weakness. She reports that symptoms started on November 29 when she was seen at [facility] for chest pain. She reports that soon after that, she started experiencing lefthemibody paresthesias and then that progressed to left-sided weakness. She reports having severe bifrontal headache which radiated to the top and the back of her head associated with light and sound sensitivity as well as nausea. She does report on an every 3-4 intense migraines in a month. She is n ot on any migraine preventative treatment. Typically she will have light and sound sensitivity and nausea with the headache but no strokelike symptoms. She usually takes Imitrex 100 mg as needed and sometimes Excedrin migraine which sometimes helps and sometimes it does not. Since hospital admission, she has completed MRI brain, CT angiogram of brain and neck which I reviewed personally. It did not reveal any acute intracranial abnormalities or evidence of any flow- limiting stenosis or vascularabnormalities. Current Facility-Administered Medications: acetaminophen (TYLENOL) tablet 650 mg, 650 mg, Oral, Q4H PRN, 650 mg at 12/19/24 0944 OR acetaminophen (TYLENOL) 160 MG/5ML oral solution 650 mg, 650 mg, Oral, Q4H PRN OR acetaminophen (TYLENOL) suppository 650 mg, 650 mg, Rectal, Q4H PRN, Christophe Green DO albuterol (PROVENTIL) nebulizer solution 0.083% 2.5 mg/3mL, 2.5 mg, Nebulization, Q6H PRN, Christophe Green DO sennosides-docusate (PERICOLACE) 8.6-50 MG per tablet 2 tablet, 2 tablet, Oral, BID PRN AND polyethylene glycol (MIRALAX) packet 17 g, 17 g, Oral, Daily PRN AND bisacodyl (DULCOLAX) EC tablet5 mg, 5 mg, Oral, Daily PRN AND bisacodyl (DULCOLAX) suppository 10 mg, 10 mg, Rectal, Daily PRN, Christophe Green DO Calcium Replacement - Follow Nurse / BPA Driven Protocol, , Not Applicable, PRN, Christophe Green DO escitalopram (LEXAPRO) tablet 20 mg, 20 mg, Oral, Daily, Christophe Green DO, 20 mg at 12/19/24 0944 hydrOXYzine (ATARAX) tablet 25 mg, 25 mg, Oral, TID PRN, Christophe Green DO, 25 mg at 12/18/242017 Magnesium Standard Dose Replacement - Follow Nurse / BPA Driven Protocol, , Not Applicable, PRN, Christophe Green DO montelukast (SINGULAIR) tablet 10 mg, 10 mg, Oral, Daily, Christophe Green, , 10 mg at 12/19/24 0944 Phosphorus Replacement - Follow Nurse / BPA Driven Protocol, , Not Applicable, PRN, Bunny Green DO Potassium Replacement - Follow Nurse / BPA Driven Protocol, , Not Applicable, PRN, Christophe Green DO sodium chloride 0.9 % flush 10 mL, 10 mL, Intravenous, Q12H, Misti Gay, PHOTO MASK PATTERN GENERATOR, 10 mL at 12/19/24 1005 sodium chloride 0.9 % flush 10 mL, 10 mL, Intravenous, PRN, Misti Gay, PHOTO MASK PATTERN GENERATOR SUMAtriptan (IMITREX) tablet 50 mg, 50 mg, Oral, Q2H PRN, Ezekiel Jones MD Past Medical History: Diagnosis Date Allergic seasonal allergies Anxiety has not had recent problems Breast injury hit left breast on weight lifting bar at gym Hypertension due to control use and diet and exercise Mononucleosis Yeast infection of the vagina recurrent with and without antibiotic use Past Surgical History: Procedure Laterality Date SECTION x2 PELVIC LAPAROSCOPY endometriosis Family History Problem Relation Age of Onset Breast cancer Neg Hx Ovarian cancer Neg Hx Social History Socioeconomic History Marital status: Unknown Tobacco Use Smoking status: Former Current packs/day: 0.00 Average packs/day: 0.5 packs/day for 11.0 years (5.5 ttl pk-yrs) Types: Cigarettes Quit date: 2024 Years since quittin.6 Smokeless tobacco: Never Vaping Use Vaping status: Never Used Substance and Sexual Activity Alcohol use: No Drug use: No Sexual activity: Yes control/protection: Condom Review of Systems Pertinent items are noted in HPI Objective: BP 133/78 (BP Location: Right arm, Patient Position: Lying) Pulse 69 Temp 98.3 ??F (36.8 ??C) (Oral) Resp 16 Ht 162.6 cm (64 ) Wt (!) 154 kg (338 lb 10 oz) LMP 09/20/2024 (Approximate) SpO2 95% BMI 58.13 kg/m?? Exam: Cardiovascular: No rubs, gallops or murmurs. Regular rate and rhythm. Neurology Exam: General appearance: NAD. Mental status: Alert, awake and oriented to time place and person. Recent and Remote memory: Intact. Attention span and Concentration: Normal. Language and Speech: Intact- No dysarthria. Fluency, Naming , Repetition and Comprehension: Intact Cranial Nerves: CN II: Visual man are full. Intact. Pupils - ROBERTO. Mild left eye ptosis noted. CN III, IV and : Extraocular movements are intact. Normal saccades. CN V: Facial sensation is intact. CN VII: Muscles of facial expression reveal no asymmetry. Intact. CN VIII: Hearing is intact. Whispered voice intact. CN IX and X: Palate elevates symmetrically. Intact CN XI: Shoulder shrug is intact. CN XII: Tongue is midline without evidence of atrophy or fasciculation. Ophthalmoscopic Exam: Fundi - Normal, No papilledema Motor: Right UE muscle strength 5/5. Normal tone. Left UE muscle strength 4-/5. Poor and inconsistent effort noted. Right LE muscle strength5/5. Normal tone. Left LE muscle strength 4-/5. Poor and inconsistent effort noted. Sensory: Normal light touch, vibration and pinprick sensation bilaterally. DTRs: 1+ bilaterally in upper and lower extremities. Babinski: Negative bilaterally. Coordination: Normal ptxqdw-ra-kbro Romberg: Not assessed. Gait: Not assessed. Results Reviewed: Labs: Most recent labs have been reviewed. Radiology: MRI Brain Without Contrast Result Date: 12/19/2024 Impression: No acute intracranial abnormality. Electronically Signed: Christophe Grant MD 12/19/2024 2:55 AM EDT Workstation ID: [id number] I personally reviewed MRI brain which did not have any acute intracranial abnormalities. CT angiogram of brain and neck revealed no flow-limiting stenosis or large vessel occlusion. Assessment & Plan 1. Complicated migraine: - Symptoms likely caused by complicated migraine causing dysarthria, dysphagia and left-sided weakness. She has long-term history of migraines and currently gets 3-4 intense migraines in a month she has never experienced strokelike symptoms with her migraines in the past. I have advised that she needs to establish with outpatient neurology and start migraine preventative treatment reduce the intensity and frequency of her migraines to prevent further such episodes. Detailed stroke workup has been negative which is reassuring. - She was noted to have poor effort and giveaway weakness in left upper and lower extremity. Outpatient physical therapy should be considered and I have assured her that with time, symptoms will resolve. - Her follows with Dr. David-outpatient neurologist. I recommended that she establishes with Dr. Morrow for migraine management. - No further recommendations from neurology standpoint. Neurology will sign off. Please call back with any questions or concerns that you have. I discussed the patients findings and my recommendations with patient, family, nursing staff, and primary care team As part of this visit I reviewed prior lab results, reviewed radiology results, reviewed radiology images and reviewed records from the current hospitalization which is incorporated in the HPI. Please see above for details. Umair Kelley MD 12/19/24 11:10 EDT * Misti Gay APRN - 12/18/2024 2:40 PM EDT Stroke Consult Note Patient Name: Sidra Whitt Age: 34 y.o. Sex: female : 1990 Primary Care Physician: System, Provider Not In Handedness: Right Race: Chief Complaint/Reason for Consultation: Left sided weakness HPI: Sidra Whitt is a 34-year-old female with past medical history of obesity, anxiety and endometriosis presented to [facility] earlier this day for further evaluation of worseningleft-sided weakness, aphasia and dysarthria. Patient [facility] for[facility] pain. Reportedly at that time she was experiencing left-sided paresthesias. Since then she has developed progressive weakness of the left side of her body so much so that she has been using a cane. This morning around 1015 she developed dysarthria and aphasia along with worsening left-sided weakness/numbness. She also described a left-sided facial twitching episode. NIH 5. Blood pressure 163 /98. Of note, per OSH report patient was seen by her primary care and underwent an outpatient MRI brain 2 days ago which was negative. CT head revealed no acute intracranial normalities. CTA head/neck revealed no flow-limiting stenosis or LVO. She was not a candidate for IV thrombolytic therapy dueto extended last known well (ongoing symptoms for more than 2 weeks). She is not a candidate for neurovascular intervention as there is no LVO on CT scan. She was given 81 mg aspirin at OSH. She was transferred to our facility for higher level of care. On arrival to our facility, patient's NIH is 5. Her exam appears effort related and inconsistent. She has noted to have stuttering speech and left eye ptosis. Exam is notable for left upper and lowerextremity drift. She denies any recent stressors. She does complain of headache and endorses that she does struggle with migraines. She normally takes sumatriptan, but has not tried that today as herheadache just began. 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 She is admitted to the hospitalist service for further evaluation. Last Known Normal Date/Time: 11/29/2024 Review of Systems Musculoskeletal: Positive for gait problem. Neurological: Positive for tremors, facial asymmetry, speech difficulty, weakness, numbness and headaches. Psychiatric/Behavioral: The patient is not nervous/anxious. Past Medical History: Diagnosis Date Allergic seasonal allergies Anxiety has not had recent problems Breast injury hit left breast on weight lifting bar at gym Hypertension due to control use and diet and exercise Mononucleosis Yeast infection of the vagina recurrent with and without antibiotic use Past Surgical History: Procedure Laterality Date SECTION [...] use: No Sexual activity: Yes control/protection: Condom Allergies Allergen Reactions Hydrocodone Hives Cefdinir Rash Sulfamethoxazole-Trimethoprim Rash Bactrim (sulfamethoxazole-trimethoprim) - Unknown Prior to Admission medications Medication Sig Start Date End Date Taking? Authorizing Provider albuterol sulfate HFA 108 (90 Base) MCG/ACT inhaler Inhale 2 puffs Every 6 (Six) Hours As Needed. Iris Small MD escitalopram (LEXAPRO) 20 MG tablet Take 1 tablet by mouth Daily. 11/01/24 Iris Small MD fluconazole (DIFLUCAN) 150 MG tablet Take 1 tablet by mouth Daily. Take one now and one when done with antibiotics. 12/21/16 Renu Mariscal APRN fluticasone (FLONASE) 50 MCG/ACT nasal spray 2 sprays into the nostril(s) as directed by provider Daily. Iris Small MD hydrOXYzine pamoate (VISTARIL) 25 MG capsule 1 capsule 3 (Three) Times a Day As Needed. 11/03/24 Iris Small MD ipratropium-albuterol (DUO-NEB) 0.5-2.5 mg/3 ml nebulizer INHALE THE CONTENTS OF 1 VIAL VIA NEBULIZER EVERY 6 HOURS 11/25/24 Iris Small MD Levonorgest-Eth Estrad -Day (SEASONIQUE PO) Take by mouth. Iris Small MD loratadine (CLARITIN) 10 MG tablet Take 1 tablet by mouth Daily. Iris Small MD metFORMIN ER (GLUCOPHAGE-XR) 500 MG 24 hr tablet TAKE ONE TABLET BY MOUTH EVERY EVENING WITH MEAL 11/12/24 Iris Small MD montelukast (SINGULAIR) 10 MG tablet 01/04/19 Iris Small MD Multiple Vitamins-Minerals (MULTIVITAMIN ADULT PO) Take by mouth. Iris Small MD [place]-3 Fatty Acids (FISH OIL) 1000 MG capsule capsule Take by mouth Daily With Breakfast. Iris Small MD predniSONE (DELTASONE) 5 MG tablet 09/23//3/2/1 as directed daily for 6 days 04/10/19 Veronica Herman APRN PROMETHAZINE-DM PO Take by mouth. ProviderIris MD rizatriptan TOP STEEP TENDER (MAXALT-TOP STEEP TENDER) 5 MG disintegrating tablet DISSOLVE ONE TABLET BY MOUTH EVERY DAY NEEDED FOR HEADACHE 10/18/24 ProviderIris MD Neurological Exam Mental Status Alert. Oriented to person, place, time and situation. Oriented to person, place, and time. Memory is normal. Recent and remote memory are intact. Language: Stuttering and loss of fluency. Attention and concentration are normal. Exam was overall inconsistent. Cranial Nerves CN II: Visual man full to confrontation. CN III, IV, : Extraocular movements intact bilaterally. Left ptosis. Pupils equal round and reactive to light bilaterally. CN V: Left: Diminished sensation of the entire left side of the face. CN VII: Left: There is peripheral facial weakness. CN VIII: Hearing appears intact. CN XII: Tongue midline without atrophy or fasciculations. Motor Normal muscle bulk throughout. Normal muscle tone. Strength is 5/5 throughout all four extremities. LUE 3+/5, inconsistent and effort dependent LLE 3+/5, positive [place], appears effort dependent . Sensory Light touch abnormality: Reports decreased sensation to light touch on the left side of her body. Coordination Rhhzer-iq-iwko, rapid alternating movements and cbdi-yw-vkij normal bilaterally without dysmetria. Gait Normal gait. Observed. Physical Exam Vitals and nursing note reviewed. Constitutional: General: She is not in acute distress. Appearance: Normal appearance. She is not toxic-appearing. HENT: Head: Normocephalic and atraumatic. Mouth/Throat: Mouth: Mucous membranes are moist. Eyes: Extraocular Movements: Extraocular movements intact. Pupils: Pupils are equal, round, and reactive to light. Cardiovascular: Rate and Rhythm: Normal rate and regular rhythm. Pulses: Normal pulses. Heart sounds: Normal heart sounds. Pulmonary: Effort: Pulmonary effort is normal. No respiratory distress. Breath sounds: Normal breath sounds. Musculoskeletal: Cervical back: Normal range of motion and neck supple. No rigidity or tenderness. Skin: General: Skin is warm and dry. Capillary Refill: Capillary refill takes less than 2 seconds. Neurological: Mental Status: She is alert and oriented to person, place, and time. Cranial Nerves: Cranial nerve deficit present. Sensory: Sensory deficit present. Motor: Motor strength is normal.Weakness present. Coordination: Coordination is intact. Gait: Gait is intact. Psychiatric: Attention and Perception: Attention normal. Mood and Affect: Mood normal. Behavior: Behavior is slowed. Behavior is cooperative. Cognition and Memory: Cognition and memory normal. Acute Stroke Data Thrombolytic Inclusion / Exclusion Criteria Time: 15:44 EDT Person Administering Scale: Misti Gay APRN YES NO INCLUSION CRITERIA CLASS I [x] [] Suspected diagnosis of acute ischemic stroke with measureable neurological deficit. Low NIHSS with disabling stroke symptoms. [] [x] Onset of stroke symptoms < 3 hours before beginning treatment >/ 18 years old Stroke symptom onset = time patient was last seen well or without symptoms (LKW) [] [x] Onset of symptoms between 3-4.5 hours: >/= 80 years old (safe Class IIa) with history of both diabetes and prior CVA (reasonable Class IIb) AND NIHSS </= 25 *If not eligible for IV Thrombolytic consider neuro intervention for LKW within 24 hours YES NO EXCLUSION CRITERIA (CONTRAINDICATIONS) CLASS III EVIDENCE HARM [] [] Blood pressure >185/110 medically refractory to IV medications [] [] Active bleeding at a non-compressible site [] [] Active intracranial hemorrhage (ICH) [] [] Symptoms suggestive of subarachnoid hemorrhage (SAH) [] [] GI bleed within 21 days [] [] Ischemic stroke within 3 months [] [] Severe head trauma within 3 months [] [] Intracranial or intraspinal surgery within 3 months [] [] Current GI malignancy [] [] Intracranial neoplasm [] [] Infective endocarditis [] [] Aortic arch dissection [] [] Active coagulopathy with INR >1.7, platelets <100,000, PTT > 40 sec, PT > 15 sec *For warfarin, administration can begin before blood tests resulted. Discontinue for above values. [] [] Treatment dose* of LMWH (Lovenox) in last 24 hours *prophylactic dosages are not a contraindication [] [] Concurrent use of antiplatelet agents' glycoprotein inhibitors IIb/IIIa (Integrilin, etc.) [] [] Thrombin or factor Xa inhibitors (Eliquis, Xarelto, Arixtra) taken in last 48 hours YES NO CLASS II: AIS WITH THE FOLLOWING CONDITIONS - TREATMENT RISKS SHOULD BE WEIGHED AGAINST POSSIBLE BENEFITS. [] [] Major trauma in last 14 days, recent major surgery in last 14 days, intracranial arterial dissection, giant unruptured and unsecured intracranial aneurysm, pericarditis [] [] The risks, benefits, and alternatives have been discussed with the patient or family related to the administration of IV thrombolytic therapy for stroke symptoms. [] [] I have discussed and reviewed the patient's case and imaging with the attending prior to IV thrombolytic therapy. TIME N/A Time IV thrombolytic administered Hospital Meds: Scheduled- [START ON 12/19/2024] aspirin, 81 mg, Oral, Daily Or [START ON 12/19/2024] aspirin, 300 mg, Rectal, Daily atorvastatin, 80 mg, Oral, Nightly diphenhydrAMINE, 25 mg, Intravenous, Once magnesium sulfate, 2 g, Intravenous, Once prochlorperazine, 10 mg, Intravenous, Once sodium chloride, 1,000 mL, Intravenous, Once sodium chloride, 10 mL, Intravenous, Q12H Infusions- PRNs- sodium chloride Functional Status Prior to Current Stroke/[place] Score: 0 NIH Stroke Scale Time: 15:05 EDT Person Administering Scale: Misti Gay APRN 1a. Level of Consciousness: 0-->Alert, keenly responsive 1b. LOC Questions: 0-->Answers both questions correctly 1c. LOC Commands: 0-->Performs both tasks correctly 2. Best Gaze: 0-->Normal 3. Visual: 0-->No visual loss 4. Facial Palsy: 1-->Minor paralysis (flattened nasolabial fold, asymmetry on smiling) 5a. Motor Arm, Left: 1-->Drift, limb holds 90 (or 45) degrees, but drifts down before full 10 seconds, does not hit bed or other support 5b. Motor Arm, Right: 0-->No drift, limb holds 90 (or 45) degrees for full 10 secs 6a. Motor Leg, Left: 1-->Drift, leg falls by the end of the 5-sec period but does not hit bed 6b. Motor Leg, Right: 0-->No drift, leg holds 30 degree position for full 5 secs 7. Limb Ataxia: 0-->Absent 8. Sensory: 1-->Buwe-ov-hyvxprkd sensory loss, patient feels pinprick is less sharp or is dull on the affected side, or there is a loss of superficial pain with pinprick, but patient is aware of being touched 9. Best Language: 1-->Yxqm-xv-qlgyjswm aphasia, some obvious loss of fluency or facility of comprehension, without significant limitation on ideas expressed or form of expression. Reduction of speech and/or comprehension, however, makes conversation. . . (see row details) 10. Dysarthria: 0-->Normal 11. Extinction and Inattention (formerly Neglect): 0-->No abnormality Total (NIH Stroke Scale): 5 Results Reviewed: I have personally reviewed current lab, radiology, and data OSH CT head reveals no acute intracranial abnormality OSH CTA head/neck reveals no flow-limiting stenosis or LVO Assessment/Plan: This is a 34-year-old female with past medical history of obesity, anxiety and endometriosis presented to [facility] earlier this day for further evaluation of worsening left-sided weakness, aphasia and dysarthria. LKW was 11/29/2024. CT head revealed no acute intracranial normalities. CTA head/neck revealed no flow-limiting stenosis or LVO. She was not a candidate for IV thrombolytic therapy due to extended last known well (ongoing symptoms for more than 2 weeks). She is not a candidate for neurovascular intervention as there is no LVO on CT scan. She was given 81 mg aspirin at OSH. She was transferred to our facility for higher level of care. Antiplatelet WATCH PARTS INSPECTOR: None Anticoagulant WATCH PARTS INSPECTOR: None # Left-sided weakness/numbness # Headache # Speech difficulty Differential diagnosis include complex migraine versus functional neurologic disorder versus CVA/TIA -TIA/CVA order set without thrombolytic therapy has been initiated -NPO until bedside nursing dysphagia screen completed -MRI brain pending -TTE pending -A1c and lipid panel in AM -Meds: Continue aspirin 81mg for now -Migraine cocktail -Routine EEG, pending -Activity as tolerated, fall risk precautions -PT/OT/HEAD RESIDENT evaluation 2. Essential hypertension -Allow autoregulation of blood pressure for adequate cerebral blood flow, goal SBP <220. - Primary team to manage 3. Hyperlipidemia -Lipid panel in AM -Atorvastatin 80mg nightly Plan of care was discussed with Dr. Rincon (hospitalist), OSH ED MD, primary nurse, patient and family at bedside. Stroke neurology will continue to follow. Please call with any questions or concerns.Thank you for this consult. Misti Gay APRN Neuro Stroke December 18, 2024 15:44 EDT documented in this encounter Nursing Notes * Stephanie Jordan PTA - 12/20/2024 10:23 AM EDT Goal Outcome Evaluation: Plan of Care Reviewed With: patient Progress: improving Outcome Evaluation: patient ambulated 70' + 70' with CGA x1 and rolling walker for support, verbal cues to increase heel strike on left as patient walking on toes, improved with cues, c/o L leg pain limiting gait distance. No LOB noticed. manager [employer] notified and aware for need of rolling walker for discharge home. * Simona Tobias RN - 12/19/2024 6:05 PM EDT Problem: Adult Inpatient Plan of Care Goal: Plan of Care Review Outcome: Progressing Goal: Patient-Specific Goal (Individualized) Outcome: Progressing Goal: Absence of Hospital-Acquired Illness or Injury Outcome: Progressing Intervention: Identify and Manage Fall Risk Description: Perform standard risk assessment on admission using a validated tool or comprehensive approach appropriate to the patient; reassess fall risk frequently, with change in status or transfer to another level of care.Communicate risk to interprofessional healthcare team; ensure fall risk vi sible cue.Determine need for increased observation, equipment and environmental modification, as well as use of supportive, nonskid footwear.Adjust safety measures to individual needs and identified risk factors.Reinforce the importance of active participation with fall risk prevention, safety, and physical activity with the patient and family.Perform regular intentional rounding to assess need for position change, pain assessment and personal needs, including assistance with toileting. Recent Flowsheet Documentation Taken 12/19/2024 0800 by Simona Tobias, RN Safety Promotion/Fall Prevention: safety round/check completed room organization consistent Intervention: Prevent Skin Injury Description: Perform a screening for skin injury risk, such as pressure or moisture-associated skindamage on admission and at regular intervals throughout hospital stay.Keep all areas of skin (especially folds) clean and dry.Maintain adequate skin hydration.Relieve and redistribute pressure and protect bony prominences and skin at risk for injury; implement measures based on patient- specific risk factors.Match turning and repositioning schedule to clinical condition.Encourage weight shift frequently; assist with reposition if unable to complete independently.Float heels off bed; avoid pressure on the Achilles tendon.Keep skin free from extended contact with medical devices.Optimize nutrition and hydration.Encourage functional activity and mobility, as early as tolerated.Use aids (e.g., slide boards, mechanical lift) during transfer. Recent Flowsheet Documentation Taken 12/19/2024799 by Simona Tobias RN Body Position: position changed independently Skin Protection: incontinence pads utilized Intervention: Prevent and Manage VTE (Venous Thromboembolism) Risk Description: Assess for VTE (venous thromboembolism) risk.Promote early mobilization; encourage both active and passive leg exercises, if unable to ambulate.Initiate and maintain compression or othertherapy, as indicated, based on identified risk in accordance with organizational protocol and provider order.Recognize the patient's individual risk for bleeding before initiating pharmacologic thromboprophylaxis. Recent Flowsheet Documentation Taken 12/19/2024799 by Simona Tobias RN VTE Prevention/Management: SCDs (sequential compression devices) on Intervention: Prevent Infection Description: Maintain skin and mucous membrane integrity; promote hand, oral and pulmonary hygiene.Optimize fluid balance, nutrition, sleep and glycemic control to maximize infection resistance.Identify potential sources of infection early to prevent or mitigate progression of infection (e.g., wound, lines, devices).Evaluate ongoing need for invasive devices; remove promptly when no longer indicated.Review vaccination status. Recent Flowsheet Documentation Taken 12/19/2024799 by Simona Tobias RN Infection Prevention: environmental surveillance performed Goal: Optimal Comfort and Wellbeing Outcome: Progressing Intervention: Provide Person-Centered Care Description: Use a family-focused approach to care; encourage support system presence and participation.Develop trust and rapport by proactively providing information, encouraging questions, addressing concerns and offering reassurance.Acknowledge emotional response to hospitalization.Recognize and utilize personal coping strategies and strengths; develop goals via shared decision-making.[place] spiritual and cultural preferences. Recent Flowsheet Documentation Taken 12/19/2024799 by Simona Tobias RN Trust Relationship/Rapport: care explained choices provided emotional support provided empathic listening provided questions answered questions encouraged reassurance provided thoughts/feelings acknowledged Goal: Readiness for Transition of Care Outcome: Progressing Goal: Plan of Care Review Outcome: Progressing Goal: Patient-Specific Goal (Individualized) Outcome: Progressing Goal: Absence of Hospital-Acquired Illness or Injury Outcome: Progressing Intervention: Identify and Manage Fall Risk Description: Perform standard risk assessment on admission using a validated tool or comprehensive approach appropriate to the patient; reassess fall risk frequently, with change in status or transfer to another level of care.Communicate risk to interprofessional healthcare team; ensure fall risk vi sible cue.Determine need for increased observation, equipment and environmental modification, as well as use of supportive, nonskid footwear.Adjust safety measures to individual needs and identified risk factors.Reinforce the importance of active participation with fall risk prevention, safety, and physical activity with the patient and family.Perform regular intentional rounding to assess need for position change, pain assessment and personal needs, including assistance with toileting. Recent Flowsheet Documentation Taken 12/19/2024799 by Simona oTbias RN Safety Promotion/Fall Prevention: safety round/check completed room organization consistent Intervention: Prevent Skin Injury Description: Perform a screening for skin injury risk, such as pressure or moisture-associated skindamage on admission and at regular intervals throughout hospital stay.Keep all areas of skin (especially folds) clean and dry.Maintain adequate skin hydration.Relieve and redistribute pressure and protect bony prominences and skin at risk for injury; implement measures based on patient- specific risk factors.Match turning and repositioning schedule to clinical condition.Encourage weight shift frequently; assist with reposition if unable to complete independently.Float heels off bed; avoid pressure on the Achilles tendon.Keep skin free from extended contact with medical devices.Optimize nutrition and hydration.Encourage functional activity and mobility, as early as tolerated.Use aids (e.g., slide boards, mechanical lift) during transfer. Recent Flowsheet Documentation Taken 12/19/2024799 by Simona Tobias RN Body Position: position changed independently Skin Protection: incontinence pads utilized Intervention: Prevent and Manage VTE (Venous Thromboembolism) Risk Description: Assess for VTE (venous thromboembolism) risk.Promote early mobilization; encourage both active and passive leg exercises, if unable to ambulate.Initiate and maintain compression or othertherapy, as indicated, based on identified risk in accordance with organizational protocol and provider order.Recognize the patient's individual risk for bleeding before initiating pharmacologic thromboprophylaxis. Recent Flowsheet Documentation Taken 12/19/2024799 by Simona Tobias RN VTE Prevention/Management: SCDs (sequential compression devices) on Intervention: Prevent Infection Description: Maintain skin and mucous membrane integrity; promote hand, oral and pulmonary hygiene.Optimize fluid balance, nutrition, sleep and glycemic control to maximize infection resistance.Identify potential sources of infection early to prevent or mitigate progression of infection (e.g., wound, lines, devices).Evaluate ongoing need for invasive devices; remove promptly when no longer indicated.Review vaccination status. Recent Flowsheet Documentation Taken 12/19/2024799 by Simona Tobias RN Infection Prevention: environmental surveillance performed Goal: Optimal Comfort and Wellbeing Outcome: Progressing Intervention: Provide Person-Centered Care Description: Use a family-focused approach to care; encourage support system presence and participation.Develop trust and rapport by proactively providing information, encouraging questions, addressing concerns and offering reassurance.Acknowledge emotional response to hospitalization.Recognize and utilize personal coping strategies and strengths; develop goals via shared decision-making.[place] spiritual and cultural preferences. Recent Flowsheet Documentation Taken 12/19/2024799 by Simona Tobias RN Trust Relationship/Rapport: care explained choices provided emotional support provided empathic listening provided questions answered questions encouraged reassurance provided thoughts/feelings acknowledged Goal: Readiness for Transition of Care Outcome: Progressing Problem: Mobility Impairment Goal: Optimal Mobility [place] and Safety Outcome: Progressing Problem: Anxiety Goal: Anxiety Reduction or Resolution Outcome: Progressing Intervention: Promote Anxiety Reduction Description: Maintain a calm and reassuring environment; minimize noise; provide familiar items; cluster care; offer choices.Encourage support system presence and participation.Support expression andidentification of feelings and worries; compassionately acknowledge and validate concerns.Utilize existing coping strategies and assist in developing new strategies such as music, deep breathing, relaxation techniques, meditation, mindfulness or pet therapy.Identify thoughts and feelings that led to current anxiety onset to enhance understanding of triggers.Reframe anxiety-provoking situations; provide a new perspective; engage in problem-solving.Utilize anticipatory guidance to enhance sense of control.Consider referral for a comprehensive assessment if there are concerns about the number, severity and duration of symptoms; degree of distress; functional impairment or excessive substance use. Recent Flowsheet Documentation Taken 12/19/2024 0800 by Simona Tobias RN Family/Support System Care: involvement promoted presence promoted self-care encouraged Goal Outcome Evaluation: * Deanna Ibanez OT - 12/19/2024 1:00 PM EDT Goal Outcome Evaluation: Plan of Care Reviewed With: patient, spouse Outcome Evaluation: OT initial eval and expanded chart review completed. Pt presents with multiple comorbidities and decreased balance, strength, coordination and activity tolerance limiting independence with ADL's and mobility from baseline status. Recommend continued skilled OT services and d/c home with assist and OP PT/OT when medically appropriate. Anticipated Discharge Disposition (OT): home with assist, home with outpatient therapy services * Alysha Koehler PT - 12/19/2024 1:00 PM EDT Goal Outcome Evaluation: Plan of Care Reviewed With: patient, spouse Progress: improving Outcome Evaluation: PT eval is completed. patient presents with left side weakness. patient demonstrates impaired bed mobility transfers and gait compared to baseline status patient has decreased strength and coordination of left LE. patient was able to ambulate with rolling walker 70 ft with CGA. recommend home with assist and OP PT/OT services at D/C Anticipated Discharge Disposition (PT): home with assist, home with outpatient therapy services * Estefanía Longoria RN - 12/19/2024 6:35 AM EDT Problem: Adult Inpatient Plan of Care Goal: Plan of Care Review Outcome: Progressing Goal: Patient-Specific Goal (Individualized) Outcome: Progressing Goal: Absence of Hospital-Acquired Illness or Injury Outcome: Progressing Intervention: Identify and Manage Fall Risk Recent Flowsheet Documentation Taken 12/19/2024 0600 by Estefanía Longoria RN Safety Promotion/Fall Prevention: activity supervised assistive device/personal items within reach clutter free environment maintained room organization consistent safety round/check completed Taken 12/19/2024 0400 by Estefanía Longoria RN Safety Promotion/Fall Prevention: activity supervised assistive device/personal items within reach clutter free environment maintained room organization consistent safety round/check completed nonskid shoes/slippers when out of bed Taken 12/19/2024 0200 by Estefanía Longoria RN Safety Promotion/Fall Prevention: activity supervised assistive device/personal items within reach clutter free environment maintained safety round/check completed room organization consistent Taken 12/19/2024 0000 by Estefanía Longoria RN Safety Promotion/Fall Prevention: activity supervised assistive device/personal items within reach clutter free environment maintained room organization consistent safety round/check completed nonskid shoes/slippers when out of bed Taken 12/18/2024 220 by Estefanía Longoria RN Safety Promotion/Fall Prevention: activity supervised assistive device/personal items within reach clutter free environment maintained room organization consistent safety round/check completed nonskid shoes/slippers when out of bed Taken 12/18/20241999 by Estefanía Longoria RN Safety Promotion/Fall Prevention: activity supervised assistive device/personal items within reach clutter free environment maintained room organization consistent safety round/check completed nonskid shoes/slippers when out of bed Intervention: Prevent Skin Injury Recent Flowsheet Documentation Taken 12/19/2024 0600 by Estefanía Longoria RN Body Position: position changed independently Skin Protection: incontinence pads utilized Taken 12/19/2024 0400 by Estefanía Longoria RN Body Position: position changed independently Skin Protection: incontinence pads utilized Taken 12/19/2024 0200 by Estefanía Longoria RN Body Position: position changed independently Skin Protection: incontinence pads utilized Taken 12/19/2024 0000 by Estefanía Longoria RN Body Position: position changed independently Skin Protection: incontinence pads utilized Taken 12/18/2024 220 by Estefanía Longoria RN Body Position: position changed independently Skin Protection: incontinence pads utilized Taken 12/18/20241999 by Estefanía Longoria RN Body Position: position changed independently Skin Protection: incontinence pads utilized Intervention: Prevent and Manage VTE (Venous Thromboembolism) Risk Recent Flowsheet Documentation Taken 12/19/2024 0400 by Estefanía Longoria RN VTE Prevention/Management: SCDs (sequential compression devices) off Taken 12/19/2024 0000 by Estefanía Longoria RN VTE Prevention/Management: SCDs (sequential compression devices) off Taken 12/18/20241999 by Estefanía Longoria RN VTE Prevention/Management: SCDs (sequential compression devices) off Intervention: Prevent Infection Recent Flowsheet Documentation Taken 12/19/2024 0600 by Estefanía Longoria RN Infection Prevention: hand hygiene promoted rest/sleep promoted environmental surveillance performed Taken 12/19/2024 0400 by Estefanía Longoria RN Infection Prevention: hand hygiene promoted rest/sleep promoted environmental surveillance performed Taken 12/19/2024 0200 by Estefanía Longoria RN Infection Prevention: hand hygiene promoted rest/sleep promoted environmental surveillance performed Taken 12/19/2024 0000 by Estefanía Longoria RN Infection Prevention: hand hygiene promoted rest/sleep promoted environmental surveillance performed Taken 12/18/2024 2200 by Estefanía Longoria RN Infection Prevention: hand hygiene promoted rest/sleep promoted environmental surveillance performed Taken 12/18/20241999 by Estefanía Longoria RN Infection Prevention: hand hygiene promoted environmental surveillance performed rest/sleep promoted Goal: Optimal Comfort and Wellbeing Outcome: Progressing Intervention: Provide Person-Centered Care Recent Flowsheet Documentation Taken 12/19/2024 0400 by Estefanía Longoria RN Trust Relationship/Rapport: care explained choices provided thoughts/feelings acknowledged Taken 12/19/2024 0000 by Estefanía Longoria RN Trust Relationship/Rapport: care explained choices provided thoughts/feelings acknowledged questions answered questions encouraged Taken 12/18/20241999 by Estefanía Longoria RN Trust Relationship/Rapport: care explained choices provided thoughts/feelings acknowledged questions answered questions encouraged Goal: Readiness for Transition of Care Outcome: Progressing Goal: Plan of Care Review Outcome: Progressing Goal: Patient-Specific Goal (Individualized) Outcome: Progressing Goal: Absence of Hospital-Acquired Illness or Injury Outcome: Progressing Intervention: Identify and Manage Fall Risk Recent Flowsheet Documentation Taken 12/19/2024 0600 by Estefanía Longoria RN Safety Promotion/Fall Prevention: activity supervised assistive device/personal items within reach clutter free environment maintained room organization consistent safety round/check completed Taken 12/19/2024 0400 by Estefanía Longoria RN Safety Promotion/Fall Prevention: activity supervised assistive device/personal items within reach clutter free environment maintained room organization consistent safety round/check completed nonskid shoes/slippers when out of bed Taken 12/19/2024 0200 by Estefanía Longoria RN Safety Promotion/Fall Prevention: activity supervised assistive device/personal items within reach clutter free environment maintained safety round/check completed room organization consistent Taken 12/19/2024 0000 by Estefanía Longoria RN Safety Promotion/Fall Prevention: activity supervised assistive device/personal items within reach clutter free environment maintained room organization consistent safety round/check completed nonskid shoes/slippers when out of bed Taken 12/18/2024 2200 by Estefanía Longoria RN Safety Promotion/Fall Prevention: activity supervised assistive device/personal items within reach clutter free environment maintained room organization consistent safety round/check completed nonskid shoes/slippers when out of bed Taken 12/18/20241999 by Estefanía Longoria RN Safety Promotion/Fall Prevention: activity supervised assistive device/personal items within reach clutter free environment maintained room organization consistent safety round/check completed nonskid shoes/slippers when out of bed Intervention: Prevent Skin Injury Recent Flowsheet Documentation Taken 12/19/2024 0600 by Estefanía Longoria RN Body Position: position changed independently Skin Protection: incontinence pads utilized Taken 12/19/2024 0400 by Estefanía Longoria RN Body Position: position changed independently Skin Protection: incontinence pads utilized Taken 12/19/2024 0200 by Estefanía Longoria RN Body Position: position changed independently Skin Protection: incontinence pads utilized Taken 12/19/2024 0000 by Estefanía Longoria RN Body Position: position changed independently Skin Protection: incontinence pads utilized Taken 12/18/2024 2200 by Estefanía Longoria RN Body Position: position changed independently Skin Protection: incontinence pads utilized Taken 12/18/20241999 by Estefanía Longoria RN Body Position: position changed independently Skin Protection: incontinence pads utilized Intervention: Prevent and Manage VTE (Venous Thromboembolism) Risk Recent Flowsheet Documentation Taken 12/19/2024 0400 by Estefanía Longoria RN VTE Prevention/Management: SCDs (sequential compression devices) off Taken 12/19/2024 0000 by Estefanía Longoria RN VTE Prevention/Management: SCDs (sequential compression devices) off Taken 12/18/20241999 by Estefanía Longoria RN VTE Prevention/Management: SCDs (sequential compression devices) off Intervention: Prevent Infection Recent Flowsheet Documentation Taken 12/19/2024 0600 by Estefanía Longoria RN Infection Prevention: hand hygiene promoted rest/sleep promoted environmental surveillance performed Taken 12/19/2024 0400 by Estefanía Longoria RN Infection Prevention: hand hygiene promoted rest/sleep promoted environmental surveillance performed Taken 12/19/2024 0200 by Estefanía Longoria RN Infection Prevention: hand hygiene promoted rest/sleep promoted environmental surveillance performed Taken 12/19/2024 0000 by Estefanía Longoria RN Infection Prevention: hand hygiene promoted rest/sleep promoted environmental surveillance performed Taken 12/18/2024 2200 by Estefanía Longoria RN Infection Prevention: hand hygiene promoted rest/sleep promoted environmental surveillance performed Taken 12/18/2024 2000 by Estefanía Longoria RN Infection Prevention: hand hygiene promoted environmental surveillance performed rest/sleep promoted Goal: Optimal Comfort and Wellbeing Outcome: Progressing Intervention: Provide Person-Centered Care Recent Flowsheet Documentation Taken 12/19/2024 0400 by Estefanía Longoria RN Trust Relationship/Rapport: care explained choices provided thoughts/feelings acknowledged Taken 12/19/2024 0000 by Estefanía Longoria RN Trust Relationship/Rapport: care explained choices provided thoughts/feelings acknowledged questions answered questions encouraged Taken 12/18/20241999 by Estefanía Longoria RN Trust Relationship/Rapport: care explained choices provided thoughts/feelings acknowledged questions answered questions encouraged Goal: Readiness for Transition of Care Outcome: Progressing Problem: Mobility Impairment Goal: Optimal Mobility [place] and Safety Outcome: Progressing Problem: Anxiety Goal: Anxiety Reduction or Resolution Outcome: Progressing Intervention: Promote Anxiety Reduction Recent Flowsheet Documentation Taken 12/19/2024 0400 by Estefanía Longoria RN Supportive Measures: active listening utilized relaxation techniques promoted Taken 12/19/2024 0000 by Estefanía Longoria RN Supportive Measures: active listening utilized relaxation techniques promoted Taken 12/18/20241999 by Estefanía Longoria RN Supportive Measures: active listening utilized problem-solving facilitated relaxation techniques promoted Family/Support System Care: self-care encouraged support provided Goal Outcome Evaluation: * Enid Rhodes MS CCC-HEAD RESIDENT - 12/18/2024 4:40 PM EDT Goal Outcome Evaluation: Plan of Care Reviewed With: patient, spouse Anticipated Discharge Disposition (HEAD RESIDENT): home with OP services 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, moderate, fluency disorder (12/18/24 1545) HEAD RESIDENT Swallowing Diagnosis: functional oral phase, R/O pharyngeal dysphagia, other (see comments) (nosuspected pharyngeal dysphagia) (12/18/24 1545) * Simona Tobias RN - 12/18/2024 4:37 PM EDT Problem: Adult Inpatient Plan of Care Goal: Plan of Care Review Outcome: Progressing Goal: Patient-Specific Goal (Individualized) Outcome: Progressing Goal: Absence of Hospital-Acquired Illness or Injury Outcome: Progressing Goal: Optimal Comfort and Wellbeing Outcome: Progressing Goal: Readiness for Transition of Care Outcome: Progressing Goal: Plan of Care Review Outcome: Progressing Goal: Patient-Specific Goal (Individualized) Outcome: Progressing Goal: Absence of Hospital-Acquired Illness or Injury Outcome: Progressing Goal: Optimal Comfort and Wellbeing Outcome: Progressing Goal: Readiness for Transition of Care Outcome: Progressing Problem: Mobility Impairment Goal: Optimal Mobility [place] and Safety Outcome: Progressing Problem: Anxiety Goal: Anxiety Reduction or Resolution Outcome: Progressing Goal Outcome Evaluation: documented in this encounter Miscellaneous Notes * Case Management/Social Work - Giuliano Velasquez, LAURIE - 12/20/2024 11:12 AM EDT Case Management Discharge Note Final Note: Plan is home with spouse and OPPT. Spouse will transport. Patient was given an order for OPPT to setup an appointment. A rolling walker was ordered from [employer]. Selected Continued Care - Admitted Since 12/18/2024 Destination No services have been selected for the patient. Durable Medical Equipment Coordination complete. Service Provider Services Address Phone Fax Patient Preferred [facility] Durable Medical Equipment [address], [facility] [id number] [phone] -- Dialysis/Infusion No services have been selected for the patient. Home Medical Care No services have been selected for the patient. Therapy No services have been selected for the patient. Community Resources No services have been selected for the patient. Community & DME No services have been selected for the patient. Final Discharge Disposition Code: 01 - home or self-care * Therapy Treatment Note - Stephanie Jordan PTA - 12/20/2024 10:23 AM EDT Images from the original note were not included. Patient Name: Sidra Whitt : 1990 Today's Date: 12/20/2024 Admit Date: 12/18/2024 Visit Dx: ICD-10-CM ICD-9-CM 1. Fluency disorder R47.89 784.59 2. 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 Past Surgical History: Procedure Laterality Date SECTION x2 PELVIC LAPAROSCOPY endometriosis General Information Row Name 12/20/24 1100 Physical Therapy Time and Intention Document Type therapy note (daily note) - Mode of Treatment physical therapy - Row Name 12/20/24 1100 General Information Patient Profile Reviewed yes - Existing Precautions/Restrictions fall - Barriers to Rehab medically complex - Row Name 12/20/24 1100 Cognition Orientation Status (Cognition) oriented x 4 - Row Name 12/20/24 1100 Safety Issues/Impairments Affecting Functional Mobility Safety Issues Affecting Function (Mobility) awareness of need for assistance;safety precautions follow-through/compliance;positioning of assistive device - Impairments Affecting Function (Mobility) balance;coordination;endurance/activity tolerance;strength;motor control - Comment, Safety Issues/Impairments (Mobility) alert and following commands - User Avila (r) = Recorded By, (t) = Taken By, (c) = Cosigned By Initials Name Provider Type Stephanie Jordan PTA Physical Therapist R&D Engineer Mobility Row Name 12/20/24 110 Bed Mobility Supine-Sit [place] (Bed Mobility) modified independence - Sit-Supine [place] (Bed Mobility) modified independence - Assistive Device (Bed Mobility) head of bed elevated - Comment, (Bed Mobility) no physical assist needed - Row Name 12/20/24 110 Transfers Comment, (Transfers) good technique demonstrated, no LOB - Row Name 12/20/24 110 Bed-Chair Transfer Bed-Chair [place] (Transfers) unable to assess - Comment, (Bed-Chair Transfer) requested back to bed as spouse sitting in recliner - Row Name 12/20/24 110 Sit-Stand Transfer Sit-Stand [place] (Transfers) verbal cues;contact guard;1 person assist - Assistive Device (Sit-Stand Transfers) walker, front-wheeled - Row Name 12/20/24 110 Gait/Stairs (Locomotion) [place] Level (Gait) verbal cues;contact guard;1 person assist - Assistive Device (Gait) walker, front-wheeled - Distance in Feet (Gait) 70 + 70 - Deviations/Abnormal Patterns (Gait) kala decreased;stride length decreased;base of support, wide;weight shifting decreased - Left Sided Gait Deviations heel strike decreased;hip circumduction - Comment, (Gait/Stairs) patient ambulated 70' + 70' with CGA x1 and rolling walker for support, verbal cues to increase heel strike on left as patient walking on toes, improved with cues, c/o L leg pain limiting gait distance. No LOB noticed. - User Vaila (r) = Recorded By, (t) = Taken By, (c) = Cosigned By Initials Name Provider Type Stephanie Jordan PTA Physical Therapist R&D Engineer Obj/Interventions Row Name 12/20/24 110 Motor Skills Therapeutic Exercise -- deferred d/t pain - Row Name 12/20/24 110 Balance Dynamic Standing Balance contact guard;1-person assist;verbal cues - Position/Device Used, Standing Balance supported;walker, front-wheeled - Comment, Balance no LOB noticed - User Avila (r) = Recorded By, (t) = Taken By, (c) = Cosigned By Initials Name Provider Type Stephanie Jordan PTA Physical Therapist R&D Engineer Goals/Plan No documentation. Clinical Impression Row Name 12/20/24 1106 Pain Pretreatment Pain Rating 5/10 - Posttreatment Pain Rating 5/10 - Pain Location extremity - Pain Side/Orientation left;lower - Pain Management Interventions activity modification encouraged;exercise or physical activity utilized - Response to Pain Interventions activity level improved - Row Name 12/20/24 110 Plan of Care Review Plan of Care Reviewed With patient - Progress improving - Outcome Evaluation patient ambulated 70' + 70' with CGA x1 and rolling walker for support, verbal cues to increase heel strike on left as patient walking on toes, improved with cues, c/o L leg pain limiting gait distance. No LOB noticed. manager [employer] notified and aware for need of rolling walker for discharge home. - Row Name 12/20/24 110 Positioning and Restraints Pre-Treatment Position in bed - Post Treatment Position bed - In Bed supine;call light within reach;encouraged to call for assist;with family/caregiver - User Avila (r) = Recorded By, (t) = Taken By, (c) = Cosigned By Initials Name Provider Type Stephanie Jordan PTA Physical Therapist R&D Engineer Outcome Measures Row Name 12/20/241106 How much help from another person do you currently need... Turning from your back to your side while in flat bed without using bedrails? 4 - Moving from lying on back to sitting on the side of a flat bed without bedrails? 4 - Moving to and from a bed to a chair (including a wheelchair)? 3 - Standing up from a chair using your arms (e.g., wheelchair, bedside chair)? 3 - Climbing 3-5 steps with a railing? 3 - To walk in hospital room? 3 - AM-PAC 6 Clicks Score (PT) 20 - Highest Level of Mobility Goal Walk 10 Steps or More-6 - Row Name 12/20/24 110 Functional Assessment Outcome Measure Options AM-PAC 6 Clicks Basic Mobility (PT) - User Avila (r) = Recorded By, (t) = Taken By, (c) = Cosigned By Initials Name Provider Type Stephanie Jordan PTA Physical Therapist R&D Engineer Physical Therapy Education Title: PT OT HEAD RESIDENT Therapies (In Progress) Topic: Physical Therapy (In Progress) Point: Mobility training (In Progress) Learning Progress Summary Patient Acceptance, E, NR by at 12/20/2024 110 Acceptance, E, NR by LUIS ALBERTO at 12/19/2024 1300 Point: Home exercise program (In Progress) Learning Progress Summary Patient Acceptance, E, NR by at 12/20/2024 110 Acceptance, E, NR by LUIS ALBERTO at 12/19/2024 1300 Point: Body mechanics (In Progress) Learning Progress Summary Patient Acceptance, E, NR by at 12/20/2024 110 Acceptance, E, NR by LUIS ALBERTO at 12/19/2024 1300 Point: Precautions (In Progress) Learning Progress Summary Patient Acceptance, E, NR by at 12/20/2024 110 Acceptance, E, NR by LUIS ALBERTO at 12/19/2024 1300 User Avila Initials Effective Dates Name Provider Type Discipline LUIS ALBERTO 05/24/22 - Alysha Koehler, PT Physical Therapist PT 11/05/24 - Stephanie Jordan PTA Physical Therapist R&D Engineer PT PT Recommendation and Plan Recommended discharge disposition is based on the functional assessment performed by PT/OT/Speech therapy (as applicable) and may not reflect the medical necessity determined by your provider or services covered by an individual patient's insurance plan or patient resource. Progress: improving Outcome Evaluation: patient ambulated 70' + 70' with CGA x1 and rolling walker for support, verbal cues to increase heel strike on left as patient walking on toes, improved with cues, c/o L leg pain limiting gait distance. No LOB noticed. manager [employer] notified and aware for need of rolling walker for discharge home. Time Calculation: PT Charges Row Name 12/20/24 1108 Time Calculation Start Time 1023 - PT Received On 12/20/24 - PT Goal Re-Cert Due Date 12/29/24 - Timed Charges 47281 - Gait Training Minutes 23 - Total Minutes Timed Charges Total Minutes 23 - Total Minutes 23 - User Avila (r) = Recorded By, (t) = Taken By, (c) = Cosigned By Initials Name Provider Type Stephanie Jordan PTA Physical Therapist R&D Engineer Therapy Charges for Today Code Description Service Date Service Provider Modifiers Qty [id number] HC GAIT TRAINING EA 15 MIN 12/20/2024 Stephanie Jordan PTA GP 2 PT G-Codes Outcome Measure Options: AM-PAC 6 Clicks Basic Mobility (PT) AM-PAC 6 Clicks Score (PT): 20 AM-PAC 6 Clicks Score (OT): 19 Modified Wes Scale: 1 - No significant disability despite symptoms. Able to carry out all usual duties and activities. Stephanie Jordan, DANIELA 12/20/2024 * Therapy Evaluation - Deanna Ibanez, OT - 12/19/2024 1:00 PM EDT Images from the original note were not included. Patient Name: Sidra Whitt : 1990 Today's Date: 12/19/2024 Admit Date: 12/18/2024 Visit Dx: ICD-10-CM ICD-9-CM 1. 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 Pt recently began using a cane, and has been avoiding steps at her home, due to difficulty going up/down them. Pt reports 1 recent fall -JR Existing Precautions/Restrictions fall -JR Barriers to Rehab medically complex -JR Row Name 12/19/24 7550 Living Environment Current Living Arrangements home -JR People in Home spouse;child(johanna), dependent -JR Row Name 12/19/24 133 Home Main Entrance Number of Stairs, Main Entrance three -JR Row Name 12/19/24 1330 Stairs Within Home, Primary Number of Stairs, Within Home, Primary none -JR Row Name 12/19/241333 Cognition Orientation Status (Cognition) oriented x 4 - Row Name 12/19/241333 Safety Issues/Impairments Affecting Functional Mobility Safety Issues Affecting Function (Mobility) awareness of need for assistance;insight into deficits/self-awareness;safety precaution awareness;safety precautions follow-through/compliance - Impairments Affecting Function (Mobility) balance;coordination;endurance/activity tolerance;grasp;motor control;motor planning;pain;strength;visual/perceptual;shortness of breath;sensation/sensory awareness - User Avila (r) = Recorded By, (t) = Taken By, (c) = Cosigned By Initials Name Provider Type Deanna Ibanez, OT Occupational Therapist Mobility/ADL's Row Name 12/19/241336 Bed Mobility Bed Mobility sit-supine - Sit-Supine [place] (Bed Mobility) standby assist - Assistive Device (Bed Mobility) head of bed elevated - Comment, (Bed Mobility) Upon arrival pt was coming out of the BR with RWx with -[facility] Name 12/19/241336 Transfers Transfers sit-stand transfer -[facility] Name 12/19/241336 Sit-Stand Transfer Sit-Stand [place] (Transfers) contact guard;verbal cues - Assistive Device (Sit-Stand Transfers) walker, front-wheeled - Comment, (Sit-Stand Transfer) Verbal cues for hand placement with transfers -[facility] Name 12/19/241336 Functional Mobility Functional Mobility- Ind. Level contact guard assist;verbal cues required - Functional Mobility- Device walker, front-wheeled - Functional Mobility-Distance (Feet) -- > household distance - Functional Mobility- Safety Issues step length decreased;sequencing ability decreased - Functional Mobility- Comment No LOB noted with mobility - Row Name 12/19/241336 Activities of Daily Living BADL Assessment/Intervention lower body dressing - Row Name 12/19/24 133 Lower Body Dressing Assessment/Training [place] Level (Lower Body Dressing) don;doff;socks;independent - Position (Lower Body Dressing) edge of bed sitting - User Avila (r) = Recorded By, (t) = Taken By, (c) = Cosigned By Initials Name Provider Type JR Deanna Ibanez, OT Occupational Therapist Obj/Interventions Row Name 12/19/24 1340 Sensory Assessment (Somatosensory) Sensory Assessment Pt reported decreased light touch sensation on her L side, however was able to ID light touch in B UE this date - Row Name 12/19/24 1340 Vision Assessment/Intervention Vision Assessment Comment Pt reported blurry vision with increased blurry vision L eye. With assessment, tracking and peripheral WFL as well as ID # of fingers in B visual man - Row Name 12/19/24 1340 Range of Motion Comprehensive General Range of Motion bilateral upper extremity ROM WFL -[facility] Name 12/19/24 1340 Strength Comprehensive (MMT) Comment, General Manual Muscle Testing (MMT) Assessment R UE functionally 5/5, L UE functionally 4/5 - Row Name 12/19/24 134 Motor Skills Motor Skills coordination;muscle tone -JR Coordination gross motor deficit;left;upper extremity;finger to nose;minimal impairment Slight decrease in finger to nose with L UE, pt also required increased time to complete opposition with L handthis date - Muscle Tone WNL -[facility] Name 12/19/24 134 Balance Balance Assessment sitting static balance;standing dynamic balance -JR Static Sitting Balance independent -JR Dynamic Standing Balance contact guard -JR Position/Device Used, Standing Balance supported;walker, rolling -JR User Avila (r) = Recorded By, (t) = Taken By, (c) = Cosigned By Initials Name Provider Type JR Deanna Ibanez, OT Occupational Therapist Goals/Plan [facility] Name 12/19/241345 Transfer Goal 1 (OT) Activity/Assistive Device (Transfer Goal 1, OT) transfers, all;walker, rolling -JR [place] Level/Cues Needed (Transfer Goal 1, OT) modified independence;verbal cues required -JR Time Frame (Transfer Goal 1, OT) short term goal (STG);5 days -JR Progress/Outcome (Transfer Goal 1, OT) new goal - Row Name 12/19/241345 Strength Goal 1 (OT) Strength Goal 1 (OT) Pt to increase L UE strength by 1/2 muscle grade to support ADL independence. -JR Time Frame (Strength Goal 1, OT) intermodal customer service goal (LTG);by discharge -JR Progress/Outcome (Strength Goal 1, OT) new goal -[facility] Name 12/19/241345 Problem Specific Goal 1 (OT) Problem Specific Goal 1 (OT) Pt to verbalize understanding of [facility] HEP to support ADL independence. -JR Time Frame (Problem Specific Goal 1, OT) intermodal customer service goal (LTG);by discharge -JR Progress/Outcome (Problem Specific Goal 1, OT) new goal - Row Name 12/19/24 1346 Therapy Assessment/Plan (OT) Planned Therapy Interventions (OT) activity tolerance training;adaptive equipment training;BADL retraining;functional balance retraining;ROM/therapeutic exercise;transfer/mobility retraining;strengthening exercise;patient/caregiver education/training;neuromuscular control/coordination retraining;occ upation/activity based interventions - User Avila (r) = Recorded By, (t) = Taken By, (c) = Cosigned By Initials Name Provider Type JR Deanna Ibanez, OT Occupational Therapist Clinical Impression [facility] Name 12/19/24 4439 Pain Assessment Pretreatment Pain Rating 4/10 -JR Posttreatment Pain Rating 4/10 -JR Pain Location other (see comments) -JR Pain Side/Orientation left -JR Pre/Posttreatment Pain Comment Pt reported pain in entire L side, then more localized in L shoulder-[facility] Name 12/19/24 8384 Plan of Care Review Plan of Care Reviewed With patient;spouse - Outcome Evaluation OT initial eval and expanded chart review completed. Pt presents with multiple comorbidities and decreased balance, strength, coordination and activity tolerance limiting independence with ADL's and mobility from baseline status. Recommend continued skilled OT services and d/c home with assist and OP PT/OT when medically appropriate. - Row Name 12/19/24 2413 Therapy Assessment/Plan (OT) Patient/Family Therapy Goal Statement (OT) get better - Rehab Potential (OT) good - Criteria for Skilled Therapeutic Interventions Met (OT) yes;meets criteria;skilled treatment is necessary - Therapy Frequency (OT) daily -JR Predicted Duration of Therapy Intervention (OT) 10 days - Row Name 12/19/24 5422 Therapy Plan Review/Discharge Plan (OT) Anticipated Discharge Disposition (OT) home with assist;home with outpatient therapy services - Row Name 12/19/24 6060 Vital Signs Pre Systolic BP Rehab 129 -JR Pre Treatment Diastolic BP 71 -JR Post Systolic BP Rehab 148 -JR Post Treatment Diastolic BP 83 -JR Pretreatment Heart Rate (beats/min) 107 -JR Posttreatment Heart Rate (beats/min) 86 -JR Pre Patient Position Standing -JR Intra Patient Position Sitting -JR Post Patient Position Standing -JR Row Name 12/19/24 1343 Positioning and Restraints Pre-Treatment Position standing in room -JR Post Treatment Position bed -JR In Bed notified nsg;supine;call light within reach;encouraged to call for assist;exit alarm on;withfamily/caregiver - User Avila (r) = Recorded By, (t) = Taken By, (c) = Cosigned By Initials Name Provider Type Deanna Ruiz OT Occupational Therapist Outcome Measures Row Name 12/19/24 1348 How much help from another is currently needed... Putting on and taking off regular lower body clothing? 3 -JR Bathing (including washing, rinsing, and drying) 2 -JR Toileting (which includes using toilet bed garcia or urinal) 4 -JR Putting on and taking off regular upper body clothing 3 -JR Taking care of personal grooming (such as brushing teeth) 3 -JR Eating meals 4 -JR AM-PAC 6 Clicks Score (OT) 19 - Row Name 12/19/24 0800 How much help from another person do you currently need... Turning from your back to your side while in flat bed without using bedrails? 3 -RH Moving from lying on back to sitting on the side of a flat bed without bedrails? 3 -RH Moving to and from a bed to a chair (including a wheelchair)? 4 -RH Standing up from a chair using your arms (e.g., wheelchair, bedside chair)? 4 -RH Climbing 3-5 steps with a railing? 3 -RH To walk in hospital room? 3 -RH AM-PAC 6 Clicks Score (PT) 20 -RH Row Name 12/19/24 1348 Modified Wes Scale Modified Wes Scale 1 - No significant disability despite symptoms. Able to carry out all usual duties and activities. - Row Name 12/19/24 1348 Functional Assessment Outcome Measure Options AM-PAC 6 Clicks Daily Activity (OT);Modified [place] - User Avila (r) = Recorded By, (t) = Taken By, (c) = Cosigned By Initials Name Provider Type Deanna Ruiz OT Occupational Therapist Simona Bowen RN Registered Nurse Occupational Therapy Education Title: PT OT HEAD RESIDENT Therapies (In Progress) Topic: Occupational Therapy (In Progress) Point: ADL training (Done) Learning Progress Summary Patient Acceptance, E, VU,NR by at 12/19/2024 1300 Comment: role of therapy, ongoing treatment plan, encouraged call miller use Family Acceptance, E, VU,NR by at 12/19/2024 1300 Comment: role of therapy, ongoing treatment plan, encouraged call miller use Point: Home exercise program (Done) Learning Progress Summary Patient Acceptance, E, VU,NR by at 12/19/2024 1300 Comment: role of therapy, ongoing treatment plan, encouraged call miller use Family Acceptance, E, VU,NR by at 12/19/2024 1300 Comment: role of therapy, ongoing treatment plan, encouraged call miller use User Avila Initials Effective Dates Name Provider Type Discipline 05/24/22 - Deanna Ibanez, OT Occupational Therapist OT OT Recommendation and Plan Recommended discharge disposition is based on the functional assessment performed by PT/OT/Speech therapy (as applicable) and may not reflect the medical necessity determined by your provider or services covered by an individual patient's insurance plan or patient resource. Planned Therapy Interventions (OT): activity tolerance training, adaptive equipment training, BADL retraining, functional balance retraining, ROM/therapeutic exercise, transfer/mobility retraining, strengthening exercise, patient/caregiver education/training, neuromuscular control/coordination retra ining, occupation/activity based interventions Therapy Frequency (OT): daily Plan of Care Review Plan of Care Reviewed With: patient, spouse Outcome Evaluation: OT initial eval and expanded chart review completed. Pt presents with multiple comorbidities and decreased balance, strength, coordination and activity tolerance limiting independence with ADL's and mobility from baseline status. Recommend continued skilled OT services and d/c home with assist and OP PT/OT when medically appropriate. Time Calculation: Evaluation Complexity (OT) Review Occupational Profile/Medical/Therapy History Complexity: expanded/moderate complexity Assessment, Occupational Performance/Identification of Deficit Complexity: 3-5 performance deficits Clinical Decision Making Complexity (OT): detailed assessment/moderate complexity Overall Complexity of Evaluation (OT): moderate complexity Time Calculation- OT Row Name 12/19/24 1350 Time Calculation- OT OT Start Time 1300 -JR OT Received On 12/19/24 -JR OT Goal Re-Cert Due Date 12/29/24 -JR Untimed Charges OT Eval/Re-eval Minutes 50 -JR Total Minutes Untimed Charges Total Minutes 50 -JR Total Minutes 50 -JR User Avila (r) = Recorded By, (t) = Taken By, (c) = Cosigned By Initials Name Provider Type JR Deanna Ibanez OT Occupational Therapist Therapy Charges for Today Code Description Service Date Service Provider Modifiers Qty [id number] OT EVAL MOD COMPLEXITY 4 12/19/2024 Deanna Ibanez OT GO 1 Deanna Ibanez OT 12/19/2024 * Therapy Evaluation - Alysha Koehler PT - 12/19/2024 1:00 PM EDT Patient Name: Sidra Whitt : 1990 Today's Date: 12/19/2024 Admit Date: 12/18/2024 Visit Dx: ICD-10-CM ICD-9-CM 1. 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 Past Surgical History: Procedure Laterality Date SECTION x2 PELVIC LAPAROSCOPY endometriosis General Information Row Name 12/19/24 1345 Physical Therapy Time and Intention Document Type evaluation -LUIS ALBERTO Mode of Treatment physical therapy -LUIS ALBERTO Row Name 12/19/24 1345 General Information Patient Profile Reviewed yes -LUIS ALBERTO Prior Level of Function independent:;gait;transfer;ADL's;bed mobility -LUIS ALBERTO Existing Precautions/Restrictions fall -LUIS ALBERTO Barriers to Rehab medically complex -LUIS ALBERTO Row Name 12/19/24 1345 Living Environment Current Living Arrangements home -LUIS ALBERTO People in Home spouse -LUIS ALBERTO Row Name 12/19/24 1345 Home Main Entrance Number of Stairs, Main Entrance three -LUIS ALBERTO Row Name 12/19/24 1345 Stairs Within Home, Primary Number of Stairs, Within Home, Primary none -LUIS ALBERTO Row Name 12/19/24 1345 Cognition Orientation Status (Cognition) oriented x 4 -LUIS ALBERTO Row Name 12/19/24 1345 Safety Issues/Impairments Affecting Functional Mobility Safety Issues Affecting Function (Mobility) safety precautions follow- through/compliance;insight into deficits/self-awareness -LUIS ALBERTO Impairments Affecting Function (Mobility) balance;coordination;endurance/activity tolerance;strength;motor control -LUIS ALBERTO User Avila (r) = Recorded By, (t) = Taken By, (c) = Cosigned By Initials Name Provider Type Alysha Wren PT Physical Therapist Mobility Row Name 12/19/24 1346 Bed Mobility Bed Mobility rolling left;rolling right;scooting/bridging;supine-sit;sit-supine -LUIS ALBERTO Rolling Left [place] (Bed Mobility) modified independence -LUIS ALBERTO Rolling Right [place] (Bed Mobility) modified independence -LUIS ALBERTO Scooting/Bridging [place] (Bed Mobility) modified independence -LUIS ALBERTO Supine-Sit [place] (Bed Mobility) standby assist -LUIS ALBERTO Sit-Supine [place] (Bed Mobility) standby assist -LUIS ALBERTO Assistive Device (Bed Mobility) head of bed elevated;bed rails -LUIS ALBERTO Row Name 12/19/24 1346 Bed-Chair Transfer Bed-Chair [place] (Transfers) contact guard -LUIS ALBERTO Assistive Device (Bed-Chair Transfers) walker, front-wheeled -LUIS ALBERTO Row Name 12/19/24 1346 Sit-Stand Transfer Sit-Stand [place] (Transfers) contact guard -LUIS ALBERTO Assistive Device (Sit-Stand Transfers) walker, front-wheeled -LUIS ALBERTO Comment, (Sit-Stand Transfer) patient transfers on and off the commode -LUIS ALBERTO Row Name 12/19/24 1346 Gait/Stairs (Locomotion) [place] Level (Gait) contact guard -LUIS ALBERTO Assistive Device (Gait) walker, front-wheeled -LUIS ALBERTO Distance in Feet (Gait) 70 -LUIS ALBERTO Deviations/Abnormal Patterns (Gait) kala decreased;stride length decreased;base of support, wide;weight shifting decreased -LUIS ALBERTO Left Sided Gait Deviations heel strike decreased;hip circumduction -LUIS ALBERTO Comment, (Gait/Stairs) patient with slow step on the left decreased hip and knee flexion with hip circumduction to clear foot decreased heel strike on left. -LUIS ALBERTO User Avila (r) = Recorded By, (t) = Taken By, (c) = Cosigned By Initials Name Provider Type Alysha Wren PT Physical Therapist Obj/Interventions Row Name 12/19/24 1349 Range of Motion Comprehensive General Range of Motion no range of motion deficits identified -LUIS ALBERTO Row Name 12/19/24 1349 Strength Comprehensive (MMT) Comment, General Manual Muscle Testing (MMT) Assessment RLE 4+/5, LLE grossly 3+/5 - Row Name 12/19/24 1341 Motor Skills Motor Skills coordination - Coordination gross motor deficit;heel to dailey;left;lower extremity - Row Name 12/19/24 134 Balance Balance Assessment sitting static balance;sitting dynamic balance;standing static balance;standing dynamic balance -LUIS ALBERTO Static Sitting Balance independent -LUIS ALBERTO Dynamic Sitting Balance independent -LUIS ALBERTO Position, Sitting Balance unsupported;sitting edge of bed -LUIS ALBERTO Static Standing Balance contact guard -LUIS ALBERTO Dynamic Standing Balance contact guard -LUIS ALBERTO Position/Device Used, Standing Balance supported;walker, front-wheeled -LUIS ALBERTO Comment, Balance patient able to get socks on and off sitting at the edge of the bed -LUIS ALBERTO User Avila (r) = Recorded By, (t) = Taken By, (c) = Cosigned By Initials Name Provider Type Alysha Wren A, PT Physical Therapist Goals/Plan Row Name 12/19/24 7838 Bed Mobility Goal 1 (PT) Activity/Assistive Device (Bed Mobility Goal 1, PT) bed mobility activities, all -LUIS ALBERTO [place] Level/Cues Needed (Bed Mobility Goal 1, PT) independent -LUIS ALBERTO Time Frame (Bed Mobility Goal 1, PT) short term goal (STG);5 days -LUIS ALBERTO Progress/Outcomes (Bed Mobility Goal 1, PT) goal ongoing - Row Name 12/19/24 7945 Transfer Goal 1 (PT) Activity/Assistive Device (Transfer Goal 1, PT) [id number] -LUIS ALBERTO [place] Level/Cues Needed (Transfer Goal 1, PT) independent -LUIS ALBERTO Time Frame (Transfer Goal 1, PT) intermodal customer service goal (LTG);10 days -LUIS ALBERTO Progress/Outcome (Transfer Goal 1, PT) goal ongoing - Row Name 12/19/24 3967 Gait Training Goal 1 (PT) Activity/Assistive Device (Gait Training Goal 1, PT) gait (walking locomotion) -LUIS ALBERTO [place] Level (Gait Training Goal 1, PT) independent -LUIS ALBERTO Distance (Gait Training Goal 1, PT) 300 -LUIS ALBERTO Time Frame (Gait Training Goal 1, PT) intermediate goal (LTG);10 days -LUIS ALBERTO Progress/Outcome (Gait Training Goal 1, PT) goal ongoing - Row Name 12/19/24 1074 Therapy Assessment/Plan (PT) Planned Therapy Interventions (PT) balance training;bed mobility training;gait training;home exercise program;strengthening;transfer training -LUIS ALBERTO User Avila (r) = Recorded By, (t) = Taken By, (c) = Cosigned By Initials Name Provider Type Alysha Wren, PT Physical Therapist Clinical Impression Row Name 12/19/24 1352 Pain Pretreatment Pain Rating 4/10 -LUIS ALBERTO Posttreatment Pain Rating 4/10 -LUIS ALBERTO Pain Location shoulder -LUIS ALBERTO Pain Side/Orientation left -LUIS ALBERTO Pain Management Interventions activity modification encouraged;exercise or physical activity utilized;nursing notified -LUIS ALBERTO Response to Pain Interventions activity level improved;mobility function improved;activity participation with tolerable pain -LUIS ALBERTO Row Name 12/19/24 1352 Plan of Care Review Plan of Care Reviewed With patient;spouse -LUIS ALBERTO Progress improving -LUIS ALBERTO Outcome Evaluation PT eval is completed. patient presents with left side weakness. patient demonstrates impaired bed mobility transfers and gait compared to baseline status patient has decreased strength and coordination of left LE. patient was able to ambulate with rolling walker 70 ft with CGA. recommend home with assist and OP PT/OT services at D/C -LUIS ALBERTO Row Name 12/19/24 1352 Therapy Assessment/Plan (PT) Patient/Family Therapy Goals Statement (PT) go home -LUIS ALBERTO Rehab Potential (PT) good -LUIS ALBERTO Criteria for Skilled Interventions Met (PT) yes;skilled treatment is necessary -LUIS ALBERTO Therapy Frequency (PT) daily -LUIS ALBERTO Predicted Duration of Therapy Intervention (PT) 10 days -LUIS ALBERTO Row Name 12/19/24 1352 Vital Signs Pre Patient Position Supine -LUIS ALBERTO Intra Patient Position Standing -LUIS ALBERTO Post Patient Position Supine -LUIS ALBERTO Row Name 12/19/24 1352 Positioning and Restraints Pre-Treatment Position in bed -LUIS ALBERTO Post Treatment Position bed -LUIS ALBERTO In Bed notified nsg;supine;call light within reach;encouraged to call for assist;exit alarm on;withfamily/caregiver -LUIS ALBERTO User Avila (r) = Recorded By, (t) = Taken By, (c) = Cosigned By Initials Name Provider Type Alysha Wren, PT Physical Therapist Outcome Measures Row Name 12/19/24 1356 12/19/24 0800 How much help from another person do you currently need... Turning from your back to your side while in flat bed without using bedrails? 4 -LUIS ALBERTO 3 -RH Moving from lying on back to sitting on the side of a flat bed without bedrails? 3 -LUIS ALBERTO 3 -RH Moving to and from a bed to a chair (including a wheelchair)? 3 -LUIS ALBERTO 4 -RH Standing up from a chair using your arms (e.g., wheelchair, bedside chair)? 3 - LUIS ALBERTO 4 -RH Climbing 3-5 steps with a railing? 3 -LUIS ALBERTO 3 -RH To walk in hospital room? 3 -LUIS ALBERTO 3 -RH AM-PAC 6 Clicks Score (PT) 19 -LUIS ALBERTO 20 -RH Row Name 12/19/24 1356 12/19/24 1348 Modified [place] Scale Pre-Stroke Modified [place] Scale 0 - No Symptoms at all. -LUIS ALBERTO -- Modified Wes Scale 1 - No significant disability despite symptoms. Able to carry out all usual duties and activities. -LUIS ALBERTO 1 - No significant disability despite symptoms. Able to carry out all usual duties and activities. -JR Row Name 12/19/24 1348 Functional Assessment Outcome Measure Options AM-PAC 6 Clicks Daily Activity (OT);Modified Wes -JR User Avila (r) = Recorded By, (t) = Taken By, (c) = Cosigned By Initials Name Provider Type Alysha Wren, PT Physical Therapist Deanna Ruiz, OT Occupational Therapist Simona Bowen, RN Registered Nurse Physical Therapy Education Title: PT OT HEAD RESIDENT Therapies (In Progress) Topic: Physical Therapy (In Progress) Point: Mobility training (In Progress) Learning Progress Summary Patient Acceptance, E, NR by at 12/19/2024 1300 Point: Home exercise program (In Progress) Learning Progress Summary Patient Acceptance, E, NR by at 12/19/2024 1300 Point: Body mechanics (In Progress) Learning Progress Summary Patient Acceptance, E, NR by at 12/19/2024 1300 Point: Precautions (In Progress) Learning Progress Summary Patient Acceptance, E, NR by at 12/19/2024 1300 User Avila Initials Effective Dates Name Provider Type Discipline LUIS ALBERTO 05/24/22 - Alysha Koehler, PT Physical Therapist PT PT Recommendation and Plan Recommended discharge disposition is based on the functional assessment performed by PT/OT/Speech therapy (as applicable) and may not reflect the medical necessity determined by your provider or services covered by an individual patient's insurance plan or patient resource. Planned Therapy Interventions (PT): balance training, bed mobility training, gait training, home exercise program, strengthening, transfer training Therapy Frequency (PT): daily Progress: improving Outcome Evaluation: PT eval is completed. patient presents with left side weakness. patient demonstrates impaired bed mobility transfers and gait compared to baseline status patient has decreased strength and coordination of left LE. patient was able to ambulate with rolling walker 70 ft with CGA. recommend home with assist and OP PT/OT services at D/C Time Calculation: PT Evaluation Complexity History, PT Evaluation Complexity: 3 or more personal factors and/or comorbidities Examination of Body Systems (PT Eval Complexity): total of 4 or more elements Clinical Presentation (PT Evaluation Complexity): evolving Clinical Decision Making (PT Evaluation Complexity): moderate complexity Overall Complexity (PT Evaluation Complexity): moderate complexity PT Charges Row Name 12/19/24 1358 Time Calculation Start Time 1300 -LUIS ALBERTO PT Received On 12/19/24 -LUIS ALBERTO PT Goal Re-Cert Due Date 12/29/24 -LUIS ALBERTO Untimed Charges PT Eval/Re-eval Minutes 50 -LUIS ALBERTO Total Minutes Untimed Charges Total Minutes 50 -LUIS ALBERTO Total Minutes 50 -LUIS ALBERTO User Avila (r) = Recorded By, (t) = Taken By, (c) = Cosigned By Initials Name Provider Type Alysha Wren, PT Physical Therapist Therapy Charges for Today Code Description Service Date Service Provider Modifiers Qty [id number] PT EVAL MOD COMPLEXITY 4 12/19/2024 Alysha Koehler, PT GP 1 PT G-Codes Outcome Measure Options: AM-PAC 6 Clicks Daily Activity (OT), Modified [place] AM-PAC 6 Clicks Score (PT): 19 AM-PAC 6 Clicks Score (OT): 19 Modified Wes Scale: 1 - No significant disability despite symptoms. Able to carry out all usual duties and activities. PT Discharge Summary Anticipated Discharge Disposition (PT): home with assist, home with outpatient therapy services Alysha Koehler PT 12/19/2024 * Therapy Evaluation - Enid Rhodes, CCC-HEAD RESIDENT - 12/18/2024 4:38 PM EDT Images from the original note were not included. Acute Care - Speech Language Pathology Swallow Initial Evaluation [facility] Clinical Swallow Evaluation Cognitive-Communication Evaluation Patient Name: Sidra Whitt : 1990 Today's Date: 12/18/2024 Admit Date: 12/18/2024 Visit Dx: ICD-10-CM ICD-9-CM 1. 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 HEAD RESIDENT Swallowing Diagnosis: functional oral phase, R/O pharyngeal dysphagia, other (see comments) (nosuspected pharyngeal dysphagia) (12/18/24 154) HEAD RESIDENT Diet Recommendation: regular textures, thin liquids (12/18/241544) Recommended Precautions and Strategies: upright posture during/after eating, small bites of food and sips of liquid, general aspiration precautions (12/18/241544) HEAD RESIDENT Rec. for Method of Medication Administration: meds whole, with thin liquids, with puree, as tolerated (12/18/241544) Monitor for Signs of Aspiration: yes, notify HEAD RESIDENT if any concerns (12/18/241544) Recommended Diagnostics: other (see comments) (diet tolerance) (12/18/241544) Swallow Criteria for Skilled Therapeutic Interventions Met: demonstrates skilled criteria (545) Anticipated Discharge Disposition (HEAD RESIDENT): home with OP services (12/18/241544) Rehab Potential/Prognosis, Swallowing: good, to achieve stated therapy goals (12/18/241544) Therapy Frequency (Swallow): PRN, 5 days per week (12/18/241544) Predicted Duration Therapy Intervention (Days): 2 weeks (12/18/241544) Oral Care Recommendations: Oral Care BID/PRN, Toothbrush (12/18/241544) SWALLOW EVALUATION (Last 72 Hours) HEAD RESIDENT Adult Swallow Evaluation Row Name 12/18/24 1545 General Eating/Swallowing Observations Respiratory Support Currently in Use room air - Respiratory Respiratory Status WFL -CH Clinical Swallow Eval Oral Prep Phase WFL -CH Oral Transit WFL -CH Oral Residue WFL -CH Pharyngeal Phase no overt signs/symptoms of pharyngeal impairment - Swallowing Quality of Life Assessment Education and counseling provided Signs of aspiration;Risks of aspiration;Oral care recommendationsand rationale - HEAD RESIDENT Evaluation Clinical Impression HEAD RESIDENT Swallowing Diagnosis functional oral phase;R/O pharyngeal dysphagia;other (see comments) no suspected pharyngeal dysphagia - Functional Impact risk of aspiration/pneumonia - Rehab Potential/Prognosis, Swallowing good, to achieve stated therapy goals - Swallow Criteria for Skilled Therapeutic Interventions Met demonstrates skilled criteria - Recommendations Therapy Frequency (Swallow) PRN;5 days per week - HEAD RESIDENT Diet Recommendation regular textures;thin liquids - Recommended Diagnostics other (see comments) diet tolerance - Recommended Precautions and Strategies upright posture during/after eating;small bites of food and sips of liquid;general aspiration precautions - Oral Care Recommendations Oral Care BID/PRN;Toothbrush - HEAD RESIDENT Rec. for Method of Medication Administration meds whole;with thin liquids;with puree;as tolerated - Monitor for Signs of Aspiration yes;notify HEAD RESIDENT if any concerns - User Avila (r) = Recorded By, (t) = Taken By, (c) = Cosigned By Initials Name Effective Dates Enid Rhodes, MS GIBBS-HEAD RESIDENT 05/10/24 - EDUCATION The patient has been educated in the following areas: Dysphagia (Swallowing Impairment) Oral Care/Hydration. HEAD RESIDENT GOALS Row Name 12/18/24 1545 (LTG) Patient will demonstrate functional swallow for Diet Texture (Demonstrate functional swallow) regular textures - Liquid viscosity (Demonstrate functional swallow) thin liquids - [place] (Demonstrate functional swallow) independently (over 90% accuracy) - Time Frame (Demonstrate functional swallow) 2 weeks - (STG) Patient will tolerate trials of Consistencies Trialed (Tolerate trials) regular textures;thin liquids - Desired Outcome (Tolerate trials) without signs/symptoms of aspiration;with adequate oral prep/transit/clearance - [place] (Tolerate trials) with minimal cues (75-90% accuracy) - Time Frame (Tolerate trials) 1 week - Patient will demonstrate functional speech skills for return to discharge environment [place] with minimal cues -CH Time frame 1 week -CH SLC STG Goal 1 (HEAD RESIDENT) Additional Goal 1, HEAD RESIDENT Patient will demonstrate fluent speech utilizing strategies such as easy onset with min cues and 80% acc. -CH Time Frame (Additional Goal 1, HEAD RESIDENT) 1 week -CH User Avila (r) = Recorded By, (t) = Taken By, (c) = Cosigned By Initials Name Provider Type Enid Rhodes MS CCC-HEAD RESIDENT Speech and Language Pathologist Time Calculation: Time Calculation- HEAD RESIDENT Row Name 12/18/24 1638 Time Calculation- HEAD RESIDENT HEAD RESIDENT Start Time 1545 -CH HEAD RESIDENT Received On 12/18/24 -CH Untimed Charges 49326-RK Eval Speech and Production w/ Language Minutes 45 -CH 15158-UF Eval Oral Pharyng Swallow Minutes 39 -CH Total Minutes Untimed Charges Total Minutes 84 -CH Total Minutes 84 -CH User Avila (r) = Recorded By, (t) = Taken By, (c) = Cosigned By Initials Name Provider Type Enid Rhodes MS CCC-HEAD RESIDENT Speech and Language Pathologist Therapy Charges for Today Code Description Service Date Service Provider Modifiers Qty [id number] HC ST EVAL ORAL PHARYNG SWALLOW 3 12/18/2024 Enid Rhodes MS CCC-HEAD RESIDENT GN [id number] EVAL SPEECH AND PROD W LANG 3 12/18/2024 Enid Rhodes MS CCC-HEAD RESIDENT GN 1 Enid Rhodes MS CCC-HEAD RESIDENT 12/18/2024 and Acute Care - Speech Language Pathology Initial Evaluation [facility] Patient Name: Sidra Whitt : 1990 Today's Date: 12/18/2024 Admit Date: 12/18/2024 Visit Dx: ICD-10-CM ICD-9-CM 1. 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, moderate, fluency disorder (12/18/241544) Monitor for Signs of Aspiration: yes, notify HEAD RESIDENT if any concerns (12/18/241544) Swallow Criteria for Skilled Therapeutic Interventions Met: demonstrates skilled criteria () SLC Criteria for Skilled Therapy Interventions Met: no problems identified which require skilled intervention (12/18/241544) Anticipated Discharge Disposition (HEAD RESIDENT): home with OP services (12/18/241544) Therapy Frequency (Swallow): PRN, 5 days per week (12/18/241544) Therapy Frequency (HEAD RESIDENT SLC): 5 days per week (12/18/241544) Predicted Duration Therapy Intervention (Days): 2 weeks (12/18/241544) Oral Care Recommendations: Oral Care BID/PRN, Toothbrush (12/18/241544) HEAD RESIDENT EVALUATION (Last 72 Hours) HEAD RESIDENT SLC Evaluation Row Name 12/18/241544 Communication Assessment/Intervention Document Type evaluation - Subjective Information no complaints - Patient Observations alert;cooperative;agree to therapy - Patient/Family/Caregiver Comments/Observations spouse present - Patient Effort good - Symptoms Noted During/After Treatment none - General Information Patient Profile Reviewed yes - Precautions/Limitations, Vision WFL;for purposes of eval - Precautions/Limitations, Hearing WFL;for purposes of eval - 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 [employer] - Prior Level of Function-Communication [facility] - Plans/Goals Discussed with patient;agreed upon - Barriers to Rehab none identified - Patient's Goals for Discharge return to home;return to all previous roles/activities - Pain Pretreatment Pain Rating 0/10 - no pain - Posttreatment Pain Rating 0/10 - no pain - Comprehension Assessment/Intervention Comprehension Assessment/Intervention Auditory Comprehension;Reading Comprehension - Auditory Comprehension Assessment/Intervention Auditory Comprehension (Communication) WFL - Narrative Discourse WFL - Reading Comprehension Assessment/Intervention Reading Comprehension (Communication) WFL - Paragraph Level WFL - Expression Assessment/Intervention Expression Assessment/Intervention verbal expression;graphic expression - Verbal Expression Assessment/Intervention Verbal Expression L - Conversational Discourse/Fluency WFL - Oral Motor Structure and Function Oral Motor Structure and Function mild impairment - Dentition Assessment natural, present and adequate - Oral Musculature and Cranial Nerve Assessment Oral Motor General Assessment lingual impairment;oral labial or buccal impairment;vocal impairment - Oral Labial or Buccal Impairment, Detail, Cranial Nerve VII (Facial): reduced ROM;reduced strength bilaterally - Lingual Impairment, Detail. Cranial Nerves IX, XII (Glossopharyngeal and Hypoglossal) reduced strength;bilaterally;reduced lingual ROM - Vocal Impairment, Detail. Cranial Nerve X (Vagus) vocal quality abnormality (see comments);other (see comments) decreased amplitude - Motor Speech Assessment/Intervention Motor Speech Function WFL - Characteristics Consistent with Dysarthria decreased intensity;slow rate - Conversational Speech (Communication) WFL - Speech intelligibility 100%;in quiet environment;in connected speech;with unfamiliar listener - Motor Speech, Comment Speech is dysfluent with repetitions of syllables and blocks noted - Cursory Voice Assessment/Intervention Quality and Resonance (Voice) WFL - Cognitive Assessment Intervention- HEAD RESIDENT Cognitive Function (Cognition) WFL - Orientation Status (Cognition) WFL - Memory (Cognitive) WFL - Attention (Cognitive) WFL - Thought Organization (Cognitive) WFL - Reasoning (Cognitive) WFL - Problem Solving (Cognitive) WFL - Functional Math (Cognitive) WFL - Executive Function (Cognition) WFL - Pragmatics (Communication) WF - HEAD RESIDENT Evaluation Clinical Impressions HEAD RESIDENT Diagnosis functional cognitive-linguistic skills;moderate;fluency disorder -[facility] Criteria for Skilled Therapy Interventions Met no problems identified which require skilled intervention - Functional Impact functional impact in social situations;difficulty in expressing complex messages - Recommendations Therapy Frequency (HEAD RESIDENT SLC) 5 days per week - Predicted Duration Therapy Intervention (Days) 2 weeks - Anticipated Discharge Disposition (HEAD RESIDENT) home with OP services - User Avila (r) = Recorded By, (t) = Taken By, (c) = Cosigned By Initials Name Effective Dates Enid Rhodes MS [facility]-HEAD RESIDENT 05/10/24 - EDUCATION The patient has been educated in the following areas: Cognitive Impairment Communication Impairment. HEAD RESIDENT GOALS Row Name 12/18/24 1545 (LTG) Patient will demonstrate functional swallow for Diet Texture (Demonstrate functional swallow) regular textures -CH Liquid viscosity (Demonstrate functional swallow) thin liquids -CH [place] (Demonstrate functional swallow) independently (over 90% accuracy) -CH Time Frame (Demonstrate functional swallow) 2 weeks -CH (STG) Patient will tolerate trials of Consistencies Trialed (Tolerate trials) regular textures;thin liquids -CH Desired Outcome (Tolerate trials) without signs/symptoms of aspiration;with adequate oral prep/transit/clearance -CH [place] (Tolerate trials) with minimal cues (75-90% accuracy) -CH Time Frame (Tolerate trials) 1 week -CH Patient will demonstrate functional speech skills for return to discharge environment [place] with minimal cues -CH Time frame 1 week -CH SLC STG Goal 1 (HEAD RESIDENT) Additional Goal 1, HEAD RESIDENT Patient will demonstrate fluent speech utilizing strategies such as easy onset with min cues and 80% acc. -CH Time Frame (Additional Goal 1, HEAD RESIDENT) 1 week -CH User Avila (r) = Recorded By, (t) = Taken By, (c) = Cosigned By Initials Name Provider Type Enid Rhodes MS CCC-HEAD RESIDENT Speech and Language Pathologist Time Calculation: Time Calculation- HEAD RESIDENT Row Name 12/18/24 1638 Time Calculation- HEAD RESIDENT HEAD RESIDENT Start Time 1545 - HEAD RESIDENT Received On 12/18/24 - Untimed Charges 66845-NE Eval Speech and Production w/ Language Minutes 45 -CH 16071-ME Eval Oral Pharyng Swallow Minutes 39 -CH Total Minutes Untimed Charges Total Minutes 84 -CH Total Minutes 84 -CH User Avila (r) = Recorded By, (t) = Taken By, (c) = Cosigned By Initials Name Provider Type Enid Rhodes MS CCC-HEAD RESIDENT Speech and Language Pathologist Therapy Charges for Today Code Description Service Date Service Provider Modifiers Qty [id number] ST EVAL ORAL PHARYNG SWALLOW 3 12/18/2024 Enid Rhodes MS CCC-SLP GN [id number] EVAL SPEECH AND PROD W LANG 3 12/18/2024 Enid Rhodes MS CCC-SLP GN 1 MS TEX Bello 12/18/2024 documented in this encounter Plan of Treatment Scheduled Referrals Name Type Priority Associated Diagnoses Order Schedule Ambulatory Referral to Physical Therapy for Evaluation & Treatment Outpatient Referral Routine Fluency disorder Left-sided weakness Ordered: 12/20/2024 documented as of this encounter Procedures Procedure Name Priority Date/Time Associated Diagnosis Comments CBC WITH AUTO DIFFERENTIAL Urgent 12/19/2024 1:04 PM EDT SEDIMENTATION RATE Urgent 12/19/2024 1: 04 PM EDT CBC AND DIFFERENTIAL Urgent 12/19/2024 1:04 PM EDT C-REACTIVE PROTEIN Urgent 12/19/2024 1: 04 PM EDT HEMOGLOBIN A1C Urgent 12/19/2024 1:04 PM EDT LIPID PANEL Urgent 12/19/2024 1:04 PM EDT COMPREHENSIVE METABOLIC PANEL Urgent 12/19/2024 1:04 PM EDT SCANNED - TELEMETRY 12/19/2024 8 :00 AM EDT POCT GLUCOSE FINGERSTICK Routine 12/19/2024 5:55 AM EDT MRI BRAIN WO CONTRAST Routine 12/19/2024 1:43 AM EDT POCT GLUCOSE FINGERSTICK Routine 12/18/2024 11:39 PM EDT BLOOD GAS, VENOUS W/CO-OXIMETRY Routine 12/18/2024 6:48 PM EDT POCT GLUCOSE FINGERSTICK Routine 12/18/2024 6:[address] OUTSIDE HEAD Routine 12/18/2024 4:[address] OUTSIDE HEAD Routine 12/18/2024 4:02 PM EDT POCT GLUCOSE FINGERSTICK Routine 12/18/2024 2:52 PM EDT SCANNED EKG 12/18/2024 documented in this encounter Results * CBC Auto Differential (12/19/2024 1:04 PM EDT) WBC 7.08 3.40 - 10.80 10*3/mm3 12/19/2024 1:17 PM EDT LABORATORY RBC 4.54 3.77 - 5.28 10*6/mm3 12/19/2024 1:17 PM EDT LABORATORY Hemoglobin 13.1 12.0 - 15.9 g/dL 12/19/2024 1:17 PM EDT LABORATORY Hematocrit 39.2 34.0 - 46.6 % 12/19/2024 1:17 PM EDT LABORATORY MCV 86.3 79.0 - 97.0 fL 12/19/2024 1:17 PM EDT LABORATORY MCH 28.9 26.6 - 33.0 pg 12/19/2024 1:17 PM EDT LABORATORY MCHC 33.4 31.5 - 35.7 g/dL 12/19/2024 1:17 PM EDT LABORATORY RDW 14.1 12.3 - 15.4 % 12/19/2024 1:17 PM EDT LABORATORY RDW-SD 44.8 37.0 - 54.0 fl 12/19/2024 1:17 PM EDT LABORATORY MPV 9.4 6.0 - 12.0 fL 12/19/2024 1:17 PM EDT LABORATORY Platelets 290 140 - 450 10*3/mm3 12/19/2024 1:17 PM EDT LABORATORY Neutrophil % 61.5 42.7 - 76.0 % 12/19/2024 1:17 PM EDT LABORATORY Lymphocyte % 25.7 19.6 - 45.3 % 12/19/2024 1:17 PM EDT LABORATORY Monocyte % 8.8 5.0 - 12.0 % 12/19/2024 1:17 PM EDT LABORATORY Eosinophil % 3.1 0.3 - 6.2 % 12/19/2024 1:17 PM EDT LABORATORY Basophil % 0.6 0.0 - 1.5 % 12/19/2024 1:17 PM EDT LABORATORY Immature Grans % 0.3 0.0 - 0.5 % 12/19/2024 1:17 PM EDT LABORATORY Neutrophils, Absolute 4.36 1.70 - 7.00 10*3/mm3 12/19/2024 1:17 PM EDT LABORATORY Lymphocytes, Absolute 1.82 0.70 - 3.10 10*3/mm3 12/19/2024 1:17 PM EDT LABORATORY Monocytes, Absolute 0.62 0.10 - 0.90 10*3/mm3 12/19/2024 1:17 PM EDT LABORATORY Eosinophils, Absolute 0.22 0.00 - 0.40 10*3/mm3 12/19/2024 1:17 PM EDT LABORATORY Basophils, Absolute 0.04 0.00 - 0.20 10*3/mm3 12/19/2024 1:17 PM EDT LABORATORY Immature Grans, Absolute 0.02 0.00 - 0.05 10*3/mm3 12/19/2024 1:17 PM EDT LABORATORY nRBC 0.0 0.0 - 0.2 /100 WBC 12/19/2024 1:17 PM EDT LABORATORY Blood Venipuncture / Unknown 12/19/2024 1:04 PM EDT 12/19/2024 1:09 PM EDT us Christophe Green DO LAB BLOOD ORDERABLES Leandra l Result LABORATORY
[address] [place] [address], * (ABNORMAL) Sedimentation Rate (12/19/2024 1:04 PM EDT) Sed Rate 41(H) 0 - 20 mm/hr 12/19/2024 1:23 PM EDT LABORATORY Blood Venipuncture / Unknown 12/19/2024 1:04 PM EDT 12/19/2024 1:09 PM EDT [facility] Leandra l Result Performing Organization Address City/[facility]/ZIP Co de Phone Number LABORATORY
[address] [place] [address], * (ABNORMAL) C-reactive Protein (12/19/2024 1:04 PM EDT) [facility] C-Reactive Protein 1.37(H) 0.00 - 0.50 mg/dL 12/19/2024 1:40 PM EDT LABORATORY Blood Venipuncture / Unknown 12/19/2024 1:04 PM EDT 12/19/2024 1:10 PM EDT [facility] ORDERABLES Leandra l Result Performing Organization Address City/[facility] Co de Phone Number LABORATORY
[address] [place] [address], * Comprehensive Metabolic Panel (12/19/2024 1:04 PM EDT) [facility] Glucose 93 65 - 99 mg/dL 12/19/2024 1:40 PM EDT LABORATORY BUN 10.0 6.0 - 20.0 mg/dL 12/19/2024 1:40 PM EDT LABORATORY Creatinine 0.66 0.57 - 1.00 mg/dL 12/19/2024 1:40 PM EDT LABORATORY Sodium 140 136 - 145 mmol/L 12/19/2024 1:40 PM EDT LABORATORY Potassium 3.9 3.5 - 5.2 mmol/L 12/19/2024 1:40 PM EDT LABORATORY Chloride 106 98 - 107 mmol/L 12/19/2024 1:40 PM EDT LABORATORY CO2 22.8 22.0 - 29.0 mmol/L 12/19/2024 1:40 PM EDT LABORATORY Calcium 8.9 8.6 - 10.5 mg/dL 12/19/2024 1:40 PM T LABORATORY Total Protein 6.9 6.0 - 8.5 g/dL 12/19/2024 1:40 PM EDT LABORATORY Albumin 3.8 3.5 - 5.2 g/dL 12/19/2024 1:40 PM [facility] ALT (SGPT) 21 1 - 33 U/L 12/19/2024 1:40 PM [facility] AST (SGOT) 26 1 - 32 U/L 12/19/2024 1:40 PM [facility] Alkaline Phosphatase 82 39 - 117 U/L 12/19/2024 1:40 PM T LABORATORY Total Bilirubin 0.3 0.0 - 1.2 mg/dL 12/19/2024 1:40 PM [facility] Globulin 3.1 gm/dL 12/19/2024 1:40 PM [facility] Comment:Calculated Result A/G Ratio 1.2 g/dL 12/19/2024 1:40 PM [facility] BUN/Creatinine Ratio 15.2 7.0 - 25.0 12/19/2024 1:40 PM [facility] Anion Gap 11.2 5.0 - 15.0 mmol/L 12/19/2024 1:40 PM [facility] eGFR 116.8 >60.0 mL/min/1.7 3 12/19/2024 1:40 PM [facility] Blood Venipuncture / Unknown 12/19/2024 1:04 PM EDT 12/19/2024 1:10 PM EDT [facility] LABORATORY - 12/19/2024 1:40 PM EDT GFR Categories in Chronic Kidney Disease [...] not include race as a factor us Christophe Green DO LAB BLOOD ORDERABLES Leandra johana Result LABORATORY
[address] [place] [address], * (ABNORMAL) Lipid Panel (12/19/2024 1:04 PM EDT) Total Cholesterol 180 0 - 200 mg/dL 12/19/2024 1:40 PM EDT LABORATORY Triglycerides 117 0 - 150 mg/dL 12/19/2024 1:40 PM EDT LABORATORY HDL Cholesterol 49 40 - 60 mg/dL 12/19/2024 1:40 PM EDT LABORATORY LDL Cholesterol 110(H) 0 - 100 mg/dL 12/19/2024 1:40 PM EDT LABORATORY VLDL Cholesterol 21 5 - 40 mg/dL 12/19/2024 1:40 PM EDT LABORATORY LDL/HDL Ratio 2.20 12/19/2024 1:40 PM EDT LABORATORY Blood Venipuncture / Unknown 12/19/2024 1:04 PM EDT 12/19/2024 1:10 PM EDT [facility] LABORATORY - 12/19/2024 1:40 PM EDT Cholesterol Reference Ranges (U.S. Department of Health and Human Services ATP III Classifications) Desirable <200 mg/dL Borderline High 200-239 mg/dL High Risk >240 mg/dL Triglyceride Reference Ranges (U.S. Department of Health and Human Services ATP III Classifications) Normal <150 mg/dL Borderline High 150-199 mg/dL High 200-499 mg/dL Very High >500 mg/dL HDL Reference Ranges (U.S. Department of Health and Human Services ATP III Classifications) Low <40 mg/dl (major risk factor for CHD) High >60 mg/dl ('negative' risk factor for CHD) LDL Reference Ranges (U.S. Department of Health and Human Services ATP III Classifications) Optimal <100 mg/dL Near Optimal 100-129 mg/dL Borderline High 130-159 mg/dL High 160-189 mg/dL Very High >189 mg/dL LDL is calculated using the NIH LDL-C calculation. us Misti Gay APRN LAB BLOOD ORDERABLES Final R esult Performing Organization Address City/[facility]/ZIP Co de Phone Number LABORATORY
[address] [place] [address], * (ABNORMAL) Hemoglobin A1c (12/19/2024 1:04 PM EDT) Hemoglobin A1C 5.83(H) 4.80 - 5.60 % 12/19/2024 1:26 PM EDT LABORATORY Blood Venipuncture / Unknown 12/19/2024 1:04 PM EDT 12/19/2024 1:09 PM EDT Narrative LABORATORY - 12/19/2024 1:26 PM EDT Hemoglobin A1C Ranges: Increased Risk for Diabetes 5.7% to 6.4% Diabetes >= 6.5% Diabetic Goal < 7.0% us Misti Gay PHOTO MASK PATTERN GENERATOR LAB BLOOD ORDERABLES Final R esult Performing Organization Address City/[facility]/ZIP Co de Phone Number LABORATORY
[address] [place] [address], * Telemetry Scan (12/19/2024 8:00 AM EDT) [facility] New Onbase ECG ORDERABLES Final Result * POC Glucose Once (12/19/2024 5:55 AM EDT) Glucose 110 70 - 130 mg/dL 12/19/2024 5:57 AM EDT LABORATORY Comment:Serial Number: [id number]: [id number] Blood 12/19/2024 5:55 AM EDT 12/19/2024 5:57 AM EDT Christophe Green DO POINT OF CARE TEST ORDERA BLES Final Result LABORATORY
[address] [place] [address], * MRI Brain Without Contrast (12/19/2024 1:43 AM EDT) Anatomical Region Laterality Modality Head, Neck N/A Magnetic Resonan ce 12/19/2024 2:53 AM EDT Impressions 12/19/2024 2:55 AM EDT Impression: No acute intracranial abnormality. Electronically Signed: Christophe Grant MD 12/19/2024 2:55 AM EDT Workstation ID: [id number] Narrative 12/19/2024 2:55 AM EDT MRI BRAIN WO CONTRAST Date of Exam: 12/18/2024 12:47 AM EDT Indication: Stroke, follow up. left sided weaknesss, dysarthria. Comparison: None available. Technique: Routine multiplanar/multisequence sequence images of the brain were obtained without contrast administration. Findings: There is no diffusion restriction to suggest acute infarct. There is no evidence of acute or chronic intracranial hemorrhage. There are no significant signal abnormalities within the brain parenchyma. No mass effect or midline shift. No abnormal extra-axial collections. The major vascular flow voids appear intact. The basal ganglia, brainstem and cerebellum appear within normal limits. Calvarial and superficial soft tissue signal is within normal limits. Orbits appear unremarkable. The paranasal sinuses and the mastoid air cells appear well aerated. Midline structures are intact. Procedure Note Christophe Grant MD - 12/19/2024 MRI BRAIN WO CONTRAST Date of Exam: 12/18/2024 12:47 AM EDT Indication: Stroke, follow up. left sided weaknesss, dysarthria. Comparison: None available. Technique: Routine multiplanar/multisequence sequence images of the brainwere obtained without contrast administration. Findings: There is no diffusion restriction to suggest acute infarct. There is noevidence of acute or chronic intracranial hemorrhage. There are nosignificant signal abnormalities within the brain parenchyma. No masseffect or midline shift. No abnormal extra-axial collections. The major vascular flow voids appear intact. Thebasal ganglia, brainstem and cerebellum appear within normal limits.Calvarial and superficial soft tissue signal is within normal limits.Orbits appear unremarkable. The paranasal sinuses and the mastoid air cells appear well aerated. Midlinestructures are intact. IMPRESSION: Impression: No acute intracranial abnormality. Electronically Signed: Christophe Grant MD 12/19/2024 2:55 AM EDT Workstation ID: [id number] Misti Gay PHOTO MASK PATTERN GENERATOR IMG MRI ORDERABLES Final Res ult * POC Glucose Once (12/18/2024 11:39 PM EDT) [facility] Glucose 111 70 - 130 mg/dL 12/18/2024 11:42 PM EDT LABORATORY Comment:Serial Number: [id number]: [id number] Blood 12/18/2024 11:3 9 PM EDT 12/18/2024 11:42 PM EDT Christophe Green DO POINT OF CARE TEST ORDERA BLES Final Result LABORATORY
[address] [place] [address], * (ABNORMAL) Blood Gas, Venous With Co-Ox (12/18/2024 6:48 PM EDT) [facility] Site OTHER 12/18/2024 6:49 PM EDT RESPIRATORY THERAPY pH, Venous 7.394 7.310 - 7.410 pH Units 12/18/2024 6:49 PM EDT RESPIRATORY THERAPY pCO2, Venous 41.9 41.0 - 51.0 mm Hg 12/18/2024 6:49 PM EDT RESPIRATORY THERAPY pO2, Venous 65.3(H) 27.0 - 53.0 mm Hg 12/18/2024 6:49 PM EDT RESPIRATORY THERAPY Comment:83 Value above refer ence range HCO3, Venous 25.6 22.0 - 28.0 mmol/L 12/18/2024 6:49 PM EDT RESPIRATORY THERAPY Base Excess, Venous 0.5 -2.0 - 2.0 mmol/L 12/18/2024 6:49 PM EDT RESPIRATORY THERAPY Hemoglobin, Blood Gas 13.6(L) 14 - 18 g/dL 12/18/2024 6:49 PM EDT RESPIRATORY THERAPY Oxyhemoglobin Venous 92.3 % 11/21 6:49 PM EDT RESPIRATORY THERAPY Comment:83 Value above refer ence range Methemoglobin Venous 0.1 % 11/21 6:49 PM EDT RESPIRATORY THERAPY Carboxyhemoglobin Venous 1.3 % 12/18/2024 6:49 PM EDT RESPIRATORY THERAPY CO2 Content 26.9 22 - 33 mmol/L 12/18/2024 6:49 PM EDT RESPIRATORY THERAPY Temperature 37.0 12/18/2024 6:49 PM EDT RESPIRATORY THERAPY Barometric Pressure for Blood Gas 12/18/2024 6:49 PM EDT RESPIRATORY THERAPY Comment:N/A Modality Room Air 12/18/2024 6:49 PM EDT RESPIRATORY THERAPY FIO2 21 % 12/18/2024 6:49 PM EDT RESPIRATORY THERAPY Rate 0 Breaths/ minute 12/18/2024 6:49 PM EDT RESPIRATORY THERAPY PIP 0 cmH2O 12/18/2024 6:49 PM EDT RESPIRATORY THERAPY Comment:Meter: [id number] Manager Telemetry: [id number] IPAP 0 12/18/2024 6:49 PM EDT RESPIRATORY THERAPY EPAP 0 12/18/2024 6:49 PM EDT RESPIRATORY THERAPY Venous Blood 12/18/2024 6:48 PM EDT 12/18/2024 6:48 PM EDT Christophe Green DO LAB BLOOD ORDERABLES Leandra l Result Performing Organization Address [facility] Co de Phone Number RESPIRATORY THERAPY
[address] [place] [address], * POC Glucose Once (12/18/2024 6:26 PM EDT) [facility] Signature Glucose 97 70 - 130 mg/dL 12/18/2024 6:27 PM EDT LABORATORY Comment:Serial Number: [id number]: [id number] Nova Comment 1 Notified Patients RN 12/18/2024 6:27 PM EDT LABORATORY Blood 12/18/2024 6:26 PM EDT 12/18/2024 6:27 PM EDT Christophe Green DO POINT OF CARE TEST ORDERA BLES Final Result Performing Organization Address City/[facility] Co de Phone Number LABORATORY
[address] [place] [address], * CT Outside Head (12/18/2024 4:02 PM EDT) Narrative SYSTEMGENERATED, DOCUMENTATION - 12/18/2024 4:02 PM EDT This procedure was auto-finalized with no dictation required. us [employer] Outside Films IMG CT ORDERABLES Final Re sult * CT Outside Head (12/18/2024 4:02 PM EDT) Narrative SYSTEMGENERATED, DOCUMENTATION - 12/18/2024 4:02 PM EDT This procedure was auto-finalized with no dictation required. us [employer] Outside Films IMG CT ORDERABLES Final Re sult * POC Glucose Once (12/18/2024 2:52 PM EDT) [facility] Signature Glucose 83 70 - 130 mg/dL 12/18/2024 2:54 PM EDT LABORATORY Comment:Serial Number: [id number]: [id number] Blood 12/18/2024 2:52 PM EDT 12/18/2024 2:54 PM EDT Rayshawn Felix MD POINT OF CARE TEST ORDERABLES Final Result LABORATORY
[address] [place] [address], * ECG Scan (12/18/2024) [facility] ECG ORDERABLES Final Result documented in this encounter Visit Diagnoses Diagnosis Left-sided weakness- Primary Fluency disorder Left-sided weakness Morbid obesity LEONID (obstructive sleep apnea) Obstructive sleep apnea (adult) (pediatric) documented in this encounter Admitting Diagnoses Diagnosis TIA (transient ischemic attack) Unspecified transient cerebral ischemia documented in this encounter Administered Medications Inactive Administered Medications - up to 3 most recent administrations Medication Order MAR Action Action Date Dose Rate Site acetaminophen (TYLENOL) 160 MG/5ML oral solution 650 mg 650 mg, Oral, Every 4 Hours PRN, Mild Pain, Moderate Pain, Headache, Fever, Starting on 12/18/24 at 1728, If given for fever, use fever parameter: fever greater than 100.4 F Based on patient request - if ordered for moderate or severe pain, provider allows for administration of a medication prescribed for a lower pain scale. Do not exceed 4 grams of acetaminophen in a 24 hr period. Max dose of 2gm for AST/ALT greater than 120 units/L. If given for pain, use the following pain scale: Mild Pain = Pain Score of 1-3, CPOT 1-2 Moderate Pain = Pain Score of 4-6, CPOT 3-4 Severe Pain = Pain Score of 7-10, CPOT 5-8 acetaminophen (TYLENOL) suppository 650 mg 650 mg, Rectal, Every 4 Hours PRN, Mild Pain, Starting on 12/18/24 at 1728, If given for fever, use fever parameter: fever greater than 100.4 F Based on patient request - if ordered for moderate or severe pain, provider allows for administration of a medication prescribed for a lower pain scale. Do not exceed 4 grams of acetaminophen in a 24 hr period. Max dose of 2gm for AST/ALT greater than 120 units/L. If given for pain, use the following pain scale: Mild Pain = Pain Score of 1-3, CPOT 1-2 Moderate Pain = Pain Score of 4-6, CPOT 3-4 Severe Pain = Pain Score of 7-10, CPOT 5-8 acetaminophen (TYLENOL) tablet 650 mg 650 mg, Oral, Every 4 Hours PRN, Mild Pain, Moderate Pain, Headache, Fever, Starting on 12/18/24 at 1728, If given for fever, use fever parameter: fever greater than 100.4 F Based on patient request - if ordered for moderate or severe pain, provider allows for administration of a medication prescribed for a lower pain scale. Do not exceed 4 grams of acetaminophen in a 24 hr period. Max dose of 2gm for AST/ALT greater than 120 units/L. If given for pain, use the following pain scale: Mild Pain = Pain Score of 1-3, CPOT 1-2 Moderate Pain = Pain Score of 4-6, CPOT 3-4 Severe Pain = Pain Score of 7-10, CPOT 5-8 Given 12/20/2024 10:19 AM EDT 650 mg Given 12/19/2024 9:44 AM EDT 650 mg atorvastatin (LIPITOR) tablet 20 mg 20 mg, Oral, Nightly, First dose on 12/20/24 at 2100, Avoid grapefruit juice. atorvastatin (LIPITOR) tablet 80 mg 80 mg, Oral, Nightly, First dose on 12/18/24 at 2100, Avoid grapefruit juice. Given 12/18/2024 8:18 PM EDT 80 mg bisacodyl (DULCOLAX) EC tablet 5 mg 5 mg, Oral, Daily PRN, Constipation, Use if polyethylene glycol is ineffective, Starting on 12/18/24 at 1729, Use if no bowel movement after 12 hours. Swallow whole. Do not crush, split, or chew tablet. bisacodyl (DULCOLAX) suppository 10 mg 10 mg, Rectal, Daily PRN, Constipation, Use if bisacodyl oral is ineffective, Starting on 12/18/24 at 1729, Use if no bowel movement after 12 hours. Hold for diarrhea diphenhydrAMINE (BENADRYL) injection 25 mg 25 mg, Intravenous, Once, On 12/18/24 at 1630, For 1 dose, 25 mg may be given IV push over less than 1 minute. Caution: Look alike/sound alike drug alert. This med may be ordered in other forms and routes. Before giving verify the last time the drug was given by any route/form. Given 12/18/2024 4:53 PM EDT 25 mg escitalopram (LEXAPRO) tablet 20 mg 20 mg, Oral, Daily, First dose on 12/19/24 at 0900, Caution: Look alike/sound alike drug alert. Given 12/20/2024 10:19 AM EDT 20 mg Given 12/19/2024 9:44 AM EDT 20 mg hydrOXYzine (ATARAX) tablet 25 mg 25 mg, Oral, 3 Times Daily PRN, Anxiety, Starting on 12/18/24 at 1727, Caution: Look alike/sound alike drug alert Given 12/20/2024 12:52 AM EDT 25 mg Given 12/19/2024 3:39 PM EDT 25 mg Given 12/18/2024 8:18 PM EDT 25 mg magnesium sulfate 2g/50 mL (PREMIX) infusion 2 g, Intravenous, at 25 mL/hr, Administer over 2 Hours, Once, On 12/18/24 at 1630, For 1 dose New Bag 12/18/2024 4:53 PM EDT 2 g 25 mL/hr midazolam (VERSED) injection 0.5 mg 0.5 mg, Intravenous, Once, On 12/19/24 at 0215, For 1 dose, For MRI If given IV Push: give slowly over at least 2 minutes, unless provider at bedside for induction. (SHANKAR) Given 12/19/2024 1:54 AM EDT 0.5 mg montelukast (SINGULAIR) tablet 10 mg 10 mg, Oral, Daily, First dose on 12/19/24 at 0900 Given 12/20/2024 10:19 AM EDT 10 mg Given 12/19/2024 9:44 AM EDT 10 mg polyethylene glycol (MIRALAX) packet 17 g 17 g, Oral, Daily PRN, Constipation, Use if senna-docusate is ineffective, Starting on 12/18/24 at 1729, Use if no bowel movement after 12 hours. Mix in 6-8 ounces of water. Use 4-8 ounces of water, tea, or juice for each 17 gram dose. prochlorperazine (COMPAZINE) injection 10 mg 10 mg, Intravenous, Once, On 12/18/24 at 1630, For 1 dose, If multiple N/V medications ordered, use in the following order: Ondansetron, Prochlorperazine, Promethazine. Use PO unless patient refuses or patient unable to swallow. Given 12/18/2024 4:54 PM EDT 10 mg sennosides-docusate (PERICOLACE) 8.6-50 MG per tablet 2 tablet 2 tablet, Oral, 2 Times Daily PRN, Constipation, Starting on 12/18/24 at 1729, Start bowel management regimen if patient has not had a bowel movement after 12 hours. sodium chloride 0.9 % bolus 1,000 mL 1,000 mL, Intravenous, at 2,000 mL/hr, Administer over 0.5 Hours, Once, On 12/18/24 at 1630, For 1 dose New Bag 12/18/2024 4:54 PM EDT 1,000 mL 2000 mL/hr sodium chloride 0.9 % flush 10 mL 10 mL, Intravenous, Every 12 Hours Scheduled, First dose on 12/18/24 at 2100 Given 12/20/2024 10:22 AM EDT 10 mL Given 12/19/2024 8:09 PM EDT 10 mL Given 12/19/2024 10:05 AM EDT 10 mL sodium chloride 0.9 % flush 10 mL 10 mL, Intravenous, As Needed, Line Care, Starting on 12/18/24 at 1510 sodium chloride 0.9 % flush 10 mL 10 mL, Intravenous, Every 12 Hours Scheduled, First dose on 12/18/24 at 2100 Given 12/19/2024 10:00 AM EDT 10 mL Given 12/18/2024 8:23 PM EDT 10 mL sodium chloride 0.9 % flush 10 mL 10 mL, Intravenous, As Needed, Line Care, Starting on 12/18/24 at 1728 Given 12/18/2024 8:18 PM EDT 10 mL SUMAtriptan (IMITREX) tablet 50 mg 50 mg, Oral, Every 2 Hours PRN, Migraine, Starting on 12/19/24 at 1025, May repeat dose once in 2 hours if unresolved. Maximum single dose of 100 mg. Do not exceed 200 mg in 24 hours. Caution: Look alike/sound alike drug alert Given 12/19/2024 11:30 AM EDT 50 mg documented in this encounter Active and Recently Administered Medications Times are shown in EDT. Scheduled Medication Order 12/18/2024 12/19/2024 12/20/2024 atorvastatin (LIPITOR) tablet 20 mg 20 mg, Oral, Nightly, First dose on 12/20/24 at 2100, Avoid grapefruit juice. atorvastatin (LIPITOR) tablet 80 mg (CANCELED) 80 mg, Oral, Nightly, First dose on 12/18/24 at 2100, Avoid grapefruit juice. 2017 (Given - Provider: Estefanía Longoria RN) diphenhydrAMINE (BENADRYL) injection 25 mg (COMPLETED) 25 mg, Intravenous, Once, On 12/18/24 at 1630, For 1 dose, 25 mg may be given IV push over less than 1 minute. Caution: Look alike/sound alike drug alert. This med may be ordered in other forms and routes. Before giving verify the last time the drug was given by any route/form. 1652 (Given - Provider: Simona Tobias RN) escitalopram (LEXAPRO) tablet 20 mg 20 mg, Oral, Daily, First dose on 12/19/24 at 0900, Caution: Look alike/sound alike drug alert. 0944 (Given - Provider: Simona Tobias, RN) 1019 (Given - Provider: Shanell Gonzalez, RN) magnesium sulfate 2g/50 mL (PREMIX) infusion (COMPLETED) 2 g, Intravenous, at 25 mL/hr, Administer over 2 Hours, Once, On 12/18/24 at 1630, For 1 dose 165 (New Bag - Provider: Simona Tobias RN) midazolam (VERSED) injection 0.5 mg (COMPLETED) 0.5 mg, Intravenous, Once, On 12/19/24 at 0215, For 1 dose, For MRI If given IV Push: give slowly over at least 2 minutes, unless provider at bedside for induction. (SHANKAR) 0154 (Given - Provider: Estefanía Longoria RN - Comment: given in MRI for clausterphobia) montelukast (SINGULAIR) tablet 10 mg 10 mg, Oral, Daily, First dose on 12/19/24 at 0900 0944 (Given - Provider: Simona Tobias RN) 1019 (Given - Provider: Shanell Gonzalez, LAURIE) prochlorperazine (COMPAZINE) injection 10 mg (COMPLETED) 10 mg, Intravenous, Once, On 12/18/24 at 1630, For 1 dose, If multiple N/V medications ordered, use in the following order: Ondansetron, Prochlorperazine, Promethazine. Use PO unless patient refuses or patient unable to swallow. 165 (Given - Provider: Simona Tobias RN) sodium chloride 0.9 % bolus 1,000 mL (COMPLETED) 1,000 mL, Intravenous, at 2,000 mL/hr, Administer over 0.5 Hours, Once, On 12/18/24 at 1630, For 1 dose 1653 (New Bag - Provider: Simona Tobias RN) sodium chloride 0.9 % flush 10 mL 10 mL, Intravenous, Every 12 Hours Scheduled, First dose on 12/18/24 at 2100 2022 (Not Given - Provider: Estefanía Longoria RN - Reason: Other (Comment Required) - Comment: only one IV access) 100 (Given - Provider: Simona Tobias RN)2008 (Given - Provider: Bill Handy, RN) 1022 (Given - Provider: Shanell Gonzalez, LAURIE) sodium chloride 0.9 % flush 10 mL (CANCELED) 10 mL, Intravenous, Every 12 Hours Scheduled, First dose on 12/18/24 at 2100 2022 (Given - Provider: Estefanía Longoria, RN) 1000 (Given - Provider: Simona Tobias, LAURIE) PRN Medication Order 12/18/2024 12/19/2024 12/20/2024 acetaminophen (TYLENOL) 160 MG/5ML oral solution 650 mg(Linked Group 1) 650 mg, Oral, Every 4 Hours PRN, Mild Pain, Moderate Pain, Headache, Fever, Starting on 12/18/24 at 1728, If given for fever, use fever parameter: fever greater than 100.4 F Based on patient request - if ordered for moderate or severe pain, provider allows for administration of a medication prescribed for a lower pain scale. Do not exceed 4 grams of acetaminophen in a 24 hr period. Max dose of 2gm for AST/ALT greater than 120 units/L. If given for pain, use the following pain scale: Mild Pain = Pain Score of 1-3, CPOT 1-2 Moderate Pain = Pain Score of 4-6, CPOT 3-4 Severe Pain = Pain Score of 7-10, CPOT 5-8 0944 (Not Given: See Alt - Provider: Simona Tobias RN) 1019 (Not Given: See Alt - Provider: Shanell Gonzalez, RN) acetaminophen (TYLENOL) suppository 650 mg(Linked Group 1) 650 mg, Rectal, Every 4 Hours PRN, Mild Pain, Starting on 12/18/24 at 1728, If given for fever, use fever parameter: fever greater than 100.4 F Based on patient request - if ordered for moderate or severe pain, provider allows for administration of a medication prescribed for a lower pain scale. Do not exceed 4 grams of acetaminophen in a 24 hr period. Max dose of 2gm for AST/ALT greater than 120 units/L. If given for pain, use the following pain scale: Mild Pain = Pain Score of 1-3, CPOT 1-2 Moderate Pain = Pain Score of 4-6, CPOT 3-4 Severe Pain = Pain Score of 7-10, CPOT 5-8 0944 (Not Given: See Alt - Provider: Simona Tobias RN) 1019 (Not Given: See Alt - Provider: Shanell Gonzalez, LAURIE) acetaminophen (TYLENOL) tablet 650 mg(Linked Group 1) 650 mg, Oral, Every 4 Hours PRN, Mild Pain, Moderate Pain, Headache, Fever, Starting on 12/18/24 at 1728, If given for fever, use fever parameter: fever greater than 100.4 F Based on patient request - if ordered for moderate or severe pain, provider allows for administration of a medication prescribed for a lower pain scale. Do not exceed 4 grams of acetaminophen in a 24 hr period. Max dose of 2gm for AST/ALT greater than 120 units/L. If given for pain, use the following pain scale: Mild Pain = Pain Score of 1-3, CPOT 1-2 Moderate Pain = Pain Score of 4-6, CPOT 3-4 Severe Pain = Pain Score of 7-10, CPOT 5-8 0944 (Given - Provider: Simona Tobias RN) 1019 (Given - Provider: Shanell Gonzalez, LAURIE) albuterol (PROVENTIL) nebulizer solution 0.083% 2.5 mg/3mL 2.5 mg, Nebulization, Every 6 Hours PRN, Shortness of Air, Wheezing, Starting on 12/18/24 at 1726, Include Respiratory Treatment Education bisacodyl (DULCOLAX) EC tablet 5 mg(Linked Group 2) 5 mg, Oral, Daily PRN, Constipation, Use if polyethylene glycol is ineffective, Starting on 12/18/24 at 1729, Use if no bowel movement after 12 hours. Swallow whole. Do not crush, split, or chew tablet. bisacodyl (DULCOLAX) suppository 10 mg(Linked Group 2) 10 mg, Rectal, Daily PRN, Constipation, Use if bisacodyl oral is ineffective, Starting on 12/18/24 at 1729, Use if no bowel movement after 12 hours. Hold for diarrhea Calcium Replacement - Follow Nurse / BPA Driven Protocol Open Order & Select [facility] Electrolyte Replacement Protocol Algorithm to View Details hydrOXYzine (ATARAX) tablet 25 mg 25 mg, Oral, 3 Times Daily PRN, Anxiety, Starting on 12/18/24 at 1727, Caution: Look alike/sound alike drug alert 2018 (Given - Provider: Estefanía Longoria RN) 1539 (Given - Provider: Simona Tobias, RN) 0052 (Given - Provider: Bill Handy RN) Magnesium Standard Dose Replacement - Follow Nurse / BPA Driven Protocol Open Order & Select S Electrolyte Replacement Protocol Algorithm to View Details Phosphorus Replacement - Follow Nurse / BPA Driven Protocol Open Order & Select S Electrolyte Replacement Protocol Algorithm to View Details polyethylene glycol (MIRALAX) packet 17 g(Linked Group 2) 17 g, Oral, Daily PRN, Constipation, Use if senna-docusate is ineffective, Starting on 12/18/24 at 1729, Use if no bowel movement after 12 hours. Mix in 6-8 ounces of water. Use 4-8 ounces of water, tea, or juice for each 17 gram dose. Potassium Replacement - Follow Nurse / BPA Driven Protocol Open Order & [facility] Electrolyte Replacement Protocol Algorithm to View Details sennosides-docusate (PERICOLACE) 8.6-50 MG per tablet 2 tablet(Linked Group 2) 2 tablet, Oral, 2 Times Daily PRN, Constipation, Starting on 12/18/24 at 1729, Start bowel management regimen if patient has not had a bowel movement after 12 hours. sodium chloride 0.9 % flush 10 mL 10 mL, Intravenous, As Needed, Line Care, Starting on 12/18/24 at 1510 sodium chloride 0.9 % flush 10 mL (CANCELED) 10 mL, Intravenous, As Needed, Line Care, Starting on 12/18/24 at 1728 2017 (Given - Provider: Estefanía Longoria RN) SUMAtriptan (IMITREX) tablet 50 mg 50 mg, Oral, Every 2 Hours PRN, Migraine, Starting on 12/19/24 at 1025, May repeat dose once in 2 hours if unresolved. Maximum single dose of 100 mg. Do not exceed 200 mg in 24 hours. Caution: Look alike/sound alike drug alert 1130 (Given - Provider: Simona Tobias RN) Linked Groups Order Group 1: acetaminophen (TYLENOL) tablet 650 mgJump to med 650 mg, Oral, Every 4 Hours PRN, Mild Pain, Moderate Pain, Headache, Fever, Starting on 12/18/24 at 1728, If given for fever, use fever parameter: fever greater than 100.4 F Based on patient request - if ordered for moderate or severe pain, provider allows for administration of a medication prescribed for a lower pain scale. Do not exceed 4 grams of acetaminophen in a 24 hr period. Max dose of 2gm for AST/ALT greater than 120 units/L. If given for pain, use the following pain scale: Mild Pain = Pain Score of 1-3, CPOT 1-2 Moderate Pain = Pain Score of 4-6, CPOT 3-4 Severe Pain = Pain Score of 7-10, CPOT 5-8 Or acetaminophen (TYLENOL) 160 MG/5ML oral solution 650 mgJump to med 650 mg, Oral, Every 4 Hours PRN, Mild Pain, Moderate Pain, Headache, Fever, Starting on 12/18/24 at 1728, If given for fever, use fever parameter: fever greater than 100.4 F Based on patient request - if ordered for moderate or severe pain, provider allows for administration of a medication prescribed for a lower pain scale. Do not exceed 4 grams of acetaminophen in a 24 hr period. Max dose of 2gm for AST/ALT greater than 120 units/L. If given for pain, use the following pain scale: Mild Pain = Pain Score of 1-3, CPOT 1-2 Moderate Pain = Pain Score of 4-6, CPOT 3-4 Severe Pain = Pain Score of 7-10, CPOT 5-8 Or acetaminophen (TYLENOL) suppository 650 mgJump to med 650 mg, Rectal, Every 4 Hours PRN, Mild Pain, Starting on 12/18/24 at 1728, If given for fever, use fever parameter: fever greater than 100.4 F Based on patient request - if ordered for moderate or severe pain, provider allows for administration of a medication prescribed for a lower pain scale. Do not exceed 4 grams of acetaminophen in a 24 hr period. Max dose of 2gm for AST/ALT greater than 120 units/L. If given for pain, use the following pain scale: Mild Pain = Pain Score of 1-3, CPOT 1-2 Moderate Pain = Pain Score of 4-6, CPOT 3-4 Severe Pain = Pain Score of 7-10, CPOT 5-8 Group 2: sennosides-docusate (PERICOLACE) 8.6-50 MG per tablet 2 tabletJump to med 2 tablet, Oral, 2 Times Daily PRN, Constipation, Starting on 12/18/24 at 1729, Start bowel management regimen if patient has not had a bowel movement after 12 hours. And polyethylene glycol (MIRALAX) packet 17 gJump to med 17 g, Oral, Daily PRN, Constipation, Use if senna-docusate is ineffective, Starting on 12/18/24 at 1729, Use if no bowel movement after 12 hours. Mix in 6-8 ounces of water. Use 4-8 ounces of water, tea, or juice for each 17 gram dose. And bisacodyl (DULCOLAX) EC tablet 5 mgJump to med 5 mg, Oral, Daily PRN, Constipation, Use if polyethylene glycol is ineffective, Starting on 12/18/24 at 1729, Use if no bowel movement after 12 hours. Swallow whole. Do not crush, split, or chew tablet. And bisacodyl (DULCOLAX) suppository 10 mgJump to med 10 mg, Rectal, Daily PRN, Constipation, Use if bisacodyl oral is ineffective, Starting on 12/18/24 at 1729, Use if no bowel movement after 12 hours. 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
--- OUTSIDE RECORDS SUMMARY | 2025-02-02 07:40 | XMS_ITS | Clinical Summary ---
[facility] Address [address] [place] [address] Care Team Providers Care Ship Manager Name Role Phone System, Provider Not In Primary Care Provider Un available Allergies Active Allergy Reactions Criticality Noted Date Comments Cefdinir Rash Low 01/05/2021 Hydrocodone Hives 11/30/2024 Sulfamethoxazole-Trimethopri m Rash Low 02/25/2020 Bactrim (sulfamethoxazole-trimet hoprim) - Unknown Medications PROMETHAZINE-DM PO Take by mouth. Active fluticasone (FLONASE) 50 MCG/ACT nasal spray Administer 2 sprays into the nostril(s) as directed by provider Daily. Active [place]-3 Fatty Acids (FISH OIL) 1000 MG capsule capsule Take by mouth Daily With Breakfast. Active Multiple Vitamins-Minerals (MULTIVITAMIN ADULT PO) Take by mouth. Activ e albuterol sulfate HFA 108 (90 Base) MCG/ACT inhaler Inhale 2 puffs Every 6 (Six) Hours As Needed. Active escitalopram (LEXAPRO) 20 MG tablet Take 1 tablet by mouth Daily. 5 Active hydrOXYzine pamoate (VISTARIL) 25 MG capsule Take 3 capsules by mouth 3 (Three) Times a Day As Needed for Anxiety. 5 Active ipratropium-albute rol (DUO-NEB) 0.5-2.5 mg/3 ml nebulizer INHALE THE CONTENTS OF 1 VIAL VIA NEBULIZER EVERY 6 HOURS 5 Active loratadine (CLARITIN) 10 MG tablet Take 1 tablet by mouth Daily. Active metFORMIN ER (GLUCOPHAGE-XR) 500 MG 24 hr tablet TAKE ONE TABLET BY MOUTH EVERY EVENING WITH MEAL Active rizatriptan INSURANCE VERIFICATION REPRESENTATIVE (MAXALT-INSURANCE VERIFICATION REPRESENTATIVE) 5 MG disintegrating tablet DISSOLVE ONE TABLET BY MOUTH EVERY DAY NEEDED FOR HEADACHE Active montelukast (SINGULAIR) 10 MG tablet Take 1 tablet by mouth Daily. 90 tablet 1 Active atorvastatin (LIPITOR) 20 MG tablet Take 1 tablet by mouth Every Night. 90 tablet 3 Active Active Problems Problem Noted Date Diagnosed Date Left-sided weakness 12/18/2024 Morbid obesity 12/18/2024 LEONID (obstructive sleep apnea) 12/18/2024 Encounters Date Type Department Care Team Description 12/18/2024 2:35 PM EDT - 12/20/2024 1:36 PM EDT Hospital Encounter [facility] [address] [place] [id number] Veda Felix MD Shields, Daniel Alan, DO Polly, Oshuare, MD Fluency disorder (Primary Dx); Left-sided weakness Discharge Disposition: Home or Self Care 12/18/2024 Travel 11/30/2024 12:02 AM EDT - 11/30/2024 5:17 AM EDT Emergency [facility] EMERGENCY DEPARTMENT [place] [address] [facility] [address] [place] [address] Veda Felix MD Atypical chest pain (Primary Dx); Post-COVID chronic dyspnea Discharge Disposition: Home or Self Care 11/30/2024 Travel from Last 3 Months Immunizations Immunization Administration Dates Next Due DTaP 07/30/1993, 1,01/21/1989,1988,1988 DTaP, Unspecified 05/01/1990,01/21/1989 Flu Vaccine Quad PF >36MO 01/27/2018 Fluzone (or Fluarix & Flulav al for VFC) >6mos 02/14/2022,02/09/2021,01/31/2019,2017 HPV Quadrivalent 09/02/2000,04/02/2000, 0 Hep B, Unspecified 09/03/2000,04/02/2000, 000 Hepatitis B Adult/Adolescent IM 12/04/19 17,09/03/2000,04/02/2000,1999 HiB 09/24/1990,05/01/1990 IPV 07/30/1993, 1,1988,1988 Influenza, Unspecified 02/25/2020 MMR 10/03/1999,07/30/1993,10/27/1989 Td (TDVAX) 06/22/2004 Td, Unspecified 06/22/2004 Tdap 12/24/2016 Family History Medical History [...] Mass Index 58.13 12/18/2024 4:32 PM EDT Plan of Treatment Health Maintenance Due Date Last Done Comments Annual Gynecologic Pelvic and Breast Exam 1988 ANNUAL PHYSICAL 12/21/2016 HEPATITIS C SCREENING 12/21/2016 INFLUENZA VACCINE 11/19/2024 02/14/2022, , 02/25/2020, Additional history exists TDAP/TD VACCINES (3 - Td or Tdap) 12/24/2026 12/24/2016, 06/22/2004, 06/22/2004 Pneumococcal Vaccine 0-49 Aged Out No longer eligible based on patient's age to complete this topic Medical Devices Implanted Type Area Tape Cutter Device Identifier Shelf Expiration Date Model / Serial / Lot Iud Implant MIRENA / / Procedures Procedure Name Priority Date/Time Associated Diagnosis Comments CBC AND DIFFERENTIAL Urgent 12/19/2024 1:04 PM EDT CBC WITH AUTO DIFFERENTIAL Urgent 12/19/2024 1:04 PM EDT SEDIMENTATION RATE Urgent 12/19/2024 1: 04 PM EDT C-REACTIVE PROTEIN Urgent 12/19/2024 1: 04 PM EDT COMPREHENSIVE METABOLIC PANEL Urgent 12/19/2024 1:04 PM EDT LIPID PANEL Urgent 12/19/2024 1:04 PM EDT HEMOGLOBIN A1C Urgent 12/19/2024 1:04 PM EDT SCANNED - [...] 12/18/2024 2:52 PM EDT SCANNED EKG 12/18/2024 CT ANGIOGRAM CHEST PULMONARY EMBOLISM STAT 11/30/2024 [...] EDT from Last 3 Months Results * CBC Auto Differential (12/19/2024 1:04 PM EDT) Only the most recent of2 resultswithin the time period is included. [facility] WBC 7.08 3.40 - 10.80 10*3/mm3 12/19/2024 1:17 PM EDT [facility] RBC 4.54 3.77 - 5.28 10*6/mm3 12/19/2024 1:17 PM EDT [facility] Hemoglobin 13.1 12.0 - 15.9 g/dL 12/19/2024 1:17 PM EDT [facility] Hematocrit 39.2 34.0 - 46.6 % 12/19/2024 1:17 PM EDT [facility] MCV 86.3 79.0 - 97.0 fL 12/19/2024 1:17 PM EDT [facility] MCH 28.9 26.6 - 33.0 pg 12/19/2024 1:17 PM EDT [facility] MCHC 33.4 31.5 - 35.7 g/dL 12/19/2024 1:17 PM EDT [facility] RDW 14.1 12.3 - 15.4 % 12/19/2024 1:17 PM EDT [facility] RDW-SD 44.8 37.0 - 54.0 fl 12/19/2024 1:17 PM EDT [facility] MPV 9.4 6.0 - 12.0 fL 12/19/2024 1:17 PM EDT [facility] Platelets 290 140 - 450 10*3/mm3 12/19/2024 1:17 PM EDT [facility] Neutrophil % 61.5 42.7 - 76.0 % 12/19/2024 1:17 PM EDT [facility] Lymphocyte % 25.7 19.6 - 45.3 % 12/19/2024 1:17 PM EDT [facility] Monocyte % 8.8 5.0 - 12.0 % 12/19/2024 1:17 PM EDT [facility] Eosinophil % 3.1 0.3 - 6.2 % 12/19/2024 1:17 PM EDT [facility] Basophil % 0.6 0.0 - 1.5 % 12/19/2024 1:17 PM EDT [facility] Immature Grans % 0.3 0.0 - 0.5 % 12/19/2024 1:17 PM EDT [facility] Neutrophils, Absolute 4.36 1.70 - 7.00 10*3/mm3 12/19/2024 1:17 PM EDT [facility] Lymphocytes, Absolute 1.82 0.70 - 3.10 10*3/mm3 12/19/2024 1:17 PM EDT [facility] Monocytes, Absolute 0.62 0.10 - 0.90 10*3/mm3 12/19/2024 1:17 PM EDT [facility] Eosinophils, Absolute 0.22 0.00 - 0.40 10*3/mm3 12/19/2024 1:17 PM EDT [facility] Basophils, Absolute 0.04 0.00 - 0.20 10*3/mm3 12/19/2024 1:17 PM EDT [facility] Immature Grans, Absolute 0.02 0.00 - 0.05 10*3/mm3 12/19/2024 1:17 PM EDT [facility] nRBC 0.0 0.0 - 0.2 /100 WBC 12/19/2024 1:17 PM EDT [facility] Blood Venipuncture / Unknown 12/19/2024 1:04 PM EDT 12/19/2024 1:09 PM EDT Christophe Green DO LAB BLOOD ORDERABLES Leandra l Result [facility]
[address] [place] [address], * (ABNORMAL) Sedimentation Rate (12/19/2024 1:04 PM EDT) Sed Rate 41(H) 0 - 20 mm/hr 12/19/2024 1:23 PM EDT [facility] Blood Venipuncture / Unknown 12/19/2024 1:04 PM EDT 12/19/2024 1:09 PM EDT Christophe Green DO LAB BLOOD ORDERABLES Leandra l Result [facility]
[address] [place] [address], * (ABNORMAL) C-reactive Protein (12/19/2024 1:04 PM EDT) C-Reactive Protein 1.37(H) 0.00 - 0.50 mg/dL 12/19/2024 1:40 PM EDT [facility] Blood Venipuncture / Unknown 12/19/2024 1:04 PM EDT 12/19/2024 1:10 PM EDT Christophe Green DO LAB BLOOD ORDERABLES Leandra l Result Performing Organization Address City/[facility]/ZIP Co de Phone Number [facility]
[address] [place] [address], * (ABNORMAL) Hemoglobin A1c (12/19/2024 1:04 PM EDT) Hemoglobin A1C 5.83(H) 4.80 - 5.60 % 12/19/2024 1:26 PM EDT [facility] Blood Venipuncture / Unknown 12/19/2024 1:04 PM EDT 12/19/2024 1:09 PM EDT Narrative [facility] - 12/19/2024 1:26 PM EDT Hemoglobin A1C Ranges: Increased Risk for Diabetes 5.7% to 6.4% Diabetes >= 6.5% Diabetic Goal < 7.0% Misti Gay APRN LAB BLOOD ORDERABLES Final R esult [facility]
[address] [place] [address], * (ABNORMAL) Lipid Panel (12/19/2024 1:04 PM EDT) Total Cholesterol 180 0 - 200 mg/dL 12/19/2024 1:40 PM EDT [facility] Triglycerides 117 0 - 150 mg/dL 12/19/2024 1:40 PM EDT [facility] HDL Cholesterol 49 40 - 60 mg/dL 12/19/2024 1:40 PM EDT [facility] LDL Cholesterol 110(H) 0 - 100 mg/dL 12/19/2024 1:40 PM EDT [facility] VLDL Cholesterol 21 5 - 40 mg/dL 12/19/2024 1:40 PM EDT [facility] LDL/HDL Ratio 2.20 12/19/2024 1:40 PM EDT [facility] Blood Venipuncture / Unknown 12/19/2024 1:04 PM EDT 12/19/2024 1:10 PM EDT Narrative [facility] - 12/19/2024 1:40 PM EDT Cholesterol [...] the NIH LDL-C calculation. us Misti Gay STRUCTURAL METAL FABRICATOR APPRENTICE LAB BLOOD ORDERABLES Final R esult [facility]
[address] [place] [address], * Comprehensive Metabolic Panel (12/19/2024 1:04 PM EDT) Only the most recent of2 resultswithin the time period is included. [facility] Signature Glucose 93 65 - 99 mg/dL 12/19/2024 1:40 PM EDT [facility] BUN 10.0 6.0 - 20.0 mg/dL 12/19/2024 1:40 PM EDT [facility] Creatinine 0.66 0.57 - 1.00 mg/dL 12/19/2024 1:40 PM EDT [facility] Sodium 140 136 - 145 mmol/L 12/19/2024 1:40 PM EDT [facility] Potassium 3.9 3.5 - 5.2 mmol/L 12/19/2024 1:40 PM EDT [facility] Chloride 106 98 - 107 mmol/L 12/19/2024 1:40 PM EDT [facility] CO2 22.8 22.0 - 29.0 mmol/L 12/19/2024 1:40 PM EDT [facility] Calcium 8.9 8.6 - 10.5 mg/dL 12/19/2024 1:40 PM EDT [facility] Total Protein 6.9 6.0 - 8.5 g/dL 12/19/2024 1:40 PM EDT [facility] Albumin 3.8 3.5 - 5.2 g/dL 12/19/2024 1:40 PM EDT [facility] ALT (SGPT) 21 1 - 33 U/L 12/19/2024 1:40 PM EDT [facility] AST (SGOT) 26 1 - 32 U/L 12/19/2024 1:40 PM EDT [facility] Alkaline Phosphatase 82 39 - 117 U/L 12/19/2024 1:40 PM EDT [facility] Total Bilirubin 0.3 0.0 - 1.2 mg/dL 12/19/2024 1:40 PM EDT [facility] Globulin 3.1 gm/dL 12/19/2024 1:40 PM EDT [facility] Comment:Calculated Result A/G Ratio 1.2 g/dL 12/19/2024 1:40 PM EDT [facility] BUN/Creatinine Ratio 15.2 7.0 - 25.0 12/19/2024 1:40 PM EDT [facility] Anion Gap 11.2 5.0 - 15.0 mmol/L 12/19/2024 1:40 PM EDT [facility] eGFR 116.8 >60.0 mL/min/1.7 3 12/19/2024 1:40 PM EDT [facility] Blood Venipuncture / Unknown 12/19/2024 1:04 PM EDT 12/19/2024 1:10 PM EDT Narrative [facility] - 12/19/2024 1:40 PM EDT GFR [...] does not include race as a factor Christophe Green DO LAB BLOOD ORDERABLES Leandra l Result [facility]
[address] [place] [address], * Telemetry Scan (12/19/2024 8:00 AM EDT) Only the most recent of3 resultswithin the time period is included. [facility] Onbase ECG ORDERABLES Final Result * POC Glucose Once (12/19/2024 5:55 AM EDT) Only the most recent of4 resultswithin the time period is included. Glucose 110 70 - 130 mg/dL 12/19/2024 5:57 AM EDT [facility] Comment:Serial Number: [id number] Blood 12/19/2024 5:55 AM EDT 12/19/2024 5:57 AM EDT Christophe Green DO POINT OF CARE TEST ORDERA BLES Final Result [facility]
[address] [place] [address], * MRI Brain Without Contrast (12/19/2024 1:43 AM EDT) Anatomical Region Laterality Modality Head, Neck N/A Magnetic Resonan ce 12/19/2024 2:53 AM EDT Impressions 12/19/2024 2:55 AM EDT Impression: No acute intracranial abnormality. Electronically Signed: Christophe Grant MD 12/19/2024 2:55 AM EDT Workstation ID: [id number] Narrative 12/19/2024 2:55 AM EDT MRI BRAIN [...] MD 12/19/2024 2:55 AM EDT Workstation ID: [id number] us Misti Gay STRUCTURAL METAL FABRICATOR APPRENTICE IMG MRI ORDERABLES Final Res ult * (ABNORMAL) Blood Gas, Venous With Co-Ox (12/18/2024 6:48 PM EDT) Site OTHER 12/18/2024 6:49 PM EDT [facility] THERAPY pH, Venous 7.394 7.310 - 7.410 pH Units 12/18/2024 6:49 PM EDT [facility] THERAPY pCO2, Venous 41.9 41.0 - 51.0 mm Hg 12/18/2024 6:49 PM EDT [facility] THERAPY pO2, Venous 65.3(H) 27.0 - 53.0 mm Hg 12/18/2024 6:49 PM EDT [facility] Comment:83 Value above refer ence range HCO3, Venous 25.6 22.0 - 28.0 mmol/L 12/18/2024 6:49 PM EDT [facility] THERAP[facility] Base Excess, Venous 0.5 -2.0 - 2.0 mmol/L 12/18/2024 6:49 PM EDT [facility]ER[facility] Hemoglobin, Blood Gas 13.6(L) 14 - 18 g/dL 12/18/2024 6:49 PM EDT [facility] Oxyhemoglobin Venous 92.3 % 11/21 6:49 PM EDT [facility] Comment:83 Value above refer ence range Methemoglobin Venous 0.1 % 11/21 6:49 PM EDT [facility] Carboxyhemoglobin Venous 1.3 % 12/18/2024 6:49 PM EDT [facility] CO2 Content 26.9 22 - 33 mmol/L 12/18/2024 6:49 PM EDT [facility] Temperature 37.0 12/18/2024 6:49 PM EDT [facility] Barometric Pressure for Blood Gas 12/18/2024 6:49 PM EDT [facility] Comment:N/A Modality Room Air 12/18/2024 6:49 PM EDT [facility] THER[facility] FIO2 21 % 12/18/2024 6:49 PM EDT [facility] THER[facility] Rate 0 Breaths/ minute 12/18/2024 6:49 PM EDT [facility] PIP 0 cmH2O 12/18/2024 6:49 PM EDT [facility] Comment:Meter: [id number] Iron Assorter: [id number] IPAP 0 12/18/2024 6:49 PM EDT [facility] THERAP[facility] EPAP 0 12/18/2024 6:49 PM EDT [facility] TH[facility] Venous Blood 12/18/2024 6:48 PM EDT 12/18/2024 6:48 PM EDT us Christophe Green DO LAB BLOOD ORDERABLES Leandra vaughn Result [facility]
[address] [place] [address], [place] * CT Outside Head (12/18/2024 4:02 PM EDT) Only the most recent of2 resultswithin the time period is included. Narrative SYSTEMGENERATED, DOCUMENTATION - 12/18/2024 4:02 PM EDT This procedure was auto-finalized with no dictation required. us [employer] Outside Films IMG CT ORDERABLES Final Re sult * ECG Scan (12/18/2024) us [facility] Onbase ECG ORDERABLES Final Result * CT Angiogram Chest Pulmonary Embolism (11/30/2024 1:34 AM EDT) Anatomical Region Laterality Modality Chest N/A Computed Tomogra phy 11/30/2024 1:54 AM EDT Impressions 11/30/2024 1:57 AM EDT Impression: No acute cardiopulmonary abnormality. No evidence of pulmonary embolism. Electronically Signed: Christophe Grant MD 11/30/2024 1:57 AM EDT Workstation ID: [id number] Narrative 11/30/2024 1:[address] ANGIOGRAM [...] MD 11/30/2024 1:57 AM EDT Workstation ID: [id number] Veda Felix MD [facility] ORDERABLES Final Resul t * High Sensitivity Troponin T 1Hr (11/30/2024 1:21 AM EDT) HS Troponin T <6 <14 ng/L 11/30/2024 1:42 AM EDT [facility] Troponin T Numeric Delta 11/30/2024 1:42 AM EDT [facility] Comment:Unable to calculate. Blood Venipuncture / Unknown 11/30/2024 1:21 AM EDT 11/30/2024 1:23 AM EDT [facility] - 11/30/2024 1:42 AM EDT High [...] MD LAB BLOOD ORDERABLES Final Re sult [facility]
[address] [place] [address], * POC Urine (11/30/2024 1:13 AM EDT) Pathologist [facility] HCG, Urine, QL Negative [facility] Internal Positive Control [facility] Internal Negative Control [facility] Urine 11/30/2024 1:13 AM EDT Veda Felix MD POINT OF CARE TEST ORDERABLES Final Result Performing Organization Address City/[facility] Co de Phone Number [facility]
[address] [place] [id number], * ECG 12 Lead Chest Pain (11/30/2024 [...] Veda Felix MD ECG ORDERABLES Final Result [facility] ECG * XR Chest 1 View (11/30/2024 12:28 AM EDT) Anatomical Region Laterality Modality Body N/A Radiographic Patti ging 11/30/2024 12:4 7 AM EDT Impressions 11/30/2024 12:47 AM EDT Impression: No acute cardiopulmonary abnormality. Electronically Signed: Christophe Grant MD 11/30/2024 12:47 AM EDT Workstation ID: [id number] Narrative 11/30/2024 12:47 AM EDT XR CHEST [...] MD 11/30/2024 12:47 AM EDT Workstation ID: [id number] Veda Felix MD IMG DIAGNOSTIC IMAGING ORDERA BLES Final Result * Petersen Top (11/30/2024 12:18 AM EDT) Extra Tube Hold for add-ons. 11/30/2024 12:30 AM EDT [facility] Comment:Auto resulted. Blood Line / Unknown 11/30/2024 12 :18 AM EDT 11/30/2024 12:25 AM EDT Veda Felix MD LAB BLOOD ORDER ONLY Final Re sult [facility]
[address] [place] [address], [place] * Gold Top - SST (11/30/2024 12:18 AM EDT) Extra Tube Hold for add-ons. 11/30/2024 12:30 AM EDT [facility] Comment:Auto resulted. Blood Line / Unknown 11/30/2024 12 :18 AM EDT 11/30/2024 12:25 AM EDT Veda Felix MD LAB BLOOD ORDER ONLY Final Re sult [facility]
[address] [facility] [address] [place] [address], [place] * Green Top (Gel) (11/30/2024 12:18 AM EDT) Extra Tube Hold for add-ons. 11/30/2024 12:30 AM EDT [facility] Comment:Auto resulted. Blood Line / Unknown 11/30/2024 12 :18 AM EDT 11/30/2024 12:25 AM EDT Veda Felix MD LAB BLOOD ORDER ONLY Final Re sult [facility]
[address] [place] [address], [place] * Lavender Top (11/30/2024 12:18 AM EDT) Extra Tube hold for add-on 11/30/2024 12:30 AM EDT [facility] Comment:Auto resulted Blood Line / Unknown 11/30/2024 12 :18 AM EDT 11/30/2024 12:25 AM EDT Veda Felix MD LAB BLOOD ORDER ONLY Final Re sult [facility]
[address] [place] [address], [place] * Light Blue Top (11/30/2024 12:18 AM EDT) Extra Tube Hold for add-ons. 11/30/2024 12:30 AM EDT [facility] Comment:Auto resulted Blood Line / Unknown 11/30/2024 12 :18 AM EDT 11/30/2024 12:25 AM EDT Veda Felix MD LAB BLOOD ORDER ONLY Final Re sult [facility]
[address] [place] [address], [place] * High Sensitivity Troponin T (11/30/2024 12:18 AM EDT) HS Troponin T <6 <14 ng/L 11/30/2024 12:44 AM EDT [facility] Blood Line / Unknown 11/30/2024 12 :18 AM EDT 11/30/2024 12:25 AM EDT us Veda Felix MD LAB BLOOD ORDERABLES Final Re sult [facility]
[address] [place] [address], [place] * BNP (11/30/2024 12:18 AM EDT) Pathologist [facility] proBNP 91.1 0.0 - 450.0 pg/mL 11/30/2024 12:45 AM EDT [facility] Blood Line / Unknown 11/30/2024 12 :18 AM EDT 11/30/2024 12:25 AM EDT Narrative [facility] - 11/30/2024 12:45 AM EDT [...] >75 Positive >1800 Petersen 300-1800 Negative <300 us Veda Felix MD LAB BLOOD ORDERABLES Final Re sult [facility]
[address] [place] [address], [place] * Lipase (11/30/2024 12:18 AM EDT) Lipase 19 13 - 60 U/L 11/30/2024 12:47 AM EDT [facility] Blood Line / Unknown 11/30/2024 12 :18 AM EDT 11/30/2024 12:25 AM EDT us Veda Felix MD LAB BLOOD ORDERABLES Final Re sult [facility]
[address] [place] [address], from Last 3 Months Insurance Advance Directives * CPR (Attempt to Resuscitate) (Latest Code Status on File) Date Activated Date Inactivated Comments 12/18/2024 5:29 PM 12/20/2024 3:42 PM Question Answer Comments Code Status (Patient has no pulse and is not breathing): CPR (Attempt to Resuscitate) Medical Interventions (Patie nt has pulse or is breathing): Full Support Care Teams Ship Manager Relationship Specialty Start Date End Date System, [place] [address] PCP - General 01/18/22
--- OUTSIDE RECORDS SUMMARY | 2025-02-02 07:40 | XMS_ITS | Encounter Summary ---
[facility] Address [address] [place] [address] Care Team Providers Care Electrical Technician Instructor Name Role Phone System, Provider Not In Primary Care Provider Un available Encounter Details Date Type Department Care Team (Latest Contact Info) Description 12/18/2024 Travel Social History Tobacco Use Types Packs/Day Years Used Date Smoking Tobacco: Former Cigarettes 0.5 11 Q uit: 2024 Smokeless Tobacco: Never Alcohol Use Standard Drinks/Week [...] as of this encounter Functional Status * Question Answer Date of Assessment Author 1. Wish to be (Past 1 Month) No 025 4:31 PM EDT Simona Tobias RN 2. Non-Specific Active Suici wade Thoughts (Past 1 Month) No 12/18/2024 4:31 PM EDT Lacey Tobias cca, RN * Calculated C-SSRS Risk Score (Lifetime/Recent) Answer Date of Assessment Author No Risk Indicated 12/18/2024 4:31 PM EDT Simona Tobias RN * [facility] Suicide Severity Rating Scale (Screener/Recent Self-Report) Question Answer Date of Assessment Author 6. Suicidal Behavior (Lifetime) No 4:31 PM EDT Simona Tobias RN documented as of this encounter Plan of Treatment Not on file documented as of this encounter Visit Diagnoses Not on filedocumented in this encounter Care Teams Electrical Technician Instructor Relationship Specialty Start Date End Date System, [place] [address] PCP - General 01/18/22 documented as of this encounter
--- OUTSIDE RECORDS SUMMARY | 2025-02-02 07:41 | XMS_ITS | Clinical Summary ---
Author Organization [facility] Address [address] [place] [address] Care Team Providers Care Casing Fluid Tender Name Role Phone Unavailable Primary Care Provider [...] 2018 [facility]-HPV/Cotest 2018 [facility]-Depression Screening 04/02/2022 04/02/2021 [id number] Vaccine ( season) 2024 06/23/2020, 06/02/2020 [facility]-Influenza Vaccine (#1) 12/20/202402/14, 02/09/2021, [...] patient's age to complete this topic Insurance [facility] [place]
--- OUTSIDE RECORDS SUMMARY | 2025-02-02 07:41 | XMS_ITS | Clinical Summary ---
Author Organization [facility] Address [address] [place] [address] Phone Care Team Providers Care Head Of History Name Role Phone Unavailable Primary Care Provider [...] 2018 COVID-19 Vaccine ( - 2023-25 season) 2024 Influenza Vaccine (#1) 2024 RSV or 60+ (1 - 1-dose 75+ series) 07/20/2063 Hepatitis B Vaccine Completed 09/02/2000, 04/02/2000, 02/27/2000 Meningococcal B Vaccine Aged Out No l onger eligible based on patient's age to complete this topic Pneumococcal Vaccine 0-49 Aged Out No longer eligible based on patient's age to complete this topic Insurance [place]
--- OUTSIDE RECORDS SUMMARY | 2025-02-02 07:41 | XMS_ITS | Encounter Summary ---
Author Organization [facility] Address [address] [place] [address] Care Team Providers Care Scanning Coordinator Name Role Phone Ninfa Ramos APRN Primary Care Provider [phone] Reason for Visit * Reason Comments Med Refill Encounter Details Date Type Department Care Team (Late st Contact Info) Description 07/10/2021 Refill Family and Community Medicine [address] [place] [address] Ninfa Ramos APRN [address] [place] [address] Anxiety Social History Tobacco Use [...] documented as of this encounter Care Teams Scanning Coordinator Relationship Specialty Start Date End Date Ninfa Ramos APRN [address] [place] [address] PCP - General 09/01/20 10/17/24 documented as of this encounter
--- OUTSIDE RECORDS SUMMARY | 2025-02-02 07:41 | XMS_ITS | Encounter Summary ---
Author Organization [facility] Address [address] [place] [address] Care Team Providers Care Area Supervisor Name Role Phone Ninfa Ramos APRN Primary Care Provider [phone] Reason for Visit * Reason Comments Med Refill Encounter Details Date Type Department Care Team (Late st Contact Info) Description 10/01/2022 Refill Family and Community Medicine [address] [place] [address] Ninfa Ramos APRN [address] [place] [address] Social History Tobacco Use Types [...] documented as of this encounter Care Teams Area Supervisor Relationship Specialty Start Date End Date Ninfa Ramos APRN [address] [place] [id number] PCP - General 09/01/20 10/17/24 documented as of this encounter
--- OUTSIDE RECORDS SUMMARY | 2025-02-02 07:41 | XMS_ITS | Encounter Summary ---
Author Organization [facility] Address [address] [place] [address] Care Team Providers Care Career Based Intervention Coordinator Name Role Phone System, Provider Not In Primary Care Provider Un available Encounter Details Date Type Department Care Team (Late st Contact Info) Description 05/21/[address] [facility] HISTORICAL CONV [address] [place] [address] Interface, See Report Social History [...] See Report - 05/21/2013 9:00 AM EST [place] [address] DISCHARGE SUMMARY PATIENT NAME: SIDRA WHITT ROOM NUMBER: [id number] VISIT NUMBER: [id number] DATE OF : 1990 DATE OF ADMISSION: [...] for: MD EMERY Farris/MIGUEL/shmuel Voice Rec. ID #[id number] Voice Original ID #[id number] Doc ID #[id number] Rev. #1 [No PCP on file] cc: Lashanda Anguiano MD* DO NOT TEXT EDIT THIS LINE :CDS:353: Authenticated by ROCKY BRAY On 07/09/2013 08:20:31 PM Authenticated by LASHANDA ANGUIANO M.D. On 2013 07:31:09 AM documented in this encounter OR Notes * Op Note - Interface, See Report - 05/21/2013 9:00 AM EST [place] [address] OPERATIVE REPORT PATIENT NAME: SIDRA WHITT 1 HOSPITAL NO: [id number] DATE OF : 1990 DATE OF OPERATION: 05/21/2013 ADMITTING PHYSICIAN/SURGEON: Lashanda Anguiano MD VAULT CASHIER: Stefany Llamas MD/Resident PREOPERATIVE DIAGNOSES: 1. Term [...] It was extended by finger fractionation. The infant was noted to be in cephalic position with clear amniotic fluid. Fundal pressure was applied. The head was elevated and the infant was delivered without difficulty. The nose and oropharynx were suctioned. The cord was clamped and cut and the infant was passed to the pediatric staff in [...] Lashanda Anguiano MD* EWC/rxsmj Voice Rec. ID #[id number] Original Voice Rec. ID #[id number] Doc ID #[id number] Revision Count: 0 cc: Lashanda Anguiano MD* <start header> [place] [address] OPERATIVE REPORT PATIENT NAME: SIDRA WHITT 1 HOSPITAL NO: [id number] DATE OF : 1990 <end header> DO NOT TEXT EDIT THIS LINE :CISCO ADMINISTRATOR:[id number]: Authenticated by LASHANDA ANGUIANO M.D. On 05/28/2013 [...] EST) Creatinine 0.6 0.6 - 1.3 mg/dL [facility] Uric Acid 4.3 2.6 - 7.2 mg/dL [facility] Alkaline Phosphatase 91 25 - 100 Units/L [facility] AST (SGOT) 29 8 - 33 Units/L [facility] LDH 204(H) 100 - 190 Units/L [facility] ALT (SGPT) 21 7 - 40 Units/L [facility] Total Bilirubin 0.3 0.3 - 1.2 mg/dL [facility] Blood specimen (specimen) 05/23/2013 10:31 AM EST [facility] - 05/23/2013 11:02 AM EST Specimen Type: Blood Kyleigh Trevino PA-C LAB BLOOD ORDERABLES F inal Result Performing Organization Address City/[facility]/[place] [address], * (ABNORMAL) CBC (No diff) (05/22/2013 8:20 AM EST) WBC 9.24 3.50 - 10.80 K/[facility] RBC 3.37(L) 3.89 - 5.14 M/[facility] Hemoglobin 9.8(L) 11.5 - 15.5 g/dL [facility] Hematocrit 29.6(L) 34.5 - 44.0 % [facility] MCV 87.8 80.0 - 99.0 fL [facility] MCH 29.1 27.0 - 31.0 pg [facility] MCHC 33.1 32.0 - 36.0 g/dL [facility] RDW-CV 15.1(H) 11.3 - 14.5 % [facility] Platelets 155 150 - 450 K/[facility] Blood specimen (specimen) 05/22/2013 8:20 AM EST [facility] - 05/22/2013 9:10 AM EST Specimen Type: Blood Lashanda Anguiano MD LAB BLOOD ORDERABLES Final Result Performing Organization Address [facility]/[place] [address], * Rapid drug screen, urine (05/20/2013 12:01 PM EST) THC Screen Interpretation Negative NEGATIVE ng/mL [facility] Phencyclidine (PCP), Urine Negative NEGATIVE ng/mL [facility] Cocaine Screen, Urine Negative NEGATIVE ng/mL [facility] Methamphetamine, Urine Negative NEGATIVE ng/mL [facility] Opiate Screen, Urine Negative NEGATIVE ng/mL [facility] Amphetamine, Urine Qual Negative NEGATIVE ng/mL [facility] Comment: DF by [id number] @ 05/20/2013 12:18 Test Cutoff THC 50 [...] method. Benzodiazepine Screen, Urine Negative NEGATIVE ng/mL [facility] TCA Screen Negative NEGATIVE ng/mL [facility] Methadone Screen, Urine Negative NEGATIVE ng/mL [facility] Barbiturates Screen, Urine Negative NEGATIVE ng/mL [facility] Oxycodone Screen, Urine Negative NEGATIVE ng/mL [facility] Propoxyphene Screen Negative NEGATIVE ng/mL [facility] Buprenorphine, Screen, Urine Negative NEGATIVE ng/mL [facility] Urine specimen (specimen) 05/20/2013 12:01 PM EST Narrative [facility] - 05/20/2013 12:18 PM EST Specimen Type: Urine us Lashanda Anguiano MD URINE ORDERABLES Final Res ult [facility] [address] [place] [address], * Type and screen (05/20/2013 11:20 AM EST) ABORh O Rh Positive [facility] Antibody Screen Negative [facility] Blood specimen (specimen) 05/20/2013 11:20 AM EST [facility] - 05/20/2013 12:29 PM EST Specimen Type: Blood Lashanda Anguiano MD BLOOD BANK TEST ORDERABLES Final Result Performing Organization Address [facility] [place] [address], * (ABNORMAL) CBC (No diff) (05/20/2013 11:20 AM EST) WBC 11.88(H) 3.50 - 10.80 K/[facility] RBC 4.26 3.89 - 5.14 /[facility] Hemoglobin 12.5 11.5 - 15.5 g/dL [facility] Hematocrit 37.3 34.5 - 44.0 % [facility] MCV 87.6 80.0 - 99.0 fL [facility] MCH 29.3 27.0 - 31.0 pg [facility] MCHC 33.5 32.0 - 36.0 g/dL [facility] RDW-CV 14.9(H) 11.3 - 14.5 % [facility] Platelets 205 150 - 450 K/[facility] Blood specimen (specimen) 05/20/2013 11:20 AM EST [facility] - 05/20/2013 11:46 AM EST Specimen Type: Blood Lashanda Anguiano MD LAB BLOOD ORDERABLES Final Result Performing Organization Address [facility] [place] [address], documented in this encounter Visit Diagnoses Not on filedocumented in this encounter Care Teams Career Based Intervention Coordinator Relationship Specialty Start Date End Date System, [place] [address] PCP - General 01/18/22 documented as of this encounter
--- NOTE | 2025-02-02 07:45 | MR_ITS ---
FINAL REPORT TECHNIQUE: Multiplanar and multisequence imaging of the cervical spine was obtained. CLINICAL HISTORY: Hyperreflexia, imbalance, gait disturbance COMPARISON: None FINDINGS: Alignment is normal of the cervical vertebral bodies. Vertebral body height is preserved. Signal intensity within the substance of the spinal cord is normal. No acute bone marrow edema. There are mildly enlarged upper cervical lymph nodes which are nonspecific. Otherwise, no acute paraspinal abnormality. C2/3: No focal disc herniation, central canal stenosis, or neural foraminal narrowing. C3/4: Annular disc bulge. No central canal stenosis or neural foraminal narrowing. C4/5: Small central protrusion. No central canal stenosis or neural foraminal narrowing. C5/6: Central protrusion superimposed on annular bulge. Mild central canal stenosis. No neural foraminal narrowing. C6/7: Annular disc bulge with degenerative endplate changes and facet osteoarthropathy. No central canal stenosis or neural foraminal narrowing. C7/T1: No focal disc herniation, central canal stenosis, or neural foraminal narrowing. IMPRESSION: Small protrusions and degenerative disease as above with mild central canal stenosis at C5-6. Otherwise, no acute abnormality identified of the cervical spine. Reviewed, Interpreted and Dictated by Tiffanie Garcia MD Transcribed by Estee Cruz Authenticated and [facility]
--- NOTE | 2025-02-02 08:30 | MR_ITS ---
FINAL REPORT CLINICAL HISTORY: Strokelike symptoms. Hyperreflexia, imbalance, gait disturbance COMPARISON: None FINDINGS: Multiple projection images of the brain venous vasculature was performed without contrast. The raw data images were also reviewed. The superior sagittal sinus and right transverse sinus are patent without filling defect. The left transverse sinus is small, likely a normal variant hypoplastic transverse sinus. The sigmoid sinus is patent. No venous abnormality is identified. 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 Otherwise, no evidence of dural venous sinus thrombus. Reviewed, Interpreted and Dictated by Tiffanie Garcia MD Transcribed by Estee Cruz Authenticated and [facility]
== END 2025-02-02 23:59 | disposition home or self-care (01) ==
LOC: RAD 07:38
PROVIDERS: Visit Provider Specialist
DX: M50.221 Other cervical disc displacement at C4-C5 level (principal); M50.222 Other cervical disc displacement at C5-C6 level; M50.31 Other cervical disc degeneration, high cervical region; M50.322 Other cervical disc degeneration at C5-C6 level; M50.323 Other cervical disc degeneration at C6-C7 level; R90.89 Other abnormal findings on diagnostic imaging of central nervous system; G43.909 Migraine, unspecified, not intractable, without status migrainosus; R29.2 Abnormal reflex; R26.89 Other abnormalities of gait and mobility; R29.898 Other symptoms and signs involving the musculoskeletal system
CPT/HCPCS: 70544; 72141

== ENCOUNTER 2025-02-16 15:00 | Outpatient (RCR) | payer BC, SELFPAY | END 2025-02-16 23:59 | disposition home or self-care (01) | LOC: PT 15:00 | PROVIDERS: Visit Provider Family Medicine Addiction Medicine | DX: R47.89 Other speech disturbances (principal); R53.1 Weakness | CPT/HCPCS: 97110; 97116; 97163; 97530 ==

== ENCOUNTER 2025-02-23 14:49 | Outpatient (RCR) | payer BC, SELFPAY | END 2025-02-23 23:59 | disposition home or self-care (01) | LOC: PT 14:49 | PROVIDERS: Visit Provider Family Medicine Addiction Medicine | DX: R53.1 Weakness (principal) | CPT/HCPCS: 97110; 97530 ==

== ENCOUNTER 2025-03-03 14:16 | Emergency (ER) | payer BC, SELFPAY ==
[2025-03-03] VITALS (11 sets, daily range): BP systolic 109–144; BP diastolic 74–92; PULSE 72–88; RESP 18–19; TEMP 36.8; O2SAT 95–99; BMI 59.5
--- NOTE | 2025-03-03 14:27 | CT_ITS ---
FINAL REPORT TECHNIQUE: Axial CT of the abdomen and pelvis, without and with IV contrast. This study was performed with techniques to keep radiation doses as low as reasonably achievable, (ALARA). Individualized dose reduction techniques using automated exposure control or adjustment of mA and/or kV according to the patient's size were employed. CLINICAL HISTORY: right flank pain COMPARISON: 05/19/2023 FINDINGS: Abdomen: Lung bases are clear. Liver has an unremarkable CT appearance. The gallbladder is distended without biliary ductal dilatation. The spleen, pancreas and adrenal glands are unremarkable. Precontrast imaging shows no renal stone disease. Postcontrast imaging of the kidneys shows no hydronephrosis. There is an exophytic mass in the posterior aspect of the left kidney measuring 16 mm in size, stable since the prior exam. The density suggests a complex cyst. No other renal masses identified. No bowel obstruction or fluid collection is seen. There is a new midline abdominal wall hernia containing transverse colon, with a relatively wide opening of up to 7 cm. Pelvis: The appendix is normal in appearance. Pelvic bowel loops are unremarkable. No fluid collection or adenopathy is seen. There is a left ovarian cyst measuring 3 cm in size. The uterus and right ovary are normal, the uterus containing an IUD. IMPRESSION: 1. No renal stone disease or hydronephrosis is noted. 2. No evidence of bowel obstruction. 3. Left ovarian cyst measuring 3 cm, follow-up ultrasound in 2 to 3 months is suggested for further evaluation. Reviewed, Interpreted and Dictated by Rylie Henry MD Transcribed by Soheila Hoff Authenticated and [facility]
--- NOTE | 2025-03-03 14:28 | XR_ITS ---
FINAL REPORT TECHNIQUE: Portable chest CLINICAL HISTORY: short of breath COMPARISON: None FINDINGS: PORTABLE CHEST: No acute pulmonary opacity is present. There is no evidence of effusion or pneumothorax. Mediastinum is unremarkable. Heart size is normal. IMPRESSION: No acute abnormality. Reviewed, Interpreted and Dictated by Rylie Henry MD Transcribed by Soheila Hoff Authenticated and [facility]
--- OUTSIDE RECORDS SUMMARY | 2025-03-03 14:29 | XMS_ITS | Data Portability ---
Author Organization [facility] [place] [facility] Address [address] [place] [address] Assessment No assessment recorded. Plan of Treatment Reminders Order Date Submit Date Provider Last Modified By Organization Details Last Modified Time Details Appointments DERM ESTABLI SHED 2025 03:00P M DAYANARA SY PA-C Not available Not available Not available NEW PATIENT O 2025 10:00A M SANDHYA LOVE MD Not available Not available Not available Lab None recorde d. Referral rheumat ologist referra l 2024 025 [email or web address] [facility], [address] [place] [address], [phone], 01/19/2025 09:26:57 Procedures None recorde d. Surgeries None recorde d. Imaging None recorde d. Medication Orders triamci nolone acetoni de 0.1 % topical ointmen t [address] [facility], [address] [facility] [address], [id number], 12/21/2024 16:36:14 Patient TargetsNo targets recorded. Patient InstructionsNo instructions recorded. Reason for Referral Career Development Specialist Referral for Psoriasis vulgaris Referring Physician: Dayanara Sy, Dermatology, Encounter Date: 12/21/2024 Medical Equipment None Reported. Allergies Allergen ID Allergen Name Allergen Category Reaction Reaction Severity Criticality Documentation Date Start Date Code Code System Note Provider Name and Address Organization Details Recorded Time 525919 Bactrim medicatio n Not available Not available Not available 12/21/2024 65018 9 RxNorm Lizbeth Rolle [facility] 14:10:42 870947 acetamino phen / hydrocodo ne medicatio n Not available Not available Not available 12/21/2024 28193 2 RxNorm Lizbeth Rolle [facility] 14:10:47 Medications Name Sig Start Date Stop Date Status Note LastModified by Organization Details LastModified Time triamcinolone acetonide 0.1 % topical ointment Apply to the AA BID x2 weeks then twice weekly. Not for face, armpits , or groin. 025 active Not Available Not Available Not Avai lable atorvastatin active Not Available Not Available Not Available propranolol active Not Available Not A vailable Not Available hydralazine active Not Available Not A vailable Not Available metformin active Not Available Not Graciela ilable Not Available Vitals None Recorded Social History None recorded. Functional Status None recorded. Mental Status None recorded. Family History Nothing Reported. Medical History No medical history recorded. Gynecological HistoryNo gynecological history recorded. Obstetrics History GPAL:G 0 P 0 0 0 0 Past Encounters Encounter ID Performer Location Encounter Start Date Encounter Closed Date Diagnosis/Indication Diagnosis SNOMED-CT Code Diagnosis ICD10 Code Diagnosis IMO Codes Diagnosis Note [id number] DAYANARA SY PA-C [address] [place] [address] 12/21/2024 14:04:56 12/21/2024 14:41:42 Psoriasis vulgaris [id number] L40.0 609 Discussed that psoriasis is a chronic disease that can wax and wane. Psoriasis has been linked to arthritis and cardiovasc ular disease. Healthy diet, exercise are recommende dPt notes she was hospitaliz ed this weekend - discussed that high stressors such as hospitaliz ations can cause psoriasis to flarePt notes this was second hospitaliz ation for what was thought to be a stroke initially. She notes she has been told it was possibly a complex migraine.P t notes joint pain - shoulders, elbows, knee, and ankles seem to hurt the worstPt notes she is joint pain is worse in the morning, gets better throughout the dayWill refer to rheum for workup for her joint pain.Discu ssed 20-30% of patients with plaque psoriasis also develop psoriatic arthritis. Discussed biologic medication s. We discussed the requiremen t for labwork, including CBC, CMP, Hepatitis panel, HIV, and QuantiFERO N Gold for TB. Discussed biologic treatments work, discusses the various treatment options (Enbrel, Humira, Stelara, Cosentyx, Taltz, Tremfya, Otezla, etc.), and discusses the most important side effects, which include but are not limited to, increased infection rate, reactivati on of TB, injection site reactions, multiple sclerosis- like reactions, and possible increase in skin cancer and lymphoma risk. For Cosentyx and Taltz, there is an increased risk of inflammato ry bowel disease (Crohn and ulcerative colitis). Per pt, no h/o cancer, CHF, MS, TB, HIV, hepatitis. Plan to see rheumatolo gy before starting biologic.W ill send TAC 0.1% ointment - rec occlusion Health Concerns Section Related Observation LastModified by Organization Detai ls LastModified Time None Recorded Concern Status LastModified by Organization Details LastModified Time None Recorded Advance Directives Directive None Recorded Payers Insurance Date Sequence Insurance Name Policy Number Policy Rivera Covered Member ID Rivera Member ID Guarantor Name 02/11/2025 1 [id number] [id number] Sidra Whitt [id number] Sidra Whitt Notes Date Note Type Note Provider Name and Address Organization Details Recorded Time 12/21/2024 text/html Patient is here for psoriasis - location: arms , legs - treatments tried in past: tremfya, clobetasol - currently using: N/a - hot, tender joints, morning stiffness? yes - reports: it is worsening - MANAGER OPERATIONAL DAYANARA SY PA-C [address] [place], [address], [facility] - [facility] 12/27/2024 07:42:12 OBGyn Episode No OBEpisode recorded.
--- OUTSIDE RECORDS SUMMARY | 2025-03-03 14:29 | XMS_ITS | Clinical Summary ---
[facility] Organization [facility] Address [address] [place] [address] Care Team Providers Care Jig Boring Machine Set Up Operator Name Role Phone System, Provider Not In Primary Care Provider Un available Allergies Active Allergy Reactions Criticality Noted Date Comments Cefdinir Rash Low 01/05/2021 Hydrocodone Hives 11/30/2024 Sulfamethoxazole-Trimethopri m Rash Low 02/25/2020 Bactrim (sulfamethoxazole-trimet hoprim) - Unknown Medications PROMETHAZINE-DM PO Take by mouth. Active fluticasone (FLONASE) 50 MCG/ACT nasal spray Administer 2 sprays into the nostril(s) as directed by provider Daily. Active [place]-3 Fatty Acids (FISH OIL) 1000 MG capsule [...] MOUTH EVERY EVENING WITH MEAL Active rizatriptan PROFESSOR OF COMMUNICATION AND WRITING (MAXALT-PROFESSOR OF COMMUNICATION AND WRITING) 5 MG disintegrating tablet DISSOLVE ONE TABLET BY MOUTH EVERY DAY NEEDED FOR HEADACHE Active montelukast (SINGULAIR) 10 MG tablet Take 1 tablet by mouth Daily. 90 tablet 1 Active atorvastatin (LIPITOR) 20 MG tablet Take 1 tablet by mouth Every Night. 90 tablet 3 5 Active Active Problems Problem Noted Date Diagnosed Date Left-sided weakness 12/18/2024 Morbid obesity 12/18/2024 LEONID (obstructive sleep apnea) 12/18/2024 Encounters Date Type Department Care Team Description 12/18/2024 2:35 PM EDT - 12/20/2024 1:36 PM EDT Hospital Encounter [facility] [address] [place] [address] Rayshawn Felix MD Shields, DO Karen Orlando Oshuare, MD Fluency disorder (Primary Dx); Left-sided weakness Discharge Disposition: Home or Self Care 12/18/2024 Travel from Last 3 Months Immunizations Immunization [...] this topic Medical Devices Implanted Type Area Ash Worker Device Identifier Shelf Expiration Date Model / [...] 12/18/2024 2:52 PM EDT SCANNED EKG 12/18/2024 from Last 3 Months Results * CBC Auto Differential (12/19/2024 1:04 PM EDT) [facility] WBC 7.08 3.40 - 10.80 10*3/mm3 12/19/2024 1:17 PM EDT [facility] RBC 4.54 3.77 - 5.28 10*6/mm3 12/19/2024 1:17 PM EDT [facility] Hemoglobin 13.1 12.0 - 15.9 g/dL 12/19/2024 1:17 PM EDT [facility] Hematocrit 39.2 34.0 - 46.6 % 12/19/2024 1:17 PM EDT [facility] MCV 86.3 79.0 - 97.0 fL 12/19/2024 1:17 PM EDT [facility] MCH 28.9 26.6 - 33.0 pg 12/19/2024 1:17 PM EDT [facility] MCHC 33.4 31.5 - 35.7 g/dL 12/19[facility]24 [facility] RDW 14.1 12.3 - 15.4 % 12/19/2024 [facility] RDW-SD 44.8 37.0 - 54.0 fl 12/19/2024 1:[facility] MPV 9.4 6.0 - 12.0 fL 12/19/2024 1:17 PM EDT [facility] Platelets 290 140 - 450 10*3/mm3 12/19/2024 1:[facility] Neutrophil % 61.5 42.7 - 76.0 % 12/19/2024 1:[facility] Lymphocyte % 25.7 19.6 - 45.3 % 12/19/2024 1:[facility] Monocyte % 8.8 5.0 - 12.0 % 12/19/2024 1:[facility] Eosinophil % 3.1 0.3 - 6.2 % 12/19/2024 1:[facility] Basophil % 0.6 0.0 - 1.5 % 12/19/2024 1:[facility] Immature Grans % 0.3 0.0 - 0.5 % 12/19/2024 1:17 [facility] Neutrophils, Absolute 4.36 1.70 - 7.00 10*3/mm3 12/19/2024 1:17 [facility] Lymphocytes, Absolute 1.82 0.70 - 3.10 10*3/mm3 12/19/2024 1:17 PM EDT [facility] Monocytes, Absolute 0.62 0.10 - 0.90 10*3/mm3 12/19/2024 1:[facility] Eosinophils, Absolute 0.22 0.00 - 0.40 10*3/mm3 12/19/2024 1:17 PM EDT [facility] Basophils, Absolute 0.04 0.00 - 0.20 10*3/mm3 12/19/2024 1:17 PM EDT [facility] Immature Grans, Absolute 0.02 0.00 - 0.05 10*3/mm3 12/19/2024 1:17 PM EDT [facility] nRBC 0.0 0.0 - 0.2 /100 WBC 12/19/2024 1:17 PM EDT [facility] Blood Venipuncture / Unknown 12/19/2024 1:04 PM EDT 12/19/2024 1:09 PM EDT Christophe Kyle [facility] LAB BLOOD ORDERABLES Leandra l Result Performing Organization Address City/[facility]/ZIP Co de Phone Number [facility]
[address] [place] [address], * (ABNORMAL) Sedimentation Rate (12/19/2024 1:04 PM EDT) Sed Rate 41(H) 0 - 20 mm/hr 12/19/2024 1:23 PM EDT [facility] Blood Venipuncture / Unknown 12/19/2024 1:04 PM EDT 12/19/2024 1:09 PM EDT Christophe Kyle [facility] LAB BLOOD ORDERABLES Leandra l Result [facility]
[address] [place] [address], [place] [phone] * (ABNORMAL) C-reactive Protein (12/19/2024 1:04 PM EDT) C-Reactive Protein 1.37(H) 0.00 - 0.50 mg/dL 12/19/2024 1:40 PM EDT [facility] Blood Venipuncture / Unknown 12/19/2024 1:04 PM EDT 12/19/2024 1:10 PM EDT Christophe Green DO LAB BLOOD ORDERABLES Leandra l Result Performing Organization Address [facility] Co de Phone Number [facility]
[address] [place] [address], * (ABNORMAL) Hemoglobin A1c (12/19/2024 1:04 PM EDT) Hemoglobin A1C 5.83(H) 4.80 - 5.60 % 12/19/2024 1:26 PM EDT [facility] Blood Venipuncture / Unknown 12/19/2024 1:04 PM EDT 12/19/2024 1:09 PM EDT Narrative [facility] - 12/19/2024 1:26 PM EDT Hemoglobin A1C Ranges: Increased Risk for Diabetes 5.7% to 6.4% Diabetes >= 6.5% Diabetic Goal < 7.0% Misti Gay CLINIC OFFICE MANAGER LAB BLOOD ORDERABLES Final R esult Performing Organization Address [facility] Co de Phone Number [facility]
[address] [place] [address], * (ABNORMAL) Lipid Panel (12/19/2024 1:04 PM EDT) Total Cholesterol 180 0 - 200 mg/dL 12/19/2024 1:40 PM EDT [facility] Triglycerides 117 0 - 150 mg/dL 12/19/2024 1:40 PM EDT [facility] HDL Cholesterol 49 40 - 60 mg/dL 12/19/2024 1:40 PM EDT [facility] LDL Cholesterol 110(H) 0 - 100 mg/dL 12/19/2024 1:40 PM EDT [facility] VLDL Cholesterol 21 5 - 40 mg/dL 12/19/2024 1:40 PM EDT [facility] LDL/HDL Ratio 2.20 12/19/2024 1:40 PM EDT [facility] Blood Venipuncture / Unknown 12/19/2024 1:04 PM EDT 12/19/2024 1:10 PM EDT Narrative [facility] - 12/19/2024 1:40 PM EDT Cholesterol [...] is calculated using the NIH LDL-C calculation. Misti Gay APRN LAB BLOOD ORDERABLES Final R esult [facility]
[address] [place] [address], * Comprehensive Metabolic Panel (12/19/2024 1:04 PM EDT) Glucose 93 65 - 99 mg/dL 12/19/2024 1:40 PM EDT [facility] BUN 10.0 6.0 - 20.0 mg/dL 12/19/2024 1:40 PM EDT [facility] Creatinine 0.66 0.57 - 1.00 mg/dL 12/19/2024 1:40 PM EDT [facility] Sodium 140 136 - 145 mmol/L 12/19/2024 1:40 PM EDT [facility] Potassium 3.9 3.5 - 5.2 mmol/L 12/19/2024 1:40 PM [facility] Chloride 106 98 - 107 mmol/L 12/19/2024 1:40 PM [facility] CO2 22.8 22.0 - 29.0 mmol/L 12/19/2024 1:40 PM [facility] Calcium 8.9 8.6 - 10.5 mg/dL 12/19/2024 1:40 PM [facility] Total Protein 6.9 6.0 - 8.5 g/dL 12/19/2024 1:40 PM [facility] Albumin 3.8 3.5 - 5.2 g/dL 12/19/2024 1:40 PM [facility] ALT (SGPT) 21 1 - 33 U/L 12/19/2024 1:40 PM [facility] AST (SGOT) 26 1 - 32 U/L 12/19/2024 1:40 PM [facility] Alkaline Phosphatase 82 39 - 117 U/L 12/19/2024 1:40 PM [facility] Total Bilirubin 0.3 0.0 - 1.2 mg/dL 12/19/2024 1:40 PM [facility] Globulin 3.1 gm/dL 12/19/2024 1:40 PM [facility] Comment:Calculated Result A/G Ratio 1.2 g/dL 12/19/2024 1:40 PM [facility] BUN/Creatinine Ratio 15.2 7.0 - 25.0 12/19/2024 1:40 PM [facility] Anion Gap 11.2 5.0 - 15.0 mmol/L 12/19/2024 1:40 PM [facility] eGFR 116.8 >60.0 mL/min/1.7 3 12/19/2024 1:40 PM [facility] Blood Venipuncture / Unknown 12/19/2024 1:04 PM EDT 12/19/2024 1:10 PM EDT Narrative [facility] - 12/19/2024 1:40 PM EDT GFR [...] DO LAB BLOOD ORDERABLES Leandra l Result [facility]
[address] [place] [address], * Telemetry Scan (12/19/2024 8:00 AM EDT) [facility] ECG ORDERABLES Final Result * POC Glucose Once (12/19/2024 5:55 AM EDT) Only the most recent of4 resultswithin the time period is included. Glucose 110 70 - 130 mg/dL 12/19/2024 5:57 AM EDT [facility] Comment:Serial Number: [id number]: [id number] Blood 12/19/2024 5:55 AM EDT 12/19/2024 5:57 AM EDT Christophe Green DO POINT OF CARE TEST ORDERA BLES Final Result [facility]
[address] [place] [address], * MRI Brain Without Contrast (12/19/2024 1:43 AM EDT) Anatomical Region Laterality Modality Head, Neck N/A Magnetic Resonan ce 12/19/2024 2:53 AM EDT Impressions 12/19/2024 2:55 AM EDT Impression: No acute intracranial abnormality. Electronically Signed: Christophe Grant MD 12/19/2024 2:55 AM EDT Workstation ID: [id number] Narrative 12/19/2024 2:55 AM EDT MRI BRAIN [...] MD 12/19/2024 2:55 AM EDT Workstation ID: [id number] us Misti Krysten Gay CLINIC OFFICE MANAGER IMG MRI ORDERABLES Final Res ult * (ABNORMAL) Blood Gas, Venous With Co-Ox (12/18/2024 6:48 PM EDT) Site OTHER 12/18/2024 6:49 PM EDT [facility] pH, Venous 7.394 7.310 - 7.410 pH Units 12/18/2024 6:49 PM EDT [facility] pCO2, Venous 41.9 41.0 - 51.0 mm Hg 12/18/2024 6:49 PM EDT [facility] pO2, Venous 65.3(H) 27.0 - 53.0 mm Hg 12/18/2024 6:49 PM EDT [facility] Comment:83 Value above refer ence range HCO3, Venous 25.6 22.0 - 28.0 mmol/L 12/18/2024 6:49 PM EDT [facility] Base Excess, Venous 0.5 -2.0 - 2.0 mmol/L 12/18/2024 6:49 PM EDT [facility] Hemoglobin, Blood Gas 13.6(L) 14 - 18 g/dL 12/18/2024 6:49 PM EDT [facility] Oxyhemoglobin Venous 92.3 % 11/21 6:49 PM EDT [facility] Comment:83 Value above refer ence range Methemoglobin Venous 0.1 % 11/21 6:49 PM EDT [facility] Carboxyhemoglobin Venous 1.3 % 12/18/2024 6:49 PM EDT [facility] CO2 Content 26.9 22 - 33 mmol/L 12/18/2024 6:49 PM EDT [facility] Temperature 37.0 12/18/2024 6:49 PM EDT [facility] Barometric Pressure for Blood Gas 12/18/2024 6:49 PM EDT [facility] Comment:N/A Modality Room Air 12/18/2024 6:49 PM EDT [facility] FIO2 21 % 12/18/2024 6:49 PM EDT [facility] Rate 0 Breaths/ minute 12/18/2024 6:49 PM EDT [facility] PIP 0 cmH2O 12/18/2024 6:49 PM EDT [facility] Comment:Meter: [id number] Creative Art Therapist: [id number] IPAP 0 12/18/2024 6:49 PM EDT [facility] EPAP 0 12/18/2024 6:49 PM EDT [facility] Venous Blood 12/18/2024 6:48 PM EDT 12/18/2024 6:48 PM EDT us Christophe Green DO LAB BLOOD ORDERABLES Leandra l Result [facility]
[address] [place] [address], * CT Outside Head (12/18/2024 4:02 PM EDT) Only the most recent of2 resultswithin the time period is included. Narrative SYSTEMGENERATED, DOCUMENTATION - 12/18/2024 4:02 PM EDT This procedure was auto-finalized with no dictation required. us [employer] Outside Films IMG CT ORDERABLES Final Re sult * ECG Scan (12/18/2024) [facility] ECG ORDERABLES Final Result from Last 3 Months Insurance [id number] PPO Advance Directives * CPR (Attempt to Resuscitate) (Latest Code Status on File) Date Activated Date Inactivated Comments 12/18/2024 5:29 PM 12/20/2024 3:42 PM Question Answer Comments Code Status (Patient has no pulse and is not breathing): CPR (Attempt to Resuscitate) Medical Interventions (Patie nt has pulse or is breathing): Full Support Care Teams Jig Boring Machine Set Up Operator Relationship Specialty Start Date End Date System, [place] [address] PCP - General 01/18/22
--- OUTSIDE RECORDS SUMMARY | 2025-03-03 14:29 | XMS_ITS | Encounter Summary ---
Author Organization [facility] Address [address] [place] [address] Care Team Providers Care Boiler Out Name Role Phone Ninfa Ramos APRN Primary Care Provider [phone] Reason for Visit * Reason Comments Med Refill Encounter Details Date Type Department Care Team (Late st Contact Info) Description 07/10/2021 Refill [facility] [address] [place] [address] Ninfa Ramos APRN [address] [place] [address] Anxiety Social History Tobacco [...] documented as of this encounter Care Teams Boiler Out Relationship Specialty Start Date End Date Ninfa Ramos APRN [address] [place] [address] PCP - General 09/01/20 10/17/24 documented as of this encounter
--- OUTSIDE RECORDS SUMMARY | 2025-03-03 14:29 | XMS_ITS | Encounter Summary ---
Author Organization [facility] Address [address] [place] [address] Care Team Providers Care Service Desk Team Lead Name Role Phone Ninfa Ramos APRN Primary Care Provider [phone] Reason for Visit * Reason Comments Med Refill Encounter Details Date Type Department Care Team (Late st Contact Info) Description 10/01/2022 Refill [facility] [address] [place] [address] Ninfa Ramos APRN [address] [place] [address] Social History Tobacco Use Types [...] documented as of this encounter Care Teams Service Desk Team Lead Relationship Specialty Start Date End Date Ninfa Ramos APRN [address] [place] [phone] PCP - General 09/01/20 10/17/24 documented as of this encounter
--- OUTSIDE RECORDS SUMMARY | 2025-03-03 14:29 | XMS_ITS | Clinical Summary ---
Author Organization [facility] Address [address] [place] [address] Care Team Providers Care Tourist Information Officer Name Role Phone Unavailable Primary Care Provider [...] 2018 [facility]-HPV/Cotest 2018 [facility]-Depression Screening 04/02/2022 04/02/2021 [id number] Vaccine ( season) 2024 06/23/2020, 06/02/2020 [facility]-Influenza [...] patient's age to complete this topic Insurance [facility]
--- OUTSIDE RECORDS SUMMARY | 2025-03-03 14:29 | XMS_ITS | Patient Health Record ---
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) 021 Active confirmed HYPERTROPHY OF BREAST Problem Secondary dysmenorrhea (02642629) Secondary dysmenorrhea (N94.5) 019 Active confirmed Secondary dysmenorrhea Problem Secondary dysmenorrhea (66145548) Secondary dysmenorrhea (N94.5) 020 Active confirmed Secondary dysmenorrhea Problem Pelvic and perineal pain (603631242) Abdominal pain, suprapubic (R10.2) 019 Active confirmed C/O pelvic pain Problem Gynecological examination normal (26577249750042 4) Cervical smear, as part of routine gynecological examination (Z01.419) 019 Active confirmed Annual without abnormal findings Problem Stress (01583116) Other psychological or physical stress, not elsewhere [...] Coverage End Date Jose HUNGO [address] [place] [address] [id number] Sidra Whitt Self - patient is the insured Medical (General) History Medical History History ICD Code Endometriosis Yeast Infection Acid Reflux Anxiety abnormal pap Obesity UTI Surgical History Surgery Date(Month/Year) C/S 2010, 2013 lap 2009 wisdom teeth 2005 Hospitalization History Reason Date(Month/Year) C/S
--- OUTSIDE RECORDS SUMMARY | 2025-03-03 14:29 | XMS_ITS | Encounter Summary ---
Author Organization [facility] Address [address] [place] [address] Care Team Providers Care Nurse Practitioner Physicians Assistant Name Role Phone System, Provider Not In Primary Care Provider Un available Encounter Details Date Type Department Care Team (Late st Contact Info) Description 05/21/2013 Conversion Encounter [facility] HISTORICAL CONV [address] [place] [address] Interface, See Report Social History [...] See Report - 05/21/2013 9:00 AM EST [place] [address] DISCHARGE SUMMARY PATIENT NAME: SIDRA WHITT ROOM NUMBER: [id number] VISIT NUMBER: [id number] DATE OF : 1990 DATE OF ADMISSION: [...] for: MD EMERY Farris/MIGUEL/shmuel Voice Rec. ID #[id number] Voice Original ID #[id number] Doc ID #[id number] Rev. #1 [No PCP on file] cc: Lashanda Anguiano MD* DO NOT TEXT EDIT THIS LINE :CDS:353: Authenticated by ROCKY BRAY On 07/09/2013 08:20:31 PM Authenticated by LASHANDA ANGUIANO M.D. On 2013 07:31:09 AM documented in this encounter OR Notes * Op Note - Interface, See Report - 05/21/2013 9:00 AM EST [place] [address] OPERATIVE REPORT PATIENT NAME: SIDRA WHITT 1 HOSPITAL NO: [id number] DATE OF : 1990 DATE OF OPERATION: 05/21/2013 ADMITTING PHYSICIAN/SURGEON: Lashanda Anguiano MD VENUE ATTENDANT: Stefany Llamas MD/Resident PREOPERATIVE DIAGNOSES: 1. Term gestation . 2. Previous section. POSTOPERATIVE DIAGNOSES: 1. Term gestation . 2. Previous section. PROCEDURE PERFORMED: Repeat low transverse section. ESTIMATED BLOOD LOSS: 1000 mL. ANTIBIOTICS: Ancef 2 grams. FINDINGS: Vigorous male with scores of 9 at one minute [...] Lashanda Anguiano MD* EWC/rxsmj Voice Rec. ID #[id number] Original Voice Rec. ID #[id number] Doc ID #[id number] Revision Count: 0 cc: Lashanda Anguiano MD* <start header> [place] [address] OPERATIVE REPORT PATIENT NAME: SIDRA WHITT 1 HOSPITAL NO: [id number] DATE OF : 1990 <end header> DO NOT TEXT EDIT THIS LINE :[employer] SUPERINTENDENT:[id number]: Authenticated by LASHANDA ANGUIANO M.D. On 05/28/2013 [...] EST) Creatinine 0.6 0.6 - 1.3 mg/dL [facility] Uric Acid 4.3 2.6 - 7.2 mg/dL [facility] Alkaline Phosphatase 91 25 - 100 Units/L [facility] AST (SGOT) 29 8 - 33 Units/L [facility] LDH 204(H) 100 - 190 Units/L [facility] ALT (SGPT) 21 7 - 40 Units/L [facility] Total Bilirubin 0.3 0.3 - 1.2 mg/dL [facility] Blood specimen (specimen) 05/23/2013 10:31 AM EST [facility] - 05/23/2013 11:02 AM EST Specimen Type: Blood Kyleigh Trevino PA-C LAB BLOOD ORDERABLES F inal Result Performing Organization Address City/[facility]/[place] [address], * (ABNORMAL) CBC (No diff) (05/22/2013 8:20 AM EST) WBC 9.24 3.50 - 10.80 K/[facility] RBC 3.37(L) 3.89 - 5.14 M/[facility] Hemoglobin 9.8(L) 11.5 - 15.5 g/dL [facility] Hematocrit 29.6(L) 34.5 - 44.0 % [facility] MCV 87.8 80.0 - 99.0 fL [facility] MCH 29.1 27.0 - 31.0 pg [facility] MCHC 33.1 32.0 - 36.0 g/dL [facility] RDW-CV 15.1(H) 11.3 - 14.5 % [facility] Platelets 155 150 - 450 K/[facility] Blood specimen (specimen) 05/22/2013 8:20 AM EST [facility] - 05/22/2013 9:10 AM EST Specimen Type: Blood Lashanda Anguiano MD LAB BLOOD ORDERABLES Final Result Performing Organization Address [facility]/[place] [address], * Rapid drug screen, urine (05/20/2013 12:01 PM EST) THC Screen Interpretation Negative NEGATIVE ng/mL [facility] Phencyclidine (PCP), Urine Negative NEGATIVE ng/mL [facility] Cocaine Screen, Urine Negative NEGATIVE ng/mL [facility] Methamphetamine, Urine Negative NEGATIVE ng/mL [facility] Opiate Screen, Urine Negative NEGATIVE ng/mL [facility] Amphetamine, Urine Qual Negative NEGATIVE ng/mL [facility] Comment: DF by [id number] @ 05/20/2013 12:18 Test Cutoff THC 50 [...] method. Benzodiazepine Screen, Urine Negative NEGATIVE ng/mL [facility] TCA Screen Negative NEGATIVE ng/mL [facility] Methadone Screen, Urine Negative NEGATIVE ng/mL [facility] Barbiturates Screen, Urine Negative NEGATIVE ng/mL [facility] Oxycodone Screen, Urine Negative NEGATIVE ng/mL [facility] Propoxyphene Screen Negative NEGATIVE ng/mL [facility] Buprenorphine, Screen, Urine Negative NEGATIVE ng/mL [facility] Urine specimen (specimen) 05/20/2013 12:01 PM EST Narrative [facility] - 05/20/2013 12:18 PM EST Specimen Type: Urine us Lashanda Anguiano MD URINE ORDERABLES Final Res ult [facility] [address] [place] [address], * Type and screen (05/20/2013 11:20 AM EST) ABORh O Rh Positive [facility] Antibody Screen Negative [facility] Blood specimen (specimen) 05/20/2013 11:20 AM EST [facility] - 05/20/2013 12:29 PM EST Specimen Type: Blood Lashanda Anguiano MD BLOOD BANK TEST ORDERABLES Final Result Performing Organization Address [facility] [place] [address], * (ABNORMAL) CBC (No diff) (05/20/2013 11:20 AM EST) WBC 11.88(H) 3.50 - 10.80 [facility] RBC 4.26 3.89 - 5.14 /[facility] Hemoglobin 12.5 11.5 - 15.5 g/dL [facility] Hematocrit 37.3 34.5 - 44.0 % [facility] MCV 87.6 80.0 - 99.0 fL [facility] MCH 29.3 27.0 - 31.0 pg [facility] MCHC 33.5 32.0 - 36.0 g/dL [facility] RDW-CV 14.9(H) 11.3 - 14.5 % [facility] Platelets 205 150 - 450 K/[facility] Blood specimen (specimen) 05/20/2013 11:20 AM EST [facility] - 05/20/2013 11:46 AM EST Specimen Type: Blood Lashanda Anguiano MD LAB BLOOD ORDERABLES Final Result Performing Organization Address [facility] [place] [address], documented in this encounter Visit Diagnoses Not on filedocumented in this encounter Care Teams Nurse Practitioner Physicians Assistant Relationship Specialty Start Date End Date System, [place] [address] PCP - General 01/18/22 documented as of this encounter
--- OUTSIDE RECORDS SUMMARY | 2025-03-03 14:29 | XMS_ITS | Clinical Summary ---
Author Organization [facility] Address [address] [place] [address] Phone Care Team Providers Care State Federal Relations Deputy Director Name Role Phone Unavailable Primary Care Provider [...] HPV/Pap Cotest 2018 COVID-19 Vaccine ( - 2024- season) 2024 Influenza Vaccine (#1) 2024 RSV or 60+ (1 - 1-dose 75+ series) 07/20/2063 Hepatitis B Vaccine Completed 09/02/2000, 04/02/2000, 02/27/2000 Meningococcal B Vaccine Aged Out No l onger eligible based on patient's age to complete this topic Pneumococcal Vaccine 0-49 Aged Out No longer eligible based on patient's age to complete this topic [place]
[2025-03-03 14:40] LABS: Adenovirus F 40/41, stool Not Detected (NotDetected); Clostridium Difficile A/B, PCR Not Detected (NotDetected); Cyclospora Cayetanesis Not Detected (NotDetected); Plesimonas Shigalloides, PCR Not Detected (NotDetected); Salmonella, PCR Not Detected (NotDetected); Shiga-like toxin E coli Not Detected (NotDetected); Shigella Enterovasive E coli Not Detected (NotDetected); Vibrio, PCR Not Detected (NotDetected); Yersinia Entercolitica, PCR Not Detected (NotDetected)
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
[2025-03-03 14:51] LABS: Hematocrit 40.3 % (37.0-47.0); Hemoglobin 13.7 g/dL (12.2-16.2); Immature Granulocytes % 0.4 %; Mean Corpuscular HGB Conc 34.0 g/dL (31.8-35.4); Mean Corpuscular Hemoglobin 29.5 pg (27.0-31.2); Mean Corpuscular Volume 86.7 fl (81-99); Nucleated Red Blood Cells % 0 %; Platelet Count 267 K/mm3 (142-424); Red Blood Count 4.65 M/mm3 (4.20-5.40); Red Cell Distribution Width-SD 42.5 fL; White Blood Count 10.8 K/mm3 (4.8-10.8)
[2025-03-03] MEDS: FAMOTIDINE 20MG/2ML VIAL 20 MG IV (14:53)
[2025-03-03] MEDS: 0.9 % SODIUM CHLORIDE 1000ML 1,000 ML 999 ML IV (14:53)
--- NOTE | 2025-03-03 14:54 | HMH.ITSTN ---
called ER to request preg test
[2025-03-03] MEDS: SODIUM CHLORIDE 0.9% 25ML BAG 25 ML IV (14:55)
[2025-03-03 15:07] LABS: Alanine Aminotransferase 32 U/L (12-78); Albumin Level 4.1 g/dl (3.5-5.0); Albumin/Globulin Ratio 1.2 (1.1-1.8); Alkaline Phosphatase 121 U/L (38-126); Anion Gap 9.0 mEq/L (5-15); Aspartate Amino Transferase 34 U/L (14-36); Bilirubin,Total 0.7 mg/dl (0.2-1.3); Blood Urea Nitrogen 12 mg/dl (7-17); Calcium 8.1 mg/dl (8.4-10.2); Carbon Dioxide 26 mmol/L (22.0-30.0); Chloride 103 mmol/L (98-107); Creatinine Clearance Estimated 112 mL/min (50-200); Creatinine,Serum 0.60 mg/dl (0.52-1.04); Estimated Glomerular Filt Rate 113 ml/min (>60); GFR (African American) 137 ML/MIN (>60); Globulin 3.4 g/dL (1.3-3.2); Glucose 90 mg/dl (74-100); Lipase 83 U/L (23-300); Magnesium 1.8 mg/dl (1.6-2.3); Potassium 4.0 mmoL/L (3.5-5.1); Sodium 134 mmol/L (136-145); Total Protein,Serum 7.5 g/dl (6.3-8.2)
[2025-03-03 15:12] LABS: C-Reactive Protein 18.6 mg/L (0-4)
[2025-03-03 15:13] LABS: HCG Qualitative, Serum Negative (Negative)
[2025-03-03] MEDS: IOPAMIDOL-370 (76%);100ML BOTTLE 75 ML IV (15:26)
[2025-03-03] MEDS: SODIUM CHLORIDE 0.9% 10ML SYR (RAD ONLY) 10 ML IV (15:27)
[2025-03-03 15:28] LABS: Troponin I < 0.01 ng/ml (0.00-0.034)
[2025-03-03] MEDS: ONDANSETRON 4MG/2ML VIAL 4 MG IV (16:30)
[2025-03-03] MEDS: MORPHINE 4MG/ML SYRINGE 4 MG IV (16:31)
== END 2025-03-03 17:29 | disposition home or self-care (01) ==
PROVIDERS: Emergency Provider Student in an Organized Health Care Education/Training Program; PCP Nurse Practitioner
DX: R19.7 Diarrhea, unspecified (principal); F33.9 Major depressive disorder, recurrent, unspecified; F41.1 Generalized anxiety disorder
CPT/HCPCS: 71045; 74177; 80053; 83690; 83735; 84484; 84703; 85025; 85651; 86140; 87507; 96361; 96374; 96375; 99285; J1308; J2270; J2405; J7030; Q9967